=== PATIENT | male | born 1950 | race Caucasian/White ===

== ENCOUNTER 2016-06-15 14:31 | Observation (INO) | payer MEDICARE ==
[~2016-06-15] VITALS: Ht 177.8 cm; Wt 64.0 kg
[~2016-06-15 14:31] MED LIST: CEFU1TAB20 PO; LISI10TA3 PO; NITR0.4S SL; RISPM2 SL; TAMS0.4C4 PO; WARF-18 PO; ZOCO20TA PO
[2016-06-15 14:35] VITALS: BP 119/72; PULSE 88; RESP 20; TEMP 100; O2SAT 93
--- NOTE | 2016-06-15 16:34 | RADRPT ---
EXAM DATE/TIME: 06/15/2016 16:09 [place] COMPARISON: CHEST SINGLE AP, May 31, 2016, 15:26. INDICATIONS : Cough for several days. MEDICAL HISTORY : Chronic obstructive pulmonary disease. Myocardial infarction. SURGICAL HISTORY : CABG. ENCOUNTER: Initial ACUITY: 3 days PAIN SCORE: 4/10 LOCATION: Bilateral chest FINDINGS: Sternal wires from previous median sternotomy are noted. Heart and pulmonary vascularity are normal. Portion of bony skeleton visualized is unremarkable. CONCLUSION: Negative chest for acute disease. Timothy Pretty MD FACR on June 15, 2016 at 16:27 Board Certified Radiologist. This report was verified electronically.
--- NOTE | 2016-06-15 17:42 | PD ---
HPI Chief Complaint: Chest Pain Stated Complaint: RESPIRATORY COMPLAINT Time Seen by Provider: 17:42 Travel History International Travel<30 days: No Contact w/Intl Traveler<30days: No Known affected area: No History of Present Illness HPI 66-year-old male with history of COPD, lung CVA, hypertension, aortic valve replacement, CABG 2, presents to the emergency department for evaluation of substernal chest pain, acute onset this morning. Patient has had a cough productive of a white thick sputum with associated shortness of breath. He is uncertain of fever but has had chills. Patient denies any nausea or vomiting. No focal deficits or weakness. Patient does take Coumadin. He has no other symptoms to report. History Social History Alcohol Use: Yes (socially beer) Tobacco Use: No (QUIT 2006 smoked cigs) Allergies-Medications (Allergen,Severity, Reaction): Coded Allergies: No Known Allergies (Verified , 04/10/15) Reported Meds & Prescriptions Reported Meds & Active Scripts Active Cefuroxime (Cefuroxime Axetil) 500 Mg Tab 500 Mg PO BID Reported Warfarin 2.5 Mg Tab 2.5 Mg PO DAILY Tamsulosin (Tamsulosin HCl) 0.4 Mg Cap 0.4 Mg PO DAILY Zocor (Simvastatin) 20 Mg Tab 20 Mg PO HS Risperdal M-Tab (Risperidone) 2 Mg Tab 1.5 Mg SL Q12HR Nitrostat SL (Nitroglycerin) 0.4 Mg Subl 0.4 Mg SL DIRECTED PRN 1 tablet under the tongue as needed for chest pain. Repeat every 5 minutes for a total of 3 DOSES or call 911 if NO relief. Lisinopril 10 Mg Tab 10 Mg PO DAILY Review of Systems Except as stated in HPI: all other systems reviewed are Neg Physical Exam Narrative GENERAL: Chronically ill but well-nourished appearing male patient, brought in by wheelchair, in no acute distress SKIN: Warm and dry. HEAD: Atraumatic. Normocephalic. EYES: Pupils equal and round. No scleral icterus. No injection or drainage. ENT: No nasal bleeding or discharge. Mucous membranes pink and moist. NECK: Trachea midline. No JVD. CARDIOVASCULAR: Elevated rate and rhythm. 3/6 systolic aortic murmur appreciated. RESPIRATORY: No accessory muscle use. Coarse with an extra wheeze, diminished bilateral bases. Breath sounds equal bilaterally. GASTROINTESTINAL: Abdomen soft, non-tender, nondistended. Hepatic and splenic margins not palpable. MUSCULOSKELETAL: No obvious deformities. No clubbing. No cyanosis. No edema. NEUROLOGICAL: Awake and alert. No obvious cranial nerve deficits. Motor grossly within normal limits. Normal speech. Data Data Last Documented VS Vital Signs Date Time Temp Pulse Resp B/P Pulse Ox O2 Delivery O2 Flow Rate FiO2 06/15/16 18:37 90 22 118/87 93 06/15/16 14:35 100.0 Room Air Orders Electrocardiogram (06/15/16 15:53) Complete Blood Count With Diff (06/15/16 15:53) Basic Metabolic Panel (Bmp) (06/15/16 15:53) Ckmb (Isoenzyme) Profile (06/15/16 15:53) Troponin I (06/15/16 15:53) Chest, Single Ap (06/15/16 15:53) Iv Access Insert/Monitor (06/15/16 15:53) Ecg Monitoring (06/15/16 15:53) Oxygen Administration (06/15/16 15:53) Oximetry (06/15/16 15:53) B-Type Natriuretic Peptide (06/15/16 17:48) CKMB (06/15/16 14:30) CKMB% (06/15/16 14:30) Troponin I (06/15/16 19:26) Ckmb (Isoenzyme) Profile (06/15/16 19:26) Electrocardiogram (06/15/16 ) Labs Laboratory Tests Test 06/15/16 06/15/16 14:30 18:00 Sodium Level 136 MEQ/L Potassium Level 4.1 MEQ/L Chloride Level 101 MEQ/L Carbon Dioxide Level 25.8 MEQ/L Anion Gap 9 MEQ/L Blood Urea Nitrogen 10 MG/DL Creatinine 1.06 MG/DL Estimat Glomerular Filtration 70 ML/MIN Rate Random Glucose 82 MG/DL Calcium Level 8.7 MG/DL Total Creatine Kinase 116 U/L Creatine Kinase MB LESS THAN 0.5 NG/ML Troponin I LESS THAN 0.02 NG/ML White Blood Count 4.3 TH/MM3 Red Blood Count 4.35 MIL/MM3 Hemoglobin 13.7 GM/DL Hematocrit 39.7 % Mean Corpuscular Volume 91.4 FL Mean Corpuscular Hemoglobin 31.5 PG Mean Corpuscular Hemoglobin 34.5 % Concent Red Cell Distribution Width 14.0 % Platelet Count 123 TH/MM3 Mean Platelet Volume 7.9 FL Neutrophils (%) (Auto) 74.5 % Lymphocytes (%) (Auto) 10.9 % Monocytes (%) (Auto) 12.0 % Eosinophils (%) (Auto) 0.2 % Basophils (%) (Auto) 2.4 % Neutrophils # (Auto) 3.2 TH/MM3 Lymphocytes # (Auto) 0.5 TH/MM3 Monocytes # (Auto) 0.5 TH/MM3 Eosinophils # (Auto) 0.0 TH/MM3 Basophils # (Auto) 0.1 TH/MM3 CBC Comment DIFF FINAL Differential Comment B-Type Natriuretic Peptide 137 PG/ML MDM Medical Decision Making Medical Screen Exam Complete: Yes Emergency Medical Condition: Yes Medical Record Reviewed: Yes Differential Diagnosis COPD exacerbation versus CHF exacerbation versus ACS versus pneumonia versus malignancy Narrative Course 66-year-old male presents to the emergency department for evaluation of chest pain. Patient was protocoled by nursing staff. Chest x-ray has resulted no acute cardiopulmonary disease. CBC and BMP are without acute concern. Troponins less than 0.02. BNP is 137. After waiting in the emergency department waiting area, patient is moved to a triage room where I'm able to assess him repeat EKG and troponin is ordered. This is pending. Once a medical bed becomes available, patient will be transferred to that pod. Diagnosis Primary Impression: Chest pain Qualified Code: R07.9 - Chest pain, unspecified type Additional Impression: Shortness of breath Condition: Stable JsElvi HOWARD Jun 15, 2016 17:42
[2016-06-15 18:11] LABS: ANION GAP 9 MEQ/L (5-15); BICARBONATE 25.8 MEQ/L (21.0-32.0); BLOOD UREA NITROGEN 10 MG/DL (7-18); CHLORIDE 101 MEQ/L (98-107); GLOMERULAR FILTRATION RATE 70 ML/MIN (>89); POTASSIUM 4.1 MEQ/L (3.5-5.1); SODIUM (NA) 136 MEQ/L (136-145)
[2016-06-15 18:12] LABS: AUTOMATED NEUTROPHIL # 3.2 TH/MM3 (1.8-7.7); BASOPHIL # 0.1 TH/MM3 (0-0.2); BASOPHIL % 2.4 % (0.0-2.0); EOSINOPHIL % 0.2 % (0.0-4.0); HEMATOCRIT 39.7 % (39.0-51.0); HEMO FLAGS DIFF FINAL; LYMPH % 10.9 % (9.0-44.0); LYMPHOCYTE # 0.5 TH/MM3 (1.0-4.8); MEAN CELL VOLUME 91.4 FL (80.0-100.0); MEAN CORPUSCULAR HEMOGLOBIN 31.5 PG (27.0-34.0); MEAN CORPUSCULAR HGB CONC 34.5 % (32.0-36.0); NEUT % 74.5 % (16.0-70.0); PLATELET COUNT 123 TH/MM3 (150-450); RED BLOOD COUNT 4.35 MIL/MM3 (4.50-5.90); WHITE BLOOD COUNT 4.3 TH/MM3 (4.0-11.0)
[2016-06-15 18:14] LABS: CREATINE KINASE 116 U/L (39-308)
[2016-06-15 18:27] LABS: CKMB LESS THAN 0.5 NG/ML (0.5-3.6)
[2016-06-15 18:37] VITALS: BP 118/87; PULSE 90; RESP 22; O2SAT 93
--- NOTE | 2016-06-15 20:12 | EKG ---
Date Performed: 06/15/2016 Time Performed: 16:12:34 PTAGE: 66 years EKG: Sinus rhythm POSSIBLE LEFT ATRIAL ENLARGEMENT LEFT VENTRICULAR HYPERTROPHY AND ST-T CHANGE ABNORMAL ECG COMPARED TO PRIOR ELECTROCARDIOGRAM, ST-T wave changes are present. PREVIOUS TRACING : 05/31/2016 15.18 DOCTOR: Evaristo Gunter Interpretating Date/Time 06/15/2016 20:10:54
[2016-06-15 21:06] LABS: CREATINE KINASE 101 U/L (39-308)
[2016-06-15 21:18] VITALS: BP 128/64; PULSE 74; RESP 16; TEMP 101.2; O2SAT 91
[2016-06-15 21:18] LABS: CKMB LESS THAN 0.5 NG/ML (0.5-3.6)
[2016-06-15] MEDS ORDERED: AZITHROMYCIN INJ 500 MG in SODIUM CHLOR 0.9% 250 ML INJ 250 ML IV ONE (21:30)
[2016-06-15] MEDS ORDERED: SODIUM CHLORIDE 0.9% FLUSH 5 ML FLUSH IVF PRN (21:30)
[2016-06-15] MEDS ORDERED: cefTRIAXone INJ 1,000 MG in SODIUM CHLORIDE 0.9% INJ 100 ML IV ONE (21:30)
[2016-06-15] MEDS: RESP: ALBUTEROL 2.5 MG/3 ML NEB (SCH) INH ×2 (21:53→21:54)
--- NOTE | 2016-06-15 22:03 | PD ---
Data Data Last Documented VS Vital Signs Date Time Temp Pulse Resp B/P Pulse Ox O2 Delivery O2 Flow Rate FiO2 06/15/16 21:18 101.2 74 16 128/64 91 Room Air Orders Electrocardiogram (06/15/16 15:53) Complete Blood Count With Diff (06/15/16 15:53) Basic Metabolic Panel (Bmp) (06/15/16 15:53) Ckmb (Isoenzyme) Profile (06/15/16 15:53) Troponin I (06/15/16 15:53) Chest, Single Ap (06/15/16 15:53) Iv Access Insert/Monitor (06/15/16 15:53) Ecg Monitoring (06/15/16 15:53) Oxygen Administration (06/15/16 15:53) Oximetry (06/15/16 15:53) B-Type Natriuretic Peptide (06/15/16 17:48) CKMB (06/15/16 14:30) CKMB% (06/15/16 14:30) Troponin I (06/15/16 19:26) Ckmb (Isoenzyme) Profile (06/15/16 19:26) Electrocardiogram (06/15/16 ) CKMB (06/15/16 19:55) CKMB% (06/15/16 19:55) Blood Culture (06/15/16 21:27) Sodium Chloride 0.9% Flush (Ns Flush) (06/15/16 21:30) Ceftriaxone Inj (Rocephin Inj) (06/15/16 21:30) Azithromycin Inj (Zithromax Inj) (06/15/16 21:30) Albuterol Neb (Albuterol Neb) (06/15/16 21:30) Admit Order (Ed Use Only) (06/15/16 22:05) Labs Laboratory Tests Test 06/15/16 06/15/16 06/15/16 14:30 18:00 19:55 Sodium Level 136 MEQ/L Potassium Level 4.1 MEQ/L Chloride Level 101 MEQ/L Carbon Dioxide Level 25.8 MEQ/L Anion Gap 9 MEQ/L Blood Urea Nitrogen 10 MG/DL Creatinine 1.06 MG/DL Estimat Glomerular Filtration 70 ML/MIN Rate Random Glucose 82 MG/DL Calcium Level 8.7 MG/DL Total Creatine Kinase 116 U/L 101 U/L Creatine Kinase MB LESS THAN 0.5 LESS THAN 0.5 NG/ML NG/ML Troponin I LESS THAN 0.02 LESS THAN 0.02 NG/ML NG/ML White Blood Count 4.3 TH/MM3 Red Blood Count 4.35 MIL/MM3 Hemoglobin 13.7 GM/DL Hematocrit 39.7 % Mean Corpuscular Volume 91.4 FL Mean Corpuscular Hemoglobin 31.5 PG Mean Corpuscular Hemoglobin 34.5 % Concent Red Cell Distribution Width 14.0 % Platelet Count 123 TH/MM3 Mean Platelet Volume 7.9 FL Neutrophils (%) (Auto) 74.5 % Lymphocytes (%) (Auto) 10.9 % Monocytes (%) (Auto) 12.0 % Eosinophils (%) (Auto) 0.2 % Basophils (%) (Auto) 2.4 % Neutrophils # (Auto) 3.2 TH/MM3 Lymphocytes # (Auto) 0.5 TH/MM3 Monocytes # (Auto) 0.5 TH/MM3 Eosinophils # (Auto) 0.0 TH/MM3 Basophils # (Auto) 0.1 TH/MM3 CBC Comment DIFF FINAL Differential Comment B-Type Natriuretic Peptide 137 PG/ML [facility] Medical Record Reviewed: Yes Supervised Visit with MAYA: Yes Narrative Course CBC & BMP Diagram 06/15/16 14:30 06/15/16 18:00 Last 24 hours Impressions Chest X-Ray 06/15/16 1553 Signed Impressions: Service Date/Time: Wednesday, June 15, 2016 16:09 - CONCLUSION: Negative chest for acute disease. Timothy Pretty MD FACR I, Dr. Tierney, have reviewed the advance practice practitioner's documentation and am in agreement, met with the patient face to face, made the diagnosis, and the medical decision making was done by me. *My assessment and Findings: The patient arrives after about 2 days of chest pain and cough with thick white sputum. He is febrile here to 101.2. He has had a slightly low pulse oximetry on room air 91 however this was while he was resting. He suffers with COPD and has a history of aortic valve replacement and takes Coumadin. The patient will be admitted for IV antibiotics. Blood cultures drawn. Presumably the source of fever is pulmonary or possibly influenza. Discussed with Dr. Kumar. Diagnosis Primary Impression: Chest pain Qualified Code: R07.9 - Chest pain, unspecified type Additional Impression: Shortness of breath Admitting Information Admitting Physician Requests: Observation Condition: Stable Kirt Tierney MD Jun 15, 2016 22:03
[2016-06-15] MEDS ORDERED: BISACODYL 10 MG SUPP PR PRN (22:15)
[2016-06-15] MEDS ORDERED: NALOXONE HCL 0.4 MG/ML AMP IV PRN (22:15)
[2016-06-15] MEDS ORDERED: HYDROmorphone HCL 2 MG TAB PO PRN ×2 (22:15)
[2016-06-15] MEDS ORDERED: SODIUM CHLORIDE 0.9% FLUSH 5 ML FLUSH FLUSH PRN (22:15)
[2016-06-15] MEDS ORDERED: PROCHLORPERAZINE 25 MG SUPP PR PRN (22:15)
[2016-06-15] MEDS ORDERED: SENNOSIDES 8.6 MG TAB PO PRN (22:15)
[2016-06-15] MEDS ORDERED: ACETAMINOPHEN 325 MG TAB PO PRN (22:15)
[2016-06-15] MEDS ORDERED: HYDROmorphone HCL PF 1 MG/ML VIAL IV PRN (22:15)
[2016-06-15] MEDS ORDERED: ONDANSETRON HCL 4 MG/2 ML VIAL IVP PRN (22:15)
[2016-06-15] MEDS ORDERED: TEMAZEPAM 15 MG CAP PO PRN (22:15)
[2016-06-15] MEDS ORDERED: ACETAMINOPHEN/HYDROcodone 325 MG/5 MG TAB PO PRN (22:15)
[2016-06-15] MEDS ORDERED: RESP: ALBUTEROL 2.5 MG/IPRATROPIUM 0.5 MG NEB (PRN) NEB (22:30)
[2016-06-15 23:07] LABS: APTT (PATIENT) 32.2 SEC (24.3-30.1); INTERNATIONAL NORMALIZED RATIO 1.3 RATIO; PROTHROMBIN TIME - PATIENT 14.2 SEC (9.8-11.6)
[2016-06-15] MEDS: SODIUM CHLOR 0.9% 1000 ML INJ 1,000 ML IV SCH (23:07)
[2016-06-15 23:14] VITALS: BP 102/58; PULSE 86; RESP 18; TEMP 100.7; O2SAT 94
[2016-06-15 23:18] LABS: CREATINE KINASE 107 U/L (39-308)
--- NOTE | 2016-06-15 23:33 | HHI.HP ---
[facility] Torsten Zuñiga MD Admission Diagnosis Fever, Cough, CP Diagnoses: Chief Complaint: feevr , cough chest pain Travel History International Travel<30 Days: No Contact w/Intl Traveler <30 Da: No Traveled to Known Affected Are: No History of Present Illness 66-year-old male with history of COPD, CVA, hypertension, aortic valve replacement, CABG 2, presents to the emergency department for evaluation of substernal chest pain, acute onset this morning. Patient has had a cough productive of a white thick sputum with associated shortness of breath. He is uncertain of fever but has had chills. Patient denies any nausea or vomiting. No focal deficits or weakness. Patient does take Coumadin. He has no other symptoms to report. Review of Systems Constitutional: DENIES: Fever, Chills, Change in appetite Endocrine: DENIES: Heat/cold intolerance Eyes: DENIES: Blurred vision, Eye pain Ears, nose, mouth, throat: DENIES: Tinnitus, Hearing loss, Vertigo, Nasal discharge, Oral lesions, Throat pain, Hoarseness, Ear Pain, Running Nose, Epistaxis, Sinus Pain, Toothache, Odynophagia Respiratory: COMPLAINS OF: Cough, Shortness of breath, DENIES: Apneas, Snoring , Wheezing, Hemoptysis, Sputum production Cardiovascular: COMPLAINS OF: Chest pain, DENIES: Palpitations, Syncope, Dyspnea on Exertion, PND, Lower Extremity Edema, Orthopnea, Claudication Gastrointestinal: DENIES: Abdominal pain, Black stools, Bloody stools, Constipation, Diarrhea, Nausea, Vomiting, Difficulty Swallowing, Anorexia Genitourinary: DENIES: Urgency, Hematuria, Dysuria, Nocturia Musculoskeletal: COMPLAINS OF: Joint pain, Neck pain Integumentary: DENIES: Rash Neurologic: DENIES: Abnormal gait, Headache, Localized weakness, Paresthesias, Seizures, Speech Problems, Tremor, Poor Balance Psychiatric: COMPLAINS OF: Anxiety Past Family Social History Past Medical History CABG with porcine valve replacement in 06 Back surgeries 1987 Bilateral inguinal hernias Hypertension Cholesterol Denies CHF, asthma, COPD, emphysema, cough, diabetes, liver pain as previously reported in EMR. Past Surgical History Right inguinal hernia repair Back operation 1986, unable to specify what he had done CABG with porcine valve replacement 2005 Reported Medications Reported Meds & Active Scripts Active Cefuroxime (Cefuroxime Axetil) 500 Mg Tab 500 Mg PO BID Reported Warfarin 2.5 Mg Tab 2.5 Mg PO DAILY Tamsulosin (Tamsulosin HCl) 0.4 Mg Cap 0.4 Mg PO DAILY Zocor (Simvastatin) 20 Mg Tab 20 Mg PO HS Risperdal M-Tab (Risperidone) 2 Mg Tab 1.5 Mg SL Q12HR Nitrostat SL (Nitroglycerin) 0.4 Mg Subl 0.4 Mg SL DIRECTED PRN 1 tablet under the tongue as needed for chest pain. Repeat every 5 minutes for a total of 3 DOSES or call 911 if NO relief. Lisinopril 10 Mg Tab 10 Mg PO DAILY Allergies: Coded Allergies: No Known Allergies (Verified , 04/10/15) Family History Mother had CAD, of old age. Father had CAD, of cancer. Social History Drinks beer, quantity not specified. Smoked one pack per day, for 36 years quit in 2005 after her operation. Admits to occasional marijuana use, last a few months ago, denies IV drug use. Physical Exam Vital Signs Vital Signs Date Time Temp Pulse Resp B/P Pulse Ox O2 Delivery O2 Flow Rate FiO2 06/15/16 23:14 100.7 86 18 102/58 94 Room Air 06/15/16 21:18 101.2 74 16 128/64 91 Room Air 06/15/16 18:37 90 22 118/87 93 06/15/16 14:35 100.0 88 20 119/72 93 Room Air Physical Exam GENERAL: This is a well-nourished, well-developed patient, in some distress 2/2 sob and persistent cough. HEAD: Atraumatic. Normocephalic. No temporal or scalp tenderness. EYES: Pupils equal round and reactive. Extraocular motions intact. No scleral icterus. No injection or drainage. ENT: Nose without bleeding, purulent drainage or septal hematoma. Throat without erythema, tonsillar hypertrophy or exudate. Uvula midline. Airway patent. NECK: Trachea midline. No JVD or lymphadenopathy. Supple, nontender, no meningeal signs. CARDIOVASCULAR: Regular rate and rhythm without murmurs, gallops, or rubs. RESPIRATORY: + Cough, sob, scattered wheezing. No rales, or rhonchi. GASTROINTESTINAL: Abdomen soft, non-tender, nondistended. No hepato-splenomegaly , or palpable masses. No guarding. MUSCULOSKELETAL: Extremities without clubbing, cyanosis, or edema. No joint tenderness, effusion, or edema noted. No calf tenderness. Negative Homans sign bilaterally. NEUROLOGICAL: Awake and alert. Cranial nerves II through XII intact. Motor and sensory grossly within normal limits. Five out of 5 muscle strength in all muscle groups. Normal speech. Laboratory Laboratory Tests Test 06/15/16 06/15/16 06/15/16 06/15/16 14:30 18:00 19:55 22:40 Sodium Level 136 Potassium Level 4.1 Chloride Level 101 Carbon Dioxide Level 25.8 Anion Gap 9 Blood Urea Nitrogen 10 Creatinine 1.06 Estimat Glomerular Filtration 70 Rate Random Glucose 82 Calcium Level 8.7 Total Creatine Kinase 116 101 107 Creatine Kinase MB LESS THAN 0.5 LESS THAN 0.5 Troponin I LESS THAN 0.02 LESS THAN 0.02 LESS THAN 0.02 White Blood Count 4.3 Red Blood Count 4.35 Hemoglobin 13.7 Hematocrit 39.7 Mean Corpuscular Volume 91.4 Mean Corpuscular Hemoglobin 31.5 Mean Corpuscular Hemoglobin 34.5 Concent Red Cell Distribution Width 14.0 Platelet Count 123 Mean Platelet Volume 7.9 Neutrophils (%) (Auto) 74.5 Lymphocytes (%) (Auto) 10.9 Monocytes (%) (Auto) 12.0 Eosinophils (%) (Auto) 0.2 Basophils (%) (Auto) 2.4 Neutrophils # (Auto) 3.2 Lymphocytes # (Auto) 0.5 Monocytes # (Auto) 0.5 Eosinophils # (Auto) 0.0 Basophils # (Auto) 0.1 CBC Comment DIFF FINAL Differential Comment B-Type Natriuretic Peptide 137 Prothrombin Time 14.2 Prothromb Time International 1.3 Ratio Activated Partial 32.2 Thromboplast Time Date/Time Procedure Status Source Growth 06/15/16 21:45 Aerobic Blood Culture Received Blood Peripheral Pending 06/15/16 21:45 Anaerobic Blood Culture Received Blood Peripheral Pending Result Diagram: 06/15/16 1800 06/15/16 0910 Assessment and Plan Assessment and Plan 65-year-old male with Hypertension, dyslipidemia, chronic back pain, major depressive disorder with psychotic symptoms. Fever, cough, chest pain H/o CAD with CABG in the past. Restart home meds. Trops neg x2 , trand trops. EKG no change from baseline. Repeat EKG Noted with Temp 101 Tylenol for fevers Pain meds per pain scale Start ceftriaxone and azithromycin Check sputum cultures if obtainable No leukocytosis or tachy Major depressive disorder with psychotic symptoms-continue home meds Hypertensionrestart home meds. Monitor VS Dyslipidemia- restart statin Chronic neck painTylenol as needed. DVT prophylaxispatient is ambulatory Code Status full Discussed Condition With patient, nurse, ED physician Dayana Kumar MD Jun 15, 2016 23:33 Dayana Kumar MD Jun 15, 2016 23:33
[2016-06-16] VITALS (9 sets, daily range): BP systolic 104–140; BP diastolic 55–76; PULSE 54–81; RESP 18–20; TEMP 97.2–99.8; O2SAT 93–96
[2016-06-16 04:37] LABS: AUTOMATED NEUTROPHIL # 2.2 TH/MM3 (1.8-7.7); BASOPHIL % 0.9 % (0.0-2.0); EOSINOPHIL % 0.1 % (0.0-4.0); HEMATOCRIT 36.2 % (39.0-51.0); HEMO FLAGS DIFF FINAL; LYMPH % 24.9 % (9.0-44.0); LYMPHOCYTE # 0.9 TH/MM3 (1.0-4.8); MEAN CORPUSCULAR HEMOGLOBIN 31.4 PG (27.0-34.0); MEAN CORPUSCULAR HGB CONC 34.1 % (32.0-36.0); MONO % 14.7 % (0.0-8.0); NEUT % 59.4 % (16.0-70.0); PLATELET COUNT 101 TH/MM3 (150-450); RED BLOOD COUNT 3.94 MIL/MM3 (4.50-5.90); RED CELL DISTRIBUTION WIDTH 14.1 % (11.6-17.2); WHITE BLOOD COUNT 3.7 TH/MM3 (4.0-11.0)
[2016-06-16 05:03] LABS: ALKALINE PHOSPHATASE 50 U/L (45-117); ALT (GPT) 17 U/L (12-78); ANION GAP 9 MEQ/L (5-15); AST (GOT) 15 U/L (15-37); BICARBONATE 28.4 MEQ/L (21.0-32.0); BLOOD UREA NITROGEN 11 MG/DL (7-18); CHLORIDE 101 MEQ/L (98-107); CREATINE KINASE 122 U/L (39-308); GLOMERULAR FILTRATION RATE 69 ML/MIN (>89); POTASSIUM 4.3 MEQ/L (3.5-5.1); SODIUM (NA) 138 MEQ/L (136-145); TOTAL BILIRUBIN ADULT 0.5 MG/DL (0.2-1.0)
[2016-06-16] MEDS: RESP: ALBUTEROL 2.5 MG/IPRATROPIUM 0.5 MG NEB (SCH) NEB ×3 (07:52→19:54)
--- NOTE | 2016-06-16 08:13 | EKG ---
Date Performed: 06/15/2016 Time Performed: 21:44:22 PTAGE: 66 years EKG: Sinus rhythm POSSIBLE LEFT ATRIAL ENLARGEMENT NONSPECIFIC ST & T-WAVE ABNORMALITY BORDERLINE ECG NO SIGNIFICANT C HANGE FROM PRIOR ELECTROCARDIOGRAM. PREVIOUS TRACING : 06/15/2016 20.14 DOCTOR: Evaristo Gunter Interpretating Date/Time 06/16/2016 08:12:02
--- NOTE | 2016-06-16 08:14 | EKG ---
Date Performed: 06/15/2016 Time Performed: 20:14:03 PTAGE: 66 years EKG: Sinus rhythm POSSIBLE LEFT ATRIAL ENLARGEMENT NONSPECIFIC ST & T-WAVE ABNORMALITY BORDERLINE ECG NO SIGNIFICANT C HANGE FROM PRIOR ELECTROCARDIOGRAM. PREVIOUS TRACING : 06/15/2016 16.12 DOCTOR: Evaristo Gunter Interpretating Date/Time 06/16/2016 08:13:07
[2016-06-16] MEDS: SODIUM CHLORIDE 0.9% FLUSH 5 ML FLUSH FLUSH SCH ×2 (08:36→21:06)
[2016-06-16] MEDS: SODIUM CHLOR 0.9% 1000 ML INJ 1,000 ML IV SCH ×2 (08:36→15:59)
[2016-06-16] MEDS: ACETAMINOPHEN/HYDROcodone 325 MG/10 MG TAB PO PRN ×2 (08:39→21:22)
[2016-06-16] MEDS ORDERED: cefTRIAXone INJ 1,000 MG in SODIUM CHLORIDE 0.9% INJ 100 ML IV SCH (21:00)
[2016-06-16] MEDS ORDERED: guaiFENesin/DEXTROMETHORPHAN 200 MG/20 MG/10 ML CUP PO PRN (21:30)
--- NOTE | 2016-06-16 21:36 | HHI.PR ---
Subjective Remarks Breathing better. Still with cough and pleuritic chest pain Objective Vitals Vital Signs Date Time Temp Pulse Resp B/P Pulse Ox O2 Delivery O2 Flow Rate FiO2 06/16/16 21:09 99.6 72 20 140/67 95 06/16/16 20:02 95 21 06/16/16 16:29 97.2 60 18 122/61 95 06/16/16 14:09 58 20 104/55 93 Room Air 06/16/16 12:41 98.0 54 20 115/55 95 Room Air 06/16/16 08:30 71 20 118/61 96 Room Air 06/16/16 07:53 95 21 06/16/16 01:00 99.8 81 18 105/76 95 Room Air 06/15/16 23:14 100.7 86 18 102/58 94 Room Air Result Diagram: 06/16/16 0401 06/16/16 0401 Objective Remarks GENERAL: This is a well-nourished, well-developed patient, in no apparent distress. CARDIOVASCULAR: Regular rate and rhythm RESPIRATORY: Diminished breath sounds bilaterally GASTROINTESTINAL: Abdomen soft, non-tender, nondistended. Normal active bowel sounds MUSCULOSKELETAL: Extremities without clubbing, cyanosis, or edema. NEURO: Alert & Oriented x4 to person, place, time, situation. Moves all ext x4 A/P Assessment and Plan 65-year-old male with URI/Bronchitis - possible viral but will continue with empiric antibiotics Rocephin and azithromycin, influenza negative Pleuritic chest pain likely secondary to bronchitispatient does have a history of CAD - serial cardiac enzymes was negative. In addition patient had a nuclear stress test back in November 2014 which was negative. Repeat EKG stable with no changes. H/o CAD with CABG in the past. - Restart home medication Major depressive disorder with psychotic symptoms-continue home meds Hypertensionrestart home meds. Overall controlled. Dyslipidemia- restart statin Chronic neck painTylenol as needed. DVT prophylaxisNo mechanical or pharmaceutical VTE prophalaxis administered due to patient's low risk assessment of VTE. Encouraged ambulation. Carla Drew MD Jun 16, 2016 21:36
[2016-06-16] MEDS ORDERED: AZITHROMYCIN INJ 500 MG in SODIUM CHLOR 0.9% 250 ML INJ 250 ML IV SCH (22:00)
[2016-06-17 00:05] VITALS: BP 109/65; PULSE 58; RESP 20; TEMP 97.8; O2SAT 95
[2016-06-17 03:57] VITALS: BP 121/58; PULSE 56; RESP 20; TEMP 98.9; O2SAT 95
[2016-06-17 08:00] VITALS: PULSE 64
[2016-06-17 08:28] VITALS: BP 127/66; PULSE 60; RESP 19; TEMP 98; O2SAT 93
[2016-06-17] MEDS: RESP: ALBUTEROL 2.5 MG/IPRATROPIUM 0.5 MG NEB (SCH) NEB ×2 (08:37→13:22)
--- NOTE | 2016-06-17 08:57 | HHI.PR ---
Subjective Remarks Still coughing. No complaints of chest pain. Requesting to use nebulizer treatments at home. Does not have a nebulizer machine. Objective Vitals Vital Signs Date Time Temp Pulse Resp B/P Pulse Ox O2 Delivery O2 Flow Rate FiO2 06/17/16 08:40 21 06/17/16 08:28 98.0 60 19 127/66 93 06/17/16 03:57 98.9 56 20 121/58 95 06/17/16 00:05 97.8 58 20 109/65 95 06/16/16 21:09 99.6 72 20 140/67 95 06/16/16 20:02 95 21 06/16/16 20:00 72 06/16/16 16:29 97.2 60 18 122/61 95 06/16/16 14:09 58 20 104/55 93 Room Air 06/16/16 12:41 98.0 54 20 115/55 95 Room Air I/O 06/16/16 06/16/16 06/16/16 06/17/16 06/17/16 06/17/16 07:00 15:00 23:00 07:00 15:00 23:00 Intake Total 2165 ml Balance 2165 ml Intake Oral 240 ml IV Total 1925 ml # Voids 2 Result Diagram: 06/16/16 0401 06/16/16 0401 Other Results Microbiology Date/Time Procedure Status Source Growth 06/16/16 08:55 Influenza Types A,B Antigen (NEERU) - Final Complete Nasal Aspirate NEGATIVE FOR FLU A AND B ANTIGEN.... 06/16/16 08:30 Influenza Types A,B Antigen (NEERU) Ordered Nasal Aspirate Pending 06/15/16 22:50 Legionella Antigen - Final Complete Urine Random Urine PRESUMPTIVE NEGATIVE FOR LEGIONELLA P... 06/15/16 22:50 Streptococcus pneumoniae Antigen (M - Final Complete Urine Random Urine PRESUMPTIVE NEGATIVE FOR STREPTOCOCCU... 06/15/16 21:45 Aerobic Blood Culture - Preliminary Resulted Blood Peripheral NO GROWTH IN 1 DAY 06/15/16 21:45 Anaerobic Blood Culture - Preliminary Resulted Blood Peripheral NO GROWTH IN 1 DAY Objective Remarks GENERAL: This is a well-nourished, well-developed patient, in no apparent distress. CARDIOVASCULAR: Regular rate and rhythm RESPIRATORY: Diminished breath sounds bilaterally GASTROINTESTINAL: Abdomen soft, non-tender, nondistended. Normal active bowel sounds MUSCULOSKELETAL: Extremities without clubbing, cyanosis, or edema. NEURO: Alert & Oriented x4 to person, place, time, situation. Moves all ext x4 A/P Problem List: (1) Acute exacerbation of chronic obstructive pulmonary disease (COPD) ICD Code: J44.1 Status: Acute (2) URI (upper respiratory infection) ICD Code: J06.9 Status: Acute Assessment and Plan 65-year-old male with Acute exacerbation of COPDdose of steroids and transitioned to by mouth steroids on discharge. Continue bronchodilators do an abscess and arrange for the place where she has an outpatient. URI/Bronchitis - possible viral but will continue with empiric antibiotics Rocephin and azithromycin, and transitioned to by mouth Ceftin and Zithromax. Influenza negative Pleuritic chest pain likely secondary to bronchitispatient does have a history of CAD - serial cardiac enzymes was negative. In addition patient had a nuclear stress test back in November 2014 which was negative. Repeat EKG stable with no changes. H/o CAD with CABG in the past. - Restart home medications Major depressive disorder with psychotic symptoms-continue home Hypertensionrestart home meds. Overall controlled. Dyslipidemia- restart statin Chronic neck painTylenol as needed. DVT prophylaxisNo mechanical or pharmaceutical VTE prophalaxis administered due to patient's low risk assessment of VTE. Encouraged ambulation. Discharge Planning Discharge to home with nebulizer machine and follow with primary care physician Carla Drew MD Jun 17, 2016 08:57
[2016-06-17] MEDS ORDERED: methylPREDNISolone SOD SUCC 125 MG/2 ML VIAL IV ONE (09:00)
[2016-06-17] MEDS ORDERED: PRED20 PO (09:02)
[2016-06-17] MEDS ORDERED: IPRASOL INH (09:02)
[2016-06-17] MEDS ORDERED: AZIT500T2 PO (09:02)
[2016-06-17] MEDS ORDERED: NEBULIZER1 MI1 (09:02)
--- NOTE | 2016-06-17 09:02 | HHI.DCPOC ---
Discharge Care Plan Diagnosis: (1) Acute exacerbation of chronic obstructive pulmonary disease (COPD) (2) URI (upper respiratory infection) Your Health Problems Are: Cough Goals to Promote Your Health * To prevent worsening of your condition and complications * To maintain your health at the optimal level Directions to Meet Your Goals Take your medications as prescribed Follow your dietary instruction Follow activity as directed Keep your appointments as scheduled Take your immunizations and boosters as scheduled If your symptoms worsen call your PCP, if no PCP go to Urgent Care Center or Emergency Room Smoking is Dangerous to Your Health. Avoid second hand smoke Call the 24-hour hour crisis hotline for domestic abuse at Carla Drew MD Jun 17, 2016 09:02
--- NOTE | 2016-06-17 09:06 | HHI.DS ---
cc: Torsten uZñiga MD Discharge Summary Admission Date Jun 15, 2016 at 22:05 Discharge Date: Jun 17, 2016 Admitting Diagnosis Fever, Cough, CP (1) Acute exacerbation of chronic obstructive pulmonary disease (COPD) ICD Code: J44.1 Diagnosis: Principal (2) URI (upper respiratory infection) ICD Code: J06.9 Diagnosis: Secondary Procedures none Brief History - From Admission 66-year-old male with history of COPD, CVA, hypertension, aortic valve replacement, CABG 2, presents to the emergency department for evaluation of substernal chest pain, acute onset this morning. Patient has had a cough productive of a white thick sputum with associated shortness of breath. He is uncertain of fever but has had chills. Patient denies any nausea or vomiting. No focal deficits or weakness. Patient does take Coumadin. He has no other symptoms to report. CBC/BMP: 06/16/16 0401 06/16/16 0401 Significant Findings Laboratory Tests Test 06/15/16 06/15/16 06/15/16 06/15/16 14:30 18:00 19:55 22:40 Estimat Glomerular Filtration 70 ML/MIN (>89) Rate Creatine Kinase MB LESS THAN 0.5 LESS THAN 0.5 NG/ML (0.5-3.6) NG/ML (0.5-3.6) Troponin I LESS THAN 0.02 LESS THAN 0.02 LESS THAN 0.02 NG/ML NG/ML NG/ML (0.02-0.05) (0.02-0.05) (0.02-0.05) Red Blood Count 4.35 MIL/MM3 (4.50-5.90) Platelet Count 123 TH/MM3 (150-450) Neutrophils (%) (Auto) 74.5 % (16.0-70.0) Monocytes (%) (Auto) 12.0 % (0.0-8.0) Basophils (%) (Auto) 2.4 % (0.0-2.0) Lymphocytes # (Auto) 0.5 TH/MM3 (1.0-4.8) B-Type Natriuretic Peptide 137 PG/ML (0-100) Prothrombin Time 14.2 SEC (9.8-11.6) Activated Partial 32.2 SEC Thromboplast Time (24.3-30.1) Test 06/16/16 04:01 White Blood Count 3.7 TH/MM3 (4.0-11.0) Red Blood Count 3.94 MIL/MM3 (4.50-5.90) Hemoglobin 12.4 GM/DL (13.0-17.0) Hematocrit 36.2 % (39.0-51.0) Platelet Count 101 TH/MM3 (150-450) Monocytes (%) (Auto) 14.7 % (0.0-8.0) Lymphocytes # (Auto) 0.9 TH/MM3 (1.0-4.8) Estimat Glomerular Filtration 69 ML/MIN (>89) Rate Calcium Level 7.9 MG/DL (8.5-10.1) Total Protein 6.2 GM/DL (6.4-8.2) Albumin 3.2 GM/DL (3.4-5.0) Imaging Last Impressions Chest X-Ray 06/15/16 1553 Signed Impressions: Service Date/Time: Wednesday, June 15, 2016 16:09 - CONCLUSION: Negative chest for acute disease. Timothy Pretty MD FACR PE at Discharge GENERAL: This is a well-nourished, well-developed patient, in no apparent distress. CARDIOVASCULAR: Regular rate and rhythm RESPIRATORY: Diminished breath sounds bilaterally GASTROINTESTINAL: Abdomen soft, non-tender, nondistended. Normal active bowel sounds MUSCULOSKELETAL: Extremities without clubbing, cyanosis, or edema. NEURO: Alert & Oriented x4 to person, place, time, situation. Moves all ext x4 Hospital Course 66-year-old white male was admitted for acute suspicion COPD and upper respiratory infection along with chest pain. Serial cardiac enzymes was obtained which was negative. Reviewing his old records showed a negative nuclear stress test back in November 2014. Patient responded well to antibiotics, supportive care, steroids, bronchodilators. Arrangements for a nebulizer machine was provided on discharge. He was placed on both IV azithromycin and IV Rocephin and transition home to by mouth Zithromax. At this time, patient has gained maximum benefit from hospitalization and ready to be discharged to home. Pt Condition on Discharge: Good Discharge Disposition: Discharge Home Discharge Time: <= 30 minutes Discharge Instructions DIET: Follow Instructions for: As Tolerated, No Restrictions Activities you can perform: Regular-No Restrictions Follow up Referrals: PCP Follow-up - 1 Week New Medications: Azithromycin (Azithromycin) 500 Mg Tab 500 MG PO DAILY Infection #3 Ref 0 TAB Ipratropium-Albuterol Neb (Duoneb) 0.5-2.5 Mg/3 Ml Neb 1 NEBULE INH Q4HR NEB Breathing Treatment #180 Ref 0 NEBULE Nebulizer (Nebulizer) 1 Mis Mis 1 EA .ROUTE DIRECTED Breathing Treatment #1 Ref 0 EA Prednisone (Prednisone) 20 Mg Tab 20 MG PO DIRECTED 20 MG twice a day x 3 days, then 20 MG daily x 3 days, then 10 MG daily x 3 days Inflammation #11 Ref 0 TAB Continued Medications: Cefuroxime (Cefuroxime) 500 Mg Tab 500 MG PO BID Infection #14 Ref 0 TAB Lisinopril (Lisinopril) 10 Mg Tab 10 MG PO DAILY #30 Ref 0 TAB Nitroglycerin SL (Nitrostat SL) 0.4 Mg Subl 0.4 MG SL DIRECTED 1 tablet under the tongue as needed for chest pain. Repeat every 5 minutes for a total of 3 DOSES or call 911 if NO relief. PRN CHEST PAIN #100 Ref 0 TAB.SL Risperidone Odt (Risperdal M-Tab) 2 Mg Tab 1.5 MG SL Q12HR #60 Ref 0 TAB Simvastatin (Zocor) 20 Mg Tab 20 MG PO HS Cholesterol Management #30 Ref 0 TAB Tamsulosin (Tamsulosin) 0.4 Mg Cap 0.4 MG PO DAILY Manage Prostate Problems #30 Ref 0 CAP Warfarin (Warfarin) 2.5 Mg Tab 2.5 MG PO DAILY Blood Clot Prevention #30 Ref 0 TAB Carla Drew MD Jun 17, 2016 09:06
[2016-06-17] MEDS: SODIUM CHLORIDE 0.9% FLUSH 5 ML FLUSH FLUSH SCH (12:08)
[2016-06-17 12:54] VITALS: BP 126/65; PULSE 59; RESP 19; TEMP 98; O2SAT 96
== END 2016-06-17 18:26 | disposition home or self-care (01) ==
LOC: NETRI 14:31 → INTOOBSV 22:05 → NEDA 22:05 → NEPGCP 06-16 14:55
PROVIDERS: ADMIT Internal Medicine; ATTEND Internal Medicine
DX: J44.1 Chronic obstructive pulmonary disease with (acute) exacerbation (principal); J06.9 Acute upper respiratory infection, unspecified; I25.10 Atherosclerotic heart disease of native coronary artery without angina pectoris; I10 Essential (primary) hypertension; E78.5 Hyperlipidemia, unspecified; F32.3 Major depressive disorder, single episode, severe with psychotic features; R07.9 Chest pain, unspecified; R06.02 Shortness of breath; Z95.1 Presence of aortocoronary bypass graft; Z79.01 Long term (current) use of anticoagulants; Z87.891 Personal history of nicotine dependence; Z86.73 Personal history of transient ischemic attack (TIA), and cerebral infarction without residual deficits
CPT/HCPCS: 71010; 80048; 80053; 82550; 82552; 82948; 83880; 84484; 85025; 85610; 85730; 87040; 87149; 87205; 87449; 87804; 93005; 94640; 94664; 96365; 97163; 99285; G0378; G8987; G8988; J0456; J0696; J2930; J7030; J7050; J7613

== ENCOUNTER 2016-06-25 22:19 | Emergency (ER) | payer MEDICARE, OTHER ==
[~2016-06-25] VITALS: Ht 188 cm; Wt 80.0 kg
[~2016-06-25 22:19] MED LIST changes: +AZIT500T2 PO; +IPRASOL INH; +NEBULIZER1 MI1; +PRED20 PO
[2016-06-25 22:51] VITALS: BP 156/62; PULSE 72; RESP 16; TEMP 98.2; O2SAT 97
[2016-06-25 23:46] LABS: AUTOMATED NEUTROPHIL # 3.4 TH/MM3 (1.8-7.7); BASOPHIL # 0.1 TH/MM3 (0-0.2); BASOPHIL % 0.8 % (0.0-2.0); EOSINOPHIL # 0.1 TH/MM3 (0-0.4); EOSINOPHIL % 1.3 % (0.0-4.0); HEMATOCRIT 40.2 % (39.0-51.0); HEMO FLAGS DIFF FINAL; LYMPH % 35.7 % (9.0-44.0); LYMPHOCYTE # 2.3 TH/MM3 (1.0-4.8); MEAN CELL VOLUME 89.7 FL (80.0-100.0); MEAN CORPUSCULAR HGB CONC 34.6 % (32.0-36.0); MONO % 9.7 % (0.0-8.0); NEUT % 52.5 % (16.0-70.0); PLATELET COUNT 176 TH/MM3 (150-450); RED BLOOD COUNT 4.49 MIL/MM3 (4.50-5.90); RED CELL DISTRIBUTION WIDTH 13.9 % (11.6-17.2); WHITE BLOOD COUNT 6.5 TH/MM3 (4.0-11.0)
[2016-06-26 00:35] LABS: ACETAMINOPHEN LESS THAN 2.0 MCG/ML (10.0-30.0); ALKALINE PHOSPHATASE 53 U/L (45-117); ALT (GPT) 23 U/L (12-78); ANION GAP 12 MEQ/L (5-15); AST (GOT) 37 U/L (15-37); BICARBONATE 21.9 MEQ/L (21.0-32.0); BLOOD UREA NITROGEN 17 MG/DL (7-18); CHLORIDE 102 MEQ/L (98-107); GLOMERULAR FILTRATION RATE 61 ML/MIN (>89); POTASSIUM 4.6 MEQ/L (3.5-5.1); SODIUM (NA) 136 MEQ/L (136-145); TOTAL BILIRUBIN ADULT 0.4 MG/DL (0.2-1.0)
--- NOTE | 2016-06-26 01:19 | PD ---
HPI Chief Complaint: Psychiatric Symptoms Time Seen by Provider: 01:16 Travel History International Travel<30 days: No Contact w/Intl Traveler<30days: No Traveled to known affect area: No History of Present Illness HPI 66-year-old white male presents to emergency department under [place] act by PD. According to Adams[place] act the patient was hallucinating regarding his knees. He stated that she was but she has not. The patient here denies this. He denies any suicidal homicidal ideation. He states that his daughter for which he lives has a history of mental illness and she had called the police. He states that she "place head games". He admits to drinking alcohol tonight. He states that he has not smoked marijuana and several months. He denies any other drugs. Denies any recent illnesses. Patient has a history of coronary artery disease, hypercholesterolemia, hypertension, and chronic neck and back pain. PFSH Past Medical History Hx Anticoagulant Therapy: Yes Arthritis: Yes Asthma: Yes Autoimmune Disease: No Anxiety: Yes Depression: Yes Cardiac Catheterization: Yes Cardiovascular Problems: Yes High Cholesterol: Yes Chest Pain: Yes Congestive Heart Failure: Yes COPD: Yes Cerebrovascular Accident: Yes Coronary Artery Disease: Yes Diminished Hearing: No Endocrine: No Gastrointestinal Disorders: Yes (HERNIA) GERD: Yes Genitourinary: No Hypertension: Yes Immune Disorder: No Implanted Vascular Access Dvce: Yes Musculoskeletal: Yes (BACK INJURY WORK RELATED,HERNIATED DISC C-SPINE,TENS UNIT LOWER BACK ) Neurologic: Yes (LEFT LEG,NECK,AND SHOULDER PAIN-NERVE DAMAGE) Reproductive: No Respiratory: Yes (LUNG CA) Immunizations Current: No Migraines: No Myocardial Infarction: Yes Schizophrenia: Yes (PT DENIES) Sickle Cell Disease: No Sleep Apnea: No Thyroid Disease: No Triglycerides - High: Yes Ulcer: Yes Tetanus Vaccination: < 5 Years PNEUMOCCOCAL Vaccine (Year): 1 Past Surgical History Abdominal Surgery: No AICD: No Appendectomy: No Arteriovenous Shunt: No Body Medical Devices: TENS UNIT (QUESTIONABLE) Cardiac Surgery: Yes (PORCINE AORTIC VALVE REPLACEMENT, CABG X2 '06) Cholecystectomy: No Coronary Artery Bypass Graft: Yes (X2 ) Ear Surgery: No Endocrine Surgery: No Eye Surgery: No Genitourinary Surgery: No Gynecologic Surgery: No Insulin Pump: No Joint Replacement: No Neurologic Surgery: No Oral Surgery: No Thoracic Surgery: No Valve Replacement: Yes (aortic- porcine) Other Surgery: Yes (LOWER BACK) Social History Alcohol Use: Yes (socially beer) Tobacco Use: No (QUIT 2006 smoked cigs) Substance Use: No Allergies-Medications (Allergen,Severity, Reaction): Coded Allergies: No Known Allergies (Verified , 06/25/16) Reported Meds & Prescriptions Reported Meds & Active Scripts Active Nebulizer 1 Mis Mis 1 Ea .ROUTE DIRECTED Duoneb (Ipratropium-Albuterol Neb) 0.5-2.5 Mg/3 Ml Neb 1 Nebule INH Q4HR NEB Reported Warfarin 2.5 Mg Tab 2.5 Mg PO DAILY Tamsulosin (Tamsulosin HCl) 0.4 Mg Cap 0.4 Mg PO DAILY Zocor (Simvastatin) 20 Mg Tab 20 Mg PO HS Risperdal M-Tab (Risperidone) 2 Mg Tab 1.5 Mg SL Q12HR Nitrostat SL (Nitroglycerin) 0.4 Mg Subl 0.4 Mg SL DIRECTED PRN 1 tablet under the tongue as needed for chest pain. Repeat every 5 minutes for a total of 3 DOSES or call 911 if NO relief. Lisinopril 10 Mg Tab 10 Mg PO DAILY Review of Systems Except as stated in HPI: all other systems reviewed are Neg General / Constitutional: No: Fever, Chills Eyes: No: Diploplia, Blurred Vision HENT: No: Headaches, Lightheadedness Cardiovascular: No: Chest Pain or Discomfort, Palpitations Respiratory: Positive: Cough, No: Shortness of Breath Gastrointestinal: No: Nausea, Vomiting Genitourinary: No: Dysuria, Hematuria Musculoskeletal: Positive: Arthralgias, Pain Skin: No Rash, No Dryness Neurologic: No: Syncope, Paresthesia Psychiatric: Positive: Substance Abuse, No: Anxiety, Depression, Suicidal Ideations, Disorder of Thought, Mood Disorder, Homicidal Ideation Physical Exam Narrative GENERAL: Well-nourished, well-developed patient. SKIN: Warm and dry. HEAD: Normocephalic and atraumatic. EYES: No scleral icterus. No injection or drainage. ENT: No nasal drainage noted. Mucous membranes pink. Airway patent. NECK: Supple, trachea midline. Moves head freely without obvious discomfort. CARDIOVASCULAR: Regular rate and rhythm without murmurs, gallops, or rubs. RESPIRATORY: Breath sounds equal bilaterally. No accessory muscle use. GASTROINTESTINAL: Abdomen soft, non-tender, nondistended. EXTREMITIES: No cyanosis or edema. BACK: Nontender without obvious deformity. No CVA tenderness. NEURO: Patient is alert and oriented. no sensorimotor deficits. Nonfocal. Normal speech. PSYCH: No delusions. No auditory or visual hallucinations. Data Data Last Documented VS Vital Signs Date Time Temp Pulse Resp B/P Pulse Ox O2 Delivery O2 Flow Rate FiO2 06/25/16 22:57 16 06/25/16 22:51 98.2 72 156/62 97 Orders Complete Blood Count With Diff (06/25/16 23:04) Comprehensive Metabolic Panel (06/25/16 23:04) Drug Screen, Random Urine (06/25/16 23:04) Alcohol (Ethanol) (06/25/16 23:04) Salicylates (Aspirin) (06/25/16 23:04) Tylenol (Acetaminophen) (06/25/16 23:04) Psych Screen (06/25/16 23:04) Labs Laboratory Tests Test 06/25/16 23:12 White Blood Count 6.5 TH/MM3 Red Blood Count 4.49 MIL/MM3 Hemoglobin 13.9 GM/DL Hematocrit 40.2 % Mean Corpuscular Volume 89.7 FL Mean Corpuscular Hemoglobin 31.0 PG Mean Corpuscular Hemoglobin 34.6 % Concent Red Cell Distribution Width 13.9 % Platelet Count 176 TH/MM3 Mean Platelet Volume 8.9 FL Neutrophils (%) (Auto) 52.5 % Lymphocytes (%) (Auto) 35.7 % Monocytes (%) (Auto) 9.7 % Eosinophils (%) (Auto) 1.3 % Basophils (%) (Auto) 0.8 % Neutrophils # (Auto) 3.4 TH/MM3 Lymphocytes # (Auto) 2.3 TH/MM3 Monocytes # (Auto) 0.6 TH/MM3 Eosinophils # (Auto) 0.1 TH/MM3 Basophils # (Auto) 0.1 TH/MM3 CBC Comment DIFF FINAL Differential Comment Sodium Level 136 MEQ/L Potassium Level 4.6 MEQ/L Chloride Level 102 MEQ/L Carbon Dioxide Level 21.9 MEQ/L Anion Gap 12 MEQ/L Blood Urea Nitrogen 17 MG/DL Creatinine 1.19 MG/DL Estimat Glomerular Filtration 61 ML/MIN Rate Random Glucose 98 MG/DL Calcium Level 8.6 MG/DL Total Bilirubin 0.4 MG/DL Aspartate Amino Transf 37 U/L (AST/SGOT) Alanine Aminotransferase 23 U/L (ALT/SGPT) Alkaline Phosphatase 53 U/L Total Protein 7.5 GM/DL Albumin 3.8 GM/DL Salicylates Level LESS THAN 1.7 MG/DL Acetaminophen Level LESS THAN 2.0 MCG/ML Ethyl Alcohol Level 111 MG/DL MDM Medical Decision Making Medical Screen Exam Complete: Yes Emergency Medical Condition: Yes Medical Record Reviewed: Yes Interpretation(s) Laboratory Tests Test 06/25/16 23:12 White Blood Count 6.5 TH/MM3 Red Blood Count 4.49 MIL/MM3 Hemoglobin 13.9 GM/DL Hematocrit 40.2 % Mean Corpuscular Volume 89.7 FL Mean Corpuscular Hemoglobin 31.0 PG Mean Corpuscular Hemoglobin 34.6 % Concent Red Cell Distribution Width 13.9 % Platelet Count 176 TH/MM3 Mean Platelet Volume 8.9 FL Neutrophils (%) (Auto) 52.5 % Lymphocytes (%) (Auto) 35.7 % Monocytes (%) (Auto) 9.7 % Eosinophils (%) (Auto) 1.3 % Basophils (%) (Auto) 0.8 % Neutrophils # (Auto) 3.4 TH/MM3 Lymphocytes # (Auto) 2.3 TH/MM3 Monocytes # (Auto) 0.6 TH/MM3 Eosinophils # (Auto) 0.1 TH/MM3 Basophils # (Auto) 0.1 TH/MM3 CBC Comment DIFF FINAL Differential Comment Sodium Level 136 MEQ/L Potassium Level 4.6 MEQ/L Chloride Level 102 MEQ/L Carbon Dioxide Level 21.9 MEQ/L Anion Gap 12 MEQ/L Blood Urea Nitrogen 17 MG/DL Creatinine 1.19 MG/DL Estimat Glomerular Filtration 61 ML/MIN Rate Random Glucose 98 MG/DL Calcium Level 8.6 MG/DL Total Bilirubin 0.4 MG/DL Aspartate Amino Transf 37 U/L (AST/SGOT) Alanine Aminotransferase 23 U/L (ALT/SGPT) Alkaline Phosphatase 53 U/L Total Protein 7.5 GM/DL Albumin 3.8 GM/DL Salicylates Level LESS THAN 1.7 MG/DL Acetaminophen Level LESS THAN 2.0 MCG/ML Ethyl Alcohol Level 111 MG/DL Differential Diagnosis MDM: High Differential diagnoses: Schizophrenia, schizoaffective disorder, bipolar, anxiety, depression, adjustment reaction, mood disorder NOS, ODD, depressive disorder NOS, dementia, dementia with agitation, psychosis NOS, substance induced mood disorder, intermittent explosive disorder, Asperger syndrome, infection,electrolyte abnormality, malingering. Narrative Course Mental health screening discussed with the patient. Psychiatric screen ordered. The patient is been medically cleared. This is mood disorder NOS Diagnosis Primary Impression: Unspecified episodic mood disorder Condition: Stable Fransisco Blakely Jun 26, 2016 01:19
[2016-06-26 01:30] VITALS: BP 156/71; PULSE 71; RESP 18; O2SAT 96
[2016-06-26 01:46] LABS: AMPHETAMINE, URINE NEG (NEG); BARBITURATES, URINE NEG (NEG); COCAINE, URINE NEG (NEG)
[2016-06-26 05:20] VITALS: BP 110/58; PULSE 60; RESP 15; O2SAT 97
[2016-06-26 07:31] VITALS: BP 110/58; PULSE 58; RESP 16; TEMP 97.8; O2SAT 97
--- NOTE | 2016-06-26 15:29 | MB ---
cc: BERNARD IBARRA MD DATE OF CONSULTATION: 06/26/2016. REASON FOR CONSULTATION: Adamson Act. PHYSICIAN REQUESTING CONSULTATION: Emergency department. HISTORY OF PRESENT ILLNESS: Mr. Denis is a 66-year-old male with history of unspecified psychosis and alcohol use issues who presents under a Adamson Act from the [place] [employer] alleging that the officer made contact with the patient and his daughter related that he has been believing that his 18-year-old niece is . There is no allegation of any suicidality or homicidality in the Adamson Act. Reviewing the electronic medical record, I note that the patient was seen most recently psychiatrically within our system when he was admitted under my care in March of 2016. The delusion regarding the family member was present then and apparently remains fixed now. The patient was seen and examined. Chart reviewed. Case discussed with nurse in the medical ED. No behavioral issues to report. No evidence of any suicidality or homicidality. On my examination today, the patient is calm and pleasant. He continues to believe that his granddaughter, not his niece, "might have this week." When I ask how came to find out that his granddaughter he says, "I heard it through the grapevine". He does not seem particularly distressed by this belief. He denies any audiovisual hallucinations. I can elicit no other delusional beliefs. He denies any suicidal or homicidal ideation on direct questioning. He denies any issues with mood. The remainder of the psychiatric review of systems is negative. The patient is requesting discharge from the emergency room today. PAST PSYCHIATRIC HISTORY: This is unchanged from previous assessment except to say that the had the patient has not followed up on an outpatient psychiatric basis because he does not believe that he has a psychiatric illness. He denies a history of suicide attempts. FAMILY HISTORY: The patient believes that his daughter has some sort of mental illness issues but otherwise denies. CHEMICAL DEPENDENCY HISTORY: Patient insists, "I don't drink that much". He says he drinks beer. He denies any blackouts, DTs or seizures. His alcohol level on presentation here was 111. Remainder of the tox screen was negative and the patient denies any other substance use. SOCIAL HISTORY: The patient reports that he has been staying with his daughter. He has been retired 30 years. He did not graduate high school. Denies any or legal history. Denies any access to guns or firearms. PAST MEDICAL HISTORY: Please see electronic medical record. REVIEW OF SYSTEMS: No reported headache, vision or hearing changes, chest pain, shortness of breath, bowel or bladder issues. No other somatic complaints. PHYSICAL EXAMINATION: Physical examination was completed in the emergency room by the ER staff. The patient was medically cleared. On my examination today, the patient appears to be in no acute physical distress. No signs of alcohol intoxication noted. No signs of withdrawal including no hand tremor, no diaphoresis, no mydriasis. No other abnormal motor movements noted. Labs and vital signs reviewed. MENTAL STATUS EXAM: The patient is in hospital gown. He is fairly well-groomed and certainly maintaining basic hygiene. He is awake, alert and oriented to person and hospital at least. No evidence of delirium. No abnormal motor movements noted. Speech is within normal limits for rate, tone and volume. Mood is fair and affect is blunted. Thought process linear. No loosening of associations. The patient has persistent delusions about a family member being but otherwise no evident delusional material. Denies audiovisual hallucinations and does not appear internally stimulated. Denies suicidal or homicidal ideation. Insight and judgment are poor. ASSESSMENT AND PLAN: 1. Delusional disorder, F22. 2. Alcohol dependence, F10.20. This is a 66-year-old male with psychiatric history as detailed above who presents under a Adamson Act after apparently believing that his niece or perhaps granddaughter was . The patient persists in believing that this is the case but it appears to be a fairly loculated delusion without any other delusional material in evidence. There is otherwise no evidence of any unstable mood, anxiety or psychotic disorder. This delusion seems particularly tenacious and I wonder, given his fair level of function otherwise, about a delusional disorder. It is possible this delusion may also be a sequela of his chronic alcohol use. In any event, the patient is denying suicidal or homicidal ideation at this time. There is no indication that the patient meets Adamson Act criteria. I have lifted the Adamson Act. I have recommended that the patient follow up psychiatrically on an outpatient basis. I have counseled the patient to abstain from alcohol and recommend a chemical dependency evaluation and treatment. I have reminded the patient regarding the warning signs for need to return the psychiatric emergency room as part of a general safety plan. The patient is psychiatrically clear for discharge from the ED. Thank you very much for this consultation. Bernard Ibarra DC/RICKY /11:34 AM /3:21 PM JACKIE
== END 2016-06-26 12:45 | disposition home or self-care (01) ==
LOC: NEPA 22:19
DX: F39 Unspecified mood [affective] disorder (principal); F22 Delusional disorders; F10.20 Alcohol dependence, uncomplicated; J45.909 Unspecified asthma, uncomplicated; E78.00 Pure hypercholesterolemia, unspecified; I50.9 Heart failure, unspecified; I10 Essential (primary) hypertension; Z79.01 Long term (current) use of anticoagulants
CPT/HCPCS: 80053; 80307; 85025; 99283; G0480; 80320; 80329

== ENCOUNTER 2016-06-26 19:28 | Emergency (ER) | payer MEDICARE, OTHER ==
[~2016-06-26] VITALS: Ht 172.7 cm; Wt 65.0 kg
[~2016-06-26 19:28] MED LIST changes: -AZIT500T2 PO; -CEFU1TAB20 PO; -PRED20 PO
[2016-06-26 20:05] VITALS: BP 142/85; PULSE 81; RESP 16; TEMP 98.3; O2SAT 98
--- NOTE | 2016-06-26 20:08 | PD ---
HPI Chief Complaint: Psychiatric Symptoms Time Seen by Provider: 19:55 Travel History International Travel<30 days: No Contact w/Intl Traveler<30days: No Traveled to known affect area: No History of Present Illness HPI 66-year-old male here under [place] act by PD. According to the Adamson act, the patient's daughter stated that the patient is mentally disturbed and hallucinating and if he does not get mental help, he will cause harm to himself and others in the near future. The patient admits to drinking 3 beers today. He denies illicit drug use. He tells me that he believes that his daughter is on drugs and is going to soon because of it. He is also paranoid that they are talking bad things about him. He denies suicidal or homicidal ideation. No physical complaints. He is denying diagnosis of psychiatric illness. PFSH Past Medical History Hx Anticoagulant Therapy: Yes Arthritis: Yes Asthma: Yes Autoimmune Disease: No Anxiety: Yes Depression: Yes Cardiac Catheterization: Yes Cardiovascular Problems: Yes High Cholesterol: Yes Chest Pain: Yes Congestive Heart Failure: Yes COPD: Yes Cerebrovascular Accident: Yes Coronary Artery Disease: Yes Diminished Hearing: No Endocrine: No Gastrointestinal Disorders: Yes (HERNIA) GERD: Yes Genitourinary: No Hypertension: Yes Immune Disorder: No Implanted Vascular Access Dvce: Yes Musculoskeletal: Yes (BACK INJURY WORK RELATED,HERNIATED DISC C-SPINE,TENS UNIT LOWER BACK ) Neurologic: Yes (LEFT LEG,NECK,AND SHOULDER PAIN-NERVE DAMAGE) Reproductive: No Respiratory: Yes (LUNG CA) Immunizations Current: No Migraines: No Myocardial Infarction: Yes Schizophrenia: Yes (PT DENIES) Sickle Cell Disease: No Sleep Apnea: No Thyroid Disease: No Triglycerides - High: Yes Ulcer: Yes PNEUMOCCOCAL Vaccine (Year): 1 Past Surgical History Abdominal Surgery: No AICD: No Appendectomy: No Arteriovenous Shunt: No Body Medical Devices: TENS UNIT (QUESTIONABLE) Cardiac Surgery: Yes (PORCINE AORTIC VALVE REPLACEMENT, CABG X2 '06) Cholecystectomy: No Coronary Artery Bypass Graft: Yes (X2 ) Ear Surgery: No Endocrine Surgery: No Eye Surgery: No Genitourinary Surgery: No Gynecologic Surgery: No Insulin Pump: No Joint Replacement: No Neurologic Surgery: No Oral Surgery: No Thoracic Surgery: No Valve Replacement: Yes (aortic- porcine) Other Surgery: Yes (LOWER BACK) Social History Alcohol Use: Yes (socially beer) Tobacco Use: No (QUIT 2005 smoked cigs) Substance Use: No Allergies-Medications (Allergen,Severity, Reaction): Coded Allergies: No Known Allergies (Verified , 06/26/16) Reported Meds & Prescriptions Reported Meds & Active Scripts Active Duoneb (Ipratropium-Albuterol Neb) 0.5-2.5 Mg/3 Ml Neb 1 Nebule INH Q4HR NEB Reported Warfarin 2.5 Mg Tab 2.5 Mg PO DAILY Tamsulosin (Tamsulosin HCl) 0.4 Mg Cap 0.4 Mg PO DAILY Risperdal M-Tab (Risperidone) 2 Mg Tab 1.5 Mg SL Q12HR Nitrostat SL (Nitroglycerin) 0.4 Mg Subl 0.4 Mg SL DIRECTED PRN 1 tablet under the tongue as needed for chest pain. Repeat every 5 minutes for a total of 3 DOSES or call 911 if NO relief. Lisinopril 10 Mg Tab 10 Mg PO DAILY Review of Systems Except as stated in HPI: all other systems reviewed are Neg Physical Exam Narrative GENERAL: Pleasant, well-developed, thin, comfortable, no acute distress. SKIN: Warm and dry. No rash. HEAD: Atraumatic. Normocephalic. EYES: Pupils equal and round. No scleral icterus. No injection or drainage. ENT: Mucous membranes pink and moist. NECK: Trachea midline. No JVD. No nuchal rigidity. CARDIOVASCULAR: Regular rate and rhythm. RESPIRATORY: No accessory muscle use. Clear to auscultation. Breath sounds equal bilaterally. GASTROINTESTINAL: Abdomen soft, non-tender, nondistended. MUSCULOSKELETAL: No obvious deformities. No clubbing. No cyanosis. No edema. NEUROLOGICAL: Awake and alert. No obvious cranial nerve deficits. Motor grossly within normal limits. Normal speech. PSYCHIATRIC: Appears paranoid. Data Data Last Documented VS Vital Signs Date Time Temp Pulse Resp B/P Pulse Ox O2 Delivery O2 Flow Rate FiO2 06/26/16 20:05 98.3 81 16 142/85 98 Orders Complete Blood Count With Diff (06/26/16 19:58) Comprehensive Metabolic Panel (06/26/16 19:58) Drug Screen, Random Urine (06/26/16 19:58) Alcohol (Ethanol) (06/26/16 19:58) Salicylates (Aspirin) (06/26/16 19:58) Tylenol (Acetaminophen) (06/26/16 19:58) Psych Screen (06/26/16 19:58) Labs Laboratory Tests Test 06/26/16 20:45 White Blood Count 5.1 TH/MM3 Red Blood Count 4.33 MIL/MM3 Hemoglobin 13.4 GM/DL Hematocrit 39.3 % Mean Corpuscular Volume 90.6 FL Mean Corpuscular Hemoglobin 30.8 PG Mean Corpuscular Hemoglobin 34.0 % Concent Red Cell Distribution Width 14.0 % Platelet Count 176 TH/MM3 Mean Platelet Volume 8.1 FL Neutrophils (%) (Auto) 57.1 % Lymphocytes (%) (Auto) 30.1 % Monocytes (%) (Auto) 10.7 % Eosinophils (%) (Auto) 1.1 % Basophils (%) (Auto) 1.0 % Neutrophils # (Auto) 2.9 TH/MM3 Lymphocytes # (Auto) 1.5 TH/MM3 Monocytes # (Auto) 0.6 TH/MM3 Eosinophils # (Auto) 0.1 TH/MM3 Basophils # (Auto) 0.0 TH/MM3 CBC Comment DIFF FINAL Differential Comment MDM Medical Decision Making Medical Screen Exam Complete: Yes Emergency Medical Condition: Yes Differential Diagnosis Alcohol intoxication, acute psychosis, metabolic abnormality, other Narrative Course At 9:00 PM at the end of my shift the patient was signed out to nurse practitioner Elvi Graham who will follow-up with labs and disposition the patient Atul Recio MD Jun 26, 2016 20:08 patient Atul Recio MD Jun 26, 2016 20:08
[2016-06-26 21:02] LABS: AUTOMATED NEUTROPHIL # 2.9 TH/MM3 (1.8-7.7); EOSINOPHIL # 0.1 TH/MM3 (0-0.4); EOSINOPHIL % 1.1 % (0.0-4.0); HEMATOCRIT 39.3 % (39.0-51.0); HEMO FLAGS DIFF FINAL; LYMPH % 30.1 % (9.0-44.0); LYMPHOCYTE # 1.5 TH/MM3 (1.0-4.8); MEAN CELL VOLUME 90.6 FL (80.0-100.0); MEAN CORPUSCULAR HEMOGLOBIN 30.8 PG (27.0-34.0); MONO % 10.7 % (0.0-8.0); NEUT % 57.1 % (16.0-70.0); PLATELET COUNT 176 TH/MM3 (150-450); RED BLOOD COUNT 4.33 MIL/MM3 (4.50-5.90); WHITE BLOOD COUNT 5.1 TH/MM3 (4.0-11.0)
[2016-06-26 21:19] LABS: ANION GAP 9 MEQ/L (5-15); AST (GOT) 15 U/L (15-37); BICARBONATE 25.4 MEQ/L (21.0-32.0); BLOOD UREA NITROGEN 10 MG/DL (7-18); CHLORIDE 105 MEQ/L (98-107); GLOMERULAR FILTRATION RATE 84 ML/MIN (>89); POTASSIUM 4.6 MEQ/L (3.5-5.1); SODIUM (NA) 139 MEQ/L (136-145)
[2016-06-26 21:22] LABS: ACETAMINOPHEN 4.5 MCG/ML (10.0-30.0); ALKALINE PHOSPHATASE 50 U/L (45-117); ALT (GPT) 18 U/L (12-78); TOTAL BILIRUBIN ADULT 0.2 MG/DL (0.2-1.0)
--- NOTE | 2016-06-26 21:32 | PD ---
Physical Exam Time Seen by Provider: 21:30 Narrative Please refer to previous providers documentation surrounding the patient's current visit. Data Data Last Documented VS Vital Signs Date Time Temp Pulse Resp B/P Pulse Ox O2 Delivery O2 Flow Rate FiO2 06/26/16 20:05 98.3 81 16 142/85 98 Orders Complete Blood Count With Diff (06/26/16 19:58) Comprehensive Metabolic Panel (06/26/16 19:58) Drug Screen, Random Urine (06/26/16 19:58) Alcohol (Ethanol) (06/26/16 19:58) Salicylates (Aspirin) (06/26/16 19:58) Tylenol (Acetaminophen) (06/26/16 19:58) Psych Screen (06/26/16 19:58) Labs Laboratory Tests Test 06/26/16 20:45 White Blood Count 5.1 TH/MM3 Red Blood Count 4.33 MIL/MM3 Hemoglobin 13.4 GM/DL Hematocrit 39.3 % Mean Corpuscular Volume 90.6 FL Mean Corpuscular Hemoglobin 30.8 PG Mean Corpuscular Hemoglobin 34.0 % Concent Red Cell Distribution Width 14.0 % Platelet Count 176 TH/MM3 Mean Platelet Volume 8.1 FL Neutrophils (%) (Auto) 57.1 % Lymphocytes (%) (Auto) 30.1 % Monocytes (%) (Auto) 10.7 % Eosinophils (%) (Auto) 1.1 % Basophils (%) (Auto) 1.0 % Neutrophils # (Auto) 2.9 TH/MM3 Lymphocytes # (Auto) 1.5 TH/MM3 Monocytes # (Auto) 0.6 TH/MM3 Eosinophils # (Auto) 0.1 TH/MM3 Basophils # (Auto) 0.0 TH/MM3 CBC Comment DIFF FINAL Differential Comment Sodium Level 139 MEQ/L Potassium Level 4.6 MEQ/L Chloride Level 105 MEQ/L Carbon Dioxide Level 25.4 MEQ/L Anion Gap 9 MEQ/L Blood Urea Nitrogen 10 MG/DL Creatinine 0.91 MG/DL Estimat Glomerular Filtration 84 ML/MIN Rate Random Glucose 82 MG/DL Calcium Level 8.4 MG/DL Total Bilirubin 0.2 MG/DL Aspartate Amino Transf 15 U/L (AST/SGOT) Alanine Aminotransferase 18 U/L (ALT/SGPT) Alkaline Phosphatase 50 U/L Total Protein 6.7 GM/DL Albumin 3.6 GM/DL Salicylates Level LESS THAN 1.7 MG/DL Acetaminophen Level 4.5 MCG/ML Ethyl Alcohol Level 117 MG/DL [facility] Medical Record Reviewed: Yes Supervised Visit with MAYA: No Narrative Course Patient is signed out to me with lab work pending. CBC and CMP are without acute concern. EtOH is 117. Salicylates is less than 1.7. Acetaminophen is 4.5. Vital signs remained stable. Patient is resting peacefully in his room. He is medically cleared to undergo psychiatric screening for further evaluation and disposition. Mental health screening discussed with the patient. Psychiatric screen ordered. Diagnosis Primary Impression: Adjustment disorder Qualified Code: F43.20 - Adjustment disorder, unspecified type Condition: Stable Elvi Weinstein Jun 26, 2016 21:32
[2016-06-26 22:38] VITALS: BP 125/70; PULSE 71; RESP 19; O2SAT 100
[2016-06-26 23:05] LABS: AMPHETAMINE, URINE NEG (NEG); BARBITURATES, URINE NEG (NEG); COCAINE, URINE NEG (NEG)
[2016-06-27 02:27] VITALS: BP 127/63; PULSE 58; RESP 19; O2SAT 97
[2016-06-27 06:43] VITALS: BP 134/66; PULSE 53; RESP 19; O2SAT 98
== END 2016-06-27 08:50 ==
LOC: NEPA 19:28 → NEPJ 06-27 08:50
DX: F43.20 Adjustment disorder, unspecified (principal); I25.2 Old myocardial infarction; I10 Essential (primary) hypertension; J44.9 Chronic obstructive pulmonary disease, unspecified; F41.8 Other specified anxiety disorders; Z79.01 Long term (current) use of anticoagulants; M19.90 Unspecified osteoarthritis, unspecified site; Z86.73 Personal history of transient ischemic attack (TIA), and cerebral infarction without residual deficits; I25.10 Atherosclerotic heart disease of native coronary artery without angina pectoris; Z87.891 Personal history of nicotine dependence; F39 Unspecified mood [affective] disorder; F22 Delusional disorders; F10.20 Alcohol dependence, uncomplicated; J45.909 Unspecified asthma, uncomplicated; E78.00 Pure hypercholesterolemia, unspecified; I50.9 Heart failure, unspecified
CPT/HCPCS: 80053; 80307; 85025; 99285; G0480; 80320; 80329; G0481

== ENCOUNTER 2016-08-29 12:06 | Emergency (ER) | payer MEDICARE, OTHER ==
[~2016-08-29] VITALS: Ht 177.8 cm; Wt 63.5 kg
[~2016-08-29 12:06] MED LIST changes: -NEBULIZER1 MI1
[2016-08-29 12:08] VITALS: BP 107/55; PULSE 84; RESP 20; TEMP 97.9; O2SAT 98
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
--- NOTE | 2016-08-29 16:23 | RADRPT ---
EXAM DATE/TIME: 08/29/2016 15:38 [facility] COMPARISON: No previous studies available for comparison. INDICATIONS : Right posterior hip pain, fell MEDICAL HISTORY : None. SURGICAL HISTORY : None. ENCOUNTER: Initial ACUITY: 3 days PAIN SCORE: 8/10 LOCATION: Right hip FINDINGS: There is no acute fracture or dislocation of the right hip. Mild degenerative changes are noted invol ving the hip joints bilaterally. Mild degenerative changes are also noted involving the lower lumbar spine. CONCLUSION: 1. No acute fracture or dislocation. 2. Mild degenerative changes involving the hip joints and lower lumbar spine. Du Melo MD on August 29, 2016 at 16:11 Board Certified Radiologist. This report was verified electronically.
[2016-08-29] MEDS ORDERED: CYCL1TAB29 PO (16:35)
== END 2016-08-29 16:48 | disposition home or self-care (01) ==
LOC: NEPB 12:06
DX: M79.1 Myalgia (principal); M25.552 Pain in left hip; M79.602 Pain in left arm; J45.909 Unspecified asthma, uncomplicated; I10 Essential (primary) hypertension; Y35.813A Legal intervention involving manhandling, suspect injured, initial encounter; Y93.89 Activity, other specified; Y92.89 Other specified places as the place of occurrence of the external cause; Y99.8 Other external cause status; Z79.01 Long term (current) use of anticoagulants
CPT/HCPCS: 73502; 99283

== ENCOUNTER 2016-08-31 13:48 | Emergency (ER) | payer MEDICARE ==
[~2016-08-31] VITALS: Ht 177.8 cm; Wt 67.0 kg
[~2016-08-31 13:48] MED LIST changes: +CYCL1TAB29 PO
[2016-08-31 13:50] VITALS: BP 132/71; PULSE 76; RESP 17; TEMP 97.8; O2SAT 98
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
--- NOTE | 2016-08-31 15:56 | RADRPT ---
EXAM DATE/TIME: 08/31/2016 14:40 [facility] COMPARISON: No previous studies available for comparison. INDICATIONS : Lower back pain after fall. MEDICAL HISTORY : None. SURGICAL HISTORY : None. ENCOUNTER: Initial ACUITY: 4 - 6 days PAIN SCORE: 10/10 LOCATION: Bilateral pelvis FINDINGS: A single frontal view of the pelvis demonstrates no evidence of fracture. The bony pelvic ring is in tact. Bony mineralization is normal. The soft tissues are intact. CONCLUSION: No acute osseous injury. Jimmy Caceres MD on August 31, 2016 at 15:46 Board Certified Radiologist. This report was verified electronically.
--- NOTE | 2016-08-31 15:56 | RADRPT ---
EXAM DATE/TIME: 08/31/2016 14:41 [facility] COMPARISON: No previous studies available for comparison. INDICATIONS : Lower back pain after fall. MEDICAL HISTORY : None. SURGICAL HISTORY : None. ENCOUNTER: Initial ACUITY: 4 - 6 days PAIN SCORE: 10/10 LOCATION: Lumbar spine FINDINGS: Mild degenerative changes are noted throughout the lumbar and lower thoracic spine. There is no acute compression fracture or spondylolisthesis. No spondylolysis is noted. There is significant disc sp chago narrowing at L5-S1 and to a lesser extent at L4-5. CONCLUSION: 1. Degenerative changes throughout the lumbar and lower thoracic spine. 2. Disc space narrowing at L5-S1 and to a lesser extent at L4-5. 3. No acute compression fracture, spondylolisthesis or spondylolysis. Du Melo MD on August 31, 2016 at 15:47 Board Certified Radiologist. This report was verified electronically.
--- NOTE | 2016-08-31 15:57 | RADRPT ---
EXAM DATE/TIME: 08/31/2016 14:48 [facility] COMPARISON: No previous studies available for comparison. INDICATIONS : Right shoulder pain after fall. MEDICAL HISTORY : None. SURGICAL HISTORY : None. ENCOUNTER: Initial ACUITY: 4 - 6 days PAIN SCORE: 10/10 LOCATION: Right shoulder FINDINGS: Mild degenerative changes are noted involving the right glenohumeral joint. There is no acute fractu re or dislocation of the right shoulder. CONCLUSION: 1. Mild degenerative changes involving the right glenohumeral joint. 2. No acute fracture or dislocation. uD Melo MD on August 31, 2016 at 15:48 Board Certified Radiologist. This report was verified electronically.
[2016-08-31] MEDS ORDERED: TRAM50TA PO (16:39)
[2016-08-31] MEDS ORDERED: traMADol HCL 50 MG TAB PO ONE (16:45)
[2016-08-31 16:56] VITALS: BP 130/77; TEMP 98.1
== END 2016-08-31 16:56 | disposition home or self-care (01) ==
LOC: NEPC 13:48
DX: M19.90 Unspecified osteoarthritis, unspecified site (principal); M25.552 Pain in left hip; M25.551 Pain in right hip; M25.511 Pain in right shoulder; J45.909 Unspecified asthma, uncomplicated; I10 Essential (primary) hypertension; Z79.01 Long term (current) use of anticoagulants
CPT/HCPCS: 72110; 72170; 73030; 99283

== ENCOUNTER 2016-09-22 14:40 | Emergency (ER) | payer MEDICARE ==
[~2016-09-22] VITALS: Ht 177.8 cm; Wt 63.5 kg
[~2016-09-22 14:40] MED LIST changes: -CYCL1TAB29 PO; +TRAM50TA PO
[2016-09-22 14:41] VITALS: BP 130/70; PULSE 94; RESP 20; TEMP 98.6; O2SAT 97
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
== END 2016-09-22 16:02 | disposition left against medical advice (07) ==
LOC: NEPK 14:40
DX: M54.2 Cervicalgia (principal); M25.519 Pain in unspecified shoulder; I10 Essential (primary) hypertension; E78.00 Pure hypercholesterolemia, unspecified; E78.1 Pure hyperglyceridemia; Z79.01 Long term (current) use of anticoagulants; Z87.39 Personal history of other diseases of the musculoskeletal system and connective tissue; Z87.09 Personal history of other diseases of the respiratory system; Z86.59 Personal history of other mental and behavioral disorders; Z86.79 Personal history of other diseases of the circulatory system; Z87.19 Personal history of other diseases of the digestive system; Z86.69 Personal history of other diseases of the nervous system and sense organs
CPT/HCPCS: 99281

== ENCOUNTER 2016-10-07 14:50 | Emergency (ER) | payer MEDICARE ==
[~2016-10-07] VITALS: Ht 177.8 cm; Wt 65.0 kg
[2016-10-07 14:52] VITALS: BP 87/55; PULSE 102; RESP 20; TEMP 98.5; O2SAT 96
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
[2016-10-07] MEDS ORDERED: METHOCARBAMOL 500 MG TAB PO ONE (15:15)
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
--- NOTE | 2016-10-07 15:57 | RADRPT ---
EXAM DATE/TIME: 10/07/2016 15:47 [facility] COMPARISON: SPINE CERVICAL LTD (AP&LAT), May 28, 2013, 15:39. INDICATIONS : Neck pain after fall 1 month ago MEDICAL HISTORY : None. SURGICAL HISTORY : None. ENCOUNTER: Initial ACUITY: 1 month PAIN SCORE: 5/10 LOCATION: Right Cervical spine FINDINGS: There are degenerative changes of cervical spine at C5-C6, C6-C7. Bridging anterior osteophytes are noted. AP and odontoid are unremarkable. CONCLUSION: 1. Degenerative changes. 2. If patient remains symptomatic controlled flexion and extension films would be of benefit. AP an d odontoid unremarkable. Timothy Pretty MD FACR on October 07, 2016 at 15:52 Board Certified Radiologist. This report was verified electronically.
[2016-10-07] MEDS ORDERED: CYCL1TAB29 PO (16:02)
== END 2016-10-07 16:49 | disposition home or self-care (01) ==
LOC: NEPK 14:50
DX: M54.2 Cervicalgia (principal); M79.601 Pain in right arm; I10 Essential (primary) hypertension; E78.00 Pure hypercholesterolemia, unspecified; E78.1 Pure hyperglyceridemia; W19.XXXD Unspecified fall, subsequent encounter; Z79.01 Long term (current) use of anticoagulants; Z87.39 Personal history of other diseases of the musculoskeletal system and connective tissue; Z87.09 Personal history of other diseases of the respiratory system; Z86.59 Personal history of other mental and behavioral disorders; Z86.79 Personal history of other diseases of the circulatory system; Z87.19 Personal history of other diseases of the digestive system; Z86.69 Personal history of other diseases of the nervous system and sense organs; Z87.891 Personal history of nicotine dependence
CPT/HCPCS: 72040; 99283

== ENCOUNTER 2016-10-12 15:21 | Inpatient (IN) | payer MEDICARE ==
[2016-10-12] VITALS (7 sets, daily range): BP systolic 76–114; BP diastolic 47–77; PULSE 56–77; RESP 14–30; TEMP 98.2–98.5; O2SAT 87–98
[~2016-10-12] VITALS: Ht 180.3 cm; Wt 62.8 kg
[~2016-10-12 15:21] MED LIST changes: +CYCL1TAB29 PO; -TRAM50TA PO
--- NOTE | 2016-10-12 15:35 | PD ---
Physical Exam Time Seen by Provider: 15:33 Narrative 66 y/o male with Cough, subjective fevers for 2 days. Hypotensive in triage. Poor historian. Vital signs reviewed. Seen at triage desk. Awaiting bed placement. Data Data Last Documented VS Vital Signs Date Time Temp Pulse Resp B/P Pulse Ox O2 Delivery O2 Flow Rate FiO2 10/12/16 15:24 98.2 77 15 76/47 98 MDM Medical Record Reviewed: Yes Supervised Visit with MAYA: Gibran Banks October 12, 2016 15:35
[2016-10-12 16:54] LABS: INTERNATIONAL NORMALIZED RATIO 1.1 RATIO; PROTHROMBIN TIME - PATIENT 12.2 SEC (9.8-11.6)
--- NOTE | 2016-10-12 17:00 | RADRPT ---
EXAM DATE/TIME: 10/12/2016 16:16 [facility] COMPARISON: CHEST SINGLE AP, June 15, 2016, 16:09. INDICATIONS : Short of breath and congestion for three days. MEDICAL HISTORY : Chronic obstructive pulmonary disease. SURGICAL HISTORY : CABG. ENCOUNTER: Initial ACUITY: 3 days PAIN SCORE: 1/10 LOCATION: Bilateral chest FINDINGS: A single view of the chest demonstrates the lungs to be symmetrically aerated without evidence of mas s, infiltrate or effusion. The cardiomediastinal contours are unremarkable. Osseous structures are intact. Median sternotomy wires are noted status post cardiac surgery. CONCLUSION: No acute disease. Du Melo MD on October 12, 2016 at 16:58 Board Certified Radiologist. This report was verified electronically.
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
[2016-10-12 17:02] LABS: AUTOMATED NEUTROPHIL # 4.5 TH/MM3 (1.8-7.7); BASOPHIL % 0.3 % (0.0-2.0); HEMATOCRIT 43.2 % (39.0-51.0); LYMPH % 14.1 % (9.0-44.0); LYMPHOCYTE # 0.9 TH/MM3 (1.0-4.8); MEAN CELL VOLUME 95.3 FL (80.0-100.0); MEAN CORPUSCULAR HEMOGLOBIN 31.5 PG (27.0-34.0); MEAN CORPUSCULAR HGB CONC 33.1 % (32.0-36.0); MONO % 13.9 % (0.0-8.0); NEUT % 71.7 % (16.0-70.0); PLATELET COUNT 83 TH/MM3 (150-450); RED BLOOD COUNT 4.53 MIL/MM3 (4.50-5.90); RED CELL DISTRIBUTION WIDTH 14.3 % (11.6-17.2); WHITE BLOOD COUNT 6.3 TH/MM3 (4.0-11.0)
[2016-10-12 17:05] LABS: HEMO FLAGS AUTO DIFF
[2016-10-12 17:11] LABS: ANION GAP 8 MEQ/L (5-15); AST (GOT) 70 U/L (15-37); BICARBONATE 23.2 MEQ/L (21.0-32.0); BLOOD UREA NITROGEN 20 MG/DL (7-18); CHLORIDE 99 MEQ/L (98-107); GLOMERULAR FILTRATION RATE 43 ML/MIN (>89); POTASSIUM 4.7 MEQ/L (3.5-5.1); SODIUM (NA) 130 MEQ/L (136-145)
[2016-10-12 17:14] LABS: ALKALINE PHOSPHATASE 47 U/L (45-117); ALT (GPT) 39 U/L (12-78); CREATINE KINASE 208 U/L (39-308); TOTAL BILIRUBIN ADULT 0.5 MG/DL (0.2-1.0)
[2016-10-12 18:14] LABS: BANDS 13 % (0-6); BASOPHILS 1 % (0-2); CORRECTED NUCLEATED RBC 1 /100 WBC (0-0); METAMYELOCYTES 1 % (0-1); NEUTROPHIL # MANUAL DIFF 4.5 TH/MM3 (1.8-7.7); PLATELET ESTIMATE SMEAR LOW (NORMAL); PLATELET MORPHOLOGY NORMAL (NORMAL); POLYS (SEG NEUTROPHILS) 58 % (16-70); SCAN/DIFF FINAL DIFF MANUAL; WBC DIFF SAMPLE 100
[2016-10-12] MEDS ORDERED: VANCOMYCIN INJ 1,000 MG in SODIUM CHLOR 0.9% 250 ML INJ 250 ML IV ONE (18:45)
[2016-10-12] MEDS ORDERED: PIPERACIL-TAZO 3.375 GM PREMIX 50 ML IV ONE (18:45)
[2016-10-12] MEDS ORDERED: SODIUM CHLOR 0.9% 1000 ML INJ 1,000 ML IV ONE ×4 (18:45→19:27)
[2016-10-12] MEDS ORDERED: CHLORHEXIDINE GLUCONATE 2 % 1 PACK (2 CLOTHS) TOP PRN (19:30)
[2016-10-12] MEDS ORDERED: Vancomycin Consult Pharmacy 1 EA OTHER SCH (19:30)
[2016-10-12] MEDS ORDERED: SODIUM CHLORIDE 0.9% FLUSH 10 ML FLUSH IV FLUSH PRN (19:30)
[2016-10-12] MEDS ORDERED: MISCELLANEOUS NURSING INFORMATION XX SCH (19:30)
[2016-10-12] MEDS ORDERED: VANCOMYCIN INJ 1,000 MG in SODIUM CHLOR 0.9% 250 ML INJ 250 ML IV SCH (19:30)
--- NOTE | 2016-10-12 19:33 | HHI.HP ---
[facility] Service Critical Care Medicine Primary Care Physician Torsten Zuñiga MD Admission Diagnosis sepsis. Acute renal injury. Dehydration. Diagnosis: Travel History International Travel<30 Days: No Contact w/Intl Traveler <30 Da: No Traveled to Known Affected Are: No History of Present Illness 66-year-old male with history of COPD, hypertension, dyslipidemia presents with complains of generalized malaise and weakness, fever, body ache, persistent cough and nearby syncope. Patient states that the symptoms started 3 days ago. He denies any headache or neck pain. He states that he has occasional shortness of breath. Review of Systems Constitutional: COMPLAINS OF: Fatigue, Fever, DENIES: Diaphoretic episodes, Weight gain, Weight loss, Chills, Dizziness, Change in appetite, Night Sweats Endocrine: DENIES: Heat/cold intolerance, Polydipsia, Polyuria, Polyphagia Eyes: DENIES: Blurred vision, Diplopia, Eye inflammation, Eye pain, Vision loss , Photosensitivity, Double Vision Ears, nose, mouth, throat: DENIES: Tinnitus, Hearing loss, Vertigo, Nasal discharge, Oral lesions, Throat pain, Hoarseness, Ear Pain, Running Nose, Epistaxis, Sinus Pain, Toothache, Odynophagia Respiratory: COMPLAINS OF: Cough, Sputum production, DENIES: Apneas, Snoring, Wheezing, Hemoptysis, Shortness of breath Cardiovascular: COMPLAINS OF: Dyspnea on Exertion, DENIES: Chest pain, Palpitations, Syncope, PND, Lower Extremity Edema, Orthopnea, Claudication Gastrointestinal: DENIES: Abdominal pain, Black stools, Bloody stools, Constipation, Diarrhea, Nausea, Vomiting, Difficulty Swallowing, Anorexia Genitourinary: DENIES: Sexual dysfunction, Urinary frequency, Urinary incontinence, Urgency, Hematuria, Dysuria, Nocturia, Penile Discharge, Testicular Pain, Testicular Swelling Musculoskeletal: DENIES: Joint pain, Muscle aches, Stiffness, Joint Swelling, Back pain, Neck pain Integumentary: DENIES: Abnormal pigmentation, Nail changes, Pruritus, Rash Hematologic/lymphatic: DENIES: Bruising, Lymphadenopathy Immunologic/allergic: DENIES: Eczema, Urticaria Neurologic: DENIES: Abnormal gait, Headache, Localized weakness, Paresthesias, Seizures, Speech Problems, Tremor, Poor Balance Psychiatric: DENIES: Anxiety, Confusion, Mood changes, Depression, Hallucinations, Agitation, Suicidal Ideation, Homicidal Ideation, Delusions Past Family Social History Allergies: Coded Allergies: No Known Allergies (Verified , 10/12/16) Past Medical History Hypertension Hypercholesterolemia Coronary artery disease Past Surgical History Right inguinal hernia repair Back operation 1986, unable to specify what he had done Reported Medications Reported Meds & Active Scripts Active Flexeril (Cyclobenzaprine HCl) 10 Mg Tab 10 Mg PO TID PRN Duoneb (Ipratropium-Albuterol Neb) 0.5-2.5 Mg/3 Ml Neb 1 Nebule INH Q4HR NEB Reported Warfarin 2.5 Mg Tab 2.5 Mg PO DAILY Tamsulosin (Tamsulosin HCl) 0.4 Mg Cap 0.4 Mg PO DAILY Zocor (Simvastatin) 20 Mg Tab 20 Mg PO HS Risperdal M-Tab (Risperidone) 2 Mg Tab 1.5 Mg SL Q12HR Nitrostat SL (Nitroglycerin) 0.4 Mg Subl 0.4 Mg SL DIRECTED PRN 1 tablet under the tongue as needed for chest pain. Repeat every 5 minutes for a total of 3 DOSES or call 911 if NO relief. Lisinopril 10 Mg Tab 10 Mg PO DAILY Active Ordered Medications Current Medications Medications (Trade) Dose Ordered Sig/Danielle Route PRN Reason Start Time Stop Time Status Last Admin Dose Admin Sodium Chloride (NS 1000 ml Inj) 1,000 ml @ 125 mls/hr Q8H IV 10/12/16 20:00 Sodium Chloride (NS Flush) 2 ml UNSCH PRN IV FLUSH FLUSH AFTER USING IV ACCESS 10/12/16 19:30 Sodium Chloride (NS Flush) 2 ml BID IV FLUSH 10/12/16 21:00 10/12/16 21:02 Hydrocortisone Sodium Succinate (SoluCORTEF INJ) 50 mg Q6H IV 10/12/16 20:00 10/12/16 21:02 Famotidine (Pepcid Inj) 10 mg Q12HR IV PUSH 10/12/16 21:00 10/12/16 21:03 Heparin Sodium (Porcine) 5000 units 5,000 units Q12H SQ 10/12/16 20:00 10/12/16 21:03 Pharmacy Profile Note 0 ml @ 0 mls/hr UNSCH OTHER 10/12/16 19:30 Piperacillin Sod/ Tazobactam Sod 100 ml @ 200 mls/hr Q6H IV 10/13/16 02:00 Azithromycin/ Sodium Chloride (Zithromax Inj/ NS 250 ml Inj) 250 ml @ 250 mls/hr Q24H IV 10/12/16 21:00 Miscellaneous Information 1 [id number] XX 10/12/16 19:30 Chlorhexidine Gluconate (Chlorhexidine 2% Cloth) 3 pack Taper DAILY@04 TOP 10/13/16 04:00 10/09/17 03:59 Chlorhexidine Gluconate 3 pack 3 pack UNSCH PRN TOP HYGIENIC CARE 10/12/16 19:30 Vancomycin HCl/ Sodium Chloride (Vancomycin Inj/ NS 250 ml Inj) 250 ml @ 250 mls/hr Q24H IV 10/13/16 20:00 Miscellaneous Information SPECIFIC LAB TO BE DRAWN:[facility] DATE TO BE DRPancho.. ONCE ONCE .XX 10/15/16 19:45 10/15/16 19:46 Family History Mother had CAD, of old age. Father had CAD, of cancer. Social History Drinks beer, quantity not specified. Smoked one pack per day, for 36 years quit in 2005 after her operation. Admits to occasional marijuana use, last a few months ago, denies IV drug use. Physical Exam Vital Signs Vital Signs Date Time Temp Pulse Resp B/P Pulse Ox O2 Delivery O2 Flow Rate FiO2 10/12/16 19:01 98.5 58 16 100/59 97 Room Air 10/12/16 16:44 64 14 86/52 Room Air 10/12/16 16:44 92 Room Air 10/12/16 15:24 98.2 77 15 76/47 98 10/12/16 15:24 92/50 Physical Exam GENERAL: Well-nourished, well-developed patient. SKIN: Warm and dry. HEAD: Normocephalic. EYES: No scleral icterus. No injection or drainage. NECK: Supple, trachea midline. No JVD or lymphadenopathy. CARDIOVASCULAR: Regular rate and rhythm without murmurs, gallops, or rubs. RESPIRATORY: Breath sounds equal bilaterally. No accessory muscle use. GASTROINTESTINAL: Abdomen soft, non-tender, nondistended. MUSCULOSKELETAL: No cyanosis, or edema. BACK: Nontender without obvious deformity. No CVA tenderness. EXTREMITIES: No clubbing cyanosis or edema Laboratory Laboratory Tests Test 10/12/16 16:00 White Blood Count 6.3 Red Blood Count 4.53 Hemoglobin 14.3 Hematocrit 43.2 Mean Corpuscular Volume 95.3 Mean Corpuscular Hemoglobin 31.5 Mean Corpuscular Hemoglobin 33.1 Concent Red Cell Distribution Width 14.3 Platelet Count 83 Mean Platelet Volume 8.3 Neutrophils (%) (Auto) 71.7 Lymphocytes (%) (Auto) 14.1 Monocytes (%) (Auto) 13.9 Eosinophils (%) (Auto) 0.0 Basophils (%) (Auto) 0.3 Neutrophils # (Auto) 4.5 Lymphocytes # (Auto) 0.9 Monocytes # (Auto) 0.9 Eosinophils # (Auto) 0.0 Basophils # (Auto) 0.0 CBC Comment AUTO DIFF Differential Total Cells 100 Counted Neutrophils % (Manual) 58 Band Neutrophils % 13 Lymphocytes % 21 Monocytes % 6 Basophils % 1 Neutrophils # (Manual) 4.5 Metamyelocytes 1 Nucleated Red Blood Cells 1 Differential Comment FINAL DIFF MANUAL Platelet Estimate LOW Platelet Morphology Comment NORMAL Red Cell Morphology Comment NORMAL Prothrombin Time 12.2 Prothromb Time International 1.1 Ratio Activated Partial 33.0 Thromboplast Time Sodium Level 130 Potassium Level 4.7 Chloride Level 99 Carbon Dioxide Level 23.2 Anion Gap 8 Blood Urea Nitrogen 20 Creatinine 1.62 Estimat Glomerular Filtration 43 Rate Random Glucose 104 Lactic Acid Level 2.6 Calcium Level 8.2 Total Bilirubin 0.5 Aspartate Amino Transf 70 (AST/SGOT) Alanine Aminotransferase 39 (ALT/SGPT) Alkaline Phosphatase 47 Total Creatine Kinase 208 Troponin I LESS THAN 0.02 Total Protein 6.6 Albumin 3.2 Date/Time Procedure Status Source Growth 10/12/16 16:15 Aerobic Blood Culture Received Blood Peripheral Pending 10/12/16 16:15 Anaerobic Blood Culture Received Blood Peripheral Pending 10/12/16 16:05 Influenza Types A,B Antigen (NEERU) - Final Complete Nasal Washing NEGATIVE FOR FLU A AND B ANTIGEN.... Result Diagram: 10/12/16 1600 10/12/16 1600 Imaging Last 24 hours Impressions Chest X-Ray 10/12/16 1558 Signed Impressions: Service Date/Time: Wednesday, October 12, 2016 16:16 - CONCLUSION: No acute disease. Du Melo MD Assessment and Plan Assessment and Plan SIRS/sepsis - Unclear source - Broad-spectrum antibiotic - Monitor lactate - Follow-up on cultures - Infectious disease consult Hypotension - Due to above - Dehydration component - Aggressive IV fluids resuscitation - Good response to fluid boluses History of coronary artery disease - No acute events - Supportive care Acute kidney injury - Due to dehydration - Monitor strict I's and O's - IV fluids DVT GI prophylaxis - Teds SCDs subcutaneous heparin and Pepcid Critical Care: The total critical care time was 35 minutes. Time to perform other separately billable procedures was not included in the critical care time. Lebron Caicedo MD October 12, 2016 19:33
[2016-10-12] MEDS ORDERED: RESP: ALBUTEROL 2.5 MG/IPRATROPIUM 0.5 MG NEB (PRN) NEB (20:00)
[2016-10-12] MEDS: SODIUM CHLORIDE 0.9% FLUSH 10 ML FLUSH IV FLUSH SCH (21:02)
[2016-10-12] MEDS: HYDROCORTISONE SOD SUCCINATE 100 MG VIAL IV SCH (21:02)
[2016-10-12] MEDS: FAMOTIDINE 20 MG/2 ML VIAL IV PUSH SCH (21:03)
[2016-10-12] MEDS: HEPARIN SODIUM - SQ 10,000 UNITS/ML VIAL SQ SCH (21:03)
[2016-10-12] MEDS: AZITHROMYCIN INJ 500 MG in SODIUM CHLOR 0.9% 250 ML INJ 250 ML IV SCH (22:38)
[2016-10-12] MEDS: SODIUM CHLOR 0.9% 1000 ML INJ 1,000 ML IV SCH (22:38)
[2016-10-13] VITALS (12 sets, daily range): BP systolic 85–157; BP diastolic 51–74; PULSE 47–68; RESP 16–24; TEMP 98.3–98.8; O2SAT 88–99
[2016-10-13] MEDS: PIPERACIL-TAZO 4.5 GM PREMIX 100 ML IV SCH ×4 (02:43→20:28)
[2016-10-13] MEDS: HYDROCORTISONE SOD SUCCINATE 100 MG VIAL IV SCH ×4 (02:43→20:26)
[2016-10-13] MEDS: SODIUM CHLOR 0.9% 1000 ML INJ 1,000 ML IV SCH ×3 (02:43→20:28)
[2016-10-13] MEDS ORDERED: CHLORHEXIDINE GLUCONATE 2 % 1 PACK (2 CLOTHS) TOP SCH (04:00)
[2016-10-13 04:28] LABS: AUTOMATED NEUTROPHIL # 2.6 TH/MM3 (1.8-7.7); BASOPHIL % 0.2 % (0.0-2.0); HEMATOCRIT 35.2 % (39.0-51.0); LYMPH % 19.4 % (9.0-44.0); LYMPHOCYTE # 0.7 TH/MM3 (1.0-4.8); MEAN CELL VOLUME 93.1 FL (80.0-100.0); MEAN CORPUSCULAR HEMOGLOBIN 31.1 PG (27.0-34.0); MEAN CORPUSCULAR HGB CONC 33.4 % (32.0-36.0); MONO % 8.8 % (0.0-8.0); NEUT % 71.6 % (16.0-70.0); PLATELET COUNT 66 TH/MM3 (150-450); RED BLOOD COUNT 3.78 MIL/MM3 (4.50-5.90); WHITE BLOOD COUNT 3.6 TH/MM3 (4.0-11.0)
[2016-10-13 04:38] LABS: HEMO FLAGS AUTO DIFF
[2016-10-13 04:53] LABS: BICARBONATE 24.1 MEQ/L (21.0-32.0); CALCIUM-PROTEIN CORRECTED 8.3 MG/DL (8.5-10.1); POTASSIUM 4.2 MEQ/L (3.5-5.1); TOTAL BILIRUBIN ADULT 0.3 MG/DL (0.2-1.0)
[2016-10-13 07:01] LABS: PLATELET ESTIMATE SMEAR LOW (NORMAL); PLATELET MORPHOLOGY NORMAL (NORMAL); SCAN/DIFF AUTO DIFF CONFIRMED
[2016-10-13] MEDS: HEPARIN SODIUM - SQ 10,000 UNITS/ML VIAL SQ SCH (08:00)
[2016-10-13] MEDS: SODIUM CHLORIDE 0.9% FLUSH 10 ML FLUSH IV FLUSH SCH ×2 (09:21→20:27)
[2016-10-13] MEDS: FAMOTIDINE 20 MG/2 ML VIAL IV PUSH SCH ×2 (09:22→20:26)
[2016-10-13] MEDS ORDERED: VANCOMYCIN 1,000 MG/NS 250 ML IV SCH ×4 (10:00→20:00)
--- NOTE | 2016-10-13 13:28 | HHI.CCPN ---
Subjective Remarks/Hospital Course 66-year-old male with history of COPD, hypertension, dyslipidemia presents with complains of generalized malaise and weakness, fever, body ache, persistent cough and nearby syncope. Patient states that the symptoms started 3 days ago. He denies any headache or neck pain. He states that he has occasional shortness of breath. Subjective: 10/13: Tmax 98.5. The patient this a.m. complaining of chronic neck and back pain. States he normally takes NSAIDs. The patient is lying supine in bed refusing to elevate head of bed in semi-recombinant position. The patient is verbalizing profanity at the [employer] and myself with attempts of examination. The patient currently is not on any O2 lying supine O2 sat 97%. No noted respiratory difficulty, or accessory muscle movement. The patient's tolerating a diet. Objective Vital Signs Date Time Temp Pulse Resp B/P Pulse Ox O2 Delivery O2 Flow Rate FiO2 10/13/16 07:32 94 Nasal Cannula 3.00 10/13/16 06:00 49 10/13/16 04:00 98.3 16 125/58 Result Diagram: 10/13/16 0315 10/13/16 0315 Other Results Microbiology Date/Time Procedure Status Source Growth 10/12/16 16:05 Influenza Types A,B Antigen (NEERU) - Final Complete Nasal Washing NEGATIVE FOR FLU A AND B ANTIGEN.... Imaging Last 24 hours Impressions Chest X-Ray 10/12/16 1558 Signed Impressions: Service Date/Time: Wednesday, October 12, 2016 16:16 - CONCLUSION: No acute disease. Du Melo MD Objective Remarks GENERAL: Well-nourished, well-developed patient. SKIN: Warm and dry. HEAD: Normocephalic. EYES: No scleral icterus. No injection or drainage. NECK: Supple, trachea midline. No JVD or lymphadenopathy. CARDIOVASCULAR: Regular rate and rhythm without murmurs, gallops, or rubs. RESPIRATORY: Breath sounds equal bilaterally. No accessory muscle use. GASTROINTESTINAL: Abdomen soft, non-tender, nondistended. MUSCULOSKELETAL: No cyanosis, or edema. BACK: Nontender without obvious deformity. No CVA tenderness. EXTREMITIES: No clubbing cyanosis or edema Urinary Catheter: No Vascular Central Line Catheter: No A/P Assessment and Plan SIRS/sepsis - Unclear source - Broad-spectrum antibiotic - Monitor lactate-within normal limits - Follow-up on cultures 10/12- blood culture- NGTD, influenza -negative - Infectious disease following-Dr. Menon H/O schizophrenia H/O major depressive disorder with psychotic features -Resume Risperdal (home medication) Hypotension - Due to above - Dehydration component - Aggressive IV fluids resuscitation - Good response to fluid boluses History of coronary artery disease Hypertension S/P CABG x2 w/ AVR - No acute events - Supportive care -Resume Coumadin and statin (home medications) Acute kidney injury - Due to dehydration - Monitor strict I's and O's - IV fluids DVT GI prophylaxis - Teds SCDs subcutaneous heparin and Pepcid Dispo: Level 3 Discussed with patient in [facility] at bedside. Plan to transfer patient to [facility]. Plan to transfer patient to medical floor. Physician Nina Frank MD October 13, 2016 13:28
[2016-10-13] MEDS ORDERED: CYCLOBENZAPRINE HCL 10 MG TAB PO PRN (13:45)
--- NOTE | 2016-10-13 14:32 | PD.ID.CON ---
History of Present Illness Service ID Consult Requested By Dr Caicedo Reason for Consult sepsis, unclear ethiology Primary Care Physician Torsten Zuñiga MD Diagnoses: History of Present Illness 66 yo male who is a poor historian presented yday with 1 week duration of productive cough with yellow sputum He has no fever on presentation but bandemia was present as well as mild lactic acidemia He recently quit smoking and tell that he carries diagnosis of COPD He is also concerned about his HIV status though he had 2 negative HIV tests in our system 6 and 9 mos ago He is currently on 3 L of NC O2 and his admission blood clx are negative at 1 day CXR showed no acute disease Review of Systems ROS Limitations: Poor Historian Constitutional: COMPLAINS OF: Fever, Chills Respiratory: COMPLAINS OF: Cough, Sputum production Gastrointestinal: COMPLAINS OF: Diarrhea Past Family Social History Allergies: Coded Allergies: No Known Allergies (Verified , 10/12/16) Past Medical History Hypertension Hypercholesterolemia Coronary artery disease Past Surgical History Right inguinal hernia repair Back operation 1986, unable to specify what he had done Active Ordered Medications Medications where reviewed in EMR Antibiotics Include: azithro zosyn Family History Mother had CAD, of old age. Father had CAD, of cancer. Social History Drinks beer, quantity not specified. Smoked one pack per day, for 36 years quit in 2005 after her operation. Admits to occasional marijuana use, last a few months ago, denies IV drug use. Physical Exam Vital Signs Vital Signs Date Time Temp Pulse Resp B/P Pulse Ox O2 Delivery O2 Flow Rate FiO2 10/13/16 07:32 94 Nasal Cannula 3.00 10/13/16 06:00 49 10/13/16 04:00 47 10/13/16 04:00 98.3 47 16 125/58 94 10/13/16 02:00 54 10/13/16 00:20 96 Nasal Cannula 3.00 10/13/16 00:00 98.4 52 18 85/51 88 10/13/16 00:00 52 10/12/16 22:23 98.4 56 30 114/55 92 10/12/16 21:07 96 Nasal Cannula 2 10/12/16 21:06 69 22 98/76 87 Room Air 10/12/16 21:04 73 16 109/77 93 Room Air 10/12/16 19:01 98.5 58 16 100/59 97 Room Air 10/12/16 16:44 64 14 86/52 Room Air 10/12/16 16:44 92 Room Air 10/12/16 15:24 98.2 77 15 76/47 98 10/12/16 15:24 92/50 Physical Exam CONSTITUTIONAL/GENERAL: This is a thin elderly desheveled patient, in no apparent distress. TUBES/LINES/DRAINS: SKIN: No jaundice, rashes, or lesions. Skin temperature appropriate. Not diaphoretic. HEAD: Atraumatic. Normocephalic. EYES: Pupils equal and round and reactive. Extraocular motions intact. No scleral icterus. No injection or drainage. Fundi not examined. ENT: Hearing grossly normal. Nose without bleeding or purulent drainage. Oral muc osae is moist without visible erythema, exudates, masses, or lesions. Poor dentition NECK: Trachea midline. Supple, nontender. No palpable thyroid enlargement or nodularity. CARDIOVASCULAR: Regular rate and rhythm without murmurs, gallops, or rubs. No JVD. Peripheral pulses symmetric. RESPIRATORY/CHEST: Symmetric, unlabored respirations. Clear to auscultation. Breath sounds equally diminished bilaterally. No wheezes, rales, or rhonchi. GASTROINTESTINAL: Abdomen soft, non-tender, nondistended. No hepato-splenomegaly , or palpable masses. No guarding. Bowel sounds present. GENITOURINARY: Without palpable bladder distension. MUSCULOSKELETAL: Extremities without clubbing, cyanosis, or edema. No joint tenderness or effusion noted. No calf tenderness. No mottling or clubbing. LYMPHATICS: No palpable cervical or supraclavicular adenopathy. NEUROLOGICAL: Awake and alert. Motor and sensory grossly within normal limits. Follows commands. Speech clear, but disorganised but some incoherence is evident Moves all extremities. PSYCHIATRIC: calm and coopertive. Laboratory Laboratory Tests Test 10/12/16 10/12/16 10/13/16 10/13/16 16:00 22:00 00:10 03:15 White Blood Count 6.3 3.6 Red Blood Count 4.53 3.78 Hemoglobin 14.3 11.8 Hematocrit 43.2 35.2 Mean Corpuscular Volume 95.3 93.1 Mean Corpuscular Hemoglobin 31.5 31.1 Mean Corpuscular Hemoglobin 33.1 33.4 Concent Red Cell Distribution Width 14.3 14.0 Platelet Count 83 66 Mean Platelet Volume 8.3 8.9 Neutrophils (%) (Auto) 71.7 71.6 Lymphocytes (%) (Auto) 14.1 19.4 Monocytes (%) (Auto) 13.9 8.8 Eosinophils (%) (Auto) 0.0 0.0 Basophils (%) (Auto) 0.3 0.2 Neutrophils # (Auto) 4.5 2.6 Lymphocytes # (Auto) 0.9 0.7 Monocytes # (Auto) 0.9 0.3 Eosinophils # (Auto) 0.0 0.0 Basophils # (Auto) 0.0 0.0 CBC Comment AUTO DIFF AUTO DIFF Differential Total Cells 100 Counted Neutrophils % (Manual) 58 Band Neutrophils % 13 Lymphocytes % 21 Monocytes % 6 Basophils % 1 Neutrophils # (Manual) 4.5 Metamyelocytes 1 Nucleated Red Blood Cells 1 Differential Comment FINAL DIFF AUTO DIFF MANUAL CONFIRMED Platelet Estimate LOW LOW Platelet Morphology Comment NORMAL NORMAL Red Cell Morphology Comment NORMAL Prothrombin Time 12.2 Prothromb Time International 1.1 Ratio Activated Partial 33.0 Thromboplast Time Sodium Level 130 140 Potassium Level 4.7 4.2 Chloride Level 99 107 Carbon Dioxide Level 23.2 24.1 Anion Gap 8 9 Blood Urea Nitrogen 20 14 Creatinine 1.62 0.98 Estimat Glomerular Filtration 43 77 Rate Random Glucose 104 107 Lactic Acid Level 2.6 0.7 Calcium Level 8.2 7.3 Total Bilirubin 0.5 0.3 Aspartate Amino Transf 70 45 (AST/SGOT) Alanine Aminotransferase 39 32 (ALT/SGPT) Alkaline Phosphatase 47 39 Total Creatine Kinase 208 Troponin I LESS THAN 0.02 B-Type Natriuretic Peptide 44 Total Protein 6.6 5.3 Albumin 3.2 2.6 Nasal Screen MRSA (PCR) MRSA NOT DETECTED Protein Corrected Calcium 8.3 Date/Time Procedure Status Source Growth 10/12/16 16:15 Aerobic Blood Culture - Preliminary Resulted Blood Peripheral NO GROWTH IN 1 DAY 10/12/16 16:15 Anaerobic Blood Culture - Preliminary Resulted Blood Peripheral NO GROWTH IN 1 DAY 10/12/16 16:05 Influenza Types A,B Antigen (NEERU) - Final Complete Nasal Washing NEGATIVE FOR FLU A AND B ANTIGEN.... Result Diagram: 10/13/1631410/13/16314 Imaging Last Impressions Chest X-Ray 10/12/16 1558 Signed Impressions: Service Date/Time: Wednesday, October 12, 2016 16:16 - CONCLUSION: No acute disease. Du Melo MD Assessment and Plan Assessment and Plan Lactic acidosis suspected sepsis No e/o PNA UA not done yet BC neg so far Pt is HIV negative as of March 2016 POor historia; schitzophrenia, TBI ? ETOH Also pt co diarrhea , but no BMs doc'd since admission - chk UA, C+S - cont current abx - if all clx remian negative and no other e/o infx will dc abx - chk stool for c.diff, pathogens Debbie Menon MD October 13, 2016 14:32
--- NOTE | 2016-10-13 16:13 | EKG ---
Date Performed: 10/12/2016 Time Performed: 15:41:41 PTAGE: 66 years EKG: Sinus rhythm BORDERLINE ECG Compared to PREVIOUS TRACING of 06/15/2016, ST-T changes in lateral leads have resolved. PREVIOUS TR ACIN06/15/2016 21.44 DOCTOR: Bernard Cartwright Interpretating Date/Time 10/13/2016 16:12:08
[2016-10-13] MEDS: AZITHROMYCIN INJ 500 MG in SODIUM CHLOR 0.9% 250 ML INJ 250 ML IV SCH (20:26)
[2016-10-13] MEDS ORDERED: PRAVASTATIN SOD 40 MG TAB PO SCH (21:00)
[2016-10-14] MEDS ORDERED: PHARMACY ORDERED LAB ONE (09:45)
[2016-10-14] MEDS ORDERED: WARFARIN SOD 2.5 MG TAB PO SCH (16:00)
== END 2016-10-13 21:35 | disposition left against medical advice (07) | DRG 872 ==
LOC: NEPC 15:21 → NEDA 19:01 → HIME 22:00
PROVIDERS: ADMIT Internal Medicine Critical Care Medicine; ATTEND Internal Medicine Critical Care Medicine
DX: A41.9 Sepsis, unspecified organism (principal); N17.9 Acute kidney failure, unspecified; E87.2 Acidosis; F32.3 Major depressive disorder, single episode, severe with psychotic features; J44.9 Chronic obstructive pulmonary disease, unspecified; E86.0 Dehydration; I10 Essential (primary) hypertension; E78.5 Hyperlipidemia, unspecified; K21.9 Gastro-esophageal reflux disease without esophagitis; I25.10 Atherosclerotic heart disease of native coronary artery without angina pectoris; Z95.1 Presence of aortocoronary bypass graft; Z95.2 Presence of prosthetic heart valve; Z79.01 Long term (current) use of anticoagulants; Z87.891 Personal history of nicotine dependence; F20.9 Schizophrenia, unspecified
CPT/HCPCS: 71010; 80053; 82550; 83605; 83880; 84484; 85007; 85025; 85027; 85610; 85730; 87040; 87641; 87804; 93005; 94664; 96361; 96374; J0456; J1644; J1720; J2543; J3370; J7030; J7050

== ENCOUNTER 2017-02-20 17:19 | Observation (INO) | payer MEDICARE, MEDICAID ==
[2017-02-20] VITALS (7 sets, daily range): BP systolic 103–137; BP diastolic 53–67; PULSE 67–82; RESP 15–18; TEMP 98–99.6; O2SAT 96–98
[~2017-02-20] VITALS: Ht 177.8 cm; Wt 59.0 kg
--- NOTE | 2017-02-20 18:14 | PD ---
HPI Chief Complaint: Cardiac Complaint Time Seen by Provider: 17:58 Travel History International Travel<30 days: No Contact w/Intl Traveler<30days: No Traveled to known affect area: No History of Present Illness HPI 67-year-old male presents to the emergency department for evaluation of increasing shortness of breath and left-sided chest pain over the past 2 days. Patient with history of CHF, COPD, hypertension, dyslipidemia, CAD, status post CABG 2 with AVR, on Coumadin. Patient apparently has not taken any of his medications in the past week. He is unable to tell me his peer counselor is. The patient denies any leg edema. He seems to think that his symptoms are from CHF. Patient reports left-sided chest pain and occasionally radiates to the left arm. He denies any abdominal pain. He did have some nausea earlier, but no vomiting. No diarrhea or constipation. Patient is unsure if he has had any fevers or chills. He does have a constant dry cough on my exam. According to my notes, patient last had a stress test on November 19, 2014 which was unremarkable. PFSH Past Medical History Hx Anticoagulant Therapy: Yes (COUMADIN) Arthritis: Yes Asthma: Yes Autoimmune Disease: No Anxiety: Yes Depression: Yes Cardiac Catheterization: Yes Cardiovascular Problems: Yes (CHF, HTN) High Cholesterol: Yes Chemotherapy: No Chest Pain: Yes Congestive Heart Failure: Yes COPD: Yes Cerebrovascular Accident: No Coronary Artery Disease: Yes Diabetes: No Diminished Hearing: No Endocrine: No GERD: Yes Genitourinary: No Hypertension: Yes Immune Disorder: No Implanted Vascular Access Dvce: Yes Musculoskeletal: Yes (BACK INJURY WORK RELATED,HERNIATED DISC C-SPINE,TENS UNIT LOWER BACK ) Neurologic: Yes (LEFT LEG,NECK,AND SHOULDER PAIN-NERVE DAMAGE) Reproductive: No Respiratory: No Immunizations Current: No Migraines: No Myocardial Infarction: Yes Schizophrenia: Yes Sickle Cell Disease: No Sleep Apnea: No Thyroid Disease: No Triglycerides - High: Yes Ulcer: Yes Tetanus Vaccination: < 5 Years PNEUMOCCOCAL Vaccine (Year): 1 Past Surgical History Abdominal Surgery: No AICD: No Appendectomy: No Arteriovenous Shunt: No Body Medical Devices: TENS UNIT (QUESTIONABLE) Cardiac Surgery: Yes (PORCINE AORTIC VALVE REPLACEMENT, CABG X2 '06) Cholecystectomy: No Coronary Artery Bypass Graft: Yes (X2 ) Ear Surgery: No Endocrine Surgery: No Eye Surgery: No Genitourinary Surgery: No Gynecologic Surgery: No Hysterectomy: No Insulin Pump: No Joint Replacement: No Neurologic Surgery: No Oral Surgery: No Thoracic Surgery: No Valve Replacement: Yes (aortic- porcine) Other Surgery: Yes (LOWER BACK) Social History Alcohol Use: No Tobacco Use: No Substance Use: No Allergies-Medications (Allergen,Severity, Reaction): Coded Allergies: No Known Allergies (Verified , 02/20/17) Reported Meds & Prescriptions Reported Meds & Active Scripts Active Flexeril (Cyclobenzaprine HCl) 10 Mg Tab 10 Mg PO TID PRN Duoneb (Ipratropium-Albuterol Neb) 0.5-2.5 Mg/3 Ml Neb 1 Nebule INH Q4HR NEB Reported Warfarin 2.5 Mg Tab 2.5 Mg PO DAILY Tamsulosin (Tamsulosin HCl) 0.4 Mg Cap 0.4 Mg PO DAILY Zocor (Simvastatin) 20 Mg Tab 20 Mg PO HS Risperdal M-Tab (Risperidone) 2 Mg Tab 1.5 Mg SL Q12HR Nitrostat SL (Nitroglycerin) 0.4 Mg Subl 0.4 Mg SL DIRECTED PRN 1 tablet under the tongue as needed for chest pain. Repeat every 5 minutes for a total of 3 DOSES or call 911 if NO relief. Lisinopril 10 Mg Tab 10 Mg PO DAILY Review of Systems Except as stated in HPI: all other systems reviewed are Neg Physical Exam Narrative GENERAL: Well-nourished, well-developed male patient, afebrile. SKIN: Focused skin assessment warm/dry. HEAD: Normocephalic. Atraumatic EYES: No scleral icterus. No injection or drainage. NECK: Supple, trachea midline. No JVD or lymphadenopathy. CARDIOVASCULAR: Regular rate and rhythm without murmurs, gallops, or rubs. RESPIRATORY: Breath sounds equal bilaterally. No accessory muscle use. Patient with dry cough noted. Lungs sounds diminished. GASTROINTESTINAL: Abdomen soft, non-tender, nondistended. MUSCULOSKELETAL: No cyanosis, or edema. Left-sided chest pain is reproducible with palpation. BACK: Nontender without obvious deformity. No CVA tenderness. Data Data Last Documented VS Vital Signs Date Time Temp Pulse Resp B/P (MAP) Pulse Ox O2 Delivery O2 Flow Rate FiO2 02/20/17 19:18 Room Air 02/20/17 19:17 98.0 70 18 126/60 (82) 98 02/20/17 18:20 2.00 Orders Orders Complete Blood Count With Diff (02/20/17 18:06) Basic Metabolic Panel (Bmp) (02/20/17 18:06) B-Type Natriuretic Peptide (02/20/17 18:06) Act Partial Throm Time (Ptt) (02/20/17 18:06) Prothrombin Time / Inr (Pt) (02/20/17 18:06) Magnesium (Mg) (02/20/17 18:06) Ckmb (Isoenzyme) Profile (02/20/17 18:06) Troponin I (02/20/17 18:06) Iv Access Insert/Monitor (02/20/17 18:06) Electrocardiogram (02/20/17 18:) Ecg Monitoring (02/20/17 18:06) Oximetry (02/20/17 18:06) Oxygen Administration (02/20/17 18:06) Chest, Single Ap (02/20/17 18:06) Sodium Chloride 0.9% Flush (Ns Flush) (02/20/17 18:15) Aspirin Chew (Aspirin Chew) (02/20/17 19:30) Admit Order (Ed Use Only) (02/20/17 19:51) Labs Laboratory Tests Test 02/20/17 18:15 White Blood Count 10.3 TH/MM3 Red Blood Count 3.56 MIL/MM3 Hemoglobin 11.4 GM/DL Hematocrit 33.3 % Mean Corpuscular Volume 93.5 FL Mean Corpuscular Hemoglobin 32.0 PG Mean Corpuscular Hemoglobin Concent 34.3 % Red Cell Distribution Width 12.8 % Platelet Count 158 TH/MM3 Mean Platelet Volume 7.9 FL Neutrophils (%) (Auto) 83.5 % Lymphocytes (%) (Auto) 7.8 % Monocytes (%) (Auto) 7.8 % Eosinophils (%) (Auto) 0.4 % Basophils (%) (Auto) 0.5 % Neutrophils # (Auto) 8.6 TH/MM3 Lymphocytes # (Auto) 0.8 TH/MM3 Monocytes # (Auto) 0.8 TH/MM3 Eosinophils # (Auto) 0.0 TH/MM3 Basophils # (Auto) 0.1 TH/MM3 CBC Comment DIFF FINAL Differential Comment Prothrombin Time 11.5 SEC Prothromb Time International Ratio 1.0 RATIO Activated Partial Thromboplast Time 27.8 SEC Blood Urea Nitrogen 8 MG/DL Creatinine 0.95 MG/DL Random Glucose 83 MG/DL Calcium Level 8.6 MG/DL Magnesium Level 1.7 MG/DL Sodium Level 130 MEQ/L Potassium Level 3.8 MEQ/L Chloride Level 94 MEQ/L Carbon Dioxide Level 29.0 MEQ/L Anion Gap 7 MEQ/L Estimat Glomerular Filtration Rate 79 ML/MIN Total Creatine Kinase 38 U/L Troponin I LESS THAN 0.02 NG/ML B-Type Natriuretic Peptide 73 PG/ML MDM Medical Decision Making Medical Screen Exam Complete: Yes Emergency Medical Condition: Yes Medical Record Reviewed: Yes Interpretation(s) Last Impressions Chest X-Ray 02/20/17 1806 Signed Impressions: Service Date/Time: Monday, February 20, 2017 18:24 - CONCLUSION: No evidence of acute cardiopulmonary disease. Torsten Dasilva MD Differential Diagnosis ACS versus CHF exacerbation versus COPD exacerbation versus URI versus chest wall pain Narrative Course 67-year-old male presents to the emergency department for left-sided chest pain and coughing that started 2 days ago. EKG, CBC, BMP, BNP, PTT, PT/INR, magnesium, CK, troponin, chest x-ray are ordered and pending. EKG shows sinus rhythm, heart rate 68, no acute ST changes. CBC shows no acute abnormality. BMP shows hyponatremia 130, no acute abnormality. BNP is 73. Magnesium is 1.7. CK is 38. Troponin is less than 0.02. Coags are unremarkable, INR is 1.0. Chest x-ray shows no evidence of acute cardiopulmonary disease. His INR is 1.0, patient is given aspirin 162 mg by mouth. Patient will be brought into the chest pain center for further evaluation and disposition. The patient verbalizes agreement to this. Diagnosis Primary Impression: Chest pain Qualified Codes: R07.9 - Chest pain, unspecified Admitting Information Admitting Physician Requests: Becca Montenegro Feb 20, 2017 18:14
[2017-02-20] MEDS ORDERED: SODIUM CHLORIDE 0.9% FLUSH 10 ML FLUSH IVF PRN (18:15)
--- NOTE | 2017-02-20 18:49 | RADRPT ---
EXAM DATE/TIME: 02/20/2017 18:24 [facility] COMPARISON: CHEST SINGLE AP, October 12, 2016, 16:16. INDICATIONS : Short of breath. MEDICAL HISTORY : Myocardial infarction. SURGICAL HISTORY : CABG. ENCOUNTER: Initial ACUITY: 3 days PAIN SCORE: 0/10 LOCATION: Bilateral chest FINDINGS: No infiltrate, effusion or pneumothorax demonstrated. Heart size stable, upper limits of normal. Fadumo ent has had previous median sternotomy and CABG. CONCLUSION: No evidence of acute cardiopulmonary disease. Torsten Dasilva MD on February 20, 2017 at 18:46 Board Certified Radiologist. This report was verified electronically.
[2017-02-20 18:59] LABS: AUTOMATED NEUTROPHIL # 8.6 TH/MM3 (1.8-7.7); BASOPHIL # 0.1 TH/MM3 (0-0.2); BASOPHIL % 0.5 % (0.0-2.0); EOSINOPHIL % 0.4 % (0.0-4.0); HEMATOCRIT 33.3 % (39.0-51.0); HEMO FLAGS DIFF FINAL; LYMPH % 7.8 % (9.0-44.0); LYMPHOCYTE # 0.8 TH/MM3 (1.0-4.8); MEAN CELL VOLUME 93.5 FL (80.0-100.0); MEAN CORPUSCULAR HGB CONC 34.3 % (32.0-36.0); MONO % 7.8 % (0.0-8.0); NEUT % 83.5 % (16.0-70.0); PLATELET COUNT 158 TH/MM3 (150-450); RED BLOOD COUNT 3.56 MIL/MM3 (4.50-5.90); RED CELL DISTRIBUTION WIDTH 12.8 % (11.6-17.2); WHITE BLOOD COUNT 10.3 TH/MM3 (4.0-11.0)
[2017-02-20 19:18] LABS: APTT (PATIENT) 27.8 SEC (24.3-30.1); PROTHROMBIN TIME - PATIENT 11.5 SEC (9.8-11.6)
[2017-02-20 19:23] LABS: ANION GAP 7 MEQ/L (5-15); BLOOD UREA NITROGEN 8 MG/DL (7-18); CHLORIDE 94 MEQ/L (98-107); GLOMERULAR FILTRATION RATE 79 ML/MIN (>89); MAGNESIUM 1.7 MG/DL (1.5-2.5); POTASSIUM 3.8 MEQ/L (3.5-5.1); SODIUM (NA) 130 MEQ/L (136-145)
[2017-02-20] MEDS ORDERED: ASPIRIN 81 MG CHEW TAB CHEW ONE (19:30)
[2017-02-20 19:34] LABS: CREATINE KINASE 38 U/L (39-308)
[2017-02-21 00:02] VITALS: PULSE 72
[2017-02-21 01:26] VITALS: BP 104/59; PULSE 75; RESP 18; TEMP 98.2; O2SAT 98
[2017-02-21] MEDS ORDERED: ENOXAPARIN SODIUM 60 MG/0.6 ML SYRINGE SQ ONE (02:15)
[2017-02-21 03:29] VITALS: BP 108/53; PULSE 73; RESP 18; TEMP 99.6; O2SAT 95
[2017-02-21 04:01] VITALS: PULSE 72
[2017-02-21 07:44] VITALS: BP 101/59; PULSE 71; RESP 18; TEMP 98.3; O2SAT 93
--- NOTE | 2017-02-21 08:41 | PD.CONS ---
HPI Service Cardiology physicians Consult Requested By Dr. Crow Reason for Consult NSTEMI Primary Care Physician Torsten Zuñiga MD History of Present Illness The patient is a 67 year old male with a cardiac history of CAD with a history of CABG and AVR in 2005 and negative nuclear stress test 11/2014, HTN and HLD. He states he has been prescribed coumadin since valve surgery, but he has not been able to get his medications recently because " the pharmacies are playing very bad games." the patient presented to the hospital for a two day history of progressively worsening SOB and CP with radiation to his left arm that he attributes to "his bad heart with heart failure". He has an increase in cough and sputum production recently. He cannot provide palliative or provocative features. Since admission, his troponin increased 0.02 -> 0.09 -> 0.49. No EKG changes suggestive of ischemia. His INR is 1.0. (Lotus Craft) Review of Systems Consitutional: DENIES: Fatigue, Fever, Chills, Weight gain, Weight loss Eyes: DENIES: Amaurosis Fugax, Change in vision HEENT: DENIES: Lightheadedness, Change in hearing Respiratory: COMPLAINS OF: Cough, Shortness of breath, Sputum production, DENIES: See HPI, Snoring, Wheezing Cardiovascular: COMPLAINS OF: Chest pain, DENIES: See HPI, Palpitations, Syncope, Tachycardia Gastrointestinal: DENIES: Nausea, Vomiting, Change in bowel habits, Reflux, Bloody stools, Melena Genitourinary: DENIES: Urinary incontinence, Difficulty voiding Integumentary: DENIES: Rash Neurologic: DENIES: Tingling or numbness, Memory problems, Poor Balance, Stroke symptoms Musculoskeletal: DENIES: Joint pain, Muscle pain, Limited range of motion, Back pain Psychiatric: DENIES: Anxiety, Depression, Sleep disturbances Hematologic: DENIES: Bruising tendencies, Bleeding tendencies Endocrine: DENIES: Weight gain, Weight loss, Thyroid disease (Lotus Craft ) Past Family Social History Allergies: Coded Allergies: No Known Allergies (Verified , 02/20/17) Past Medical History CAD s/p CABG 2006 AVR 2005 Smoking history Past Surgical History AVR and CABG 2005 at the [facility] in [place] Reported Medications Reported Meds & Active Scripts Active Flexeril (Cyclobenzaprine HCl) 10 Mg Tab 10 Mg PO TID PRN Duoneb (Ipratropium-Albuterol Neb) 0.5-2.5 Mg/3 Ml Neb 1 Nebule INH Q4HR NEB Reported Warfarin 2.5 Mg Tab 2.5 Mg PO DAILY Tamsulosin (Tamsulosin HCl) 0.4 Mg Cap 0.4 Mg PO DAILY Zocor (Simvastatin) 20 Mg Tab 20 Mg PO HS Risperdal M-Tab (Risperidone) 2 Mg Tab 1.5 Mg SL Q12HR Nitrostat SL (Nitroglycerin) 0.4 Mg Subl 0.4 Mg SL DIRECTED PRN 1 tablet under the tongue as needed for chest pain. Repeat every 5 minutes for a total of 3 DOSES or call 911 if NO relief. Lisinopril 10 Mg Tab 10 Mg PO DAILY Active Ordered Medications Current Medications Medications (Trade) Dose Ordered Sig/Danielle Route Start Time Stop Time Status Last Admin (NS Flush) 2 ml UNSCH PRN IVF 02/20/17 18:15 (Ecotrin Ec) 325 mg DAILY PO 02/21/17 09:00 Family History Mother and father had CAD Social History Drinks 3-4 beers per day, quit smoking 2005 (Lotus Craft) Physical Exam Vital Signs Vital Signs Date Time Temp Pulse Resp B/P (MAP) Pulse Ox O2 Delivery O2 Flow Rate FiO2 02/21/17 07:44 98.3 71 18 101/59 (73) 93 02/21/17 04:01 72 02/21/17 03:29 99.6 73 18 108/53 (71) 95 02/21/17 01:26 98.2 75 18 104/59 (74) 98 02/21/17 00:02 72 02/20/17 22:27 72 02/20/17 22:17 98.4 67 18 106/58 (74) 96 02/20/17 22:09 02/20/17 21:48 72 18 103/53 (70) 98 02/20/17 21:38 97 02/20/17 19:18 Room Air 02/20/17 19:17 98.0 70 18 126/60 (82) 98 Room Air 02/20/17 18:20 Nasal Cannula 2.00 02/20/17 18:20 97 02/20/17 17:40 98.4 82 15 137/67 (90) 98 Physical Exam GENERAL: Argumentative middle aged male SKIN: Warm and dry. HEAD: Atraumatic. Normocephalic. EYES: Pupils equal and round. No scleral icterus. No injection or drainage. ENT: No nasal bleeding or discharge. Mucous membranes pink and moist. NECK: Trachea midline. CARDIOVASCULAR: Regular rate and rhythm. Systolic murmur RESPIRATORY: No accessory muscle use. Inspiratory cough, scattered rhonchi GASTROINTESTINAL: Abdomen soft, non-tender, nondistended. MUSCULOSKELETAL: Extremities without clubbing, cyanosis, or edema. NEUROLOGICAL: Awake and alert. No obvious cranial nerve deficits. Motor grossly within normal limits. Five out of 5 muscle strength in the arms and legs. Normal speech. PSYCHIATRIC: Appropriate mood and affect; insight and judgment normal. Argumentative Laboratory Laboratory Tests Test 02/20/17 18:15 02/20/17 21:15 02/21/17 00:35 White Blood Count 10.3 Red Blood Count 3.56 Hemoglobin 11.4 Hematocrit 33.3 Mean Corpuscular Volume 93.5 Mean Corpuscular Hemoglobin 32.0 Mean Corpuscular Hemoglobin Concent 34.3 Red Cell Distribution Width 12.8 Platelet Count 158 Mean Platelet Volume 7.9 Neutrophils (%) (Auto) 83.5 Lymphocytes (%) (Auto) 7.8 Monocytes (%) (Auto) 7.8 Eosinophils (%) (Auto) 0.4 Basophils (%) (Auto) 0.5 Neutrophils # (Auto) 8.6 Lymphocytes # (Auto) 0.8 Monocytes # (Auto) 0.8 Eosinophils # (Auto) 0.0 Basophils # (Auto) 0.1 CBC Comment DIFF FINAL Differential Comment Prothrombin Time 11.5 Prothromb Time International Ratio 1.0 Activated Partial Thromboplast Time 27.8 Blood Urea Nitrogen 8 Creatinine 0.95 Random Glucose 83 Calcium Level 8.6 Magnesium Level 1.7 Sodium Level 130 Potassium Level 3.8 Chloride Level 94 Carbon Dioxide Level 29.0 Anion Gap 7 Estimat Glomerular Filtration Rate 79 Total Creatine Kinase 38 32 43 Troponin I LESS THAN 0.02 0.09 0.49 B-Type Natriuretic Peptide 73 (Lotus Craft) Result Diagram: 02/20/17181402/20/171814 Imaging Last 72 hours Impressions Chest X-Ray 02/20/171805 Signed Impressions: Service Date/Time: Monday, February 20, 2017 18:24 - CONCLUSION: No evidence of acute cardiopulmonary disease. Torsten Dasilva MD (Lotus Craft) Assessment and Plan Assessment and Plan NSTEMI History of ASHD with CABG 2005 AVR 2005. The patient does not known what type of valve replacement he has. He has been on Coumadin since surgery. Do not see mechanical valve on CXR. COPD Tobacco history . Quit 2005 Elevated AST Plan Hold patient NPO until evaluated by Dr. Boykin. He received Lovenox 60 mg at 0328 this morning. ASA. He is not a candidate for MARILEE or BB due to low BP. Not a candidate for statin due to elevated liver enzymes. Continue telemetry monitoring (Lotus Craft) Assessment and Plan The exam, history, and the medical decision-making described in the above note were completed with the assistance of the mid-level provider. I reviewed and agree with the findings presented. I attest that I had a [id number] encounter with the patient on the same day, and personally performed and documented my assessment and findings in the medical record.. Refuses to stay leaving AMA (Umair Boykin MD) Lotus Craft Feb 21, 2017 08:41 Umair Boykin MD Feb 21, 2017 13:43
[2017-02-21] MEDS ORDERED: ASPIRIN EC 325 MG TABEC PO SCH (09:00)
--- NOTE | 2017-02-21 09:45 | PD.AMA ---
Against Medical Advice Note Discharge Disposition: Against Medical Advice Pt Condition on Discharge: Fair AMA Statement Patient Chun Denis has decided to leave the hospital against medical advice. This patient has the capacity to refuse care and understands the risks of leaving, including permanent disability and/or , and has had an opportunity to ask questions about his condition. The patient has been informed that he may return for care at any time, and follow up has been arranged/ advised. I was present w Dr. Boykin and his PA when I saw the patient, we did our best to explain to him that his condition is critical as troponins are elevated and pt does admit to still having some chest pains. Pt refuses to be admitted. He states he has a clinical research administrator that he will be following up w, he wouldn't give me his/her name, he tells me that he knows how to take care of himself and knows all about a heart healthy diet. States he/she is on [address]. Medical team explained to him that if he leaves he is at high risk for and pt understands this. Pt is able to make decisions. Rosa Poe MD Feb 21, 2017 09:45
--- NOTE | 2017-02-21 14:01 | EKG ---
Date Performed: 02/21/2017 Time Performed: 00:16:04 PTAGE: 67 years EKG: Sinus rhythm MODERATE INTRAVENTRICULAR CONDUCTION DELAY BORDERLINE ECG Compared to prior tracing no significant c [id number] PREVIOUS TRACING : 02/20/2017 21.18 DOCTOR: Britt Palacio Interpretating Date/Time 02/21/2017 13:56:25
--- NOTE | 2017-02-21 14:06 | EKG ---
Date Performed: 02/20/2017 Time Performed: 21:18:16 PTAGE: 67 years EKG: Sinus rhythm NORMAL ECG Compared to prior tracing no significant change PREVIOUS TRACING : 02/20/17@18:06 DOCTOR: Britt Palacio Interpretating Date/Time 02/21/2017 14:00:21
--- NOTE | 2017-02-21 14:13 | EKG ---
Date Performed: 02/20/2017 Time Performed: 18:06:21 PTAGE: 67 years EKG: Sinus rhythm MODERATE INTRAVENTRICULAR CONDUCTION DELAY BORDERLINE ECG NO PREVIOUS TRACING DOCTOR: Britt Palacio Interpretating Date/Time 02/21/2017 14:07:41
== END 2017-02-21 10:10 | disposition left against medical advice (07) ==
LOC: NEPC 17:19 → NEDA 19:55 → NEPFCDU 22:11
PROVIDERS: ADMIT Hospitalist; ATTEND Hospitalist
DX: R07.9 Chest pain, unspecified (principal); J44.9 Chronic obstructive pulmonary disease, unspecified; E78.5 Hyperlipidemia, unspecified; E87.1 Hypo-osmolality and hyponatremia; I25.10 Atherosclerotic heart disease of native coronary artery without angina pectoris; I10 Essential (primary) hypertension; K21.9 Gastro-esophageal reflux disease without esophagitis; I25.2 Old myocardial infarction; Z95.1 Presence of aortocoronary bypass graft; Z79.82 Long term (current) use of aspirin; Z87.891 Personal history of nicotine dependence
CPT/HCPCS: 71010; 80048; 82550; 83735; 83880; 84484; 85025; 85610; 85730; 93005; 96372; 99285; G0378; J1650

== ENCOUNTER 2017-02-23 16:04 | Inpatient (IN) | payer MEDICAID, MEDICARE ==
[~2017-02-23] VITALS: Ht 177.8 cm; Wt 50.0 kg
[2017-02-23] VITALS (7 sets, daily range): BP systolic 111–137; BP diastolic 57–70; PULSE 60–72; RESP 19–22; TEMP 98.2; O2SAT 95–100
--- NOTE | 2017-02-23 16:31 | PD ---
HPI Chief Complaint: Respiratory Symptoms Time Seen by Provider: 16:31 Travel History International Travel<30 days: No Contact w/Intl Traveler<30days: No Traveled to known affect area: No History of Present Illness HPI 67-year-old male came to the emergency room with history of chest pain and shortness of breath past few days. Patient in fact was in the emergency room on the which was 3 days ago and was admitted. But he decided to leave AMA since he felt disrespected. Meanwhile his symptoms have worsened. He has history of CABG in the past. Pain is all over the chest he said and worse when he coughs. He has been coughing and having some shortness of breath that's progressively worsening. Vital signs were relatively stable. [facility] Past Medical History Narrative Medical List of his past medical, surgical, social and family history is reviewed from the nursing note. Hx Anticoagulant Therapy: Yes (COUMADIN) Arthritis: Yes Asthma: Yes Autoimmune Disease: No Anxiety: Yes Depression: Yes Heart Rhythm Problems: No Cardiac Catheterization: No Cardiovascular Problems: Yes High Cholesterol: Yes Chemotherapy: No Chest Pain: Yes Congestive Heart Failure: Yes COPD: Yes Cerebrovascular Accident: No Coronary Artery Disease: Yes Diabetes: No Diminished Hearing: No Endocrine: No GERD: Yes Genitourinary: No Heparin Induced Thrombocytopen: No Hypertension: Yes Immune Disorder: No Implanted Vascular Access Dvce: Yes Musculoskeletal: Yes (BACK INJURY WORK RELATED,HERNIATED DISC C-SPINE,TENS UNIT LOWER BACK ) Neurologic: Yes (LEFT LEG,NECK,AND SHOULDER PAIN-NERVE DAMAGE) Reproductive: No Respiratory: Yes Immunizations Current: No Migraines: No Myocardial Infarction: Yes Schizophrenia: Yes Sickle Cell Disease: No Sleep Apnea: No Thyroid Disease: No Triglycerides - High: Yes Ulcer: Yes Tetanus Vaccination: < 5 Years PNEUMOCCOCAL Vaccine (Year): 1 Past Surgical History Abdominal Surgery: No AICD: No Appendectomy: No Arteriovenous Shunt: No Body Medical Devices: TENS UNIT (QUESTIONABLE) Cardiac Surgery: Yes (PORCINE AORTIC VALVE REPLACEMENT, CABG X2 '06) Cholecystectomy: No Coronary Artery Bypass Graft: No Ear Surgery: No Endocrine Surgery: No Eye Surgery: No Genitourinary Surgery: No Gynecologic Surgery: No Hysterectomy: No Insulin Pump: No Joint Replacement: No Neurologic Surgery: No Oral Surgery: No Thoracic Surgery: No Valve Replacement: Yes (aortic- porcine) Other Surgery: Yes (LOWER BACK) Family History Family Myocardial Infarction: Yes Social History Alcohol Use: No Tobacco Use: No Substance Use: No Allergies-Medications (Allergen,Severity, Reaction): Coded Allergies: No Known Allergies (Verified , 02/20/17) Comments No known drug allergies. Reported Meds & Prescriptions Reported Meds & Active Scripts Active Reported Warfarin 2.5 Mg Tab 2.5 Mg PO DAILY Tamsulosin (Tamsulosin HCl) 0.4 Mg Cap 0.4 Mg PO DAILY Zocor (Simvastatin) 20 Mg Tab 20 Mg PO HS Nitrostat SL (Nitroglycerin) 0.4 Mg Subl 0.4 Mg SL DIRECTED PRN 1 tablet under the tongue as needed for chest pain. Repeat every 5 minutes for a total of 3 DOSES or call 911 if NO relief. Lisinopril 10 Mg Tab 10 Mg PO DAILY Narrative Medication List of his home medications reviewed from the nursing note. Review of Systems Except as stated in HPI: all other systems reviewed are Neg Physical Exam Narrative GENERAL: Awake, alert, emaciated, disheveled, moderate distress SKIN: Focused skin assessment warm/dry. HEAD: Atraumatic. Normocephalic. EYES: Pupils equal and round. No scleral icterus. No injection or drainage. ENT: No nasal bleeding or discharge. Mucous membranes pink and moist. NECK: Trachea midline. No JVD. CARDIOVASCULAR: Regular rate and rhythm. No murmur appreciated. RESPIRATORY: No accessory muscle use. Coarse crackles bilaterally. GASTROINTESTINAL: Abdomen soft, non-tender, nondistended. Hepatic and splenic margins not palpable. MUSCULOSKELETAL: No obvious deformities. No clubbing. No cyanosis. No edema. NEUROLOGICAL: Awake and alert. No obvious cranial nerve deficits. Motor grossly within normal limits. Normal speech. PSYCHIATRIC: Appropriate mood and affect; insight and judgment normal. Data Data Last Documented VS Vital Signs Date Time Temp Pulse Resp B/P (MAP) Pulse Ox O2 Delivery O2 Flow Rate FiO2 02/23/17 17:18 98 Nasal Cannula 2.00 02/23/17 16:13 98.2 72 20 Orders Orders Electrocardiogram (02/23/17 16:34) Basic Metabolic Panel (Bmp) (02/23/17 16:34) Ckmb (Isoenzyme) Profile (02/23/17 16:34) Complete Blood Count With Diff (02/23/17 16:34) Magnesium (Mg) (02/23/17 16:34) Prothrombin Time / Inr (Pt) (02/23/17 16:34) Act Partial Throm Time (Ptt) (02/23/17 16:34) Troponin I (02/23/17 16:34) Chest, Single Ap (02/23/17 16:34) Ecg Monitoring (02/23/17 16:34) Bilateral Bp Monitoring (02/23/17 16:34) Iv Access Insert/Monitor (02/23/17 16:34) Oximetry (02/23/17 16:34) Oxygen Administration (02/23/17 16:34) Aspirin Chew (Aspirin Chew) (02/23/17 16:45) Sodium Chloride 0.9% Flush (Ns Flush) (02/23/17 16:45) CKMB (02/23/17 16:55) CKMB% (02/23/17 16:55) Nitroglycerin 2% Oint (Nitroglycerin 2% (02/23/17 18:00) Heparin Inj (Heparin Inj) (02/23/17 18:00) Heparin Inj (Heparin Inj) (02/24/17 00:00) Heparin Inj (Heparin Inj) (02/24/17 00:00) Heparin-D5w 25,000 U/250 Ml (Heparin-D5w (02/23/17 18:00) Cbc No Diff, Includes Plts (02/26/17 06:00) Act Partial Throm Time (Ptt) (02/24/17 00:55) Occult Blood (Hemoccult) Stool (02/23/17 17:55) Admit Order (Ed Use Only) (02/23/17 17:56) Admit To Inpatient (02/23/17 ) Vital Signs (Adult) Q4H (02/23/17 17:54) Activity Oob With Assistance (02/23/17 17:54) Application Support Intern / Telemetry .CONTINUOUS (02/23/17 17:54) Diet Heart Healthy (02/23/17 Dinner) Sodium Chloride 0.9% Flush (Ns Flush) (02/23/17 18:00) Sodium Chloride 0.9% Flush (Ns Flush) (02/23/17 21:00) Acetaminophen (Tylenol) (02/23/17 18:00) Ondansetron Inj (Zofran Inj) (02/23/17 18:00) Troponin I (02/23/17 21:00) Electrocardiogram (02/24/17 01:00) Resp Oxygen Levi C Titrat 1-4 L (02/23/17 ) Naloxone Inj (Narcan Inj) (02/23/17 18:00) Docusate Sodium-Senna (Philly-Colace) (02/23/17 21:00) Magnesium Hydroxide Liq (Milk Of Magnesi (02/23/17 18:00) Sennosides (Senokot) (02/23/17 18:00) Bisacodyl Supp (Dulcolax Supp) (02/23/17 18:00) Lactulose Liq (Lactulose Liq) (02/23/17 18:00) Inpatient Certification (02/23/17 ) Consult Cardiology (02/23/17 ) Labs Laboratory Tests Test 02/23/17 16:55 White Blood Count 7.4 TH/MM3 Red Blood Count 3.53 MIL/MM3 Hemoglobin 11.3 GM/DL Hematocrit 33.3 % Mean Corpuscular Volume 94.2 FL Mean Corpuscular Hemoglobin 31.9 PG Mean Corpuscular Hemoglobin Concent 33.8 % Red Cell Distribution Width 12.9 % Platelet Count 142 TH/MM3 Mean Platelet Volume 7.3 FL Neutrophils (%) (Auto) 80.1 % Lymphocytes (%) (Auto) 10.2 % Monocytes (%) (Auto) 8.5 % Eosinophils (%) (Auto) 0.6 % Basophils (%) (Auto) 0.6 % Neutrophils # (Auto) 5.9 TH/MM3 Lymphocytes # (Auto) 0.8 TH/MM3 Monocytes # (Auto) 0.6 TH/MM3 Eosinophils # (Auto) 0.0 TH/MM3 Basophils # (Auto) 0.0 TH/MM3 CBC Comment DIFF FINAL Differential Comment Prothrombin Time 11.4 SEC Prothromb Time International Ratio 1.0 RATIO Activated Partial Thromboplast Time 28.5 SEC Blood Urea Nitrogen 12 MG/DL Creatinine 1.00 MG/DL Random Glucose 103 MG/DL Calcium Level 8.5 MG/DL Magnesium Level 1.8 MG/DL Sodium Level 134 MEQ/L Potassium Level 4.3 MEQ/L Chloride Level 100 MEQ/L Carbon Dioxide Level 29.8 MEQ/L Anion Gap 4 MEQ/L Estimat Glomerular Filtration Rate 75 ML/MIN Total Creatine Kinase 113 U/L Creatine Kinase MB 0.9 NG/ML Troponin I 0.06 NG/ML MDM Medical Decision Making Medical Screen Exam Complete: Yes Emergency Medical Condition: Yes Medical Record Reviewed: Yes Interpretation(s) Twelve-lead EKG was reviewed by me. Normal sinus rhythm, normal axis, LVH by voltage criteria, nonspecific ST-T wave changes. Heart rate of 67 bpm. Differential Diagnosis ACS, congestive heart failure, non-STEMI Narrative Course 4:51 PM awaiting for the blood test results. Patient was given 2 baby aspirin. I looked at the blood test results from his stay 3 days ago and his troponin had bumped. Based on this patient will need medical admission, cardiology consultation and possibly catheterization. Case will be signed over to the oncoming ER physician. Procedures EKG Prior to Arrival: Francisco Sadler MD Feb 23, 2017 16:31
[2017-02-23] MEDS ORDERED: SODIUM CHLORIDE 0.9% FLUSH 10 ML FLUSH IVF PRN (16:45)
[2017-02-23] MEDS ORDERED: ASPIRIN 81 MG CHEW TAB PO ONE (16:45)
--- NOTE | 2017-02-23 16:56 | RADRPT ---
EXAM DATE/TIME: 02/23/2017 16:34 [facility] COMPARISON: CHEST SINGLE AP, February 20, 2017, 18:24. INDICATIONS : Chest pain. MEDICAL HISTORY : Myocardial infarction. Chronic obstructive pulmonary disease. Congestive heart failure. SURGICAL HISTORY : None. ENCOUNTER: Initial ACUITY: 2 days PAIN SCORE: 9/10 LOCATION: Bilateral chest FINDINGS: The patient is post median sternotomy. There are chronic interstitial changes within the pulmonary pa renchyma. The lungs are otherwise clear. The visualized bony structures are intact. CONCLUSION: 1. Post median sternotomy and valvular replacement. No acute abnormality. Kirt Pretty MD on February 23, 2017 at 16:53 Board Certified Radiologist. This report was verified electronically.
[2017-02-23 17:09] LABS: AUTOMATED NEUTROPHIL # 5.9 TH/MM3 (1.8-7.7); BASOPHIL % 0.6 % (0.0-2.0); EOSINOPHIL % 0.6 % (0.0-4.0); HEMATOCRIT 33.3 % (39.0-51.0); HEMO FLAGS DIFF FINAL; LYMPH % 10.2 % (9.0-44.0); LYMPHOCYTE # 0.8 TH/MM3 (1.0-4.8); MEAN CELL VOLUME 94.2 FL (80.0-100.0); MEAN CORPUSCULAR HEMOGLOBIN 31.9 PG (27.0-34.0); MEAN CORPUSCULAR HGB CONC 33.8 % (32.0-36.0); MONO % 8.5 % (0.0-8.0); NEUT % 80.1 % (16.0-70.0); PLATELET COUNT 142 TH/MM3 (150-450); RED BLOOD COUNT 3.53 MIL/MM3 (4.50-5.90); RED CELL DISTRIBUTION WIDTH 12.9 % (11.6-17.2); WHITE BLOOD COUNT 7.4 TH/MM3 (4.0-11.0)
[2017-02-23 17:19] LABS: APTT (PATIENT) 28.5 SEC (24.3-30.1); PROTHROMBIN TIME - PATIENT 11.4 SEC (9.8-11.6)
[2017-02-23 17:24] LABS: ANION GAP 4 MEQ/L (5-15); BICARBONATE 29.8 MEQ/L (21.0-32.0); BLOOD UREA NITROGEN 12 MG/DL (7-18); CHLORIDE 100 MEQ/L (98-107); GLOMERULAR FILTRATION RATE 75 ML/MIN (>89); MAGNESIUM 1.8 MG/DL (1.5-2.5); POTASSIUM 4.3 MEQ/L (3.5-5.1); SODIUM (NA) 134 MEQ/L (136-145)
[2017-02-23 17:31] LABS: CREATINE KINASE 113 U/L (39-308)
[2017-02-23 17:45] LABS: CKMB 0.9 NG/ML (0.5-3.6)
--- NOTE | 2017-02-23 17:49 | PD ---
Data Data Last Documented VS Vital Signs Date Time Temp Pulse Resp B/P (MAP) Pulse Ox O2 Delivery O2 Flow Rate FiO2 02/23/17 17:18 98 Nasal Cannula 2.00 02/23/17 16:13 98.2 72 20 Orders Orders Electrocardiogram (02/23/17 16:34) Basic Metabolic Panel (Bmp) (02/23/17 16:34) Ckmb (Isoenzyme) Profile (02/23/17 16:34) Complete Blood Count With Diff (02/23/17 16:34) Magnesium (Mg) (02/23/17 16:34) Prothrombin Time / Inr (Pt) (02/23/17 16:34) Act Partial Throm Time (Ptt) (02/23/17 16:34) Troponin I (02/23/17 16:34) Chest, Single Ap (02/23/17 16:34) Ecg Monitoring (02/23/17 16:34) Bilateral Bp Monitoring (02/23/17 16:34) Iv Access Insert/Monitor (02/23/17 16:34) Oximetry (02/23/17 16:34) Oxygen Administration (02/23/17 16:34) Aspirin Chew (Aspirin Chew) (02/23/17 16:45) Sodium Chloride 0.9% Flush (Ns Flush) (02/23/17 16:45) CKMB (02/23/17 16:55) CKMB% (02/23/17 16:55) Labs Laboratory Tests Test 02/23/17 16:55 White Blood Count 7.4 TH/MM3 Red Blood Count 3.53 MIL/MM3 Hemoglobin 11.3 GM/DL Hematocrit 33.3 % Mean Corpuscular Volume 94.2 FL Mean Corpuscular Hemoglobin 31.9 PG Mean Corpuscular Hemoglobin Concent 33.8 % Red Cell Distribution Width 12.9 % Platelet Count 142 TH/MM3 Mean Platelet Volume 7.3 FL Neutrophils (%) (Auto) 80.1 % Lymphocytes (%) (Auto) 10.2 % Monocytes (%) (Auto) 8.5 % Eosinophils (%) (Auto) 0.6 % Basophils (%) (Auto) 0.6 % Neutrophils # (Auto) 5.9 TH/MM3 Lymphocytes # (Auto) 0.8 TH/MM3 Monocytes # (Auto) 0.6 TH/MM3 Eosinophils # (Auto) 0.0 TH/MM3 Basophils # (Auto) 0.0 TH/MM3 CBC Comment DIFF FINAL Differential Comment Prothrombin Time 11.4 SEC Prothromb Time International Ratio 1.0 RATIO Activated Partial Thromboplast Time 28.5 SEC Blood Urea Nitrogen 12 MG/DL Creatinine 1.00 MG/DL Random Glucose 103 MG/DL Calcium Level 8.5 MG/DL Magnesium Level 1.8 MG/DL Sodium Level 134 MEQ/L Potassium Level 4.3 MEQ/L Chloride Level 100 MEQ/L Carbon Dioxide Level 29.8 MEQ/L Anion Gap 4 MEQ/L Estimat Glomerular Filtration Rate 75 ML/MIN Total Creatine Kinase 113 U/L Creatine Kinase MB 0.9 NG/ML Troponin I 0.06 NG/ML MDM Supervised Visit with MAYA: No Narrative Course The patient was initially evaluated by the previous provider and sent out to me at the beginning of my shift pending labs and disposition. See her note for further details. Briefly this a 67 her old male who has history of COPD, aortic valve repair, here for evaluation of chest pain and shortness of breath for the last few days. Patient reports substernal chest heaviness/tightness worse with exertion. He was admitted to the [facility] chest pain center on 02/20/17 for similar complaints, however his troponins trended upward to 0.49 on 02/21/17. It appears that the patient was supposed to have a cardiac cath, however he tells me that because they would not feed him he decided to leave AMA. Cough is productive of greenish sputum. No hemoptysis. Patient was provided aspirin by the previous provider. Initial vital signs show heart rate 72, blood pressure 111/57, pulse ox 95% on room air, oral temp of 98.2F. CBC shows WBC 7.4, hemoglobin 11.3, hematocrit 33.3, platelets 142, neutrophils 80%. BMP is unremarkable. Total CK is 113. CK-MB is 0.9. Troponin is 0.06. Chest x-ray: Post median sternotomy and valvular replacement. No acute abnormality. Case discussed with hospitalist Dr. Ballard who will admit the patient to his service. The patient will be started on heparin and nitro paste will be placed. He will be admitted to the [facility] for cardiology evaluation. Diagnosis Primary Impression: Chest pain Qualified Codes: I20.8 - Other forms of angina pectoris Admitting Information Admitting Physician Requests: Admit Atul Recio MD Feb 23, 2017 17:49
[2017-02-23] MEDS ORDERED: SODIUM CHLORIDE 0.9% FLUSH 10 ML FLUSH IV FLUSH PRN (18:00)
[2017-02-23] MEDS ORDERED: BISACODYL 10 MG SUPP RECTAL PRN (18:00)
[2017-02-23] MEDS ORDERED: NITROGLYCERIN 2% OINT 1 GM PACKET TOPICAL ONE (18:00)
[2017-02-23] MEDS ORDERED: ACETAMINOPHEN 325 MG TAB PO PRN (18:00)
[2017-02-23] MEDS ORDERED: HEPARIN SODIUM - IV 10,000 UNITS/10 ML VIAL IV ONE (18:00)
[2017-02-23] MEDS ORDERED: ONDANSETRON HCL 4 MG/2 ML VIAL IVP PRN (18:00)
[2017-02-23] MEDS ORDERED: SENNOSIDES 8.6 MG TAB PO PRN (18:00)
[2017-02-23] MEDS ORDERED: LACTULOSE SYRUP 20 GM/30 ML CUP PO PRN (18:00)
[2017-02-23] MEDS ORDERED: NALOXONE HCL 0.4 MG/ML AMP IV PUSH PRN (18:00)
[2017-02-23] MEDS ORDERED: MAGNESIUM HYDROXIDE SUSP 30 ML CUP PO PRN (18:00)
[2017-02-23] MEDS: HEPARIN-D5W 25,000 U/250 ML 250 ML IV PRN (18:12)
[2017-02-23] MEDS: SODIUM CHLORIDE 0.9% FLUSH 10 ML FLUSH IV FLUSH SCH (20:43)
[2017-02-23] MEDS: DOCUSATE SODIUM 50 MG/SENNA 8.6 MG TAB PO SCH (20:43)
[2017-02-23] MEDS ORDERED: diphenhydrAMINE HCL 25 MG CAP PO ONE (22:15)
[2017-02-23] MEDS ORDERED: guaiFENesin SOLUTION 200 MG/10 ML CUP PO ONE (22:15)
--- NOTE | 2017-02-23 23:12 | HHI.HP ---
HPI Service [facility] Primary Care Physician Unknown Admission Diagnosis Chest Pain Diagnoses: Travel History International Travel<30 Days: No Contact w/Intl Traveler <30 Da: No Traveled to Known Affected Are: No History of Present Illness History from patient, ER physician notes, and review of medical records. Patient reports that he has been coughing for past few days. He is generally coughing constantly during my interview as well. He reports a fever but did not measure it. Also reports of some nausea and vomiting starting about Monday or so. About 3 times a day vomiting. Mostly whitish color after coughing. Denies any blood in his vomitus. Patient also reports of chest pain which actually comes after coughing fits. Denies being on water pills at home. Reports he has quit smoking about 10 years ago. Did however stated that his chest pain radiates to his left arm and that he was nauseous at the time of the pain. Again, all the symptoms were happening for about a week and a half. Denies any blood in his stool or his urine. Reports a little bit of diarrhea about 3 times a day or so. This was also on and off for about a week. Denies any urinary burning or pain on urination or frequent urination. He states that because of all this sickness, he was also feeling more and more dizzy to the point of almost passing out. Denies peripheral edema. Denies any pillow orthopnea. Review of Systems Except as stated in HPI: all other systems reviewed are Neg Past Family Social History Past Medical History htn cad - 2005, s/p stent Aortic valve replacement copd - quit smoking in 2005 chf- he is not sure- he thinks summer time he gets it afib- pt is not sure no liver problems no kidney problems thinks he had a stroke couple of weeks ago, but cant be sure no seizures/ thyroid dx/ cancer / prostate issues Past Surgical History coronary angiogram and stenting back surgery 1985 Allergies: Coded Allergies: No Known Allergies (Verified , 02/20/17) Family History none that he knows of Social History quit in 2005 smoking denies etoh abuse or drug abuse Physical Exam Vital Signs Vital Signs Date Time Temp Pulse Resp B/P (MAP) Pulse Ox O2 Delivery O2 Flow Rate FiO2 02/23/17 19:12 60 20 137/68 (91) 100 Nasal Cannula 2.00 02/23/17 18:32 98 Nasal Cannula 2.00 02/23/17 18:16 62 19 128/63 (84) 97 Nasal Cannula 2.00 02/23/17 17:18 98 Nasal Cannula 2.00 02/23/17 16:41 97 Room Air 02/23/17 16:41 97 Room Air 02/23/17 16:13 98.2 72 20 111/57 (75) 95 Room Air Physical Exam GENERAL: This is a thin gentleman, looks to be in discomfort. Constantly coughing. Productive sputum which is not able to expectorate. SKIN: No rashes, ecchymoses or lesions. Warm to touch. Tactile fever. HEAD: Atraumatic. Normocephalic. No temporal or scalp tenderness. EYES: . No scleral icterus. No injection or drainage. ENT: Nose without bleeding, purulent drainage or septal hematoma. Airway patent. NECK: Trachea midline. No JVD CARDIOVASCULAR: Regular rate and rhythm without murmurs, gallops, or rubs. RESPIRATORY: Bilaterally decreased air entry. Has mild basilar crepitations. Bilaterally. GASTROINTESTINAL: Abdomen soft, non-tender, nondistended. No guarding. MUSCULOSKELETAL: Extremities without clubbing, cyanosis, or edema. No calf tenderness. NEUROLOGICAL: Awake and alert. Motor and sensory grossly within normal limits. Normal speech. Laboratory Laboratory Tests Test 02/23/17 16:55 White Blood Count 7.4 Red Blood Count 3.53 Hemoglobin 11.3 Hematocrit 33.3 Mean Corpuscular Volume 94.2 Mean Corpuscular Hemoglobin 31.9 Mean Corpuscular Hemoglobin Concent 33.8 Red Cell Distribution Width 12.9 Platelet Count 142 Mean Platelet Volume 7.3 Neutrophils (%) (Auto) 80.1 Lymphocytes (%) (Auto) 10.2 Monocytes (%) (Auto) 8.5 Eosinophils (%) (Auto) 0.6 Basophils (%) (Auto) 0.6 Neutrophils # (Auto) 5.9 Lymphocytes # (Auto) 0.8 Monocytes # (Auto) 0.6 Eosinophils # (Auto) 0.0 Basophils # (Auto) 0.0 CBC Comment DIFF FINAL Differential Comment Prothrombin Time 11.4 Prothromb Time International Ratio 1.0 Activated Partial Thromboplast Time 28.5 Blood Urea Nitrogen 12 Creatinine 1.00 Random Glucose 103 Calcium Level 8.5 Magnesium Level 1.8 Sodium Level 134 Potassium Level 4.3 Chloride Level 100 Carbon Dioxide Level 29.8 Anion Gap 4 Estimat Glomerular Filtration Rate 75 Total Creatine Kinase 113 Creatine Kinase MB 0.9 Troponin I 0.06 Result Diagram: 02/23/17 1655 02/23/17 1655 Imaging Last 48 hours Impressions Chest X-Ray 02/23/17 1634 Signed Impressions: Service Date/Time: February 16:34 - CONCLUSION: 1. Post median sternotomy and valvular replacement. No acute abnormality. MD Sara Todd VTE Risk Assessment Neyrini VTE Risk Assessment: Mod/High Risk (score >= 2) Caprini Risk Assessment Model Point Value = 1 Point Value = 2 Point Value = 3 Point Value = 5 Age 41-60 Minor surgery BMI > 25 kg/m2 Swollen legs Varicose veins or History of unexplained or recurrent spontaneous Oral contraceptives or hormone replacement Sepsis (< 1 month) Serious lung disease, including pneumonia (< 1 month) Abnormal pulmonary function Acute myocardial infarction Congestive heart failure (< 1 month) History of inflammatory bowel disease Medical patient at bed rest Age 61-74 Arthroscopic surgery Major open surgery (> 45 min) Laparoscopic surgery (> 45 min) Malignancy Confined to bed (> 72 hours) Immobilizing plaster cast Central venous access Age >= 75 History of VTE Family history of VTE Factor V Leiden Prothrombin [id number] Lupus anticoagulant Anticardiolipin antibodies Elevated serum homocysteine Heparin-induced thrombocytopenia Other congenital or acquired thrombophilia Stroke (< 1 month) Elective arthroplasty Hip, pelvis, or leg fracture Acute spinal cord injury (< 1 month) Prophylaxis Regimen Total Risk Factor Score Risk Level Prophylaxis Regimen 0-1 Low Early ambulation 2 Moderate Order ONE of the following: *Sequential Compression Device (SCD) *Heparin 5000 units SQ BID 3-4 Higher Order ONE of the following medications: *Heparin 5000 units SQ TID *Enoxaparin/Lovenox 40 mg SQ daily (WT < 150 kg, CrCl > 30 mL/min) *Enoxaparin/Lovenox 30 mg SQ daily (WT < 150 kg, CrCl > 10-29 mL/min) *Enoxaparin/Lovenox 30 mg SQ BID (WT < 150 kg, CrCl > 30 mL/min) AND/OR *Sequential Compression Device (SCD) 5 or more Highest Order ONE of the following medications: *Heparin 5000 units SQ TID (Preferred with Epidurals) *Enoxaparin/Lovenox 40 mg SQ daily (WT < 150 kg, CrCl > 30 mL/min) *Enoxaparin/Lovenox 30 mg SQ daily (WT < 150 kg, CrCl > 10-29 mL/min) *Enoxaparin/Lovenox 30 mg SQ BID (WT < 150 kg, CrCl > 30 mL/min) AND *Sequential Compression Device (SCD) Assessment and Plan Assessment and Plan Impression: COPD exacerbation possible underlying pneumonia Possible bacteremia chest pain- r/o acs with high risk Mild elevated troponin Subtherapeutic INR htn cad - 2005, s/p stent Aortic valve replacement copd - quit smoking in 2005 Plan levofloxacin 750 g IV every 24 hours. nebs will check echo cardio was consulted resume home meds reports compliance with meds- INR subtherapeutic Hold Coumadin for now. On heparin drip per ACS protocol. DVT prophylaxison heparin drip. GI prophylaxis on pantoprazole. Patient is seen at 2312. Noted was completed in the morning due to 6 hours [employer] downtime overnight. Discussed Condition With patient, nursing staff, Physician Certification 2 Midnight Certification Type: Admission for Inpatient Services Order for Inpatient Services The services are ordered in accordance with Medicare regulations or non- Medicare payer requirements, as applicable. In the case of services not specified as inpatient-only, they are appropriately provided as inpatient services in accordance with the 2-midnight benchmark. Estimated LOS (days): 3 days is the estimated time the patient will need to remain in the hospital, assuming treatment plan goals are met and no additional complications. Post-Hospital Plan: Home Karli Crow MD Feb 23, 2017 23:12
[2017-02-24] VITALS (21 sets, daily range): BP systolic 104–136; BP diastolic 43–88; PULSE 50–84; RESP 16–22; TEMP 97.8–99.1; O2SAT 93–97
[2017-02-24] MEDS ORDERED: HEPARIN SODIUM - IV 10,000 UNITS/10 ML VIAL IV PRN ×2
[2017-02-24] MEDS: RESP: ALBUTEROL 2.5 MG/IPRATROPIUM 0.5 MG NEB (SCH) NEB ×4 (04:00→20:56)
[2017-02-24] MEDS ORDERED: methylPREDNISolone SOD SUCC 125 MG/2 ML VIAL IV ONE (04:00)
[2017-02-24] MEDS ORDERED: RESP: ALBUTEROL 2.5 MG/IPRATROPIUM 0.5 MG NEB (PRN) NEB (04:00)
[2017-02-24] MEDS ORDERED: LEVOFLOXACIN 750 MG/DEXTROSE 150 ML IV SCH (04:00)
[2017-02-24 04:19] LABS: APTT (PATIENT) 60.2 SEC (24.3-30.1)
[2017-02-24] MEDS: DOCUSATE SODIUM 50 MG/SENNA 8.6 MG TAB PO SCH ×2 (08:51→21:00)
[2017-02-24] MEDS: SODIUM CHLORIDE 0.9% FLUSH 10 ML FLUSH IV FLUSH SCH ×2 (08:52→21:23)
--- NOTE | 2017-02-24 09:15 | HHI.PR ---
Subjective Remarks Follow-up for chest pain. Patient was seen before he went for cardiac catheterization. Patient is doing well, no chest pain, shortness of breath, fever or chills. Objective Vitals Vital Signs Date Time Temp Pulse Resp B/P (MAP) Pulse Ox O2 Delivery O2 Flow Rate FiO2 02/24/17 09:06 93 02/24/17 08:00 60 02/24/17 07:00 97 Room Air 02/24/17 07:00 59 02/24/17 07:00 97.8 55 20 104/57 (73) 97 02/24/17 04:00 99.1 71 22 129/84 (99) 97 02/24/17 04:00 76 02/24/17 04:00 Nasal Cannula 2.00 02/24/17 00:00 79 02/24/17 00:00 Nasal Cannula 2.00 02/24/17 00:00 99.0 73 20 130/88 (102) 97 02/23/17 20:30 62 02/23/17 20:30 Nasal Cannula 2.00 02/23/17 20:30 98.2 67 22 134/70 (91) 100 02/23/17 19:12 60 20 137/68 (91) 100 Nasal Cannula 2.00 02/23/17 18:32 98 Nasal Cannula 2.00 02/23/17 18:16 62 19 128/63 (84) 97 Nasal Cannula 2.00 02/23/17 17:18 98 Nasal Cannula 2.00 02/23/17 16:41 97 Room Air 02/23/17 16:41 97 Room Air 02/23/17 16:13 98.2 72 20 111/57 (75) 95 Room Air I/O 02/23/17 02/23/17 02/23/17 02/24/17 02/24/17 02/24/17 07:00 15:00 23:00 07:00 15:00 23:00 Intake Total 453 ml Output Total 300 ml Balance 153 ml Intake Oral 240 ml IV Total 213 ml Output Urine Total 300 ml # Bowel Movements 0 Result Diagram: 02/23/17 1655 02/23/17 1655 Imaging Last Impressions Chest X-Ray 02/23/17 1634 Signed Impressions: Service Date/Time: February 16:34 - CONCLUSION: 1. Post median sternotomy and valvular replacement. No acute abnormality. Kirt Pretty MD Objective Remarks GENERAL: Alert, oriented 3, NAD. SKIN: Warm and dry. HEAD: Normocephalic. EYES: No scleral icterus. No injection or drainage. NECK: Supple, trachea midline. No JVD or lymphadenopathy. CARDIOVASCULAR: Regular rate and rhythm without gallops, or rubs. Systolic murmur present best heard on the right side of the sternum. RESPIRATORY: Breath sounds equal bilaterally. No accessory muscle use. GASTROINTESTINAL: Abdomen soft, non-tender, nondistended. MUSCULOSKELETAL: No cyanosis, or edema. BACK: Nontender without obvious deformity. No CVA tenderness. Procedures Cardiac cath 02/24/2017 - no significant CAD. A/P Problem List: (1) NSTEMI (non-ST elevated myocardial infarction) ICD Code: I21.4 - Non-ST elevation (NSTEMI) myocardial infarction (2) Acute exacerbation of chronic obstructive pulmonary disease (COPD) ICD Code: J44.1 - Chronic obstructive pulmonary disease with (acute) exacerbation Status: Acute (3) Hypertension ICD Code: I10 - Hypertension Status: Chronic (4) Hyperlipidemia ICD Code: E78.5 - Hyperlipidemia Status: Chronic Assessment and Plan Mr. Denis is a 67-year-old male who presented to the emergency department due to chest pain, shortness of breath. Upon admission he wasn't started on antibiotics, breathing treatments. Cardiology was consulted for mild elevation in troponins. Peak troponin was 0.12. Patient underwent cardiac catheterization on 02/24/2017 - did not show any coronary artery disease. - Acute COPD exacerbation - Continue Levaquin 750 mg daily. We'll switch from IV to by mouth. - Continue breathing treatments as needed. - NSTEMI - possibly type 2 - Hx of Aortic stenosis - CAD s/p CABG x 2 v. - Probably related to COPD. - Cardiology recommended to start warfarin - Hypertension - Hyperlipidemia - Continue lisinopril 10 mg daily, pravastatin 40 mg daily at bedtime. - Will discuss with patient regarding pravastatin to Lipitor 40 transition Full code. Warfarin. Discharge plan - likely discharge on 02/25/2017 after cardiology clearance. Pedro Ballard DO Feb 24, 2017 9:15 am
[2017-02-24] MEDS: ASPIRIN 81 MG CHEW TAB CHEW SCH (09:25)
[2017-02-24] MEDS: LISINOPRIL 10 MG TAB PO SCH (09:25)
[2017-02-24] MEDS: TAMSULOSIN HCL 0.4 MG CAP PO SCH (09:25)
[2017-02-24] MEDS ORDERED: HEPARIN-NS/PF INJ 1,000 ML ONE (10:01)
[2017-02-24] MEDS ORDERED: HEPARIN SODIUM - IV 10,000 UNITS/10 ML VIAL ONE (10:03)
[2017-02-24] MEDS ORDERED: VERAPAMIL HCL 5 MG/2 ML VIAL ONE (10:03)
[2017-02-24] MEDS ORDERED: MIDAZOLAM HCL 2 MG/2 ML VIAL ONE (10:24)
--- NOTE | 2017-02-24 11:17 | CATHPROC ---
[employer] HIS Report Study Information Study Number Admission Scheduled Start Study Start [id number] Feb 23 2017 5:57PM 02/24/2017 Feb 24 2017 9:45AM [place] Service Cardiac Catheterization Admit Source Facility Department Emergency department [facility] - [employer] Sales Representative Physician and Clinical Staff Initial Matt Kowalski Adjustment Clerkjohn Marie RN, Andrew Adjustment ClerkJacqueline Gross BSRN Other Shannon Bryant,COMMERCIAL FOOD INSTRUCTOR TECH2 Other Clayton Colunga,ROBI Recorder Karyn Guevara,RT(R) Bettina Iraheta,RT(R) (BS) Procedures Performed Procedure Location (Site) Vessel Name Coronary Angiograms LCA Left Coronary Coronary Angiograms RCA Right Coronary Coronary Angiograms NEIL NEIL L Heart Cath Wire insertion Radial (right) Radial Art. Equipment Time Applications Analyst Description Size Mfg Part Number Used/Scraped TRANSDUCER, TRUWAVE [id number] 10:11 PADRON MCDONALD * Used W/STOCKCOCK *[id number] *[id number] *[id number] *[id number] WIRE, HYDROSTEER 150CM [id number] 10:36 DAIG/ST. [employer] 150CM Used ANGLED GLIDE *[id number] 10:11 [employer] PACK, CCL CUSTOM * Used *[id number] 10:11 [employer] SUPPORT, ARTERIAL ADULT [id number] *[id number] Used BAND, RADIAL COMPRESSION TR [id number] 10:55 GeoOP 24CM Used SHORT 24 *[id number] 10:11 GeoOP WIRE, EXCHANGE 260CM 3MMJ 260CM Used *[id number] 10:11 NAMIC MANIFOLD, 4 PORT * Used *[id number] 10:11 NYCOMED OMNIPAQUE, 350 MG, 150ML 150ML [id number] Used [id number] 10:11 [employer] BLANKET,WARM AIR CCL * Used *[id number] SHEATH, FR6 TRANSRADIAL [id number] 10:11 SureFire FR 6 Used SLENDER 10CM *[id number] Equipment Model, Serial, Lot Number and Expiration Data Description Model Number Serial Number Lot Number Expiration Date WIRE, HYDROSTEER 150CM [id number] 07-12-2019 ANGLED GLIDE History: Current Medications Medication Dosage/Unit Route Frequency Last Date/Time Taken Coumadin LISINOPRIL Zocor NTG SL History: Allergies Allergy Reaction No Known Allergies History: Risk Factors Family History of Hypertension Dyslipidemia Previous [place] Previous Heart Failure Premature CAD Yes Yes No No Yes Prior Valve Prior PCI Prior PCIDate Prior CABG Surgery Yes Yes 06/12/2005 No Cerebrovascular Peripheral Artery Chronic Lung On Dialysis Diabetes Disease Disease Disease No Yes No Yes No History: Symptoms/Diagnosis Selection Items Chest pain History: Stress Tests Stress or Imaging Studies Performed No History: Other Disease Selection Items CAD CHF COPD HTN History: Other Current Smoker Method Quit Packs a Day Years Used Pack Years No Cigarettes 10 Years Ago 1 30 30 Labs Hgb (g/dl) Hct (%) WBC (l/cumm) Platelets (thousands) 11.60-17.00 35.00-51.00 4.00-11.00 150.00-450.00 11.3 33.3 7.4 142 Glucose (mg/dl) BUN (mg/dl) Creatinine (mg/dl) BUN:Creatinine (1:x) 74.00-106.00 7.00-18.00 0.50-1.30 10.00-20.00 103 12 1.0 12 Na (meq/l) K (meq/l) 136.00-145.00 3.50-5.10 134 4.3 INR (PTT:PT) 0.90-1.10 1 Troponin I (ng/ml) CPK-MB (ng/ML) 0.02-0.05 0.50-3.60 0.06 Not Drawn Medication Medication Total Dose (Bolus/Oral) Medication Total Dosage/Unit 1% XYLOCAINE 10 mL FENTANYL 25 mcg RADIAL COCKTAIL 5 mL (Bolus) VERSED 0.5 mg Medications (Bolus/Oral) Medication Time Given Dosage/Unit Administered By Reason FENTANYL 02/24/2017 10:27:37 AM 25 mcg Rittenour, Jacqueline 25 mcg FENTANYL given in lab by Jacqueline Gibbs BSRN in Left Antecubital via Peripheral IV. Ordered by Matt Tierney. VERSED 02/24/2017 10:29:45 AM 0.5 mg Rittenour, Jacqueline 0.5 mg VERSED given in lab by Jacqueline Gibbs BSRN in Left Antecubital via Peripheral IV. Ordered b Matt Daniel. 1% XYLOCAINE 02/24/2017 10:31:25 AM 10 mL Matt Tierney 10 mL 1% XYLOCAINE given in lab by Matt Tierney in Right Radial via Subcutaneous. Ordered by Matt Atwood. RADIAL COCKTAIL 02/24/2017 10:33:53 AM 5 mL (Bolus) Matt Tierney 5 mL (Bolus) RADIAL COCKTAIL given in lab by Matt Tierney in Right Radial via Radial. Using [Ryanne ution Name]. Ordered by Matt Tierney. Ntg 200mcg, Verapamil 2.5mg, Heraprin 2800U Initial Case Assessment Cardiovascular HR Rhythm NIBP Chest Pain 51 chano 117/63 6 Edema Present Skin color Skin None Normal Warm Dry Circulatory - Right Pulses Dorsalis Pedis Femoral 2 2 Scale (0,1,2,3,4,d) Circulatory - Left Pulses Dorsalis Pedis Femoral 2 2 Scale (0,1,2,3,4,d) Neurological State Oriented to time-place- Alert Moves all extremities person Respiration - General Respiration Rate SpO2 (%) O2 (lpm) (B/min) 30 97 2 Chronological Log Time Study Chronological Log 10:01:49 Patient arrived via Bed. 10:01:50 Patient Name, D.O.B, / Armband Verified By R.N. 10:01:50 Consent signed by the physician and the patient and verified by the Home Furnish[employer] Sales Representative staff. 10:01:51 Pre-op and post- op instructions given; patient acknowledges understanding of instructions . 10:01:52 Verbal Stimulation=2 Physical Stimulation=2 Airway=2 Respiration=2 TOTAL=8. (0=absent, 1=l imited, 2=present) 10:01:53 Allens test performed on the right radial and ulnar artery. 10:02:14 Patient has been NPO for More than 6Hrs. 10:02:14 Skin Breakdown- none per pt 10:02:20 Patient Warmer Placed on the Table. 10:02:21 Hayley Prominences Protected 10:02:23 A # 20 IV was noted in the Antecubital (left). Grade = 0 10:02:25 History and physical on the chart or being dictated. Assessment: Initial Case, HR=51 BPM, Rhythm=chano, PVPW=044/63 mmhg, Chest Pain=6, Edema=None, Color=Normal, Skin = Warm, Dry Right Pulses: Walter Ped=2, Femoral=2 10:02:27 Left Pulses: Walter Ped=2, Femoral=2 Neurological: State=Alert, Ox3, WEISS Respiration: Resp=30 B/min, SpO2=97 %, O2=2 lpm Vitals capture started with the following parameters, Patient=Adult, Interval=5 min, Initial Pr kxcytr=414 mmHg, 10:14:37 Deflation Rate=5 mmHg, Cuff placed on Right Arm 10:14:55 Reference ECG taken 10:15:14 HR=53 bpm, WFUW=170/63 mmhg, SpO2=99.0 %, Resp=26 B/min, Gramajo=2 10:19:59 Right and left groin and right radial prepped with 2% chlorhexidine, and draped after a 3 m in. waiting time. 10:20:09 HR=52 bpm, FAIJ=600/57 mmhg, Resp=21 B/min, Gramajo=2 10:24:06 MD arrived. 10:25:10 HR=54 bpm, CKFV=848/57 mmhg, SpO2=99.0 %, Resp=17 B/min, Gramajo=2 10:26:52 Pressure channel 1 zeroed. 25 mcg FENTANYL given in lab by Jacqueline Gibbs BSRN in Left Antecubital via Peripheral IV. O rdered by Niall, 10:27:37 Matt. 0.5 mg VERSED given in lab by Jacqueline Gibbs BSRN in Left Antecubital via Peripheral IV. Ord ered by Niall 10:29:45 Matt. 10:30:09 HR=56 bpm, VQOS=826/57 mmhg, SpO2=96.0 %, Resp=14 B/min, Gramajo=2 Time Out. Correct patient, correct procedure, correct physician, power injector not loaded with contrast with surgical 10:30:19 team present. Time Out Concurred by , individual staff in procedure. 10:31:01 Case Start 10 mL 1% XYLOCAINE given in lab by Matt Tierney in Right Radial via Subcutaneous. Ordered by Niall 10:31:25 Matt. 10:33:18 Access site was Right Radial Artery. A SHEATH, FR6 TRANSRADIAL SLENDER 10CM FR 6 was advanced into the Radial (right) using the Perc utaneous 10:33:35 technique. 5 mL (Bolus) RADIAL COCKTAIL given in lab by Matt Tierney in Right Radial via Radial. Pat g [Solution Name]. 10:33:53 Ordered by Matt Tierney. Ntg 200mcg, Verapamil 2.5mg, Heraprin 2800U A JR 4.0 INFINITI CATHETER FR 5 was advanced over a wire. OMNIPAQUE, 350 MG, 150ML 150ML was us ed for 10:34:42 injections. 10:35:10 HR=54 bpm, NIBP=98/47 mmhg, SpO2=99.0 %, Resp=29 B/min, Gramajo=2 10:35:31 Wire removed 10:35:34 A WIRE, HYDROSTEER 150CM ANGLED GLIDE 150CM was inserted via Radial (right). 10:37:45 Wire removed 10:39:19 The RCA was injected and visualized at various angles. OMNIPAQUE, 350 MG, 150ML 150ML used . 10:40:07 HR=59 bpm, NIBP=85/46 mmhg, SpO2=96.0 %, Resp=20 B/min, Gramajo=2 After removing the current catheter a JL 3.5 INFINITI CATHETER FR 5 was advanced over a WIRE, E XCHANGE 260CM 10:41:26 3MMJ 260CM. 10:45:01 The LCA was injected and visualized at various angles. OMNIPAQUE, 350 MG, 150ML 150ML used . 10:45:04 HR=55 bpm, NIBP=97/53 mmhg, SpO2=97 %, Resp=25 B/min, Gramajo=2 After removing the current catheter a AL 1 INFINITI CATHETER FR 5 was advanced over a WIRE, EXC HANGE 260CM 10:47:41 3MMJ 260CM. 10:50:05 HR=56 bpm, STJG=635/61 mmhg, SpO2=98.0 %, Resp=31 B/min, Gramajo=2 Recorded Pressure: Ao, HR=56, Condition=Condition 1 10:50:28 (Aorta) Ao 115/53/76 10:52:40 The NEIL and SVG were injected and visualized at various angles. OMNIPAQUE, 350 MG, 150ML 150ML used. 10:55:10 HR=59 bpm, YBPK=887/60 mmhg, OiG4=270.0 %, Resp=14 B/min, Gramajo=2 10:56:00 A WIRE, EXCHANGE 260CM 3MMJ 260CM was inserted via Radial (right). 10:56:14 Catheter was removed 10:56:18 Wire removed 10:56:33 Case End Radial Compression Device Used. 9 mLs of air placed in BAND, RADIAL COMPRESSION TR SHORT 24 24 CM. Affected 10:57:50 hand 97 % O2 saturation. 10:58:08 No case complications noted. 10:58:10 Cine recording checked. 10:58:14 Bedside Report will be given. 10:59:09 A Left Heart Cath was performed. 11:00:14 HR=54 bpm, PKCL=037/60 mmhg, SpO2=99.0 %, Resp=25 B/min, Gramajo=2 11:05:00 Patient moved to stretcher End Study - Contrast Media Used In Study Contrast Total Opened (mL) Total Used (mL) Total Wasted (mL) Omnipaque 70 70 0 End Study - Maximum Contrast Load Max Contrast Load (mL) 350.0 End Study - Radiation Exposure Fluoro Time (minutes) 6.4 End Study - Patient Disposition Complications Transferred To Interventional Outcome No Telemetry Bed No attempt made
--- NOTE | 2017-02-24 12:05 | EKG ---
Date Performed: 02/23/2017 Time Performed: 16:35:40 PTAGE: 67 years EKG: Sinus rhythm BORDERLINE ECG Since PREVIOUS TRACING , no significant change noted PREVIOUS TRACIN02/21/2017 00.16 DOCTOR: Wiliam Weston Interpretating Date/Time 02/24/2017 12:05:00
[2017-02-24 12:58] LABS: APTT (PATIENT) 66.3 SEC (24.3-30.1)
--- NOTE | 2017-02-24 13:51 | EKG ---
Date Performed: 02/24/2017 Time Performed: 01:12:44 PTAGE: 67 years EKG: Sinus rhythm ST junctional depression is nonspecific Borderline ECG No significant change from prior electrocardi ogram. NO PREVIOUS TRACING DOCTOR: Evaristo Gunter Interpretating Date/Time 02/24/2017 13:50:06
--- NOTE | 2017-02-24 14:06 | MB ---
cc: MATT LOPEZ DO DATE OF CONSULTATION: 02/24/2017 REASON FOR CONSULTATION Elevated troponin. HISTORY OF PRESENT ILLNESS Chun Denis is a pleasant 67-year-old male who presented to [facility] on February 23, 2017 due to chest pain. The patient was previously here on February 20, 2017 and had an elevation of his troponins to 0.49. He left AMA at that time because he was not being fed and no one had talked to him. He presented again on February 23, 2017 for a similar type reason of chest pain and shortness of breath. In seeing him he has had a cough with mild sputum production. His chest pain is somewhat of a pressure over the left side but also somewhat reproductive with every time he coughs. His shortness of breath has been somewhat chronic in nature but more extended since he has had his cough. PAST MEDICAL HISTORY 1. Coronary artery disease. 2. Aortic stenosis. 3. Tobacco abuse. 4. COPD. PAST SURGICAL HISTORY CABG x2 with AVR (February 10, 2006 at [facility] [address] Estes), with a free NEIL to LAD, SVG to OM, 23 mm Dick-Denis Magna ThermaFix valve, Dacron patch of a left coronary artery sinus of Valsalva aneurysm. ALLERGIES No known drug allergies. MEDICATIONS 1. Flomax 0.4 mg daily. 2. Coumadin 2.5 mg daily. 3. Zocor 20 mg every night. 4. Nitro sublingual as needed. 5. Lisinopril 10 mg daily. FAMILY HISTORY Denies premature coronary artery disease or sudden cardiac within the family. SOCIAL HISTORY The patient drinks on most days, 1-3 beers. He previously smoked but quit in 2005. REVIEW OF SYSTEMS 14-systems were reviewed including osteopathic. Pertinent positives and negatives as above, otherwise negative. PHYSICAL EXAMINATION VITAL SIGNS: Temperature 97.8, heart rate 60, blood pressure 104/57, respirations 20, pulse ox 97% on room air. GENERAL: In general the patient appears well but older than stated age. HEENT: Extraocular muscles intact. Mucous membranes moist. NECK: Supple. No JVD at 45 degrees. No carotid bruits heard bilaterally. Carotid upstroke is brisk in nature. HEART: Regular rate and rhythm. Positive first and second heart sounds with a 1/6 crescendo-decrescendo murmur which is mid peaking in nature to the right sternal border. LUNGS: Decreased breath sounds bilaterally. ABDOMEN: Soft, nontender, nondistended. No organomegaly noted. EXTREMITIES: No clubbing, cyanosis or edema. Femoral and distal pulses intact bilaterally. NEUROLOGIC: No focal deficits. SKIN: Warm, dry and intact. MUSCULOSKELETAL: Osteopathically no kyphoscoliosis, lordosis or paraspinal tender points. LABORATORY Hemoglobin 11.3, hematocrit 33.3, platelets 142. Potassium 4.3, BUN 12, creatinine 1.0. Troponin 0.12. ELECTROCARDIOGRAM Electrocardiogram (February 23, 2017 at 1635): Sinus rhythm at 67 beats per minute, intraventricular conduction delay. IMPRESSION 1. Chest pain, mildly concerning for coronary insufficiency. 2. Elevated troponin. 3. Possible COPD exacerbation versus underlying pneumonia. 4. History of coronary artery disease with coronary artery bypass grafting (February 10, 2006, by Dr. Estes at [facility]) with a free NEIL to LAD and SVG to OM. 5. History of severe aortic stenosis status post aortic valve replacement (February 10, 2006, by Dr. Estes at [facility]) with a 23 mm Dick-Denis Magna ThermaFix valve, Dacron patch left coronary artery sinus of Valsalva aneurysm. 6. Previous history of cardiomyopathy with an ejection fraction around 35% at the time of his surgery (February 10, 2006). 7. Subtherapeutic INR. RECOMMENDATIONS 1. Mr. Denis appears to have chest pain concerning mildly for coronary insufficiency. As he did previously have an elevated troponin up to 0.5 as well as his symptoms and history of coronary artery disease, I feel that he should undergo cardiac catheterization. 2. Risks, benefits and alternatives were explained to him and he consents as such. 3. Will check an echo to look at his overall left ventricular function, cardiac structure and possible valvulopathies. 4. Patient is supposed to be on Coumadin but has had a problem with his pharmacy. He has since been placed on heparin and we will continue this until post cardiac catheterization. 5. Further recommendations will be made based on the hospital course. Thank you for allowing me to see Cuhn Denis. If there are any questions, please do not hesitate to call. Matt Lopez DO VGP/BT /9:40 AM /1:45 PM
[2017-02-24] MEDS ORDERED: IOHEXOL 350 MG/ML 100 ML BTL (for Cath Lab) OTHER ONE (15:02)
--- NOTE | 2017-02-24 15:49 | MA ---
cc: MATT LOPEZ DO DATE February 24, 2017 PROCEDURE Coronary angiogram, bypass angiogram, moderate sedation 30 minutes. PREPROCEDURE DIAGNOSIS Elevated troponin, chest pain, history of coronary artery disease with a history of coronary artery bypass grafting x2. POSTPROCEDURE DIAGNOSIS Coronary artery disease, coronary artery bypass grafting x2 (2/2 patent). CONTRAST 70 cc. FLUOROSCOPY 6.4 minutes. SEDATION Moderate sedation 30 minutes. PROCEDURAL SUMMARY Chun Denis is a pleasant 67-year-old male who presented to [facility] on February 23, 2017 due to chest pain. He was also here a few days before this and on both occasions he had elevated troponin. Because of his symptoms, elevated troponin and history of coronary artery disease he was recommended cardiac catheterization. Risks, benefits and alternatives were explained to him and he consented as such. He was brought to lab and prepped in the usual sterile fashion. Right radial artery was accessed using a modified Seldinger technique and placement of a 5/6 Malay slender sheath. This was easily aspirated and flushed. A JR-4 was advanced to the midforearm where there was some resistance. A Glidewire was used to get through the minor stenosis in the artery. JR-4 was advanced to the ascending aorta without complication and was used for selective angiography of the right coronary artery. I attempted to engage the bypass graft with the JR-4 but was unable to. This was exchanged for a JL-3.5 which was used for selective angiography of the left coronary system. This was exchanged for an AL-1 catheter which was used to engage the bifurcation bypass graft of a free NEIL to LAD and SVG to obtuse marginal. AL-1 was removed over a J-wire. Radial band was placed over the arteriotomy site for hemostasis. 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 FINDINGS Left main: Previously described as 40-50% distally, although, overall in the views taken appears to be at most 20-30%. LAD: Normal-size vessel with mild disease in the proximal portion. 100% occluded in the midportion. Circumflex: Large dominant vessel with mild luminal irregularities through the proximal portion. First obtuse marginal has competitive flow most likely due to vein graft. Distally, gives off two obtuse marginals and a PDA. Free NEIL to LAD appears to be off the SVG ostium. No disease throughout. Attaches to the midportion of the LAD and fills antegrade to the distal portion of the LAD with no significant disease. SVG to obtuse marginal overall patent with no significant disease throughout. It fills both antegrade and retrograde into the first obtuse marginal. IMPRESSION 1. Chest pain most likely due to underlying cough, possible bronchitis versus pneumonia. 2. Mildly elevated troponins. 3. Mild coronary artery disease with bypass grafts open as above. 4. History of bioprosthetic AVR (2005). RECOMMENDATIONS 1. Mr. Denis presented with chest pain possibly due to coronary artery disease. During his cardiac catheterization he was found to have no significant coronary artery disease as well as his two previous bypass grafts are patent. 2. As far as his bioprosthetic aortic valve goes, we will check an echo to look at his overall gradients. 3. The patient was previously on Coumadin since his bypass and AVR. Will restart his heparin 1 hour after his TR band is removed. In discussing with him he states that he may have had atrial fibrillation at that time and that is why they placed him on the Coumadin. Although his bioprosthetic is not a reason to be on Coumadin at this time unless he is in atrial fibrillation, I would continue him on the Coumadin as he has had no complications and most likely has an indication if he did have atrial fibrillation during the hospitalization. 4. Further recommendations will be made based on the hospital course. Thank you for allowing me to see Chun Denis. If there are any questions please do not hesitate to call. Matt Lopez DO VGP/EO /11:17 AM /3:35 PM
[2017-02-24] MEDS: WARFARIN SOD 2.5 MG TAB PO SCH (16:25)
[2017-02-24] MEDS: PRAVASTATIN SOD 40 MG TAB PO SCH (21:22)
[2017-02-25] VITALS (23 sets, daily range): BP systolic 125–155; BP diastolic 60–77; PULSE 52–81; RESP 14–16; TEMP 96.8–98.3; O2SAT 95–96
[2017-02-25] MEDS: RESP: ALBUTEROL 2.5 MG/IPRATROPIUM 0.5 MG NEB (SCH) NEB ×4 (05:09→21:08)
[2017-02-25 07:16] LABS: AUTOMATED NEUTROPHIL # 5.8 TH/MM3 (1.8-7.7); BASOPHIL # 0.1 TH/MM3 (0-0.2); BASOPHIL % 1.1 % (0.0-2.0); HEMATOCRIT 30.9 % (39.0-51.0); HEMO FLAGS DIFF FINAL; LYMPHOCYTE # 0.9 TH/MM3 (1.0-4.8); MEAN CELL VOLUME 92.8 FL (80.0-100.0); MEAN CORPUSCULAR HEMOGLOBIN 31.6 PG (27.0-34.0); MONO % 6.3 % (0.0-8.0); NEUT % 80.6 % (16.0-70.0); PLATELET COUNT 137 TH/MM3 (150-450); RED BLOOD COUNT 3.32 MIL/MM3 (4.50-5.90); RED CELL DISTRIBUTION WIDTH 12.7 % (11.6-17.2); WHITE BLOOD COUNT 7.2 TH/MM3 (4.0-11.0)
[2017-02-25 07:22] LABS: APTT (PATIENT) 68.9 SEC (24.3-30.1)
[2017-02-25 07:40] LABS: BICARBONATE 26.3 MEQ/L (21.0-32.0); POTASSIUM 3.3 MEQ/L (3.5-5.1)
[2017-02-25] MEDS: HEPARIN-D5W 25,000 U/250 ML 250 ML IV PRN (10:00)
--- NOTE | 2017-02-25 10:02 | PD.CARD.PN ---
Subjective Subjective Remarks No events overnight No chest pain/SOB Telemetry showing short runs of irregularly irregular rhythm, consistent with Afib Objective Medications Current Medications Medications (Trade) Dose Ordered Sig/Danielle Route Start Time Stop Time Status Last Admin (Heparin Inj) 5,000 units UNSCH PRN IV 02/24/17 00:00 (Heparin Inj) 2,500 units UNSCH PRN IV 02/24/17 00:00 Heparin Sodium/ Dextrose 250 ml @ 8.4 mls/hr TITRATE PRN IV 02/23/17 18:00 02/23/17 18:12 (NS Flush) 2 ml UNSCH PRN IV FLUSH 02/23/17 18:00 (NS Flush) 2 ml BID IV FLUSH 02/23/17 21:00 02/24/17 21:23 (Tylenol) 650 mg Q4H PRN PO 02/23/17 18:00 (Zofran Inj) 4 mg Q6H PRN IVP 02/23/17 18:00 (Narcan Inj) 0.4 mg UNSCH PRN IV PUSH 02/23/17 18:00 (Philly-Colace) 1 tab BID PO 02/23/17 21:00 (Milk Of Magnesia Liq) 30 ml Q12H PRN PO 02/23/17 18:00 (Senokot) 17.2 mg Q12H PRN PO 02/23/17 18:00 (Dulcolax Supp) 10 mg DAILY PRN RECTAL 02/23/17 18:00 (Lactulose Liq) 30 ml DAILY PRN PO 02/23/17 18:00 (Duoneb Neb) 1 ampule Q6HR NEB NEB 02/24/17 04:00 02/25/17 05:09 (Duoneb Neb) 1 ampule Q2HR NEB PRN NEB 02/24/17 04:00 (Prinivil) 10 mg DAILY PO 02/24/17 10:00 02/24/17 09:25 (Flomax) 0.4 mg DAILY PO 02/24/17 10:00 (Pravachol) 40 mg HS PO 02/24/17 21:00 02/24/17 21:22 (Aspirin Chew) 81 mg DAILY CHEW 02/24/17 10:00 02/24/17 09:25 (Coumadin) 2.5 mg DAILY@16 PO 02/24/17 16:00 02/24/17 16:25 (Levaquin) 750 mg DAILY PO 02/25/17 09:00 03/02/17 08:59 Vital Signs / I&O Vital Signs Date Time Temp Pulse Resp B/P (MAP) Pulse Ox O2 Delivery O2 Flow Rate FiO2 02/25/17 07:52 96 Room Air 02/25/17 07:52 98.1 72 16 148/76 (100) 96 02/25/17 05:09 95 Nasal Cannula 02/25/17 03:24 98.2 73 14 125/66 (85) 95 02/25/17 03:00 68 02/25/17 01:00 72 02/25/17 00:00 64 02/24/17 23:00 66 02/24/17 23:00 70 16 106/54 (71) 95 02/24/17 22:00 74 02/24/17 21:37 96 Room Air 02/24/17 21:00 72 02/24/17 20:00 67 02/24/17 19:54 98.4 72 20 136/56 (82) 95 02/24/17 19:00 84 02/24/17 18:00 66 02/24/17 17:00 60 02/24/17 16:00 67 02/24/17 15:22 96 21 02/24/17 15:00 70 02/24/17 15:00 98.3 65 20 108/60 (76) 97 02/24/17 14:00 59 02/24/17 13:00 52 02/24/17 12:00 50 02/24/17 11:00 52 02/24/17 11:00 98.6 51 17 122/43 (69) 97 I/O 02/24/17 02/24/17 02/24/17 02/25/17 02/25/17 02/25/17 07:00 15:00 23:00 07:00 15:00 23:00 Intake Total 453 ml 492 ml 328 ml Output Total 300 ml Balance 153 ml 492 ml 328 ml Intake Oral 240 ml 480 ml 240 ml IV Total 213 ml 12 ml 88 ml Output Urine Total 300 ml # Voids 1 2 # Bowel Movements 0 1 0 Physical Exam GENERAL: NAD, AAOx3 SKIN: Warm and dry. HEAD: Atraumatic. Normocephalic. EYES: Pupils equal and round. No scleral icterus. No injection or drainage. ENT: No nasal bleeding or discharge. Mucous membranes pink and moist. NECK: Trachea midline. No JVD. CARDIOVASCULAR: Regular rate and rhythm. RESPIRATORY: No accessory muscle use. Decreased breath sounds bilaterally GASTROINTESTINAL: Abdomen soft, non-tender, nondistended. Hepatic and splenic margins not palpable. MUSCULOSKELETAL: Extremities without clubbing, cyanosis, or edema. No obvious deformities. Right radial no hematoma, neurovascularly intact NEUROLOGICAL: Awake and alert. No obvious cranial nerve deficits. Motor grossly within normal limits. Five out of 5 muscle strength in the arms and legs. Normal speech. PSYCHIATRIC: Appropriate mood and affect; insight and judgment normal. Laboratory Laboratory Tests Test 02/24/17 12:10 02/25/17 06:02 Activated Partial Thromboplast Time 66.3 SEC 68.9 SEC White Blood Count 7.2 TH/MM3 Red Blood Count 3.32 MIL/MM3 Hemoglobin 10.5 GM/DL Hematocrit 30.9 % Mean Corpuscular Volume 92.8 FL Mean Corpuscular Hemoglobin 31.6 PG Mean Corpuscular Hemoglobin Concent 34.0 % Red Cell Distribution Width 12.7 % Platelet Count 137 TH/MM3 Mean Platelet Volume 7.5 FL Neutrophils (%) (Auto) 80.6 % Lymphocytes (%) (Auto) 12.0 % Monocytes (%) (Auto) 6.3 % Eosinophils (%) (Auto) 0.0 % Basophils (%) (Auto) 1.1 % Neutrophils # (Auto) 5.8 TH/MM3 Lymphocytes # (Auto) 0.9 TH/MM3 Monocytes # (Auto) 0.5 TH/MM3 Eosinophils # (Auto) 0.0 TH/MM3 Basophils # (Auto) 0.1 TH/MM3 CBC Comment DIFF FINAL Differential Comment Blood Urea Nitrogen 14 MG/DL Creatinine 0.88 MG/DL Random Glucose 127 MG/DL Calcium Level 8.4 MG/DL Sodium Level 136 MEQ/L Potassium Level 3.3 MEQ/L Chloride Level 100 MEQ/L Carbon Dioxide Level 26.3 MEQ/L Anion Gap 10 MEQ/L Estimat Glomerular Filtration Rate 87 ML/MIN Assessment and Plan Problem List: (1) Hx of CABG ICD Codes: Z95.1 - Presence of aortocoronary bypass graft (2) History of aortic valve replacement ICD Codes: Z95.2 - Presence of prosthetic heart valve (3) Elevated troponin ICD Codes: R74.8 - Abnormal levels of other serum enzymes (4) Acute exacerbation of chronic obstructive pulmonary disease (COPD) ICD Codes: J44.1 - Chronic obstructive pulmonary disease with (acute) exacerbation Status: Acute (5) Hypertension ICD Codes: I10 - Hypertension Status: Chronic (6) Hyperlipidemia ICD Codes: E78.5 - Hyperlipidemia Status: Chronic (7) Chest pain ICD Codes: R07.9 - Chest pain Status: Acute (8) Coronary artery disease ICD Codes: I25.10 - Coronary artery disease Status: Chronic Assessment and Plan 1) CP/elevated troponin Cardiac catheterization showing no significant CAD, CABGx2 patent Free NEIL to LAD (off SVG) SVG to OM 2) Hx of bioprosthetic AVR Echo pending 3) Afib Con't heparin drip Restarted on Coumadin 4) Subtherapeutic INR Per pt, problem with his pharmacy 5) Previous cardiomyopathy (2005 at the time of CABG/AVR) If EF is low, patient should be placed on BB therapy and con't MARILEE-I therapy Problem Qualifiers (1) Chest pain: Qualified Codes: I20.8 - Other forms of angina pectoris Matt Tierney DO Feb 25, 2017 10:02
[2017-02-25] MEDS: LEVOFLOXACIN 750 MG TAB PO SCH (10:46)
[2017-02-25] MEDS: DOCUSATE SODIUM 50 MG/SENNA 8.6 MG TAB PO SCH ×2 (10:46→21:00)
[2017-02-25] MEDS: SODIUM CHLORIDE 0.9% FLUSH 10 ML FLUSH IV FLUSH SCH ×2 (10:46→21:00)
[2017-02-25] MEDS: LISINOPRIL 10 MG TAB PO SCH (10:46)
[2017-02-25] MEDS: TAMSULOSIN HCL 0.4 MG CAP PO SCH (10:46)
[2017-02-25] MEDS: ASPIRIN 81 MG CHEW TAB CHEW SCH (10:46)
--- NOTE | 2017-02-25 16:58 | ECHRPT ---
Indication: DYSPNEA CONCLUSIONS Normal left ventricular size. Wall thickness is normal. The left ventricular systolic function is low normal with an estimated ejection fraction in the rang e of 50- 55%. Mild thickening of the mitral valve leaflets. [id number] mitral valve regurgitation. The aortic valve is not well visualized. Unknown aortic valve prosthesis type-bioprosthetic.there is mild stenosis of the aortic valve prosth esis, mean gradient 31 mmHg. Mild aortic valve regurgitation. There is trace tricuspid valve regurgitation. The pulmonary valve is not well visualized. The inferior vena cava was not well visualized. BP: 129 / 84 HR: Rhythm: Sinus MEASUREMENTS (Male / Female) Normal Values Technical Quality:Fair 2D ECHO LV Diastolic Diameter PLAX 5.5 cm 4.2 - 5.9 / 3.9 - 5.3 cm LV Systolic Diameter PLAX 4.5 cm IVS Diastolic Thickness 1.0 cm 0.6 - 1.0 / 0.6 - 0.9 cm LVPW Diastolic Thickness 1.0 cm 0.6 - 1.0 / 0.6 - 0.9 cm LV Relative Wall Thickness 0.4 LVOT Diameter 2.0 cm Aortic Root Diameter 2.9 cm LA Systolic Diameter LX 3.5 cm 3.0 - 4.0 / 2.7 - 3.8 cm M-MODE AV Cusp Separation MM 2.1 cm DOPPLER AV Peak Velocity 356.0 cm/s AV Peak Gradient 50.7 mmHg AV Mean Gradient 31.0 mmHg AV Velocity Time Integral 82.9 cm LVOT Peak Velocity 95.5 cm/s LVOT Peak Gradient 3.6 mmHg LVOT Velocity Time Integral 23.4 cm AV Area Cont Eq vti 0.9 cm AV Area Cont Eq pk 0.8 cm Mitral E Point Velocity 121.0 cm/s Mitral A Point Velocity 87.4 cm/s Mitral E to A Ratio 1.4 LV E' Lateral Velocity 11.3 cm/s Mitral E to LV E' Lateral Ratio 10.7 LV E' Septal Velocity 8.6 cm/s Mitral E to LV E' Septal Ratio 14.1 PV Peak Velocity 80.5 cm/s PV Peak Gradient 2.6 mmHg FINDINGS LEFT VENTRICLE Normal left ventricular size. Wall thickness is normal. The left ventricular systolic function is low normal with an estimated ejection fraction in the rang e of 50- 55%. Left ventricular diastolic function parameters are normal. RIGHT VENTRICLE Normal right ventricular size and systolic function. LEFT ATRIUM The left atrial size is normal. RIGHT ATRIUM The right atrial size is normal. ATRIAL SEPTUM Normal atrial septal thickness without atrial level shunting by limited color doppler interrogation. AORTA The aortic root and proximal ascending aorta are normal in size on limited imaging. MITRAL VALVE Mild thickening of the mitral valve leaflets. [id number] mitral valve regurgitation. AORTIC VALVE The aortic valve is not well visualized. Unknown aortic valve prosthesis type-bioprosthetic.there is mild stenosis of the aortic valve prosth esis, mean gradient 31 mmHg. Mild aortic valve regurgitation. TRICUSPID VALVE Structurally normal tricuspid valve. There is trace tricuspid valve regurgitation. PULMONARY VALVE The pulmonary valve is not well visualized. VESSELS The inferior vena cava was not well visualized. PERICARDIUM No pericardial effusion. Evaristo Gunter MD (Electronically Signed) Final Date:25 February 2017 16:57
[2017-02-25] MEDS: WARFARIN SOD 2.5 MG TAB PO SCH (17:01)
--- NOTE | 2017-02-25 17:53 | HHI.PR ---
Subjective Remarks Follow-up for chest pain, COPD. Patient is doing well. No fever, chills. No CP, SOB. Objective Vitals Vital Signs Date Time Temp Pulse Resp B/P (MAP) Pulse Ox O2 Delivery O2 Flow Rate FiO2 02/25/17 16:47 96.8 56 16 152/77 (102) 96 02/25/17 16:00 76 02/25/17 15:00 59 02/25/17 14:00 78 02/25/17 13:14 54 02/25/17 12:00 60 02/25/17 11:00 96.8 81 16 155/75 (101) 95 02/25/17 11:00 60 02/25/17 10:00 64 02/25/17 09:00 54 02/25/17 08:00 66 02/25/17 07:52 96 Room Air 02/25/17 07:52 98.1 72 16 148/76 (100) 96 02/25/17 07:00 62 02/25/17 05:09 95 Nasal Cannula 02/25/17 03:24 98.2 73 14 125/66 (85) 95 02/25/17 03:00 68 02/25/17 01:00 72 02/25/17 00:00 64 02/24/17 23:00 66 02/24/17 23:00 70 16 106/54 (71) 95 02/24/17 22:00 74 02/24/17 21:37 96 Room Air 02/24/17 21:00 72 02/24/17 20:00 67 02/24/17 19:54 98.4 72 20 136/56 (82) 95 02/24/17 19:00 84 02/24/17 18:00 66 I/O 02/24/17 02/24/17 02/24/17 02/25/17 02/25/17 02/25/17 06:59 14:59 22:59 06:59 14:59 22:59 Intake Total 453 ml 492 ml 328 ml Output Total 300 ml Balance 153 ml 492 ml 328 ml Intake Oral 240 ml 480 ml 240 ml IV Total 213 ml 12 ml 88 ml Output Urine Total 300 ml # Voids 1 2 # Bowel Movements 0 1 0 Result Diagram: 02/25/17 0602 02/25/17 0602 Imaging Last Impressions Chest X-Ray 02/23/17 1634 Signed Impressions: Service Date/Time: February 16:34 - CONCLUSION: 1. Post median sternotomy and valvular replacement. No acute abnormality. Kirt Pretty MD Objective Remarks GENERAL: Alert, oriented 3, NAD. SKIN: Warm and dry. HEAD: Normocephalic. EYES: No scleral icterus. No injection or drainage. NECK: Supple, trachea midline. No JVD or lymphadenopathy. CARDIOVASCULAR: Regular rate and rhythm without gallops, or rubs. Systolic murmur present best heard on the right side of the sternum. RESPIRATORY: Breath sounds equal bilaterally. No accessory muscle use. GASTROINTESTINAL: Abdomen soft, non-tender, nondistended. MUSCULOSKELETAL: No cyanosis, or edema. BACK: Nontender without obvious deformity. No CVA tenderness. Procedures Cardiac cath 02/24/2017 IMPRESSION 1. Chest pain most likely due to underlying cough, possible bronchitis versus pneumonia. 2. Mildly elevated troponins. 3. Mild coronary artery disease with bypass grafts open as above. 4. History of bioprosthetic AVR (2005). A/P Problem List: (1) NSTEMI (non-ST elevated myocardial infarction) ICD Code: I21.4 - Non-ST elevation (NSTEMI) myocardial infarction (2) Acute exacerbation of chronic obstructive pulmonary disease (COPD) ICD Code: J44.1 - Chronic obstructive pulmonary disease with (acute) exacerbation Status: Acute (3) Hypertension ICD Code: I10 - Hypertension Status: Chronic (4) Hyperlipidemia ICD Code: E78.5 - Hyperlipidemia Status: Chronic Assessment and Plan Mr. Denis is a 67-year-old male who presented to the emergency department due to chest pain, shortness of breath. Upon admission he wasn't started on antibiotics, breathing treatments. Cardiology was consulted for mild elevation in troponins. Peak troponin was 0.12. Patient underwent cardiac catheterization on 02/24/2017 - did not show any coronary artery disease. - Acute COPD exacerbation - Continue Levaquin 750 mg daily. We'll switch from IV to by mouth. - Continue breathing treatments as needed. - NSTEMI - possibly type 2 - Hx of Aortic stenosis and bioprosthetic AVR. - CAD s/p CABG x 2 v. - Continue Aspirin 81mg Qday. - Probably related to COPD. - Cardiology recommends heparin drip and warfarin. - IF heparin drip no longer necessary, patient can be discharged on Warfarin. - Atrial fibrillation - Heart rate is controlled. - [id number] score 2 (age, HTN) - Since he has a history of AVR too, Warfarin is likely the most appropriate anti-coagulation agent. - Hypertension - Hyperlipidemia - Continue lisinopril 10 mg daily, pravastatin 40 mg daily at bedtime. Full code. Warfarin. Pedro Ballard DO Feb 25, 2017 17:53
[2017-02-25] MEDS: PRAVASTATIN SOD 40 MG TAB PO SCH (21:00)
[2017-02-25] MEDS ORDERED: CARVEDILOL 6.25 MG TAB PO SCH (21:00)
[2017-02-26] VITALS (27 sets, daily range): BP systolic 120–152; BP diastolic 63–76; PULSE 45–88; RESP 16–20; TEMP 97.4–98; O2SAT 92–97
[2017-02-26] MEDS: RESP: ALBUTEROL 2.5 MG/IPRATROPIUM 0.5 MG NEB (SCH) NEB ×4 (03:47→21:46)
[2017-02-26 06:56] LABS: HEMATOCRIT 32.5 % (39.0-51.0); MEAN CELL VOLUME 92.2 FL (80.0-100.0); MEAN CORPUSCULAR HGB CONC 33.6 % (32.0-36.0); PLATELET COUNT 176 TH/MM3 (150-450); RED BLOOD COUNT 3.53 MIL/MM3 (4.50-5.90); REVIEW FLAG FINAL; WHITE BLOOD COUNT 8.6 TH/MM3 (4.0-11.0)
[2017-02-26 07:23] LABS: INTERNATIONAL NORMALIZED RATIO 1.1 RATIO; PROTHROMBIN TIME - PATIENT 12.1 SEC (9.8-11.6)
[2017-02-26] MEDS: DOCUSATE SODIUM 50 MG/SENNA 8.6 MG TAB PO SCH ×2 (10:26→21:00)
[2017-02-26] MEDS: ASPIRIN 81 MG CHEW TAB CHEW SCH (10:26)
[2017-02-26] MEDS: LISINOPRIL 20 MG TAB PO SCH (10:26)
[2017-02-26] MEDS: TAMSULOSIN HCL 0.4 MG CAP PO SCH (10:27)
[2017-02-26] MEDS: LEVOFLOXACIN 750 MG TAB PO SCH (10:27)
[2017-02-26] MEDS: SODIUM CHLORIDE 0.9% FLUSH 10 ML FLUSH IV FLUSH SCH ×2 (10:27→21:00)
--- NOTE | 2017-02-26 10:36 | PD.CARD.PN ---
Subjective Subjective Remarks No events overnight Doing well Telemetry with another episode of SVT appearing to be Afib for a short run Objective Medications Current Medications Medications (Trade) Dose Ordered Sig/Danielle Route Start Time Stop Time Status Last Admin (Heparin Inj) 5,000 units UNSCH PRN IV 02/24/17 00:00 (Heparin Inj) 2,500 units UNSCH PRN IV 02/24/17 00:00 Heparin Sodium/ Dextrose 250 ml @ 8.4 mls/hr TITRATE PRN IV 02/23/17 18:00 02/25/17 10:00 (NS Flush) 2 ml UNSCH PRN IV FLUSH 02/23/17 18:00 (NS Flush) 2 ml BID IV FLUSH 02/23/17 21:00 02/24/17 21:23 (Tylenol) 650 mg Q4H PRN PO 02/23/17 18:00 (Zofran Inj) 4 mg Q6H PRN IVP 02/23/17 18:00 (Narcan Inj) 0.4 mg UNSCH PRN IV PUSH 02/23/17 18:00 (Philly-Colace) 1 tab BID PO 02/23/17 21:00 02/26/17 10:26 (Milk Of Magnesia Liq) 30 ml Q12H PRN PO 02/23/17 18:00 (Senokot) 17.2 mg Q12H PRN PO 02/23/17 18:00 (Dulcolax Supp) 10 mg DAILY PRN RECTAL 02/23/17 18:00 (Lactulose Liq) 30 ml DAILY PRN PO 02/23/17 18:00 (Duoneb Neb) 1 ampule Q6HR NEB NEB 02/24/17 04:00 02/26/17 08:50 (Duoneb Neb) 1 ampule Q2HR NEB PRN NEB 02/24/17 04:00 (Flomax) 0.4 mg DAILY PO 02/24/17 10:00 02/26/17 10:27 (Pravachol) 40 mg HS PO 02/24/17 21:00 02/24/17 21:22 (Aspirin Chew) 81 mg DAILY CHEW 02/24/17 10:00 02/26/17 10:26 (Coumadin) 2.5 mg DAILY@16 PO 02/24/17 16:00 02/25/17 17:01 (Levaquin) 750 mg DAILY PO 02/25/17 09:00 03/02/17 08:59 02/26/17 10:27 (Prinivil) 20 mg DAILY PO 02/26/17 09:00 02/26/17 10:26 Vital Signs / I&O Vital Signs Date Time Temp Pulse Resp B/P (MAP) Pulse Ox O2 Delivery O2 Flow Rate FiO2 02/26/17 08:51 97 21 02/26/17 08:15 94 Room Air 02/26/17 08:15 97.4 53 16 152/64 (93) 94 02/26/17 06:00 62 02/26/17 05:00 54 02/26/17 04:00 50 02/26/17 03:00 45 02/26/17 02:00 54 02/26/17 01:00 56 02/26/17 00:00 54 02/25/17 23:00 52 02/25/17 22:00 52 02/25/17 22:00 98.3 63 14 125/60 (81) 95 02/25/17 21:09 96 21 02/25/17 21:00 58 02/25/17 20:00 96 Room Air 02/25/17 20:00 65 02/25/17 18:00 56 02/25/17 16:47 96.8 56 16 152/77 (102) 96 02/25/17 16:00 76 02/25/17 15:00 59 02/25/17 14:00 78 02/25/17 13:14 54 02/25/17 12:00 60 02/25/17 11:00 96.8 81 16 155/75 (101) 95 02/25/17 11:00 60 I/O 02/25/17 02/25/17 02/25/17 02/26/17 02/26/17 02/26/17 07:00 15:00 23:00 07:00 15:00 23:00 Intake Total 328 ml 480 ml 434 ml Balance 328 ml 480 ml 434 ml Intake Oral 240 ml 480 ml 240 ml IV Total 88 ml 194 ml # Voids 2 2 1 # Bowel Movements 0 0 0 Physical Exam GENERAL: NAD, AAOx3 SKIN: Warm and dry. HEAD: Atraumatic. Normocephalic. EYES: Pupils equal and round. No scleral icterus. No injection or drainage. ENT: No nasal bleeding or discharge. Mucous membranes pink and moist. NECK: Trachea midline. No JVD. CARDIOVASCULAR: Regular rate and rhythm. RESPIRATORY: No accessory muscle use. Decreased breath sounds bilaterally GASTROINTESTINAL: Abdomen soft, non-tender, nondistended. Hepatic and splenic margins not palpable. MUSCULOSKELETAL: Extremities without clubbing, cyanosis, or edema. No obvious deformities. Right radial no hematoma, neurovascularly intact NEUROLOGICAL: Awake and alert. No obvious cranial nerve deficits. Motor grossly within normal limits. Five out of 5 muscle strength in the arms and legs. Normal speech. PSYCHIATRIC: Appropriate mood and affect; insight and judgment normal. Laboratory Laboratory Tests Test 02/26/17 05:59 White Blood Count 8.6 TH/MM3 Red Blood Count 3.53 MIL/MM3 Hemoglobin 10.9 GM/DL Hematocrit 32.5 % Mean Corpuscular Volume 92.2 FL Mean Corpuscular Hemoglobin 31.0 PG Mean Corpuscular Hemoglobin Concent 33.6 % Red Cell Distribution Width 13.0 % Platelet Count 176 TH/MM3 Mean Platelet Volume 7.7 FL Prothrombin Time 12.1 SEC Prothromb Time International Ratio 1.1 RATIO Assessment and Plan Problem List: (1) Hx of CABG ICD Codes: Z95.1 - Presence of aortocoronary bypass graft (2) History of aortic valve replacement ICD Codes: Z95.2 - Presence of prosthetic heart valve (3) Elevated troponin ICD Codes: R74.8 - Abnormal levels of other serum enzymes (4) Acute exacerbation of chronic obstructive pulmonary disease (COPD) ICD Codes: J44.1 - Chronic obstructive pulmonary disease with (acute) exacerbation Status: Acute (5) Hypertension ICD Codes: I10 - Hypertension Status: Chronic (6) Hyperlipidemia ICD Codes: E78.5 - Hyperlipidemia Status: Chronic (7) Chest pain ICD Codes: R07.9 - Chest pain Status: Acute (8) Coronary artery disease ICD Codes: I25.10 - Coronary artery disease Status: Chronic Assessment and Plan 1) CP/elevated troponin Cardiac catheterization showing no significant CAD, CABGx2 patent Free NEIL to LAD (off SVG) SVG to OM 2) Hx of bioprosthetic AVR EF 50-55%, mild to moderate MR, mild to moderate AVR stenosis (mean 31 mmHg) 3) Afib Con't heparin drip Restarted on Coumadin 4) Subtherapeutic INR Per pt, problem with his pharmacy 5) Previous cardiomyopathy (2005 at the time of CABG/AVR) Appears to have resolved, con't current medications Problem Qualifiers (1) Chest pain: Qualified Codes: I20.8 - Other forms of angina pectoris Matt Tierney DO Feb 26, 2017 10:36
--- NOTE | 2017-02-26 13:25 | HHI.PR ---
Subjective Remarks Follow-up for chest pain, COPD. Mr. Denis does not talk much. He complains of some chest pain. No SOB, fever, chills. He is currently on room air. Per RN, he is not eating much. Objective Vitals Vital Signs Date Time Temp Pulse Resp B/P (MAP) Pulse Ox O2 Delivery O2 Flow Rate FiO2 02/26/17 12:53 97.5 54 16 136/63 (87) 92 02/26/17 08:51 97 21 02/26/17 08:15 94 Room Air 02/26/17 08:15 97.4 53 16 152/64 (93) 94 02/26/17 06:00 62 02/26/17 05:00 54 02/26/17 04:00 50 02/26/17 03:00 45 02/26/17 02:00 54 02/26/17 01:00 56 02/26/17 00:00 54 02/25/17 23:00 52 02/25/17 22:00 52 02/25/17 22:00 98.3 63 14 125/60 (81) 95 02/25/17 21:09 96 21 02/25/17 21:00 58 02/25/17 20:00 96 Room Air 02/25/17 20:00 65 02/25/17 18:00 56 02/25/17 16:47 96.8 56 16 152/77 (102) 96 02/25/17 16:00 76 02/25/17 15:00 59 02/25/17 14:00 78 I/O 02/25/17 02/25/17 02/25/17 02/26/17 02/26/17 02/26/17 07:00 15:00 23:00 07:00 15:00 23:00 Intake Total 328 ml 480 ml 434 ml Balance 328 ml 480 ml 434 ml Intake Oral 240 ml 480 ml 240 ml IV Total 88 ml 194 ml # Voids 2 2 1 # Bowel Movements 0 0 0 Result Diagram: 02/26/17 0559 02/25/17 0602 Imaging Last Impressions Chest X-Ray 02/23/17 1634 Signed Impressions: Service Date/Time: February 16:34 - CONCLUSION: 1. Post median sternotomy and valvular replacement. No acute abnormality. Kirt Pretty MD Objective Remarks GENERAL: Alert, oriented 3, NAD. SKIN: Warm and dry. HEAD: Normocephalic. EYES: No scleral icterus. No injection or drainage. NECK: Supple, trachea midline. No JVD or lymphadenopathy. CARDIOVASCULAR: Regular rate and rhythm without gallops, or rubs. Systolic murmur present best heard on the right side of the sternum. RESPIRATORY: Breath sounds equal bilaterally. No accessory muscle use. GASTROINTESTINAL: Abdomen soft, non-tender, nondistended. MUSCULOSKELETAL: No cyanosis, or edema. BACK: Nontender without obvious deformity. No CVA tenderness. Procedures Cardiac cath 02/24/2017 IMPRESSION 1. Chest pain most likely due to underlying cough, possible bronchitis versus pneumonia. 2. Mildly elevated troponins. 3. Mild coronary artery disease with bypass grafts open as above. 4. History of bioprosthetic AVR (2005). A/P Problem List: (1) NSTEMI (non-ST elevated myocardial infarction) ICD Code: I21.4 - Non-ST elevation (NSTEMI) myocardial infarction (2) Acute exacerbation of chronic obstructive pulmonary disease (COPD) ICD Code: J44.1 - Chronic obstructive pulmonary disease with (acute) exacerbation Status: Acute (3) Hypertension ICD Code: I10 - Hypertension Status: Chronic (4) Hyperlipidemia ICD Code: E78.5 - Hyperlipidemia Status: Chronic Assessment and Plan Mr. Denis is a 67-year-old male who presented to the emergency department due to chest pain, shortness of breath. Upon admission he wasn't started on antibiotics, breathing treatments. Cardiology was consulted for mild elevation in troponins. Peak troponin was 0.12. Patient underwent cardiac catheterization on 02/24/2017 - did not show any coronary artery disease. - Acute COPD exacerbation - Continue Levaquin 750 mg PO daily. - Continue breathing treatments as needed. - NSTEMI - possibly type 2 - Hx of Aortic stenosis and bioprosthetic AVR. - CAD s/p CABG x 2 v. - Continue Aspirin 81mg Qday. - Probably related to COPD. - Cardiology recommends heparin drip and warfarin. - INR 1.1 today. Will discharge home when therapeutic. - Atrial fibrillation - Heart rate is controlled. - [id number] score 2 (age, HTN) - Since he has a history of AVR too, Warfarin is likely the most appropriate anti-coagulation agent. - Hypertension - Hyperlipidemia - Continue lisinopril 10 mg daily, pravastatin 40 mg daily at bedtime. - PT consult. - If patient continues to refuse food, vitals, we will consult Psychiatry for an input. Full code. Heparin, Warfarin. Pedro Ballard DO Feb 26, 2017 1:25 pm
[2017-02-26] MEDS: WARFARIN SOD 2.5 MG TAB PO SCH (15:47)
[2017-02-26] MEDS: PRAVASTATIN SOD 40 MG TAB PO SCH (21:00)
[2017-02-27] VITALS (25 sets, daily range): BP systolic 100–142; BP diastolic 41–75; PULSE 46–74; RESP 16–18; TEMP 97.6–98.4; O2SAT 94–96
[2017-02-27] MEDS: RESP: ALBUTEROL 2.5 MG/IPRATROPIUM 0.5 MG NEB (SCH) NEB ×4 (04:00→22:00)
[2017-02-27 07:01] LABS: APTT (PATIENT) 89.2 SEC (24.3-30.1)
[2017-02-27] MEDS: SODIUM CHLORIDE 0.9% FLUSH 10 ML FLUSH IV FLUSH SCH ×2 (09:00→20:51)
[2017-02-27] MEDS: LISINOPRIL 20 MG TAB PO SCH (09:12)
[2017-02-27] MEDS: TAMSULOSIN HCL 0.4 MG CAP PO SCH (09:12)
[2017-02-27] MEDS: LEVOFLOXACIN 750 MG TAB PO SCH (09:12)
[2017-02-27] MEDS: ASPIRIN 81 MG CHEW TAB CHEW SCH (09:12)
[2017-02-27] MEDS: DOCUSATE SODIUM 50 MG/SENNA 8.6 MG TAB PO SCH ×2 (09:13→20:50)
--- NOTE | 2017-02-27 10:01 | HHI.PR ---
Subjective Remarks Follow up chest pain and COPD. Patient seen and examined today, lying in bed comfortably. Sleeping, awakens to voice. Denies any chest pain today, admits to some shortness of breath and cough. Denies any new acute events overnight. Continued on RA. Admits to poor appetite, encouraged to eat. Positive BM. Heart rate overnight in the 40's-50's, currently 68bpm. Will continue to monitor. Objective Vitals Vital Signs Date Time Temp Pulse Resp B/P (MAP) Pulse Ox O2 Delivery O2 Flow Rate FiO2 02/27/17 09:00 46 02/27/17 08:00 68 02/27/17 07:00 98.1 54 16 127/70 (89) 96 02/27/17 07:00 96 Room Air 02/27/17 07:00 50 02/27/17 06:00 51 02/27/17 05:00 50 02/27/17 04:00 98.1 49 18 139/71 (93) 95 02/27/17 04:00 49 02/27/17 03:00 48 02/27/17 02:00 53 02/27/17 01:00 52 02/27/17 00:00 50 02/27/17 00:00 Room Air 02/27/17 00:00 98.4 50 18 127/74 (91) 94 02/26/17 23:00 58 02/26/17 22:00 55 02/26/17 21:00 58 02/26/17 20:00 53 02/26/17 20:00 98.0 53 20 120/69 (86) 95 02/26/17 20:00 Room Air 02/26/17 18:16 58 02/26/17 17:00 52 02/26/17 16:00 56 02/26/17 15:45 97.5 61 16 125/76 (92) 94 02/26/17 15:00 50 02/26/17 14:00 58 02/26/17 13:00 54 02/26/17 12:53 97.5 54 16 136/63 (87) 92 02/26/17 12:00 60 02/26/17 11:00 51 I/O 02/26/17 02/26/17 02/26/17 02/27/17 02/27/17 02/27/17 07:00 15:00 23:00 07:00 15:00 23:00 Intake Total 434 ml 240 ml 240 ml Balance 434 ml 240 ml 240 ml Intake Oral 240 ml 240 ml 240 ml IV Total 194 ml # Voids 1 2 2 # Bowel Movements 0 1 Result Diagram: 02/26/17 0559 02/25/17 0602 Imaging Last Impressions Chest X-Ray 02/23/17 1634 Signed Impressions: Service Date/Time: February 16:34 - CONCLUSION: 1. Post median sternotomy and valvular replacement. No acute abnormality. Kirt Pretty MD Objective Remarks GENERAL: Well-developed, thin, frail elderly male patient in [facility]. SKIN: Warm and dry. No rash. HEAD: Normocephalic. Atraumatic. EYES: Pupils equal and round. No scleral icterus. No injection or drainage. ENT: No nasal bleeding or discharge. Mucous membranes pink and moist. NECK: Supple. Trachea midline. CARDIOVASCULAR: Regular rate and rhythm. S1, S2 noted. Systolic murmur present best heard on the right side of the sternum RESPIRATORY: No accessory muscle use. Expiratory wheezing noted throughout posterior lung redding. Breath sounds equal bilaterally. GASTROINTESTINAL: Abdomen soft, non-tender, nondistended. Normoactive bowel sounds x4. MUSCULOSKELETAL: No obvious deformities. Extremities without clubbing, cyanosis , or edema. NEUROLOGICAL: Awake and alert. No obvious cranial nerve deficits. Motor grossly within normal limits. 5/5 muscle strength in bilateral upper and lower extremities. Normal speech. PSYCHIATRIC: Appropriate mood and affect; insight and judgment normal. Procedures Cardiac cath 02/24/2017 IMPRESSION 1. Chest pain most likely due to underlying cough, possible bronchitis versus pneumonia. 2. Mildly elevated troponins. 3. Mild coronary artery disease with bypass grafts open as above. 4. History of bioprosthetic AVR (2005). A/P Problem List: (1) NSTEMI (non-ST elevated myocardial infarction) ICD Code: I21.4 - Non-ST elevation (NSTEMI) myocardial infarction (2) Acute exacerbation of chronic obstructive pulmonary disease (COPD) ICD Code: J44.1 - Chronic obstructive pulmonary disease with (acute) exacerbation Status: Acute (3) Hypertension ICD Code: I10 - Hypertension Status: Chronic (4) Hyperlipidemia ICD Code: E78.5 - Hyperlipidemia Status: Chronic Assessment and Plan Mr. Denis is a 67-year-old male who presented to the emergency department due to chest pain, shortness of breath. Upon admission he wasn't started on antibiotics, breathing treatments. Cardiology was consulted for mild elevation in troponins. Peak troponin was 0.12. Patient underwent cardiac catheterization on 02/24/2017 - did not show any coronary artery disease. Acute COPD exacerbation - Continue Levaquin 750 mg PO daily, end date 03/02. - Continue breathing treatments as needed. NSTEMI - possibly type 2 Hx of Aortic stenosis and bioprosthetic AVR. CAD s/p CABG x 2 v. - Continue Aspirin 81mg Qday. - Probably related to COPD. - Cardiology recommends heparin drip and warfarin. - INR 1.1. Will discharge home when therapeutic. Atrial fibrillation - Heart rate is controlled. - [id number] score 2 (age, HTN) - Since he has a history of AVR too, Warfarin is likely the most appropriate anti-coagulation agent. Hypertension Hyperlipidemia - Continue lisinopril 20 mg daily, pravastatin 40 mg daily at bedtime. - Monitor BPs. Controlled. Deconditioning Moderate malnutrition Cachexia - PT consulted and following patient. Appreciate recommendations. - If patient continues to refuse food, vitals, we will consult Psychiatry for an input. Full code. DVT Prophylaxis: Heparin, Warfarin. Lelia Arthur Feb 27, 2017 10:01
[2017-02-27 12:52] LABS: BICARBONATE 32.4 MEQ/L (21.0-32.0); POTASSIUM 3.8 MEQ/L (3.5-5.1)
--- NOTE | 2017-02-27 15:06 | PD.CARD.PN ---
Subjective Subjective Remarks No events overnight Patient states he feels well Heart rates in the 50s, patient is asymptomatic Objective Medications Current Medications Medications (Trade) Dose Ordered Sig/Danielle Route Start Time Stop Time Status Last Admin (Heparin Inj) 5,000 units UNSCH PRN IV 02/24/17 00:00 (Heparin Inj) 2,500 units UNSCH PRN IV 02/24/17 00:00 Heparin Sodium/ Dextrose 250 ml @ 8.4 mls/hr TITRATE PRN IV 02/23/17 18:00 02/25/17 10:00 (NS Flush) 2 ml UNSCH PRN IV FLUSH 02/23/17 18:00 (NS Flush) 2 ml BID IV FLUSH 02/23/17 21:00 02/24/17 21:23 (Tylenol) 650 mg Q4H PRN PO 02/23/17 18:00 (Zofran Inj) 4 mg Q6H PRN IVP 02/23/17 18:00 02/26/17 12:48 (Narcan Inj) 0.4 mg UNSCH PRN IV PUSH 02/23/17 18:00 (Philly-Colace) 1 tab BID PO 02/23/17 21:00 02/27/17 09:13 (Milk Of Magnesia Liq) 30 ml Q12H PRN PO 02/23/17 18:00 02/26/17 12:47 (Senokot) 17.2 mg Q12H PRN PO 02/23/17 18:00 (Dulcolax Supp) 10 mg DAILY PRN RECTAL 02/23/17 18:00 (Lactulose Liq) 30 ml DAILY PRN PO 02/23/17 18:00 (Duoneb Neb) 1 ampule Q6HR NEB NEB 02/24/17 04:00 02/26/17 08:50 (Duoneb Neb) 1 ampule Q2HR NEB PRN NEB 02/24/17 04:00 (Flomax) 0.4 mg DAILY PO 02/24/17 10:00 02/27/17 09:12 (Pravachol) 40 mg HS PO 02/24/17 21:00 02/24/17 21:22 (Aspirin Chew) 81 mg DAILY CHEW 02/24/17 10:00 02/27/17 09:12 (Levaquin) 750 mg DAILY PO 02/25/17 09:00 03/02/17 08:59 02/27/17 09:12 (Prinivil) 20 mg DAILY PO 02/26/17 09:00 02/27/17 09:12 (Coumadin) 5 mg DAILY@1600 PO 02/27/17 16:00 Pharmacy Profile Note 0 ml @ 0 mls/hr UNSCH OTHER 02/27/17 14:00 Vital Signs / I&O Vital Signs Date Time Temp Pulse Resp B/P (MAP) Pulse Ox O2 Delivery O2 Flow Rate FiO2 02/27/17 14:00 55 02/27/17 13:00 66 02/27/17 12:00 65 02/27/17 11:00 65 02/27/17 11:00 98.0 67 16 100/41 (60) 95 02/27/17 10:00 66 02/27/17 09:00 46 02/27/17 08:00 68 02/27/17 07:00 98.1 54 16 127/70 (89) 96 02/27/17 07:00 96 Room Air 02/27/17 07:00 50 02/27/17 06:00 51 02/27/17 05:00 50 02/27/17 04:00 98.1 49 18 139/71 (93) 95 02/27/17 04:00 49 02/27/17 03:00 48 02/27/17 02:00 53 02/27/17 01:00 52 02/27/17 00:00 50 02/27/17 00:00 Room Air 02/27/17 00:00 98.4 50 18 127/74 (91) 94 02/26/17 23:00 58 02/26/17 22:00 55 02/26/17 21:00 58 02/26/17 20:00 53 02/26/17 20:00 98.0 53 20 120/69 (86) 95 02/26/17 20:00 Room Air 02/26/17 18:16 58 02/26/17 17:00 52 02/26/17 16:00 56 02/26/17 15:45 97.5 61 16 125/76 (92) 94 I/O 02/26/17 02/26/17 02/26/17 02/27/17 02/27/17 02/27/17 07:00 15:00 23:00 07:00 15:00 23:00 Intake Total 434 ml 240 ml 240 ml Balance 434 ml 240 ml 240 ml Intake Oral 240 ml 240 ml 240 ml IV Total 194 ml # Voids 1 2 2 # Bowel Movements 0 1 Physical Exam GENERAL: NAD, AAOx3 SKIN: Warm and dry. HEAD: Atraumatic. Normocephalic. EYES: Pupils equal and round. No scleral icterus. No injection or drainage. ENT: No nasal bleeding or discharge. Mucous membranes pink and moist. NECK: Trachea midline. No JVD. CARDIOVASCULAR: Regular rate and rhythm. RESPIRATORY: No accessory muscle use. Decreased breath sounds bilaterally GASTROINTESTINAL: Abdomen soft, non-tender, nondistended. Hepatic and splenic margins not palpable. MUSCULOSKELETAL: Extremities without clubbing, cyanosis, or edema. No obvious deformities. Right radial no hematoma, neurovascularly intact NEUROLOGICAL: Awake and alert. No obvious cranial nerve deficits. Motor grossly within normal limits. Five out of 5 muscle strength in the arms and legs. Normal speech. PSYCHIATRIC: Appropriate mood and affect; insight and judgment normal. Laboratory Laboratory Tests Test 02/27/17 06:25 02/27/17 12:01 02/27/17 13:52 Activated Partial Thromboplast Time 89.2 SEC Blood Urea Nitrogen 16 MG/DL Creatinine 0.91 MG/DL Random Glucose 103 MG/DL Calcium Level 8.4 MG/DL Sodium Level 138 MEQ/L Potassium Level 3.8 MEQ/L Chloride Level 101 MEQ/L Carbon Dioxide Level 32.4 MEQ/L Anion Gap 5 MEQ/L Estimat Glomerular Filtration Rate 83 ML/MIN Assessment and Plan Problem List: (1) Hx of CABG ICD Codes: Z95.1 - Presence of aortocoronary bypass graft (2) History of aortic valve replacement ICD Codes: Z95.2 - Presence of prosthetic heart valve (3) Elevated troponin ICD Codes: R74.8 - Abnormal levels of other serum enzymes (4) Acute exacerbation of chronic obstructive pulmonary disease (COPD) ICD Codes: J44.1 - Chronic obstructive pulmonary disease with (acute) exacerbation Status: Acute (5) Hypertension ICD Codes: I10 - Hypertension Status: Chronic (6) Hyperlipidemia ICD Codes: E78.5 - Hyperlipidemia Status: Chronic (7) Chest pain ICD Codes: R07.9 - Chest pain Status: Acute (8) Coronary artery disease ICD Codes: I25.10 - Coronary artery disease Status: Chronic Assessment and Plan 1) CP/elevated troponin Cardiac catheterization showing no significant CAD, CABGx2 patent Free NEIL to LAD (off SVG) SVG to OM 2) Hx of bioprosthetic AVR EF 50-55%, mild to moderate MR, mild to moderate AVR stenosis (mean 31 mmHg) 3) Afib Con't heparin drip Restarted on Coumadin 4) Subtherapeutic INR Per pt, problem with his pharmacy 5) Previous cardiomyopathy (2005 at the time of CABG/AVR) Appears to have resolved, con't current medications 6) Asymptomatic bradycardia Problem Qualifiers (1) Chest pain: Qualified Codes: I20.8 - Other forms of angina pectoris Matt Tierney DO Feb 27, 2017 15:06
[2017-02-27 15:20] LABS: APTT (PATIENT) 65.9 SEC (24.3-30.1)
[2017-02-27] MEDS ORDERED: WARFARIN SOD 5 MG TAB PO SCH (16:00)
[2017-02-27] MEDS: PRAVASTATIN SOD 40 MG TAB PO SCH (20:50)
[2017-02-27 21:53] LABS: APTT (PATIENT) 60.7 SEC (24.3-30.1)
[2017-02-28] VITALS (15 sets, daily range): BP systolic 111–135; BP diastolic 54–77; PULSE 47–63; RESP 16–17; TEMP 97.5–98.8; O2SAT 95
[2017-02-28] MEDS: HEPARIN-D5W 25,000 U/250 ML 250 ML IV PRN (06:17)
[2017-02-28 06:59] LABS: APTT (PATIENT) 70.4 SEC (24.3-30.1); INTERNATIONAL NORMALIZED RATIO 1.8 RATIO; PROTHROMBIN TIME - PATIENT 20.5 SEC (9.8-11.6)
--- NOTE | 2017-02-28 07:18 | PQ ---
Physician Query Response Document PATIENT: JACKIE MCDONALD : 1950 ADMIT DATE: 02/23/2017 5:57 PM DISCH DATE: RESPONDING PROVIDER #: lonnie QUERY TEXT: Conflicting Documentation Clarification Documentation of multiple diagnoses for the same clinical presentation appears in the record. Please clarify the diagnosis/diagnoses : NSTEMI -- Confirmed and current -- Ruled out -- Other, please specify PLEASE CALL [facility] @ [facility] [id number] FOR ASSISTANCE The patient's Clinical Indicators include: PER PROGRESS NOTE 02/26/17: - NSTEMI - possibly type 2 PER CARDIAC CATH REPORT 02/24/17: IMPRESSION 1. Chest pain most likely due to underlying cough, possible bronchitis versus pneumonia. 2. Mildly elevated troponins. 3. Mild coronary artery disease with bypass grafts open as above. TROPONINS=0.06, 0.06, 0.12 Query created by: Cathy Murcia on 02/27/2017 4:09 PM RESPONSE TEXT: - Elevated troponins likely due to non-cardiac causes. Cardiac cath did not show any significant CAD. Electronically signed by: Harpal Ballard DO 02/28/2017 7:14 AM
[2017-02-28] MEDS ORDERED: DEXTROSE 5%-LACTATED RING INJ 1,000 ML IV SCH (08:15)
--- NOTE | 2017-02-28 08:47 | HHI.PR ---
Subjective Remarks Follow up chest pain and COPD. Patient denies any chest pain, shortness of breath. When asked, he says he is eating and getting up too. However, per RN, he is not eating at all. 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 Objective Vitals Vital Signs Date Time Temp Pulse Resp B/P (MAP) Pulse Ox O2 Delivery O2 Flow Rate FiO2 02/28/17 08:00 48 02/28/17 07:00 47 02/28/17 07:00 95 Room Air 02/28/17 07:00 98.4 59 17 111/54 (73) 95 02/28/17 06:00 47 02/28/17 05:00 53 02/28/17 04:00 52 02/28/17 03:00 97.5 57 16 135/77 (96) 95 02/28/17 03:00 52 02/28/17 02:00 50 02/28/17 01:00 58 02/28/17 00:00 50 02/27/17 23:37 97.6 61 16 136/75 (95) 94 02/27/17 23:00 55 02/27/17 22:00 56 02/27/17 21:00 62 02/27/17 20:00 60 02/27/17 20:00 97.7 52 16 142/64 (90) 96 02/27/17 20:00 96 Room Air 02/27/17 19:00 64 02/27/17 18:00 74 02/27/17 17:00 64 02/27/17 16:00 53 02/27/17 15:00 55 02/27/17 15:00 98.2 60 16 117/60 (79) 95 02/27/17 14:00 55 02/27/17 13:00 66 02/27/17 12:00 65 02/27/17 11:00 65 02/27/17 11:00 98.0 67 16 100/41 (60) 95 02/27/17 10:00 66 02/27/17 09:00 46 I/O 02/27/17 02/27/17 02/27/17 02/28/17 02/28/17 02/28/17 07:00 15:00 23:00 07:00 15:00 23:00 Intake Total 240 ml 620 ml 314 ml Balance 240 ml 620 ml 314 ml Intake Oral 240 ml 480 ml 240 ml IV Total 140 ml 74 ml # Voids 2 1 2 # Bowel Movements 1 0 Result Diagram: 02/26/17 0559 02/27/17 1201 Imaging Last Impressions Chest X-Ray 02/23/17 1634 Signed Impressions: Service Date/Time: February 16:34 - CONCLUSION: 1. Post median sternotomy and valvular replacement. No acute abnormality. Kirt Pretty MD Objective Remarks GENERAL: Aler, NAD. SKIN: Warm and dry. HEAD: Normocephalic. EYES: No scleral icterus. No injection or drainage. NECK: Supple, trachea midline. No JVD or lymphadenopathy. CARDIOVASCULAR: Regular rate and rhythm without gallops, or rubs. Systolic murmur present - can be heard on both side of the sternal border. RESPIRATORY: Breath sounds equal bilaterally. No accessory muscle use. GASTROINTESTINAL: Abdomen soft, non-tender, nondistended. MUSCULOSKELETAL: No cyanosis, or edema. BACK: Nontender without obvious deformity. No CVA tenderness. Procedures Cardiac cath 02/24/2017 IMPRESSION 1. Chest pain most likely due to underlying cough, possible bronchitis versus pneumonia. 2. Mildly elevated troponins. 3. Mild coronary artery disease with bypass grafts open as above. 4. History of bioprosthetic AVR (2005). A/P Problem List: (1) NSTEMI (non-ST elevated myocardial infarction) ICD Code: I21.4 - Non-ST elevation (NSTEMI) myocardial infarction (2) Acute exacerbation of chronic obstructive pulmonary disease (COPD) ICD Code: J44.1 - Chronic obstructive pulmonary disease with (acute) exacerbation Status: Acute (3) Hypertension ICD Code: I10 - Hypertension Status: Chronic (4) Hyperlipidemia ICD Code: E78.5 - Hyperlipidemia Status: Chronic Assessment and Plan Mr. Denis is a 67-year-old male who presented to the emergency department due to chest pain, shortness of breath. Upon admission he wasn't started on antibiotics, breathing treatments. Cardiology was consulted for mild elevation in troponins. Peak troponin was 0.12. Patient underwent cardiac catheterization on 02/24/2017 - did not show any coronary artery disease. - Acute COPD exacerbation - Continue Levaquin 750 mg PO daily. - Continue breathing treatments as needed. - NSTEMI - possibly type 2 - Hx of Aortic stenosis and bioprosthetic AVR. - CAD s/p CABG x 2 v. - Continue Aspirin 81mg Qday. - Probably related to COPD. - Cardiology recommends heparin drip and warfarin. - Pharmacy is managing warfarin dosing. - Atrial fibrillation - Heart rate is controlled. - [id number] score 2 (age, HTN) - Since he has a history of AVR too, Warfarin is likely the most appropriate anti-coagulation agent. - Hypertension - Hyperlipidemia - Continue lisinopril 10 mg daily, pravastatin 40 mg daily at bedtime. - PT consult. - Will obtain a psychiatry consult due to concern over hallucinations, refusing to eat. - Start D5LR @84cc/hour. Full code. Heparin, Warfarin. Pedro Ballard DO Feb 28, 2017 8:47 am
[2017-02-28] MEDS: SODIUM CHLORIDE 0.9% FLUSH 10 ML FLUSH IV FLUSH SCH (09:00)
[2017-02-28] MEDS: ASPIRIN 81 MG CHEW TAB CHEW SCH (09:06)
[2017-02-28] MEDS: LISINOPRIL 20 MG TAB PO SCH (09:06)
[2017-02-28] MEDS: DOCUSATE SODIUM 50 MG/SENNA 8.6 MG TAB PO SCH (09:06)
[2017-02-28] MEDS: TAMSULOSIN HCL 0.4 MG CAP PO SCH (09:06)
[2017-02-28] MEDS: LEVOFLOXACIN 750 MG TAB PO SCH (10:46)
--- NOTE | 2017-02-28 12:28 | PD.CARD.PN ---
Subjective Subjective Remarks No events overnight No complaints Mild bradycardia, asymptomatic Objective Medications Current Medications Medications (Trade) Dose Ordered Sig/Danielle Route Start Time Stop Time Status Last Admin (Heparin Inj) 5,000 units UNSCH PRN IV 02/24/17 00:00 (Heparin Inj) 2,500 units UNSCH PRN IV 02/24/17 00:00 Heparin Sodium/ Dextrose 250 ml @ 8.4 mls/hr TITRATE PRN IV 02/23/17 18:00 02/28/17 06:17 (NS Flush) 2 ml UNSCH PRN IV FLUSH 02/23/17 18:00 (NS Flush) 2 ml BID IV FLUSH 02/23/17 21:00 02/27/17 20:51 (Tylenol) 650 mg Q4H PRN PO 02/23/17 18:00 (Zofran Inj) 4 mg Q6H PRN IVP 02/23/17 18:00 02/26/17 12:48 (Narcan Inj) 0.4 mg UNSCH PRN IV PUSH 02/23/17 18:00 (Philly-Colace) 1 tab BID PO 02/23/17 21:00 02/28/17 09:06 (Milk Of Magnesia Liq) 30 ml Q12H PRN PO 02/23/17 18:00 02/26/17 12:47 (Senokot) 17.2 mg Q12H PRN PO 02/23/17 18:00 (Dulcolax Supp) 10 mg DAILY PRN RECTAL 02/23/17 18:00 (Lactulose Liq) 30 ml DAILY PRN PO 02/23/17 18:00 (Duoneb Neb) 1 ampule Q2HR NEB PRN NEB 02/24/17 04:00 (Flomax) 0.4 mg DAILY PO 02/24/17 10:00 02/28/17 09:06 (Pravachol) 40 mg HS PO 02/24/17 21:00 02/27/17 20:50 (Aspirin Chew) 81 mg DAILY CHEW 02/24/17 10:00 02/28/17 09:06 (Levaquin) 750 mg DAILY PO 02/25/17 09:00 03/02/17 08:59 02/28/17 10:46 (Prinivil) 20 mg DAILY PO 9/17/17 09:00 02/28/17 09:06 (Coumadin) 5 mg DAILY@1600 PO 02/27/17 16:00 Future Hold 02/27/17 16:34 Pharmacy Profile Note 0 ml @ 0 mls/hr UNSCH OTHER 02/27/17 14:00 Dextrose/Lactated Ringer's 1,000 ml @ 84 mls/hr [id number] IV 02/28/17 08:15 02/28/17 08:15 Vital Signs / I&O Vital Signs Date Time Temp Pulse Resp B/P (MAP) Pulse Ox O2 Delivery O2 Flow Rate FiO2 02/28/17 12:00 59 02/28/17 11:00 63 02/28/17 11:00 98.8 53 16 125/70 (88) 95 02/28/17 10:00 55 02/28/17 09:00 62 02/28/17 08:00 48 02/28/17 07:00 47 02/28/17 07:00 95 Room Air 02/28/17 07:00 98.4 59 17 111/54 (73) 95 02/28/17 06:00 47 02/28/17 05:00 53 02/28/17 04:00 52 02/28/17 03:00 97.5 57 16 135/77 (96) 95 02/28/17 03:00 52 02/28/17 02:00 50 02/28/17 01:00 58 02/28/17 00:00 50 02/27/17 23:37 97.6 61 16 136/75 (95) 94 02/27/17 23:00 55 02/27/17 22:00 56 02/27/17 21:00 62 02/27/17 20:00 60 02/27/17 20:00 97.7 52 16 142/64 (90) 96 02/27/17 20:00 96 Room Air 02/27/17 19:00 64 02/27/17 18:00 74 02/27/17 17:00 64 02/27/17 16:00 53 02/27/17 15:00 55 02/27/17 15:00 98.2 60 16 117/60 (79) 95 02/27/17 14:00 55 02/27/17 13:00 66 I/O 02/27/17 02/27/17 02/27/17 02/28/17 9/19/17 9/19/17 07:00 15:00 23:00 07:00 15:00 23:00 Intake Total 240 ml 620 ml 314 ml Balance 240 ml 620 ml 314 ml Intake Oral 240 ml 480 ml 240 ml IV Total 140 ml 74 ml # Voids 2 1 2 # Bowel Movements 1 0 Physical Exam GENERAL: NAD, AAOx3 SKIN: Warm and dry. HEAD: Atraumatic. Normocephalic. EYES: Pupils equal and round. No scleral icterus. No injection or drainage. ENT: No nasal bleeding or discharge. Mucous membranes pink and moist. NECK: Trachea midline. No JVD. CARDIOVASCULAR: Regular rate and rhythm. RESPIRATORY: No accessory muscle use. Decreased breath sounds bilaterally GASTROINTESTINAL: Abdomen soft, non-tender, nondistended. Hepatic and splenic margins not palpable. MUSCULOSKELETAL: Extremities without clubbing, cyanosis, or edema. No obvious deformities. Right radial no hematoma, neurovascularly intact NEUROLOGICAL: Awake and alert. No obvious cranial nerve deficits. Motor grossly within normal limits. Five out of 5 muscle strength in the arms and legs. Normal speech. PSYCHIATRIC: Appropriate mood and affect; insight and judgment normal. Laboratory Laboratory Tests Test 02/27/17 13:52 02/27/17 20:56 02/28/17 06:15 Activated Partial Thromboplast Time 65.9 SEC 60.7 SEC 70.4 SEC Prothrombin Time 20.5 SEC Prothromb Time International Ratio 1.8 RATIO Assessment and Plan Problem List: (1) Hx of CABG ICD Codes: Z95.1 - Presence of aortocoronary bypass graft (2) History of aortic valve replacement ICD Codes: Z95.2 - Presence of prosthetic heart valve (3) Elevated troponin ICD Codes: R74.8 - Abnormal levels of other serum enzymes (4) Acute exacerbation of chronic obstructive pulmonary disease (COPD) ICD Codes: J44.1 - Chronic obstructive pulmonary disease with (acute) exacerbation Status: Acute (5) Hypertension ICD Codes: I10 - Hypertension Status: Chronic (6) Hyperlipidemia ICD Codes: E78.5 - Hyperlipidemia Status: Chronic (7) Chest pain ICD Codes: R07.9 - Chest pain Status: Acute (8) Coronary artery disease ICD Codes: I25.10 - Coronary artery disease Status: Chronic Assessment and Plan 1) CP/elevated troponin Cardiac catheterization showing no significant CAD, CABGx2 patent Free NEIL to LAD (off SVG) SVG to OM 2) Hx of bioprosthetic AVR EF 50-55%, mild to moderate MR, mild to moderate AVR stenosis (mean 31 mmHg) 3) Afib Con't heparin drip Restarted on Coumadin 4) Subtherapeutic INR Per pt, problem with his pharmacy 5) Previous cardiomyopathy (2005 at the time of CABG/AVR) Appears to have resolved, con't current medications 6) Asymptomatic bradycardia Avoid AV bill blocking agents Problem Qualifiers (1) Chest pain: Qualified Codes: I20.8 - Other forms of angina pectoris Matt Tierney DO Feb 28, 2017 12:28
[2017-02-28] MEDS ORDERED: LISI-515 PO (12:51)
[2017-02-28] MEDS ORDERED: COUM5TAB PO (12:51)
[2017-02-28] MEDS ORDERED: LEVA750T9 PO (12:51)
[2017-02-28] MEDS ORDERED: IPRASOL NEB (12:51)
[2017-02-28] MEDS ORDERED: PRAV40TA PO (12:51)
[2017-02-28] MEDS ORDERED: ASPI81CH25 CHEW (12:51)
--- NOTE | 2017-02-28 12:54 | HHI.DS ---
Discharge Summary Admission Date Feb 23, 2017 at 17:57 Discharge Date: Feb 28, 2017 Admitting Diagnosis Chest Pain (1) NSTEMI (non-ST elevated myocardial infarction) ICD Code: I21.4 - Non-ST elevation (NSTEMI) myocardial infarction (2) Acute exacerbation of chronic obstructive pulmonary disease (COPD) ICD Code: J44.1 - Chronic obstructive pulmonary disease with (acute) exacerbation Status: Acute (3) Hypertension ICD Code: I10 - Hypertension Status: Chronic (4) Hyperlipidemia ICD Code: E78.5 - Hyperlipidemia Status: Chronic Procedures Cardiac cath 02/24/2017 IMPRESSION 1. Chest pain most likely due to underlying cough, possible bronchitis versus pneumonia. 2. Mildly elevated troponins. 3. Mild coronary artery disease with bypass grafts open as above. 4. History of bioprosthetic AVR (2005). Brief History - From Admission History from patient, ER physician notes, and review of medical records. Patient reports that he has been coughing for past few days. He is generally coughing constantly during my interview as well. He reports a fever but did not measure it. Also reports of some nausea and vomiting starting about Monday or so. About 3 times a day vomiting. Mostly whitish color after coughing. Denies any blood in his vomitus. Patient also reports of chest pain which actually comes after coughing fits. Denies being on water pills at home. Reports he has quit smoking about 10 years ago. Did however stated that his chest pain radiates to his left arm and that he was nauseous at the time of the pain. Again, all the symptoms were happening for about a week and a half. Denies any blood in his stool or his urine. Reports a little bit of diarrhea about 3 times a day or so. This was also on and off for about a week. Denies any urinary burning or pain on urination or frequent urination. He states that because of all this sickness, he was also feeling more and more dizzy to the point of almost passing out. Denies peripheral edema. Denies any pillow orthopnea. CBC/BMP: 02/26/17 0559 9/18/17 1201 Significant Findings Laboratory Tests Test 02/26/17 05:59 02/27/17 06:25 02/27/17 12:01 02/27/17 13:52 Red Blood Count 3.53 MIL/MM3 (4.50-5.90) Hemoglobin 10.9 GM/DL (13.0-17.0) Hematocrit 32.5 % (39.0-51.0) Prothrombin Time 12.1 SEC (9.8-11.6) Activated Partial Thromboplast Time 89.2 SEC (24.3-30.1) 65.9 SEC (24.3-30.1) Calcium Level 8.4 MG/DL (8.5-10.1) Carbon Dioxide Level 32.4 MEQ/L (21.0-32.0) Estimat Glomerular Filtration Rate 83 ML/MIN (>89) Test 02/27/17 20:56 02/28/17 06:15 Activated Partial Thromboplast Time 60.7 SEC (24.3-30.1) 70.4 SEC (24.3-30.1) Prothrombin Time 20.5 SEC (9.8-11.6) Imaging Last Impressions Chest X-Ray 02/23/17 1634 Signed Impressions: Service Date/Time: February 16:34 - CONCLUSION: 1. Post median sternotomy and valvular replacement. No acute abnormality. Kirt Pretty MD PE at Discharge GENERAL: Aler, NAD. SKIN: Warm and dry. HEAD: Normocephalic. EYES: No scleral icterus. No injection or drainage. NECK: Supple, trachea midline. No JVD or lymphadenopathy. CARDIOVASCULAR: Regular rate and rhythm without gallops, or rubs. Systolic murmur present - can be heard on both side of the sternal border. RESPIRATORY: Breath sounds equal bilaterally. No accessory muscle use. GASTROINTESTINAL: Abdomen soft, non-tender, nondistended. MUSCULOSKELETAL: No cyanosis, or edema. BACK: Nontender without obvious deformity. No CVA tenderness. Pt update on day of discharge Patient is resting in bed, alert, awake. No chest pain, SOB, fever, chills. He says he is eating but per RN, he is not eating at all. Hospital Course Mr. Denis is a 67-year-old male who presented to the emergency department due to chest pain, shortness of breath. Upon admission he wasn't started on antibiotics, breathing treatments. Cardiology was consulted for mild elevation in troponins. Peak troponin was 0.12. Patient underwent cardiac catheterization on 02/24/2017 - did not show any coronary artery disease. - Acute COPD exacerbation - Continue Levaquin 750 mg PO daily for 4 more days starting 03/01/2017. - Continue breathing treatments as needed. - NSTEMI - possibly type 2 - Hx of Aortic stenosis and bioprosthetic AVR. - CAD s/p CABG x 2 v. - Continue Aspirin 81mg Qday. - Probably related to COPD. - Please continue Heparin drip (without any bolus). - Continue Warfarin and consult Pharmacy for Warfarin. - Atrial fibrillation - Heart rate is controlled. - [id number] score 2 (age, HTN) - Since he has a history of AVR too, Warfarin is likely the most appropriate anti-coagulation agent. - Hypertension - Hyperlipidemia - Continue lisinopril 20 mg daily, pravastatin 40 mg daily at bedtime. Appreciate psychiatry input. We will discharge patient to med psychiatry. Pt Condition on Discharge: Good Discharge Disposition: Disc to Psych Care Fac Discharge Time: <= 30 minutes Discharge Instructions DIET: Follow Instructions for: Heart Healthy Diet Speech Therapy-Diet Recommends: Regular Activities you can perform: Regular-No Restrictions New Medications: Aspirin (Aspirin Low Strength) 81 Mg Chew 81 MG CHEW DAILY for Blood Clot Prevention, #30 EA Ipratropium-Albuterol Neb (Duoneb) 0.5-2.5 Mg/3 Ml Neb 1 AMPULE NEB Q2HR NEB PRN for WHEEZING for 30 Days, ML Levofloxacin (Levaquin) 750 Mg Tablet 750 MG PO DAILY for Infection, #3 TAB Lisinopril (Lisinopril) 20 Mg Tab 20 MG PO DAILY for Blood Pressure Management, #30 TAB Pravastatin (Pravachol) 40 Mg Tab 40 MG PO HS for Cholesterol Management for 30 Days, TAB Warfarin (Coumadin) 5 Mg Tab 5 MG PO DAILY@1600 for Blood Clot Prevention for 30 Days, TAB Continued Medications: Nitroglycerin SL (Nitrostat SL) 0.4 Mg Subl 0.4 MG SL DIRECTED PRN for CHEST PAIN, #100 TAB.SL 0 Refills 1 tablet under the tongue as needed for chest pain. Repeat every 5 minutes for a total of 3 DOSES or call 911 if NO relief. Tamsulosin (Tamsulosin) 0.4 Mg Cap 0.4 MG PO DAILY for Manage Prostate Problems, #30 CAP 0 Refills Discontinued Medications: Lisinopril (Lisinopril) 10 Mg Tab 10 MG PO DAILY, #30 TAB 0 Refills Simvastatin (Zocor) 20 Mg Tab 20 MG PO HS for Cholesterol Management, #30 TAB 0 Refills Warfarin (Warfarin) 2.5 Mg Tab 2.5 MG PO DAILY for Blood Clot Prevention, #30 TAB 0 Refills Pedro Ballard DO Feb 28, 2017 12:54
== END 2017-02-28 14:30 | DRG 190 ==
LOC: NEPD 16:04 → NEDA 17:57 → HCIS 20:44
PROVIDERS: ADMIT Hospitalist; ATTEND Hospitalist
PROC: B2181ZZ Fluoroscopy of Left Internal Mammary Bypass Graft using Low Osmolar Contrast (ICD-10-PCS; 2017-02-24)
PROC: B2111ZZ Fluoroscopy of Multiple Coronary Arteries using Low Osmolar Contrast (ICD-10-PCS; 2017-02-24)
PROC: B2121ZZ Fluoroscopy of Single Coronary Artery Bypass Graft using Low Osmolar Contrast (ICD-10-PCS; principal; 2017-02-24 11:00)
DX: J44.1 Chronic obstructive pulmonary disease with (acute) exacerbation (principal); J18.9 Pneumonia, unspecified organism; E44.0 Moderate protein-calorie malnutrition; R64 Cachexia; I42.9 Cardiomyopathy, unspecified; I25.82 Chronic total occlusion of coronary artery; E87.1 Hypo-osmolality and hyponatremia; I47.1 Supraventricular tachycardia; R44.0 Auditory hallucinations; Z68.1 Body mass index [BMI] 19.9 or less, adult; I48.91 Unspecified atrial fibrillation; J44.0 Chronic obstructive pulmonary disease with (acute) lower respiratory infection; I10 Essential (primary) hypertension; R74.8 Abnormal levels of other serum enzymes; R44.1 Visual hallucinations; K21.9 Gastro-esophageal reflux disease without esophagitis; I25.2 Old myocardial infarction; I25.10 Atherosclerotic heart disease of native coronary artery without angina pectoris; E78.5 Hyperlipidemia, unspecified; R00.1 Bradycardia, unspecified; M19.90 Unspecified osteoarthritis, unspecified site; Z79.01 Long term (current) use of anticoagulants; Z87.891 Personal history of nicotine dependence; Z95.1 Presence of aortocoronary bypass graft; Z95.3 Presence of xenogenic heart valve; Z95.5 Presence of coronary angioplasty implant and graft; R07.9 Chest pain, unspecified
CPT/HCPCS: 71010; 76937; 80048; 82550; 82552; 83735; 83880; 84484; 85025; 85027; 85610; 85730; 93005; 93306; 93454; 94640; 94664; 96372; 99285; C1769; C1893; G0378; J1644; J1650; J1956; J2250; J2405; J2930; J3010; J7121; Q9967

== ENCOUNTER 2017-02-28 14:12 | Inpatient (IN) | payer MEDICARE ==
[~2017-02-28 14:12] MED LIST changes: +ASPI81CH25 CHEW; +COUM5TAB PO; -CYCL1TAB29 PO; -IPRASOL INH; +IPRASOL NEB; +LEVA750T9 PO; +LISI-515 PO; +PRAV40TA PO; -RISPM2 SL
--- NOTE | 2017-02-28 14:48 | HHI.HP ---
Provisional Diagnosis Admission Date [facility]. Unspecified psychosis Certification of Person's Competence To Provide Express and Informed Consent I have personally examined Chun Denis , a person being served at [facility] on, Feb 28, 2017 14:38. Express and informed consent means consent voluntarily given in writing, by a competent person, after sufficient explanation and disclosure of the subject matter involved to enable the person to make a knowing and willful decision without any element of force, fraud, deceit, duress, or other form of constraint or coercion. This person is 18 years of age or older, is not now known to be incompetent to consent to treatment with a guardian advocate, and does not have a health care surrogate or proxy currently making medical treatment decisions. I have found this person to be one of the following: [] Competent to provide express and informed consent, as defined above, for voluntary admission to this facility and is competent to provide express and informed consent for treatment. He/she has the consistent capacity to make well reasoned, willful, and knowing decisions concerning his or her medical or mental health treatment. The person fully and consistently understands the purpose of the admission for examination/placement and is fully capable of personally exercising all rights assured [place] Incompetent to provide express and informed consent to voluntary admission, and this is incompetent to provide express and informed consent to treatment. The person must be transferred to involuntary status and a petition for a guardian advocate filed with the Circuit Court. [X] Refusing to provide express and informed consent to voluntary admission but is competent to provide express and informed consent for treatment. The person must be discharged or transferred to involuntary status. Form shall be completed within 24 hours of a person's arrival at the receiving facility and filed in the clinical record of each person: 1. Admitted on a voluntary basis 2. Permitted to provide express and informed consent to his/her own treatment 3. Allowed to transfer from involuntary to voluntary status 4. Prior to permitting a person to consent to his or her own treatment after having been previously found incompetent to consent to treatment. History of Present Illness Capacity: Has Capacity HPI The patient is is a 67-year-old man, with psychiatric history of psychosis, major depressive disorder, alcohol use disorder, 2 psychiatric hospitalization here at [facility] in 2016, documentation reviewed, who was initially admitted in the medical floor due to chest pain, shortness of breath. Upon admission he wasn't started on antibiotics, breathing treatments. Cardiology was consulted for mild elevation in troponins. Peak troponin was 0.12. Patient underwent cardiac catheterization on 02/24/2017 - did not show any coronary artery disease. He was initially consulted to psychiatry due to visual and auditory hallucinations. Patient is seen today in the med psych unit , patient seems to be internally preoccupied, oppositional, refusing to answer questions. As per nursing charge in the medical floor, the patient has been actively talking to himself, paranoid, disorganized. As per review of documentation patient has an extensive history of visual and auditory hallucinations. He also had history of suicidal ideation. Review of Systems Constitutional: DENIES: Diaphoretic episodes, Fatigue, Fever, Weight gain, Weight loss, Chills, Dizziness, Change in appetite, Night Sweats Endocrine: DENIES: Heat/cold intolerance, Polydipsia, Polyuria, Polyphagia Eyes: DENIES: Blurred vision, Diplopia, Eye inflammation, Eye pain, Vision loss , Photosensitivity, Double Vision Ears, nose, mouth, throat: DENIES: Tinnitus, Hearing loss, Vertigo, Nasal discharge, Oral lesions, Throat pain, Hoarseness, Ear Pain, Running Nose, Epistaxis, Sinus Pain, Toothache, Odynophagia Gastrointestinal: DENIES: Abdominal pain, Black stools, Bloody stools, Constipation, Diarrhea, Nausea, Vomiting, Difficulty Swallowing, Anorexia Musculoskeletal: DENIES: Joint pain, Muscle aches, Stiffness, Joint Swelling, Back pain, Neck pain Hematologic/lymphatic: DENIES: Bruising, Lymphadenopathy Immunologic/allergic: DENIES: Eczema, Urticaria Neurologic: DENIES: Abnormal gait, Headache, Localized weakness, Paresthesias, Seizures, Speech Problems, Tremor, Poor Balance Substance Abuse History Drugs/Alcohol past 12 months She has documented history of alcohol use disorder Past Family Social History Coded Allergies: No Known Allergies (Verified , 02/20/17) Active Scripts Aspirin (Aspirin Low Strength) 81 Mg Chew, 81 MG CHEW DAILY for Blood Clot Prevention, #30 EA Prov:Pedro Ballard DO 02/28/17 Lisinopril (Lisinopril) 20 Mg Tab, 20 MG PO DAILY for Blood Pressure Management , #30 TAB Prov:Pedro Ballard DO 02/28/17 Pravastatin (Pravachol) 40 Mg Tab, 40 MG PO HS for Cholesterol Management for 30 Days, TAB Prov:Pedro Ballard DO 02/28/17 Warfarin (Coumadin) 5 Mg Tab, 5 MG PO DAILY@1600 for Blood Clot Prevention for 30 Days, TAB Prov:Pedro Ballard DO 02/28/17 Ipratropium-Albuterol Neb (Duoneb) 0.5-2.5 Mg/3 Ml Neb, 1 AMPULE NEB Q2HR NEB Y for WHEEZING for 30 Days, ML Prov:Pedro Ballard DO 02/28/17 Levofloxacin (Levaquin) 750 Mg Tablet, 750 MG PO DAILY for Infection, #3 TAB Prov:Pedro Ballard DO 02/28/17 Reported Medications Tamsulosin (Tamsulosin) 0.4 Mg Cap, 0.4 MG PO DAILY for Manage Prostate Problems , #30 CAP 0 Refills 05/31/16 Nitroglycerin SL (Nitrostat SL) 0.4 Mg Subl, 0.4 MG SL DIRECTED Y for CHEST PAIN, #100 TAB.SL 0 Refills 1 tablet under the tongue as needed for chest pain. Repeat every 5 minutes for a total of 3 DOSES or call 911 if NO relief. 05/31/16 Discontinued Reported Medications Warfarin (Warfarin) 2.5 Mg Tab, 2.5 MG PO DAILY for Blood Clot Prevention, #30 TAB 0 Refills 05/31/16 Simvastatin (Zocor) 20 Mg Tab, 20 MG PO HS for Cholesterol Management, #30 TAB 0 Refills 05/31/16 Lisinopril (Lisinopril) 10 Mg Tab, 10 MG PO DAILY, #30 TAB 0 Refills 05/31/16 Risperidone Odt (Risperdal M-Tab) 2 Mg Tab, 1.5 MG SL Q12HR, #60 TAB 0 Refills 05/31/16 Discontinued Scripts Cyclobenzaprine (Flexeril) 10 Mg Tab, 10 MG PO TID Y for MUSCLE SPASM, #30 TAB 0 Refills Prov:Alicia Gifford [employer] 10/07/16 Ipratropium-Albuterol Neb (Duoneb) 0.5-2.5 Mg/3 Ml Neb, 1 NEBULE INH Q4HR NEB for Breathing Treatment, #180 NEBULE 0 Refills Prov:Carla Drew MD 06/17/16 Mental Status Examination Appearance man, older than his stated age, uncooperative, oppositional Speech: Other (selectively mute) Orientation: Person Assessment & Plan Problem List: (1) Unspecified psychosis ICD Codes: F29 - Unspecified psychosis not due to a substance or known physiological condition Assessment & Plan: On psychiatric evaluation today patient presents internally preoccupied, selectively mute, no answering questions, most probably paranoid. As per documentation during her hospitalization in the medical floor he was hallucinating, talking to herself, very disorganized. Vital signs and labs have been revised, they are in normal limits. Patient has an extensive history of visual and auditory hallucinations in the past, suicidal ideation. This moment is unclear if current psychosis is secondary underlying medical conditions, or to a primary major psychiatric illness decompensation. Will admit to psychiatry. Will Adamson act. We'll consult medicine to continue medical treatment. Reconsult psychiatry for second opinion. Will start Abilify 2.5 mg daily. project crew worker intervention for psychosocial assessment, collateral information, coordinating a safe discharge. Assessment & Plan Estimated LOS: Kenny Damon MD Feb 28, 2017 14:48
[2017-02-28] MEDS ORDERED: NICOTINE 21 MG/24 HR PATCH T-DERMAL SCH (15:00)
[2017-02-28] MEDS ORDERED: LORazepam 0.5 MG TAB PO PRN (15:00)
[2017-02-28] MEDS ORDERED: LORazepam 1 MG TAB PO PRN (15:00)
[2017-02-28] MEDS ORDERED: LORazepam 2 MG/ML VIAL IM PRN ×2 (15:00)
[2017-02-28] MEDS ORDERED: ALUMINUM/MAGNESIUM/SIMETH 30 ML CUP PO PRN (15:00)
[2017-02-28] MEDS ORDERED: ACETAMINOPHEN 325 MG TAB PO PRN (15:00)
[2017-02-28] MEDS ORDERED: MAGNESIUM HYDROXIDE SUSP 30 ML CUP PO PRN (15:00)
[2017-02-28] MEDS ORDERED: RESP: ALBUTEROL 2.5 MG/IPRATROPIUM 0.5 MG NEB (PRN) NEB (16:30)
[2017-02-28] MEDS: PRAVASTATIN SOD 40 MG TAB PO SCH (20:32)
[2017-03-01 05:10] VITALS: BP 140/73; PULSE 49; RESP 16; TEMP 97.4; O2SAT 99
[2017-03-01 05:16] VITALS: BP 111/55; PULSE 63; RESP 16; TEMP 98.3; O2SAT 95
--- NOTE | 2017-03-01 08:43 | PD.CONS ---
[facility] Reason for Consult Medical management. Primary Care Physician Torsten Zuñiga MD Diagnoses: (1) Atrial fibrillation (2) COPD (chronic obstructive pulmonary disease) (3) Coronary artery disease History of Present Illness Mr. Denis is a 67 year old male with a history of COPD, CAD who was discharged from medical floor to psychiatry on 02/28/2017. Patient presented to the emergency department on 02/23/2017 due to chest pain, shortness of breath. Upon admission he was started on antibiotics, breathing treatments. Cardiology was consulted for mild elevation in troponins. Peak troponin was 0.12. Patient underwent cardiac catheterization on 02/24/2017 - did not show any coronary artery disease. He continued to receive abx, breathing tx for COPD. He has a history of Aortic stenosis s/p bioprosthetic AVR and also history of Afib. He was on Warfarin but INR subtherapeutic. Cardiology recommended continuing with heparin drip and bridge to Warfarin. Review of Systems Except as stated in HPI: all other systems reviewed are Neg Past Family Social History Allergies: Coded Allergies: No Known Allergies (Verified , 02/20/17) Past Medical History Hypertension CAD s/p CABG x 2v Aortic stenosis s/p AVR COPD Hyperlipidemia Past Surgical History Aortic valve replacement. CABG X 2v. Reported Medications Current Medications Medications (Trade) Dose Ordered Sig/Danielle Route Start Time Stop Time Status Last Admin (Aspirin Chew) 81 mg DAILY CHEW 03/01/17 09:00 03/01/17 10:00 (Duoneb Neb) 1 ampule Q2HR NEB PRN NEB 02/28/17 16:30 (Prinivil) 20 mg DAILY PO 03/01/17 09:00 03/01/17 10:01 (Pravachol) 40 mg HS PO 02/28/17 21:00 02/28/17 20:32 (Flomax) 0.4 mg DAILY PO 03/01/17 09:00 03/01/17 10:01 (Abilify) 2 mg DAILY PO 03/01/17 09:00 03/01/17 10:00 (Ativan) 0.5 mg Q12H PRN PO 02/28/17 15:00 (Ativan Inj) 0.5 mg Q12H PRN IM 02/28/17 15:00 (Tylenol) 650 mg Q4H PRN PO 02/28/17 15:00 (Milk Of Magnesia Liq) 30 ml DAILY PRN PO 02/28/17 15:00 (Mag-Al Plus Susp Liq) 30 ml Q6H PRN PO 02/28/17 15:00 (Flu (Quadrivalent) Vaccine Inj) 0.5 ml ONCE ONCE IM 03/02/17 10:00 03/02/17 10:01 Pharmacy Profile Note 0 ml @ 0 mls/hr UNSCH OTHER 03/01/17 08:45 Dextrose/Lactated Ringer's 1,000 ml @ 84 mls/hr [id number] IV 03/01/17 09:30 03/01/17 09:30 Heparin Sodium/ Dextrose 250 ml @ 6 mls/hr TITRATE PRN IV 03/01/17 12:00 (Coumadin) 2.5 mg DAILY@1600 PO 03/01/17 16:00 03/01/17 16:00 Family History Unable to obtain due to patient's condition. Social History Apparently quit smoking in 2005. Physical Exam Vital Signs Vital Signs Date Time Temp Pulse Resp B/P (MAP) Pulse Ox O2 Delivery O2 Flow Rate FiO2 03/01/17 05:16 98.3 63 16 111/55 (73) 95 Physical Exam GENERAL: This is a well-nourished, well-developed patient, in no apparent distress. Flat affect. SKIN: No rashes, ecchymoses or lesions. Warm and dry. HEAD: Atraumatic. Normocephalic. No temporal or scalp tenderness. EYES: Pupils equal round and reactive. No injection or drainage. ENT: Nose without bleeding, purulent drainage or septal hematoma. Airway patent. NECK: Trachea midline. No lymphadenopathy. Supple, nontender, no meningeal signs. CARDIOVASCULAR: Regular rate and rhythm without murmurs, gallops, or rubs. No JVD. RESPIRATORY: Clear to auscultation. Breath sounds equal bilaterally. No wheezes , rales, or rhonchi. GASTROINTESTINAL: Abdomen soft, non-tender, nondistended. No guarding. MUSCULOSKELETAL: Extremities without clubbing, cyanosis, or edema. NEUROLOGICAL: Awake and alert. Cranial nerves II through XII intact. No focal neurological deficits. Normal speech. Assessment and Plan Problem List: (1) COPD (chronic obstructive pulmonary disease) ICD Code: J44.9 - COPD (chronic obstructive pulmonary disease) Status: Chronic (2) Atrial fibrillation ICD Code: I48.91 - Unspecified atrial fibrillation (3) Coronary artery disease ICD Code: I25.10 - Coronary artery disease Status: Chronic (4) Hx of CABG ICD Code: Z95.1 - Presence of aortocoronary bypass graft (5) History of aortic valve replacement ICD Code: Z95.2 - Presence of prosthetic heart valve Assessment and Plan Mr. Denis is a 67 year old male who was discharged from the medical floor to the psychiatry floor on 02/28/2017. On 02/23/2017, Mr. Denis to the emergency department due to chest pain, shortness of breath. Upon admission he was started on antibiotics, breathing treatments. Cardiology was consulted for mild elevation in troponins. Peak troponin was 0.12. Patient underwent cardiac catheterization on 02/24/2017 - did not show any coronary artery disease. While medically patient remained stable, he had hallucinations and he did not eat or get up from bed. After evaluating, psychiatry guerrero acted him and subsequently patient was discharged to Psychiatry service. - Psychosis - Probable paranoid schizophrenia - Appreciate help from psychiatry service. - Patient is currently on Abilify. - Encouraged patient to drink Ensure with each meal. - COPD - Received Levaquin 750 mg PO daily prior to discharge from medical floor. - Continue breathing treatments as needed. - NSTEMI - possibly type 2 - Hx of Aortic stenosis and bioprosthetic AVR. - CAD s/p CABG x 2 v. - Continue Aspirin 81mg Qday. - Probably related to COPD. - Cardiology recommends heparin drip and warfarin. - Consult Pharmacy for Warfarin dosing. Will stop heparin drip when INR > 2.0. - Atrial fibrillation - Heart rate is controlled. - [id number] score 2 (age, HTN) - Since he has a history of AVR too, Warfarin is likely the most appropriate anti-coagulation agent. - Hypertension - Hyperlipidemia - Continue lisinopril 10 mg daily, pravastatin 40 mg daily at bedtime. - BPH - Continue Tamsulosin 0.4mg Qday. Full code. Heparin drip. Thank you for the consult. We will continue to follow this patient with you. Pedro Ballard DO Mar 01, 2017 08:43
[2017-03-01] MEDS ORDERED: HEPARIN-D5W 25,000 U/250 ML 250 ML IV PRN (08:45)
[2017-03-01] MEDS: DEXTROSE 5%-LACTATED RING INJ 1,000 ML IV SCH ×2 (09:30→22:43)
--- NOTE | 2017-03-01 09:53 | HHI.PYPN ---
Subjective Remarks 02/28/17 - The patient is is a 67-year-old man, with psychiatric history of psychosis, major depressive disorder, alcohol use disorder, 2 psychiatric hospitalization here at [facility] in 2016, documentation reviewed, who was initially admitted in the medical floor due to chest pain, shortness of breath. Upon admission he wasn't started on antibiotics, breathing treatments. Cardiology was consulted for mild elevation in troponins. Peak troponin was 0.12. Patient underwent cardiac catheterization on 02/24/2017 - did not show any coronary artery disease. He was initially consulted to psychiatry due to visual and auditory hallucinations. Patient is seen today in the med psych unit , patient seems to be internally preoccupied, oppositional, refusing to answer questions. As per nursing charge in the medical floor, the patient has been actively talking to himself, paranoid, disorganized. As per review of documentation patient has an extensive history of visual and auditory hallucinations. He also had history of suicidal ideation. 03/01/17 - Patient is a 67 y/o man, with past psychiatric history of unspecified psychosis, MDD and ETOH use disorder, with previous psychiatric admissions who was admitted to the medical unit for chest pain and psychiatry was consulted for evaluation of AH. Patient was put under [place] and transferred to the inpatient psychiatry unit where he was noted to be internally preoccupied, oppositional and refusing to cooperate with staff. Patient was seen on the medical/psychiatry unit, lying on hospital bed, calm and cooperative with interview but noted to be somewhat disorganized and with though blocking and/or internally preoccupied although was able to answer questions appropriately at times. Patient states that he has been feeling down and out for the past couple of days and that prior to that was feeling pretty good. He has difficulty recalling events that led to his admission stating people who look after me were who brought him in but was unable to state who these people are. He reports having had decreased sleep lately, I cant sleepI cant talk, decreased appetite, energy level varies, reports no change in concentration, mood lately being ok but also endorsing episodes of feeling sad at times. He denies any AVH or delusions at this time but also noted to be confused and alert and oriented to person only. Patient denies history of mental health services or alcohol use despite records of both present in his previous visits. Review of Systems ROS Limitations: Poor Historian Except as stated in HPI: all other systems reviewed are Neg Objective Alert: Yes [place]: Person Mood: Calm Affect: Restricted Memory Intact: Comment (impaired at this time) Hallucinations: Other (denies) Delusions: No Delusion Type: Other (denies) Suicidal: Ideation (denies) Homicidal: Ideation (denies) Insight/Judgment poor insight, fair impulse control, limited judgement Remarks Thought process: disorganized at times and noted to have thought blocking and perhaps internally preoccupied. Vitals/IOs Vital Signs Date Time Temp Pulse Resp B/P (MAP) Pulse Ox O2 Delivery O2 Flow Rate FiO2 03/01/17 05:16 98.3 63 16 111/55 (73) 95 Intake and Output 03/01/17 03/01/17 03/02/17 08:00 16:00 00:00 Intake Total 1138 ml Balance 1138 ml Assessment & Plan Problem List: (1) Unspecified psychosis ICD Codes: F29 - Unspecified psychosis not due to a substance or known physiological condition Assessment & Plan Patient noted to be confused and likely secondary to delirium vs. neurocognitive disorder vs. primary psychiatric disorder, although patient has had extensive history of alcohol use. Patient will start aripiprazole 2mg PO daily for psychosis, continue medical management as per primary medical team. Encourage oral intake of fluids and meals. Repeat UA ordered. Monitor mood and behavior. Discharge planning in progress. Justification for Cont. Inpt. Patient at risk for further decompensation if at a lower level of care Harry Noguera MD Mar 01, 2017 09:53
[2017-03-01] MEDS: ASPIRIN 81 MG CHEW TAB CHEW SCH (10:00)
[2017-03-01] MEDS: ARIPiprazole 2 MG TAB PO SCH (10:00)
[2017-03-01] MEDS: TAMSULOSIN HCL 0.4 MG CAP PO SCH (10:01)
[2017-03-01] MEDS: LISINOPRIL 20 MG TAB PO SCH (10:01)
[2017-03-01 10:56] LABS: HEMATOCRIT 33.7 % (39.0-51.0); MEAN CELL VOLUME 92.9 FL (80.0-100.0); MEAN CORPUSCULAR HEMOGLOBIN 31.1 PG (27.0-34.0); MEAN CORPUSCULAR HGB CONC 33.4 % (32.0-36.0); PLATELET COUNT 175 TH/MM3 (150-450); RED BLOOD COUNT 3.63 MIL/MM3 (4.50-5.90); RED CELL DISTRIBUTION WIDTH 13.1 % (11.6-17.2); REVIEW FLAG FINAL; WHITE BLOOD COUNT 9.2 TH/MM3 (4.0-11.0)
[2017-03-01 11:14] LABS: APTT (PATIENT) 72.1 SEC (24.3-30.1); INTERNATIONAL NORMALIZED RATIO 1.9 RATIO; PROTHROMBIN TIME - PATIENT 21.6 SEC (9.8-11.6)
[2017-03-01] MEDS ORDERED: HEPARIN 25,000 UNITS-D5W 250 ML - PREMIX IV PRN (12:00)
[2017-03-01] MEDS ORDERED: WARFARIN SOD 2.5 MG TAB PO SCH (16:00)
[2017-03-01] MEDS ORDERED: WARFARIN SOD 5 MG TAB PO SCH (16:00)
[2017-03-01 17:02] LABS: APTT (PATIENT) 82.1 SEC (24.3-30.1)
[2017-03-01 18:00] VITALS: BP 102/57; PULSE 64; RESP 18; TEMP 97.6; O2SAT 94
[2017-03-01] MEDS: PRAVASTATIN SOD 40 MG TAB PO SCH (21:47)
[2017-03-02 00:51] LABS: APTT (PATIENT) 50.6 SEC (24.3-30.1)
[2017-03-02 05:37] VITALS: BP 128/60; PULSE 55; RESP 16; TEMP 98.1; O2SAT 94
[2017-03-02 08:17] LABS: APTT (PATIENT) 49.7 SEC (24.3-30.1)
--- NOTE | 2017-03-02 09:00 | HHI.PR ---
Subjective Remarks Follow for COPD, failure to thrive. Patient is more alert today. He states that he is eating and drinking water. Denies any chest pain, shortness of breath, fever or chills. Objective Vitals Vital Signs Date Time Temp Pulse Resp B/P (MAP) Pulse Ox O2 Delivery O2 Flow Rate FiO2 03/02/17 05:37 98.1 55 16 128/60 (82) 94 03/01/17 18:00 97.6 64 18 102/57 (72) 94 I/O 03/01/17 03/01/17 03/01/17 03/02/17 03/02/17 03/02/17 07:00 15:00 23:00 07:00 15:00 23:00 Intake Total 1138 ml 0 ml 0 ml 1192 ml Output Total 700 ml Balance 1138 ml 0 ml 0 ml 492 ml Intake Oral 0 ml 0 ml 0 ml 60 ml IV Total 1138 ml 1132 ml Output Urine Total 700 ml # Voids 1 0 Result Diagram: 03/01/17 1005 Objective Remarks GENERAL: Alert, NAD. SKIN: Warm and dry. HEAD: Normocephalic. EYES: No scleral icterus. No injection or drainage. NECK: Supple, trachea midline. No JVD or lymphadenopathy. CARDIOVASCULAR: Regular rate and rhythm without murmurs, gallops, or rubs. RESPIRATORY: Breath sounds equal bilaterally. No accessory muscle use. GASTROINTESTINAL: Abdomen soft, non-tender, nondistended. MUSCULOSKELETAL: No cyanosis, or edema. BACK: Nontender without obvious deformity. No CVA tenderness. A/P Problem List: (1) COPD (chronic obstructive pulmonary disease) ICD Code: J44.9 - COPD (chronic obstructive pulmonary disease) Status: Chronic (2) Atrial fibrillation ICD Code: I48.91 - Unspecified atrial fibrillation (3) Coronary artery disease ICD Code: I25.10 - Coronary artery disease Status: Chronic (4) Hx of CABG ICD Code: Z95.1 - Presence of aortocoronary bypass graft (5) History of aortic valve replacement ICD Code: Z95.2 - Presence of prosthetic heart valve Assessment and Plan Mr. Denis is a 67 year old male who was discharged from the medical floor to the psychiatry floor on 02/28/2017. On 02/23/2017, Mr. Denis to the emergency department due to chest pain, shortness of breath. Upon admission he was started on antibiotics, breathing treatments. Cardiology was consulted for mild elevation in troponins. Peak troponin was 0.12. Patient underwent cardiac catheterization on 02/24/2017 - did not show any coronary artery disease. While medically patient remained stable, he had hallucinations and he did not eat or get up from bed. After evaluating, psychiatry guerrero acted him and subsequently patient was discharged to Psychiatry service. - Psychosis - Probable paranoid schizophrenia - Appreciate help from psychiatry service. - Patient is currently on Abilify. - Encouraged patient to drink Ensure with each meal. - COPD - Received Levaquin 750 mg PO daily prior to discharge from medical floor. - Continue breathing treatments as needed. - NSTEMI - possibly type 2 - Hx of Aortic stenosis and bioprosthetic AVR. - CAD s/p CABG x 2 v. - Continue Aspirin 81mg Qday. - Probably related to COPD. - Cardiology recommends heparin drip and warfarin. - Consult Pharmacy for Warfarin dosing. Will stop heparin drip when INR > 2.0. INR 1.6 today. - Atrial fibrillation - Heart rate is controlled. - [id number] score 2 (age, HTN) - Since he has a history of AVR too, Warfarin is likely the most appropriate anti-coagulation agent. - Hypertension - Hyperlipidemia - Continue lisinopril 10 mg daily, pravastatin 40 mg daily at bedtime. - BPH - Continue Tamsulosin 0.4mg Qday. Full code. Heparin drip. Pedro Ballard DO Mar 02, 2017 9:00 am
[2017-03-02 09:20] LABS: INTERNATIONAL NORMALIZED RATIO 1.6 RATIO; PROTHROMBIN TIME - PATIENT 17.5 SEC (9.8-11.6)
[2017-03-02] MEDS: TAMSULOSIN HCL 0.4 MG CAP PO SCH (09:40)
[2017-03-02] MEDS: ARIPiprazole 2 MG TAB PO SCH ×2 (09:40→21:00)
[2017-03-02] MEDS: ASPIRIN 81 MG CHEW TAB CHEW SCH (09:40)
[2017-03-02] MEDS: LISINOPRIL 20 MG TAB PO SCH (09:45)
[2017-03-02] MEDS ORDERED: INFLUENZA VIRUS VACCINE (QUADRIVALENT) 0.5 ML SYR IM ONE (10:00)
[2017-03-02] MEDS: DEXTROSE 5%-LACTATED RING INJ 1,000 ML IV SCH ×2 (11:39→21:15)
[2017-03-02 15:21] LABS: APTT (PATIENT) 43.6 SEC (24.3-30.1)
[2017-03-02 16:14] LABS: BLOOD, URINE NEG (NEG); COMMENT (UR) CULT NOT INDICATED; CULTURE IF INDICATED CULT NOT INDICATED; GLUCOSE,URINE NEG (NEG); KETONE, URINE NEG (NEG); NITRITE,URINE NEG (NEG); PH, URINE 6.5 (5.0-8.5); URINE COLOR YELLOW (YELLW/STRAW)
[2017-03-02] MEDS: WARFARIN SOD 5 MG TAB PO SCH (16:54)
--- NOTE | 2017-03-02 17:09 | HHI.PYPN ---
Subjective Remarks Patient seen for follow-up, chart review. Patient found with a labile a for interview. Patient stated has been is "fine", reports he drinking well. Patient states that he has been living with "friends" over the unit but was unable to recall the names. He is unable to recall where he lives or what city she lives in. He mentions that he has a son which has been helpful no past for support but is unable to provide the name. Patient alert and oriented only to person. Patient denies any depressive manic symptoms, patient denies any perceptual disturbances denies SI or HI. Review of Systems Except as stated in HPI: all other systems reviewed are Neg Objective Alert: Yes [place]: Person Mood: Calm Affect: Restricted Memory Intact: Comment (impaired at this time) Hallucinations: Other (denies) Delusions: No Delusion Type: Other (denies) Suicidal: Ideation (denies) Homicidal: Ideation (denies) Insight/Judgment Poor insight, fair post control, poor judgment Labs Labs reviewed. Test 03/02/17 08:01 03/02/17 14:26 03/02/17 14:49 Prothrombin Time 17.5 SEC Prothromb Time International Ratio 1.6 RATIO Activated Partial Thromboplast Time 49.7 SEC 43.6 SEC Urine Color YELLOW Urine Turbidity CLEAR Urine pH 6.5 Urine Specific [place] 1.021 Urine Protein TRACE mg/dL Urine Glucose (UA) NEG mg/dL Urine Ketones NEG mg/dL Urine Occult Blood NEG Urine Nitrite NEG Urine Bilirubin NEG Urine Urobilinogen 4.0 MG/DL Urine Leukocyte Esterase NEG Urine RBC 2 /hpf Urine WBC 1 /hpf Microscopic Urinalysis Comment CULT NOT INDICATED Vitals/IOs Vital Signs Date Time Temp Pulse Resp B/P (MAP) Pulse Ox O2 Delivery O2 Flow Rate FiO2 03/02/17 05:37 98.1 55 16 128/60 (82) 94 Intake and Output 03/02/17 03/02/17 03/03/17 08:00 16:00 00:00 Intake Total 1192 ml 704 ml Output Total 700 ml 750 ml Balance 492 ml -46 ml Assessment & Plan Problem List: (1) Unspecified psychosis ICD Codes: F29 - Unspecified psychosis not due to a substance or known physiological condition Assessment & Plan Patient at this time continues to be confused oriented only to person, noted to be disorganized still and I was able to answer questions appropriately. Unclear at this time whether patient has delirium versus primary psychiatric disorder versus neurocognitive disorder. We'll increase Abilify to 2 mg a.m. 2 mg at bedtime for psychosis. Justification for Cont. Inpt. At risk for decompensation if it lower level of care Harry Noguera MD Mar 02, 2017 17:09
[2017-03-02 18:35] VITALS: BP 128/63; PULSE 64; RESP 16; TEMP 98.7; O2SAT 94
[2017-03-02] MEDS: PRAVASTATIN SOD 40 MG TAB PO SCH (21:00)
[2017-03-03 06:16] VITALS: BP 152/70; PULSE 53; RESP 16; TEMP 97.9; O2SAT 97
[2017-03-03 08:02] LABS: APTT (PATIENT) 40.1 SEC (24.3-30.1)
[2017-03-03] MEDS: ARIPiprazole 2 MG TAB PO SCH ×2 (09:16→21:00)
[2017-03-03] MEDS: ASPIRIN 81 MG CHEW TAB CHEW SCH (09:16)
[2017-03-03] MEDS: TAMSULOSIN HCL 0.4 MG CAP PO SCH (09:16)
[2017-03-03] MEDS: LISINOPRIL 20 MG TAB PO SCH (09:19)
[2017-03-03] MEDS: DEXTROSE 5%-LACTATED RING INJ 1,000 ML IV SCH ×2 (09:22→21:05)
--- NOTE | 2017-03-03 09:23 | HHI.PYPN ---
Subjective Remarks Patient seen for follow, chart reviewed. Patient found sitting up on bed noted to be more interactive interview but noted to have psychomotor retardation. Patient states that he would like to get his strength back, continues to note feeling weak. Patient requests that he could have pants and a shirt to wear. Patient reports feeling sad and depressed and wants to be able to go home soon. Patient having difficulty with ambulation requires assistance to move from bed to chair which he did this morning. Patient noted to be more alert and awake and able to engage in conversation better. Review of Systems Except as stated in HPI: all other systems reviewed are Neg Objective Alert: Yes [place]: Person Mood: Calm Affect: Restricted Memory Intact: Comment (impaired at this time) Hallucinations: Other (denies) Delusions: No Delusion Type: Other (denies) Suicidal: Ideation (denies) Homicidal: Ideation (denies) Insight/Judgment Limited insight, fair impulse control and judgment Labs Labs reviewed. Test 03/02/17 14:26 03/02/17 14:49 03/03/17 07:32 Urine Color YELLOW Urine Turbidity CLEAR Urine pH 6.5 Urine Specific [place] 1.021 Urine Protein TRACE mg/dL Urine Glucose (UA) NEG mg/dL Urine Ketones NEG mg/dL Urine Occult Blood NEG Urine Nitrite NEG Urine Bilirubin NEG Urine Urobilinogen 4.0 MG/DL Urine Leukocyte Esterase NEG Urine RBC 2 /hpf Urine WBC 1 /hpf Microscopic Urinalysis Comment CULT NOT INDICATED Activated Partial Thromboplast Time 43.6 SEC 40.1 SEC Vitals/IOs Vital Signs Date Time Temp Pulse Resp B/P (MAP) Pulse Ox O2 Delivery O2 Flow Rate FiO2 03/03/17 06:16 97.9 53 16 152/70 (97) 97 Intake and Output 03/03/17 03/03/17 03/04/17 08:00 16:00 00:00 Intake Total 100 ml Balance 100 ml Assessment & Plan Problem List: (1) Unspecified psychosis ICD Codes: F29 - Unspecified psychosis not due to a substance or known physiological condition Assessment & Plan Patient at this time continues to have physical weakness due to malnutrition but is progressing slowly which patient now noted to be more interactive during interview and having more activity. Patient to continue current treatment, patient to continue to be encouraged for improvement of oral intake. We'll request nutritional consult for the same. We'll also request physical therapy consult. Continue current regimen for now. Recommendations as per primary medical team. Discharge planning in progress Justification for Cont. Inpt. Patient at risk for further decompensation if at a lower level of care Harry Noguera MD Mar 03, 2017 09:23
[2017-03-03 10:06] LABS: INTERNATIONAL NORMALIZED RATIO 1.5 RATIO; PROTHROMBIN TIME - PATIENT 16.7 SEC (9.8-11.6)
[2017-03-03 11:19] VITALS: BP 163/69; PULSE 56; RESP 14; TEMP 97.8; O2SAT 98
[2017-03-03 13:57] VITALS: BP 177/70; PULSE 57; RESP 14; TEMP 98.4; O2SAT 98
[2017-03-03] MEDS ORDERED: ENALAPRILAT 1.25 MG/ML VIAL IV PRN (15:00)
[2017-03-03 15:30] VITALS: BP 175/71; PULSE 54
[2017-03-03] MEDS ORDERED: WARFARIN SOD 2.5 MG TAB PO ONE (16:00)
[2017-03-03] MEDS: WARFARIN SOD 5 MG TAB PO SCH (16:33)
[2017-03-03] MEDS ORDERED: cloNIDine HCL 0.1 MG/24 HR PATCH T-DERMAL SCH (17:00)
[2017-03-03] MEDS ORDERED: REMOVE OLD PATCH T-DERMAL SCH (17:00)
--- NOTE | 2017-03-03 17:22 | RADRPT ---
EXAM DATE/TIME: 03/03/2017 16:38 [facility] COMPARISON: CHEST SINGLE AP, February 23, 2017, 16:34. INDICATIONS : Cough and shortness of breath. MEDICAL HISTORY : Congestive heart failure. Chronic obstructive pulmonary disease. Myocardial infarction. SURGICAL HISTORY : None. ENCOUNTER: Initial ACUITY: 1 day PAIN SCORE: Non-responsive. LOCATION: Bilateral chest FINDINGS: A single view of the chest demonstrates symmetric inflation of the lungs with left basilar atelectasi s. Heart size is normal. Intact median sternotomy wires and findings of prior CABG and aortic valve r eplacement. Osseous structures are intact. CONCLUSION: 1. Left basilar atelectasis. Lungs are otherwise clear. 2. Stable postsurgical changes with findings of prior CABG and aortic valve replacement. Jimmy Caceres MD on March 03, 2017 at 17:19 Board Certified Radiologist. This report was verified electronically.
[2017-03-03 19:05] VITALS: BP 116/65; PULSE 62; RESP 16; TEMP 98.7; O2SAT 98
--- NOTE | 2017-03-03 20:29 | HHI.PR ---
Subjective Remarks Follow for COPD, failure to thrive. Mr. Denis was not very responsive today. However, per RN, he became more alert towards the end of the day. He is afebrile but had some cough. Objective Vitals Vital Signs Date Time Temp Pulse Resp B/P (MAP) Pulse Ox O2 Delivery O2 Flow Rate FiO2 03/03/17 19:05 98.7 62 16 116/65 (82) 98 03/03/17 15:30 54 175/71 (105) 03/03/17 13:57 98.4 57 14 177/70 (105) 98 03/03/17 11:19 97.8 56 14 163/69 (100) 98 03/03/17 06:16 97.9 53 16 152/70 (97) 97 I/O 03/02/17 03/02/17 03/02/17 03/03/17 03/03/17 03/03/17 07:00 15:00 23:00 07:00 15:00 23:00 Intake Total 1192 ml 704 ml 1720 ml 100 ml 824 ml Output Total 700 ml 750 ml 450 ml Balance 492 ml -46 ml 1720 ml 100 ml 374 ml Intake Oral 60 ml 720 ml 100 ml 120 ml IV Total 1132 ml 704 ml 1000 ml 704 ml Output Urine Total 700 ml 750 ml 450 ml # Voids 2 1 2 Result Diagram: 03/01/17 1005 Imaging Last Impressions Chest X-Ray 03/03/17 0000 Signed Impressions: Service Date/Time: Friday, March 03, 2017 16:38 - CONCLUSION: 1. Left basilar atelectasis. Lungs are otherwise clear. 2. Stable postsurgical changes with findings of prior CABG and aortic valve replacement. Jimmy Caceres MD Objective Remarks GENERAL: Alert, NAD. SKIN: Warm and dry. HEAD: Normocephalic. EYES: No scleral icterus. No injection or drainage. NECK: Supple, trachea midline. No JVD or lymphadenopathy. CARDIOVASCULAR: Regular rate and rhythm without murmurs, gallops, or rubs. RESPIRATORY: Breath sounds equal bilaterally. No accessory muscle use. GASTROINTESTINAL: Abdomen soft, non-tender, nondistended. MUSCULOSKELETAL: No cyanosis, or edema. BACK: Nontender without obvious deformity. No CVA tenderness. Procedures None. A/P Problem List: (1) COPD (chronic obstructive pulmonary disease) ICD Code: J44.9 - COPD (chronic obstructive pulmonary disease) Status: Chronic (2) Atrial fibrillation ICD Code: I48.91 - Unspecified atrial fibrillation (3) Coronary artery disease ICD Code: I25.10 - Coronary artery disease Status: Chronic (4) Hx of CABG ICD Code: Z95.1 - Presence of aortocoronary bypass graft (5) History of aortic valve replacement ICD Code: Z95.2 - Presence of prosthetic heart valve Assessment and Plan Mr. Denis is a 67 year old male who was discharged from the medical floor to the psychiatry floor on 02/28/2017. On 02/23/2017, Mr. Denis to the emergency department due to chest pain, shortness of breath. Upon admission he was started on antibiotics, breathing treatments. Cardiology was consulted for mild elevation in troponins. Peak troponin was 0.12. Patient underwent cardiac catheterization on 02/24/2017 - did not show any coronary artery disease. While medically patient remained stable, he had hallucinations and he did not eat or get up from bed. After evaluating, psychiatry yolanda acted him and subsequently patient was discharged to Psychiatry service. - Psychosis - Probable paranoid schizophrenia - Appreciate help from psychiatry service. - Patient is currently on Abilify. - Encouraged patient to drink Ensure with each meal. - COPD - Received Levaquin 750 mg PO daily prior to discharge from medical floor. - Continue breathing treatments as needed. - CXR reviewed by me, shows atelectasis. - NSTEMI - possibly type 2 - Hx of Aortic stenosis and bioprosthetic AVR. - CAD s/p CABG x 2 v. - Continue Aspirin 81mg Qday. - Probably related to COPD. - Cardiology recommends bridging to warfarin. - Consult Pharmacy for Warfarin dosing. - Will switch from heparin drip to Lovenox 50mg BID. Discussed with RN. - Atrial fibrillation - Heart rate is controlled. - [id number] score 2 (age, HTN) - Since he has a history of AVR too, Warfarin is likely the most appropriate anti-coagulation agent. - Hypertension - Hyperlipidemia - Continue lisinopril 10 mg daily, pravastatin 40 mg daily at bedtime. - BPH - Continue Tamsulosin 0.4mg Qday. Full code. Heparin to Lovenox transition today. Warfarin, INR 1.5 today. Pedro Ballard DO Mar 03, 2017 20:29
[2017-03-03] MEDS: PRAVASTATIN SOD 40 MG TAB PO SCH (21:00)
[2017-03-03] MEDS: ENOXAPARIN SODIUM 60 MG/0.6 ML SYRINGE SQ SCH (22:00)
[2017-03-04 05:45] VITALS: BP 148/82; PULSE 61; RESP 16; TEMP 97.9; O2SAT 100
[2017-03-04] MEDS: DEXTROSE 5%-LACTATED RING INJ 1,000 ML IV SCH (09:00)
[2017-03-04] MEDS: ARIPiprazole 2 MG TAB PO SCH ×2 (09:02→21:00)
[2017-03-04] MEDS: ASPIRIN 81 MG CHEW TAB CHEW SCH (09:02)
[2017-03-04] MEDS: LISINOPRIL 20 MG TAB PO SCH (09:02)
[2017-03-04] MEDS: TAMSULOSIN HCL 0.4 MG CAP PO SCH (09:03)
[2017-03-04] MEDS: ENOXAPARIN SODIUM 60 MG/0.6 ML SYRINGE SQ SCH ×2 (09:03→22:00)
[2017-03-04 10:18] LABS: HEMATOCRIT 40.4 % (39.0-51.0); MEAN CELL VOLUME 91.9 FL (80.0-100.0); MEAN CORPUSCULAR HEMOGLOBIN 31.6 PG (27.0-34.0); MEAN CORPUSCULAR HGB CONC 34.4 % (32.0-36.0); PLATELET COUNT 149 TH/MM3 (150-450); RED CELL DISTRIBUTION WIDTH 13.5 % (11.6-17.2); REVIEW FLAG FINAL
[2017-03-04 11:53] LABS: APTT (PATIENT) 40.7 SEC (24.3-30.1)
[2017-03-04 12:02] LABS: INTERNATIONAL NORMALIZED RATIO 3.6 RATIO; PROTHROMBIN TIME - PATIENT 42.4 SEC (9.8-11.6)
--- NOTE | 2017-03-04 12:13 | HHI.PR ---
Subjective Remarks Follow for COPD, failure to thrive. Patient is currently sitting in his chair. Denies any acute concerns. Denies any chest pain, shortness of breath, fever or chills. He remains on room air. Objective Vitals Vital Signs Date Time Temp Pulse Resp B/P (MAP) Pulse Ox O2 Delivery O2 Flow Rate FiO2 03/04/17 05:45 97.9 61 16 148/82 (104) 100 03/03/17 19:05 98.7 62 16 116/65 (82) 98 03/03/17 15:30 54 175/71 (105) 03/03/17 13:57 98.4 57 14 177/70 (105) 98 I/O 03/03/17 03/03/17 03/03/17 03/04/17 03/04/17 03/04/17 07:00 15:00 23:00 07:00 15:00 23:00 Intake Total 100 ml 824 ml 1302 ml 120 ml Output Total 450 ml Balance 100 ml 374 ml 1302 ml 120 ml Intake Oral 100 ml 120 ml 280 ml 120 ml IV Total 704 ml 1022 ml Output Urine Total 450 ml # Voids 1 2 5 Result Diagram: 03/04/17 0923 Imaging Last Impressions Chest X-Ray 03/03/17 0000 Signed Impressions: Service Date/Time: Friday, March 03, 2017 16:38 - CONCLUSION: 1. Left basilar atelectasis. Lungs are otherwise clear. 2. Stable postsurgical changes with findings of prior CABG and aortic valve replacement. Jimmy Caceres MD Objective Remarks GENERAL: Alert, NAD. SKIN: Warm and dry. HEAD: Normocephalic. EYES: No scleral icterus. No injection or drainage. NECK: Supple, trachea midline. No JVD or lymphadenopathy. CARDIOVASCULAR: Regular rate and rhythm without murmurs, gallops, or rubs. RESPIRATORY: Breath sounds equal bilaterally. No accessory muscle use. GASTROINTESTINAL: Abdomen soft, non-tender, nondistended. MUSCULOSKELETAL: No cyanosis, or edema. BACK: Nontender without obvious deformity. No CVA tenderness. Procedures None. A/P Problem List: (1) COPD (chronic obstructive pulmonary disease) ICD Code: J44.9 - COPD (chronic obstructive pulmonary disease) Status: Chronic (2) Atrial fibrillation ICD Code: I48.91 - Unspecified atrial fibrillation (3) Coronary artery disease ICD Code: I25.10 - Coronary artery disease Status: Chronic (4) Hx of CABG ICD Code: Z95.1 - Presence of aortocoronary bypass graft (5) History of aortic valve replacement ICD Code: Z95.2 - Presence of prosthetic heart valve Assessment and Plan Mr. Denis is a 67 year old male who was discharged from the medical floor to the psychiatry floor on 02/28/2017. On 02/23/2017, Mr. Denis to the emergency department due to chest pain, shortness of breath. Upon admission he was started on antibiotics, breathing treatments. Cardiology was consulted for mild elevation in troponins. Peak troponin was 0.12. Patient underwent cardiac catheterization on 02/24/2017 - did not show any coronary artery disease. While medically patient remained stable, he had hallucinations and he did not eat or get up from bed. After evaluating, psychiatry guerrero acted him and subsequently patient was discharged to Psychiatry service. - Psychosis - Probable paranoid schizophrenia - Appreciate help from psychiatry service. - Patient is currently on Abilify. - Encouraged patient to drink Ensure with each meal. - COPD - Received Levaquin 750 mg PO daily prior to discharge from medical floor. - Continue breathing treatments as needed. - CXR reviewed by me, shows atelectasis. - NSTEMI - possibly type 2 - Hx of Aortic stenosis and bioprosthetic AVR. - CAD s/p CABG x 2 v. - Continue Aspirin 81mg Qday. - Probably related to COPD. - Cardiology recommends bridging to warfarin, pharmacy to dose. - Continue Lovenox 50mg BID. - Atrial fibrillation - Heart rate is controlled. - [id number] score 2 (age, HTN) - Since he has a history of AVR too, Warfarin is likely the most appropriate anti-coagulation agent. - Hypertension - Hyperlipidemia - Continue lisinopril 10 mg daily, pravastatin 40 mg daily at bedtime. - BPH - Continue Tamsulosin 0.4mg Qday. Full code. Lovenox, warfarin Pedro Ballard DO Mar 04, 2017 12:13
--- NOTE | 2017-03-04 12:35 | HHI.PYPN ---
Subjective Remarks Patient seen and case discussed with nurse. He is minimally talkative. He appears to be depressed and withdrawn. Uncertain if patient is experiencing psychosis. Review of Systems Except as stated in HPI: all other systems reviewed are Neg Objective Alert: Yes [place]: Person Mood: Calm Affect: Restricted Memory Intact: Comment (impaired at this time) Hallucinations: Other (denies) Delusions: No Delusion Type: Other (denies) Suicidal: Ideation (denies) Homicidal: Ideation (denies) Insight/Judgment Impaired Labs Test 03/04/17 09:23 03/04/17 11:25 White Blood Count 12.0 TH/MM3 Red Blood Count 4.40 MIL/MM3 Hemoglobin 13.9 GM/DL Hematocrit 40.4 % Mean Corpuscular Volume 91.9 FL Mean Corpuscular Hemoglobin 31.6 PG Mean Corpuscular Hemoglobin Concent 34.4 % Red Cell Distribution Width 13.5 % Platelet Count 149 TH/MM3 Mean Platelet Volume 8.8 FL Hematology Comments Prothrombin Time 42.4 SEC Prothromb Time International Ratio 3.6 RATIO Activated Partial Thromboplast Time 40.7 SEC Vitals/IOs Vital Signs Date Time Temp Pulse Resp B/P (MAP) Pulse Ox O2 Delivery O2 Flow Rate FiO2 03/04/17 05:45 97.9 61 16 148/82 (104) 100 Intake and Output 03/04/17 03/04/17 03/05/17 08:00 16:00 00:00 Intake Total 1422 ml Balance 1422 ml Assessment & Plan Problem List: (1) Unspecified psychosis ICD Codes: F29 - Unspecified psychosis not due to a substance or known physiological condition Assessment & Plan Estimated LOS: days continue current medication regimen and evaluate for efficacy and tolerability. Justification for Cont. Inpt. Likely to decompensate at lower level of care. Renny Cisse MD Mar 04, 2017 12:35
[2017-03-04 19:41] VITALS: BP 177/81; PULSE 66; RESP 18; TEMP 97.5; O2SAT 95
[2017-03-04] MEDS: PRAVASTATIN SOD 40 MG TAB PO SCH (21:00)
[2017-03-05] MEDS: DEXTROSE 5%-LACTATED RING INJ 1,000 ML IV SCH ×3 (00:57→18:41)
[2017-03-05 06:00] VITALS: BP 153/72; PULSE 60; RESP 16; TEMP 98.5; O2SAT 98
[2017-03-05] MEDS: TAMSULOSIN HCL 0.4 MG CAP PO SCH ×2 (08:15→09:00)
[2017-03-05] MEDS: LISINOPRIL 20 MG TAB PO SCH ×2 (08:15→09:00)
[2017-03-05] MEDS: ARIPiprazole 2 MG TAB PO SCH ×3 (08:16→19:53)
[2017-03-05] MEDS: ASPIRIN 81 MG CHEW TAB CHEW SCH ×2 (08:16→09:00)
[2017-03-05] MEDS: amLODIPine BESYLATE 5 MG TAB PO SCH ×2 (08:16→09:00)
[2017-03-05 10:33] LABS: INTERNATIONAL NORMALIZED RATIO 2.3 RATIO; PROTHROMBIN TIME - PATIENT 26.9 SEC (9.8-11.6)
--- NOTE | 2017-03-05 12:17 | HHI.PR ---
Subjective Remarks Follow for COPD, failure to thrive. Patient is awake and alert but does not talk much. His currently on room air. Coughing occasionally. No fever or chills. Per RN, patient is very little but drinks his Ensure better. Objective Vitals Vital Signs Date Time Temp Pulse Resp B/P (MAP) Pulse Ox O2 Delivery O2 Flow Rate FiO2 03/05/17 06:00 98.5 60 16 153/72 (99) 98 Manual Cuff/Auscultation 03/04/17 19:41 97.5 66 18 177/81 (113) 95 I/O 03/04/17 03/04/17 03/04/17 03/05/17 03/05/17 03/05/17 07:00 15:00 23:00 07:00 15:00 23:00 Intake Total 1302 ml 120 ml 1244 ml Balance 1302 ml 120 ml 1244 ml Intake Oral 280 ml 120 ml 0 ml IV Total 1022 ml 1244 ml # Voids 5 6 Result Diagram: 03/04/17 0923 Imaging Last Impressions Chest X-Ray 03/03/17 0000 Signed Impressions: Service Date/Time: Friday, March 03, 2017 16:38 - CONCLUSION: 1. Left basilar atelectasis. Lungs are otherwise clear. 2. Stable postsurgical changes with findings of prior CABG and aortic valve replacement. Jimmy Caceres MD Objective Remarks GENERAL: Alert, NAD. SKIN: Warm and dry. HEAD: Normocephalic. EYES: No scleral icterus. No injection or drainage. NECK: Supple, trachea midline. No JVD or lymphadenopathy. CARDIOVASCULAR: Regular rate and rhythm without murmurs, gallops, or rubs. RESPIRATORY: Breath sounds equal bilaterally. No accessory muscle use. GASTROINTESTINAL: Abdomen soft, non-tender, nondistended. MUSCULOSKELETAL: No cyanosis, or edema. BACK: Nontender without obvious deformity. No CVA tenderness. Procedures None. A/P Problem List: (1) COPD (chronic obstructive pulmonary disease) ICD Code: J44.9 - COPD (chronic obstructive pulmonary disease) Status: Chronic (2) Atrial fibrillation ICD Code: I48.91 - Unspecified atrial fibrillation (3) Coronary artery disease ICD Code: I25.10 - Coronary artery disease Status: Chronic (4) Hx of CABG ICD Code: Z95.1 - Presence of aortocoronary bypass graft (5) History of aortic valve replacement ICD Code: Z95.2 - Presence of prosthetic heart valve Assessment and Plan Mr. Denis is a 67 year old male who was discharged from the medical floor to the psychiatry floor on 02/28/2017. On 02/23/2017, Mr. Denis to the emergency department due to chest pain, shortness of breath. Upon admission he was started on antibiotics, breathing treatments. Cardiology was consulted for mild elevation in troponins. Peak troponin was 0.12. Patient underwent cardiac catheterization on 02/24/2017 - did not show any coronary artery disease. While medically patient remained stable, he had hallucinations and he did not eat or get up from bed. After evaluating, psychiatry guerrero acted him and subsequently patient was discharged to Psychiatry service. - Psychosis - Probable paranoid schizophrenia - Appreciate help from psychiatry service. - Patient is currently on Abilify 2 mg daily and 2 mg daily at bedtime. - Consider reducing dosage of Abilify. - Encouraged patient to drink Ensure with each meal. - COPD - Received Levaquin 750 mg PO daily prior to discharge from medical floor. - Continue breathing treatments as needed. - We'll get a repeat chest x-ray today - NSTEMI - possibly type 2 - Hx of Aortic stenosis and bioprosthetic AVR. - CAD s/p CABG x 2 v. - Continue Aspirin 81mg Qday. - Probably related to COPD. - Cardiology recommends bridging to warfarin, pharmacy to dose. - INR 2.3 today and 3.6 on 03/04/2017 - Discontinue Lovenox 50mg BID. - Atrial fibrillation - Heart rate is controlled. - [id number] score 2 (age, HTN) - Since he has a history of AVR too, Warfarin is likely the most appropriate anti-coagulation agent. - Hypertension - Hyperlipidemia - Continue lisinopril 10 mg daily, pravastatin 40 mg daily at bedtime. - BPH - Continue Tamsulosin 0.4mg Qday. Full code. Warfarin. Lovenox discontinued. Pedro Ballard DO Mar 05, 2017 12:17 pm
--- NOTE | 2017-03-05 13:37 | RADRPT ---
EXAM DATE/TIME: 03/05/2017 12:59 [facility] COMPARISON: CHEST SINGLE AP, October 12, 2016, 16:16. CHEST SINGLE AP, March 03, 2017, 1 6:38. INDICATIONS : Cough. MEDICAL HISTORY : Myocardial infarction. Congestive heart failure. Chronic obstructive pulm onary disease. SURGICAL HISTORY : CABG. ENCOUNTER: Initial ACUITY: 1 day PAIN SCORE: Non-responsive. LOCATION: Bilateral chest FINDINGS: A single view of the chest demonstrates the lungs to be symmetrically aerated without evidence of mas s, infiltrate or effusion. The patient is status post median sternotomy and there is an artificial he art valve in place. There is mild scarring at the left medial lung base. There is no perihilar edema. The cardiomediastinal contours are unremarkable. Osseous structures are intact. CONCLUSION: Mild scarring at the left medial lung base with no evidence of pneumonia. Nino Mayer MD on March 05, 2017 at 13:35 Board Certified Radiologist. This report was verified electronically.
[2017-03-05 17:48] VITALS: BP 162/70; PULSE 58; RESP 18; TEMP 97.3; O2SAT 96
--- NOTE | 2017-03-05 18:38 | HHI.PYPN ---
Subjective Remarks Patient seen, chart reviewed and case discussed with nurse. Patient has not been a problem for nursing over the weekend. He continues to be mostly withdrawn and stays in his room. He continues to appear depressed. Review of Systems Except as stated in HPI: all other systems reviewed are Neg Objective Alert: Yes [place]: Person Mood: Calm Affect: Restricted Memory Intact: Comment (impaired at this time) Hallucinations: Other (denies) Delusions: No Delusion Type: Other (denies) Suicidal: Ideation (denies) Homicidal: Ideation (denies) Insight/Judgment Impaired Labs Test 03/05/17 10:05 Prothrombin Time 26.9 SEC Prothromb Time International Ratio 2.3 RATIO Vitals/IOs Vital Signs Date Time Temp Pulse Resp B/P (MAP) Pulse Ox O2 Delivery O2 Flow Rate FiO2 03/05/17 17:48 97.3 58 18 162/70 (100) 96 Intake and Output 03/05/17 03/05/17 03/06/17 08:00 16:00 00:00 Intake Total 1244 ml 0 ml Balance 1244 ml 0 ml Assessment & Plan Problem List: (1) Unspecified psychosis ICD Codes: F29 - Unspecified psychosis not due to a substance or known physiological condition Assessment & Plan Estimated LOS: days continue current antidepressant and antipsychotic medications and evaluate for efficacy. Justification for Cont. Inpt. Unable to care for self. Renny Cisse MD Mar 05, 2017 18:38
[2017-03-05] MEDS: PRAVASTATIN SOD 40 MG TAB PO SCH (19:53)
[2017-03-06] MEDS: DEXTROSE 5%-LACTATED RING INJ 1,000 ML IV SCH ×2 (04:45→15:44)
[2017-03-06 06:13] VITALS: BP 174/79; PULSE 59; RESP 16; TEMP 97.8; O2SAT 97
[2017-03-06 07:55] VITALS: BP 161/82; PULSE 55
--- NOTE | 2017-03-06 08:35 | HHI.PR ---
Subjective Remarks Follow for COPD, failure to thrive. Patient is laying in bed, does not talk much. No acute distress. Afebrile. Objective Vitals Vital Signs Date Time Temp Pulse Resp B/P (MAP) Pulse Ox O2 Delivery O2 Flow Rate FiO2 03/06/17 07:55 55 161/82 (108) 03/06/17 06:13 97.8 59 16 174/79 (110) 97 03/05/17 17:48 97.3 58 18 162/70 (100) 96 I/O 03/05/17 03/05/17 03/05/17 03/06/17 03/06/17 03/06/17 07:00 15:00 23:00 07:00 15:00 23:00 Intake Total 1244 ml 0 ml 800 ml 2066 ml Balance 1244 ml 0 ml 800 ml 2066 ml Intake Oral 0 ml 0 ml 0 ml IV Total 1244 ml 800 ml 2066 ml # Voids 6 1 4 Result Diagram: 03/04/17 0923 Imaging Last Impressions Chest X-Ray 03/05/17 0000 Signed Impressions: Service Date/Time: Sunday, March 05, 2017 12:59 - CONCLUSION: Mild scarring at the left medial lung base with no evidence of pneumonia. Nino Mayer MD Objective Remarks GENERAL: Alert, NAD. SKIN: Warm and dry. HEAD: Normocephalic. EYES: No scleral icterus. No injection or drainage. NECK: Supple, trachea midline. No JVD or lymphadenopathy. CARDIOVASCULAR: Regular rate and rhythm without murmurs, gallops, or rubs. RESPIRATORY: Breath sounds equal bilaterally. No accessory muscle use. GASTROINTESTINAL: Abdomen soft, non-tender, nondistended. MUSCULOSKELETAL: No cyanosis, or edema. BACK: Nontender without obvious deformity. No CVA tenderness. Procedures None. A/P Problem List: (1) COPD (chronic obstructive pulmonary disease) ICD Code: J44.9 - COPD (chronic obstructive pulmonary disease) Status: Chronic (2) Atrial fibrillation ICD Code: I48.91 - Unspecified atrial fibrillation (3) Coronary artery disease ICD Code: I25.10 - Coronary artery disease Status: Chronic (4) Hx of CABG ICD Code: Z95.1 - Presence of aortocoronary bypass graft (5) History of aortic valve replacement ICD Code: Z95.2 - Presence of prosthetic heart valve Assessment and Plan Mr. Denis is a 67 year old male who was discharged from the medical floor to the psychiatry floor on 02/28/2017. On 02/23/2017, Mr. Denis to the emergency department due to chest pain, shortness of breath. Upon admission he was started on antibiotics, breathing treatments. Cardiology was consulted for mild elevation in troponins. Peak troponin was 0.12. Patient underwent cardiac catheterization on 02/24/2017 - did not show any coronary artery disease. While medically patient remained stable, he had hallucinations and he did not eat or get up from bed. After evaluating, psychiatry guerrero acted him and subsequently patient was discharged to Psychiatry service. - Psychosis - Probable paranoid schizophrenia - Appreciate help from psychiatry service. - Patient is currently on Abilify 2 mg daily and 2 mg daily at bedtime. - Consider reducing dosage of Abilify. - Discussed with Psychiatrist and prison psychiatrist. - Failure to thrive - Patient does not eat or drink. Per speech, patient is actually currently NPO. - Will consult palliative care for assistance. - COPD - Received Levaquin 750 mg PO daily prior to discharge from medical floor. - Continue breathing treatments as needed. - NSTEMI - possibly type 2 - Hx of Aortic stenosis and bioprosthetic AVR. - CAD s/p CABG x 2 v. - Continue Aspirin 81mg Qday. - Probably related to COPD. - Cardiology recommends bridging to warfarin, pharmacy to dose. - INR 2.3 03/05/2017 - Discontinue Lovenox 50mg BID. - Atrial fibrillation - Heart rate is controlled. - [id number] score 2 (age, HTN) - Since he has a history of AVR too, Warfarin is likely the most appropriate anti-coagulation agent. - Hypertension - Hyperlipidemia - Continue lisinopril 10 mg daily, pravastatin 40 mg daily at bedtime. - BPH - Continue Tamsulosin 0.4mg Qday. Full code. Warfarin. Discussed with RN and Psychiatrist. Pedro Ballard DO Mar 06, 2017 8:35 am
[2017-03-06] MEDS: amLODIPine BESYLATE 5 MG TAB PO SCH ×2 (09:00→11:49)
[2017-03-06] MEDS: ASPIRIN 81 MG CHEW TAB CHEW SCH ×2 (09:00→11:49)
[2017-03-06] MEDS: TAMSULOSIN HCL 0.4 MG CAP PO SCH ×2 (09:00→11:49)
[2017-03-06] MEDS: ARIPiprazole 2 MG TAB PO SCH ×3 (09:00→21:29)
[2017-03-06] MEDS: LISINOPRIL 20 MG TAB PO SCH ×2 (09:00→11:49)
--- NOTE | 2017-03-06 10:13 | HHI.PYPN ---
Subjective Remarks Patient seen for follow-up, chart reviewed. Patient found lying on hospital bed , alert but alert and oriented only to person. Patient manages to remain alert and answer concrete questions but cannot recall remote memory or recent when asked his living circumstances prior to his admission or whom his support system is. Patient currently on NPO as he failed swallow evaluation and is unable to take PO medications at this time. Discussion with medical team recommended palliative consult and with possible discharge to medical floor as patients clinical picture unlikely psychiatric at this time. Review of Systems Except as stated in HPI: all other systems reviewed are Neg Objective Alert: Yes [place]: Person Mood: Calm Affect: Restricted Memory Intact: Comment (impaired at this time) Hallucinations: Other (denies) Delusions: No Delusion Type: Other (denies) Suicidal: Ideation (denies) Homicidal: Ideation (denies) Insight/Judgment poor insight, fair impulse control and poor judgment Vitals/IOs Vital Signs Date Time Temp Pulse Resp B/P (MAP) Pulse Ox O2 Delivery O2 Flow Rate FiO2 03/06/17 07:55 55 161/82 (108) 03/06/17 06:13 97.8 16 97 Intake and Output 03/06/17 03/06/17 03/07/17 08:00 16:00 00:00 Intake Total 2066 ml Balance 2066 ml Assessment & Plan Problem List: (1) Unspecified psychosis ICD Codes: F29 - Unspecified psychosis not due to a substance or known physiological condition Assessment & Plan Patient at this time continues to be oriented to person only and only able to answer concrete questions. Patient current clinical picture appears more likely a delirium at this time and unlikely a primary psychiatric etiology. After discussion with hospitalist, will get input from palliative care and consider transfer to medical service for further medical management. Will begin to down titrate abilify. Discharge planning in progress. Justification for Cont. Inpt. At risk for further decompensation if at lower level of care. Harry Noguera MD Mar 06, 2017 10:13
[2017-03-06 11:56] LABS: INTERNATIONAL NORMALIZED RATIO 2.5 RATIO; PROTHROMBIN TIME - PATIENT 29.2 SEC (9.8-11.6)
[2017-03-06] MEDS: WARFARIN SOD 4 MG TAB PO SCH (15:44)
[2017-03-06 17:51] VITALS: BP 123/94; PULSE 88; RESP 15; TEMP 98.4; O2SAT 94
[2017-03-06] MEDS: PRAVASTATIN SOD 40 MG TAB PO SCH (21:29)
[2017-03-07] MEDS: DEXTROSE 5%-LACTATED RING INJ 1,000 ML IV SCH ×2 (03:45→10:45)
[2017-03-07 05:03] VITALS: BP 144/65; PULSE 54; RESP 15; TEMP 98; O2SAT 96
[2017-03-07 06:07] LABS: MEAN CELL VOLUME 90.3 FL (80.0-100.0); MEAN CORPUSCULAR HEMOGLOBIN 31.9 PG (27.0-34.0); MEAN CORPUSCULAR HGB CONC 35.3 % (32.0-36.0); PLATELET COUNT 136 TH/MM3 (150-450); RED BLOOD COUNT 3.99 MIL/MM3 (4.50-5.90); REVIEW FLAG FINAL; WHITE BLOOD COUNT 10.7 TH/MM3 (4.0-11.0)
--- NOTE | 2017-03-07 09:01 | HHI.DS ---
Psychiatry Discharge Summary Inpatient Psychiatric care?: Yes Advance Directive: No Reason Not Provided: Patient declined Mental Health AdvanceDirective: No Health Care Proxy: No Admission Admission Date Feb 28, 2017 at 15:18 Admission Diagnosis: (1) Unspecified psychosis ICD Code: F29 - Unspecified psychosis not due to a substance or known physiological condition Brief History The patient is is a 67-year-old man, with psychiatric history of psychosis, major depressive disorder, alcohol use disorder, 2 psychiatric hospitalization here at [facility] in 2015, documentation reviewed, who was initially admitted in the medical floor due to chest pain, shortness of breath. Upon admission he wasn't started on antibiotics, breathing treatments. Cardiology was consulted for mild elevation in troponins. Peak troponin was 0.12. Patient underwent cardiac catheterization on 02/24/2017 - did not show any coronary artery disease. He was initially consulted to psychiatry due to visual and auditory hallucinations. Patient is seen today in the med psych unit , patient seems to be internally preoccupied, oppositional, refusing to answer questions. As per nursing charge in the medical floor, the patient has been actively talking to himself, paranoid, disorganized. As per review of documentation patient has an extensive history of visual and auditory hallucinations. He also had history of suicidal ideation. Tobacco Use In Past 30 Days: No Tobacco Past 30 Days Alcohol Use: Never Hospital Course he patient is is a 67-year-old man, with psychiatric history of psychosis, major depressive disorder, alcohol use disorder, 2 psychiatric hospitalization here at [facility] in 2015, documentation reviewed, who was initially admitted in the medical floor due to chest pain, shortness of breath. Patient underwent cardiac catheterization on 02/24/2017 - did not show any coronary artery disease. He was initially consulted to psychiatry due to visual and auditory hallucinations. Patient was started on Abilify 2mg PO HS but titrated up to BID but during observation was noted to be consistently confused and unable to answer questions appropriately, alert and oriented to person only. Patient was able answer concrete questions but could elaborate nor engage in memory recall (recent or remote). Patient had speech swallow evaluation where he was determined unable to swallow but was determined to be able to remain on puree diet. Patient denied any mood or psychotic symptoms and was determined that it was unlikely a psychiatric etiology for his current clinical presentation. Discussion with medical team (Dr. Ballard) relating to having patient discharged to medical floor for further medical management. Patient at time of discharge did not have capacity to consent to treatment and will likely require healthcare surrogate for medical decision making in the interim until patient is determined to have regained capacity to consent to treatment after medical stabilization. Results Blood Pressure 144 / 65 Vital Signs Date Time Temp Pulse Resp B/P (MAP) Pulse Ox O2 Delivery O2 Flow Rate FiO2 03/07/17 05:03 98.0 54 15 144/65 (91) 96 Laboratory Tests Test 03/04/17 09:23 03/04/17 11:25 03/05/17 10:05 03/06/17 11:24 White Blood Count 12.0 TH/MM3 (4.0-11.0) Red Blood Count 4.40 MIL/MM3 (4.50-5.90) Platelet Count 149 TH/MM3 (150-450) Prothrombin Time 42.4 SEC (9.8-11.6) 26.9 SEC (9.8-11.6) 29.2 SEC (9.8-11.6) Activated Partial Thromboplast Time 40.7 SEC (24.3-30.1) Test 03/07/17 05:40 Red Blood Count 3.99 MIL/MM3 (4.50-5.90) Hemoglobin 12.7 GM/DL (13.0-17.0) Hematocrit 36.0 % (39.0-51.0) Platelet Count 136 TH/MM3 (150-450) Summary of Procedures none Imaging Last Impressions Chest X-Ray 03/05/17 0000 Signed Impressions: Service Date/Time: Sunday, March 05, 2017 12:59 - CONCLUSION: Mild scarring at the left medial lung base with no evidence of pneumonia. Nino Mayer MD Pending results at discharge: No Medications # of Antipsychotic meds at D/C: 0 Approp Antipsych med options 1 - Minimum of three failed multiple trials of monotherapy. 2 - Documented plan to taper to monotherapy due to previous use of multiple meds OR cross-taper in progress at D/C. 3 - Documentation of augmentation of Clozapine. 4 - Justification other than those listed in allowable values 1-3, document here : Discharge Discharge Date: Mar 07, 2017 Discharge Diagnosis: (1) Unspecified psychosis Diagnosis: Principal ICD Code: F29 - Unspecified psychosis not due to a substance or known physiological condition Mental Status Exam at Disch Appearance/Behavior: appears stated age, in hospital gown, calm and cooperative with interview. Poor eye contact Speech: slghtly slow rate, low tone and normal prosody Mood: "fine" Affect: restricted TP: concrete TC: denies SI, HI, AVH or delusions Insight/Impulse control/judgment: poor/fair/poor A&O x 1 (person only) Pt Condition on Discharge: Stable Discharge Disposition: Discharge Home (TRANSFERRED TO MEDICAL FLOOR) Discharge Instructions Diet Instructions: Pureed Diet Activities you can perform: Weight Bearing as Sheyla Discharge Time > 30 minutes Discharge/Advance Care Plan Health Problems: (1) Unspecified psychosis Goals to promote your health * To prevent worsening of your condition and complications * To maintain your health at the optimal level Directions to meet your goals Take your medications as prescribed Follow your dietary instruction Follow activity as directed Keep your appointments as scheduled Take your immunizations and boosters as scheduled If your symptoms worsen call your PCP, if no PCP go to Urgent Care Center or Emergency Room For 02/01 questions related to your inpatient stay or results of tests pending at discharge, please contact Dr. Harry Noguera at Smoking is Dangerous to Your Health. Avoid second hand smoking Harry Noguera MD Mar 07, 2017 09:01
[2017-03-07] MEDS: amLODIPine BESYLATE 5 MG TAB PO SCH (09:02)
[2017-03-07] MEDS: ASPIRIN 81 MG CHEW TAB CHEW SCH (09:02)
[2017-03-07] MEDS: TAMSULOSIN HCL 0.4 MG CAP PO SCH (09:02)
[2017-03-07] MEDS: LISINOPRIL 20 MG TAB PO SCH (09:03)
[2017-03-07 09:15] VITALS: BP 136/65; PULSE 73; RESP 17; TEMP 97.5; O2SAT 96
--- NOTE | 2017-03-07 09:49 | HHI.PR ---
Subjective Remarks Follow for COPD, failure to thrive. Patient is more alert today. Denies any acute concerns. However, he does not talk much either. Afebrile. Objective Vitals Vital Signs Date Time Temp Pulse Resp B/P (MAP) Pulse Ox O2 Delivery O2 Flow Rate FiO2 03/07/17 09:15 97.5 73 17 136/65 (88) 96 03/07/17 05:03 98.0 54 15 144/65 (91) 96 03/06/17 17:51 98.4 88 15 123/94 (104) 94 I/O 03/06/17 03/06/17 03/06/17 03/07/17 03/07/17 03/07/17 07:00 15:00 23:00 07:00 15:00 23:00 Intake Total 2066 ml 830 ml 180 ml 1066 ml 50 ml Balance 2066 ml 830 ml 180 ml 1066 ml 50 ml Intake Oral 0 ml 80 ml 180 ml 50 ml IV Total 2066 ml 750 ml 1066 ml # Voids 4 3 4 Result Diagram: 03/07/17 0540 Imaging Last Impressions Chest X-Ray 03/05/17 0000 Signed Impressions: Service Date/Time: Sunday, March 05, 2017 12:59 - CONCLUSION: Mild scarring at the left medial lung base with no evidence of pneumonia. Nino Mayer MD Objective Remarks GENERAL: Alert, NAD. SKIN: Warm and dry. HEAD: Normocephalic. EYES: No scleral icterus. No injection or drainage. NECK: Supple, trachea midline. No JVD or lymphadenopathy. CARDIOVASCULAR: Regular rate and rhythm without murmurs, gallops, or rubs. RESPIRATORY: Breath sounds equal bilaterally. No accessory muscle use. GASTROINTESTINAL: Abdomen soft, non-tender, nondistended. MUSCULOSKELETAL: No cyanosis, or edema. BACK: Nontender without obvious deformity. No CVA tenderness. Procedures None. Medications and IVs Current Medications Medications (Trade) Dose Ordered Sig/Danielle Route Start Time Stop Time Status Last Admin (Aspirin Chew) 81 mg DAILY CHEW 03/01/17 09:00 03/07/17 09:02 (Duoneb Neb) 1 ampule Q2HR NEB PRN NEB 02/28/17 16:30 (Prinivil) 20 mg DAILY PO 03/01/17 09:00 03/07/17 09:03 (Pravachol) 40 mg HS PO 02/28/17 21:00 03/06/17 21:29 (Flomax) 0.4 mg DAILY PO 03/01/17 09:00 03/07/17 09:02 (Ativan) 0.5 mg Q12H PRN PO 02/28/17 15:00 (Ativan Inj) 0.5 mg Q12H PRN IM 02/28/17 15:00 (Tylenol) 650 mg Q4H PRN PO 02/28/17 15:00 03/03/17 16:48 (Milk Of Magnesia Liq) 30 ml DAILY PRN PO 02/28/17 15:00 (Mag-Al Plus Susp Liq) 30 ml Q6H PRN PO 02/28/17 15:00 Pharmacy Profile Note 0 ml @ 0 mls/hr UNSCH OTHER 03/01/17 08:45 (Vasotec Inj) 1.25 mg Q6H PRN IV 03/03/17 15:00 03/03/17 14:59 (Catapres-Tts 0.1mg Patch.7d) 1 patch Q7D T-DERMAL 03/03/17 17:00 03/03/17 16:32 Miscellaneous Information 1 Q7D T-DERMAL 03/03/17 17:00 (Lovenox Inj) 50 mg Q12H SQ 03/03/17 22:00 Future Hold 03/04/17 22:00 (Norvasc) 5 mg DAILY PO 03/05/17 09:00 03/07/17 09:02 Dextrose/Lactated Ringer's 1,000 ml @ 100 mls/hr Q10H IV 03/05/17 18:45 03/07/17 03:45 (Coumadin) 4 mg DAILY@1600 PO 03/06/17 16:00 03/06/17 15:44 A/P Problem List: (1) COPD (chronic obstructive pulmonary disease) ICD Code: J44.9 - COPD (chronic obstructive pulmonary disease) Status: Chronic (2) Atrial fibrillation ICD Code: I48.91 - Unspecified atrial fibrillation (3) Coronary artery disease ICD Code: I25.10 - Coronary artery disease Status: Chronic (4) Hx of CABG ICD Code: Z95.1 - Presence of aortocoronary bypass graft (5) History of aortic valve replacement ICD Code: Z95.2 - Presence of prosthetic heart valve Assessment and Plan Mr. Denis is a 67 year old male who was discharged from the medical floor to the psychiatry floor on 02/28/2017. On 02/23/2017, Mr. Denis to the emergency department due to chest pain, shortness of breath. Upon admission he was started on antibiotics, breathing treatments. Cardiology was consulted for mild elevation in troponins. Peak troponin was 0.12. Patient underwent cardiac catheterization on 02/24/2017 - did not show any coronary artery disease. While medically patient remained stable, he had hallucinations and he did not eat or get up from bed. After evaluating, psychiatry guerrero acted him and subsequently patient was discharged to Psychiatry service. - Psychosis - Probable paranoid schizophrenia - Psychiatry discontinued Abilify - Discussed psychological operations specialist. Psychiatry has not much else to offer. Per psychiatry, patient's condition is not due to psychiatry issues. - Patient can be discharged from psychiatry to med-surg floor. - Failure to thrive - Patient does not eat or drink. Per speech, patient is actually currently NPO. - Will consult palliative care for assistance. - COPD - Received Levaquin 750 mg PO daily prior to discharge from medical floor. - Continue breathing treatments as needed. - NSTEMI - possibly type 2 - Hx of Aortic stenosis and bioprosthetic AVR. - CAD s/p CABG x 2 v. - Continue Aspirin 81mg Qday. - Probably related to COPD. - Cardiology recommends bridging to warfarin, pharmacy to dose. - INR 2.3 --> 2.5 --> 1.4. - Atrial fibrillation - Heart rate is controlled. - [id number] score 2 (age, HTN) - Since he has a history of AVR too, Warfarin is likely the most appropriate anti-coagulation agent. - Hypertension - Hyperlipidemia - Continue lisinopril 10 mg daily, pravastatin 40 mg daily at bedtime. - BPH - Continue Tamsulosin 0.4mg Qday. Full code. Warfarin. Discussed with Pedro Ferrer DO Mar 07, 2017 09:49
--- NOTE | 2017-03-07 11:57 | PD.CONS ---
Consult Service Palliative Care Consult Requested By Dr. Ballard Primary Care Physician Torsten Zuñiga MD Reason for Consultation a. To assist with evaluation and management of symptoms including: hallucinations,anxiety, shortness of breath, debility b. To assist medical decision maker(s) with: better understanding of current medical conditions; weighing benefits/burdens of medical treatment options; making medical treatment decisions. (Trini Vanessa) HPI History of Present Illness Mr. Denis is a 67-year-old male with a past medical history of psychosis, major depressive disorder, alcohol use disorder, COPD, CAD, hypertension. Patient presented to ED on 02/23/17 complaining of progressive shortness of breath, chest pain and coughing. EKG revealed normal sinus rhythm, normal axis , LVH by voltage criteria, nonspecific STT wave changes, heart rate 67 bpm. Patient medically treated with 2 baby aspirin in ED. Laboratory workup revealed WBC 7.4, hemoglobin 11.3, hematocrit 33.3, platelet count 142, sodium 134, BUN/creatinine 12/1.00 total creatinine kinase 113, troponin 0.06. Chest x -ray revealed no acute abnormality. Cardiology consulted Dr. Tierney. Cardiac catheterization done 02/24/17, showed no significant CAD. EF 50-55%. 2 days prior (02/20/2017) to this hospitalization patient had presented to ED complaining of worsening shortness of breath and chest pain x 2 days. During that visit patient`s troponin increased from 0.02 -> 0.09 -> 0.49. Cardiology Dr. Boykin was consulted. On 02/21/17, patient left the hospital against medical advice. Clinical course complicated by visual, auditory hallucinations, refusing to eat or get out of bed.Patient medically discharged 02/28/17. Psychiatry consulted, patient admitted in med psych unit under [facility] Act for management. 03/03/17 physical therapy and speech therapy consulted, patient unable to participate due to lethargy. 03/04/17, speech therapist recommended pure and honey thickened liquids. Chest x-ray 03/05/17 revealing mild scarring at the left medial lung base with no evidence of pneumonia. 03/05/17 diet advanced to pureed and thin liquids. While on psychiatric unit patient remained withdrawn,refusing to answer any questions and not eating. Patient discharged from some psychiatry unit and transferred to medical floor. Per psychiatry patient's condition is not due to psychiatry issues. Patient seen on psych medical unit, asleep but easily arousable, with minimal mumbling response to questions. Patient sometimes electing to close his eyes to avoid talking. Addressed code status, and if patient wanted anyone to make medical decisions for him in case he is incapacitated. Patient did not respond. Patient afebrile. HR low 50s to low 70s, SBP 120s to 140s. O2 sats high 90s on room air. Contacted patient`s brother Mike Khan, updated on medical status. Patient`s brother stated that patient has an adult daughter Robert, whom he is going to send a message to and provide her with palliative contact number. Function/Cognitive Trajectory Patient lives alone at home. Independent of all his ADLs. Incontinent during this hospitalization. Patient electing not to respond to questions asked. Unable to assess his cognitive status. . (Trini Vanessa) Review of Systems ROS Limitations: Clinical Condition Constitutional: COMPLAINS OF: Change in appetite, Pain, Generalized weakness Eyes: DENIES: Eye inflammation Ears, nose, mouth, throat: DENIES: Hearing loss, Nasal discharge Respiratory: COMPLAINS OF: Cough, Shortness of breath Cardiovascular: DENIES: Lower Extremity Edema Gastrointestinal: COMPLAINS OF: Difficulty Swallowing Genitourinary: DENIES: Urinary incontinence Musculoskeletal: DENIES: Joint Swelling Integumentary: DENIES: Rash Psychiatric: COMPLAINS OF: Depression, Hallucinations, Agitation Other ROS: ROS obtained from medical history and clinical observation, since patient is electing not to respond to any questions . (Trini Vanessa) Past Family Social History Coded Allergies: No Known Allergies (Verified , 02/20/17) Past Medical History Psychosis Major depressive disorder Alcohol use disorder COPD CVA Hypertension Hypertension Atrial fibrillation Bilateral inguinal hernias Hypercholesterolemia Aortic stenosis . Past Surgical History CABG 2 with porcine bioprosthetic aortic valve replacement in 2005 Right inguinal hernia repair Aortic valve replacement Back surgeries 1986 Reported Medications Aspirin Low Strength (Aspirin) 81 Mg Chew 81 Mg CHEW DAILY Lisinopril 20 Mg Tab 20 Mg PO DAILY Pravachol (Pravastatin) 40 Mg Tab 40 Mg PO HS 30 Days Coumadin (Warfarin) 5 Mg Tab 5 Mg PO DAILY@1600 30 Days Duoneb (Ipratropium-Albuterol Neb) 0.5-2.5 Mg/3 Ml Neb 1 Ampule NEB Q2HR NEB PRN 30 Days Levaquin (Levofloxacin) 750 Mg Tablet 750 Mg PO DAILY Tamsulosin (Tamsulosin HCl) 0.4 Mg Cap 0.4 Mg PO DAILY Nitrostat SL (Nitroglycerin) 0.4 Mg Subl 0.4 Mg SL DIRECTED PRN Current Medications Medications (Trade) Dose Ordered Sig/Danielle Route Start Time Stop Time Status Last Admin (Aspirin Chew) 81 mg DAILY CHEW 03/01/17 09:00 03/07/17 09:02 (Duoneb Neb) 1 ampule Q2HR NEB PRN NEB 02/28/17 16:30 (Prinivil) 20 mg DAILY PO 03/01/17 09:00 03/07/17 09:03 (Pravachol) 40 mg HS PO 02/28/17 21:00 03/06/17 21:29 (Flomax) 0.4 mg DAILY PO 03/01/17 09:00 03/07/17 09:02 (Ativan) 0.5 mg Q12H PRN PO 02/28/17 15:00 (Ativan Inj) 0.5 mg Q12H PRN IM 02/28/17 15:00 (Tylenol) 650 mg Q4H PRN PO 02/28/17 15:00 03/03/17 16:48 (Milk Of Magnesia Liq) 30 ml DAILY PRN PO 02/28/17 15:00 (Mag-Al Plus Susp Liq) 30 ml Q6H PRN PO 02/28/17 15:00 Pharmacy Profile Note 0 ml @ 0 mls/hr UNSCH OTHER 03/01/17 08:45 (Vasotec Inj) 1.25 mg Q6H PRN IV 03/03/17 15:00 03/03/17 14:59 (Catapres-Tts 0.1mg Patch.7d) 1 patch Q7D T-DERMAL 03/03/17 17:00 03/03/17 16:32 Miscellaneous Information 1 Q7D T-DERMAL 03/03/17 17:00 (Lovenox Inj) 50 mg Q12H SQ 03/03/17 22:00 Future Hold 03/04/17 22:00 (Norvasc) 5 mg DAILY PO 03/05/17 09:00 9/26/17 09:02 Dextrose/Lactated Ringer's 1,000 ml @ 100 mls/hr Q10H IV 03/05/17 18:45 03/07/17 03:45 (Coumadin) 4 mg DAILY@1600 PO 03/06/17 16:00 03/06/17 15:44 Family History Mother had CAD, of old age. Father had COPD, of cancer. Brother his cardiac problems Patient has 3 brothers . Substance Use Tobacco: history of smoking one pack per day x 36 years quit in 2005 after his surgery. Alcohol: EToH abuse Prescription med abuse: Illicits: Per hospital visit in patient admitted to occasional marijuana use, last a few months ago, denies IV drug use. . Psychosocial History Patient was born in [place] , he moved to [place] at least 30 years ago . Patient's graduated from high school . Patient is single never . Patient waited for [employer] journal and was injured at work many years ago. Since then patient has never worked. He has 1 daughter named Robert and 3 grandchildren.He also has a half-brother. Patient lives alone. . Spiritual/Cultural Factors Presbyterian . (Trini Vanessa) Living Will: Never completed Health Care Surrogate: Never completed Durable Power of Instructor Decorating: Never completed Ethical and Legal Issues Managed to contact a brother Mike Khan, who states that he is not been in contact with patient for more than a year. Brother states that patient has a daughter which is kept in touch with the patient and he will try to get in touch with Robert (daughter) and inform her of patient's hospitalization. We will await contact from daughter. . (Trini Vanessa) Physical Exam Vital Signs Date Time Temp Pulse Resp B/P (MAP) Pulse Ox O2 Delivery O2 Flow Rate FiO2 03/07/17 09:15 97.5 73 17 136/65 (88) 96 03/07/17 05:03 98.0 54 15 144/65 (91) 96 03/06/17 17:51 98.4 88 15 123/94 (104) 94 03/07/17 03/08/17 19:00 07:00 Intake Total 50 ml Balance 50 ml Intake Oral 50 ml Exam CONSTITUTIONAL/GENERAL: This is an elderly cachectic male, in no acute distress. TUBES/LINES/DRAINS: PIV SKIN: No jaundice, rashes, or lesions. Ecchymoses on upper extremities. No wounds seen anteriorly. Skin temperature appropriate. Not diaphoretic. HEAD: Atraumatic. Normocephalic. EYES: Pupils equal and round and reactive. Extraocular motions intact. No scleral icterus. No injection or drainage. Fundi not examined. ENT: Hearing grossly normal. Nose without bleeding or purulent drainage. Moist oral mucosa. NECK: Trachea midline. Supple, nontender. No palpable thyroid enlargement or nodularity. CARDIOVASCULAR: Regular rate and rhythm without murmurs, gallops, or rubs. No JVD. Peripheral pulses symmetric. RESPIRATORY/CHEST: Symmetric, unlabored respirations. Rhonchi to auscultation. Nonproductive cough. GASTROINTESTINAL: Abdomen soft, non-tender, nondistended. No guarding. Bowel sounds present. GENITOURINARY: Without palpable bladder distension. Incontinent of bladder. MUSCULOSKELETAL: Extremities without clubbing, cyanosis, or edema. No joint tenderness or effusion noted. No calf tenderness. No mottling or clubbing. NEUROLOGICAL: Awake and alert. Motor and sensory grossly within normal limits. Follows commands. Cognitively sharp. Moves all extremities. PSYCHIATRIC: Appears depressed. No apparent hallucinations at this time. Patient electing not to answer any questions. . (Trini Vanessa) Diagnostic Tests Laboratory Laboratory Tests Test 03/04/17 11:25 03/05/17 10:05 03/06/17 11:24 03/07/17 05:40 Prothrombin Time 42.4 SEC (9.8-11.6) 26.9 SEC (9.8-11.6) 29.2 SEC (9.8-11.6) Prothromb Time International Ratio 3.6 RATIO 2.3 RATIO 2.5 RATIO Activated Partial Thromboplast Time 40.7 SEC (24.3-30.1) White Blood Count 10.7 TH/MM3 (4.0-11.0) Red Blood Count 3.99 MIL/MM3 (4.50-5.90) Hemoglobin 12.7 GM/DL (13.0-17.0) Hematocrit 36.0 % (39.0-51.0) Mean Corpuscular Volume 90.3 FL (80.0-100.0) Mean Corpuscular Hemoglobin 31.9 PG (27.0-34.0) Mean Corpuscular Hemoglobin Concent 35.3 % (32.0-36.0) Red Cell Distribution Width 14.0 % (11.6-17.2) Platelet Count 136 TH/MM3 (150-450) Mean Platelet Volume 7.8 FL (7.0-11.0) (Trini Vanessa) Result Diagram: 03/07/17 0540 Imaging Last Impressions Chest X-Ray 03/05/17 0000 Signed Impressions: Service Date/Time: Sunday, March 05, 2017 12:59 - CONCLUSION: Mild scarring at the left medial lung base with no evidence of pneumonia. Nino Mayer MD Procedures 02/24/2017-cardiac catheterization . (Trini Vanessa) Patient/Family Conference Present at Family Conference: No family at bedside Issues Discussed: * Palliative care role, purpose, approach * Additional medical, psychosocial, and spiritual history * Patients general health, functional status, and cognitive changes in the months leading up to the current hospitalization * Patient/family understanding of the current medical problems-chest pain, shortness of breath, refusing to eat * Patients goals of care as best understood from advance directives and/or conversations and/or values * Current medical treatment options and benefits/burdens of those options * Questions answered to the best of my ability * Palliative care contact information provided (Trini Vanessa) Assessment and Plan Disease Oriented Problem List: (1) Chest pain (2) NSTEMI (non-ST elevated myocardial infarction) (3) Shortness of breath (4) Acute exacerbation of chronic obstructive pulmonary disease (COPD) (5) Psychosis (6) History of major depression Symptom Scale: (1) Shortness of breath 0-10 Scale: Unable to quantify (2) Debility 0-10 Scale: Unable to quantify (3) Dysphagia 0-10 Scale: Unable to quantify (4) Anxiety 0-10 Scale: Unable to quantify Pertinent Non-Medical Issues Psychosocial: Spiritual: Legal: Ethical issues impacting care: Important Contacts Mike Khan- "brother" Prognosis Mr. Denis is a 67-year-old male with a past medical history of psychosis, major depressive disorder, alcohol use disorder, COPD, CAD, CABG X2, hypertension,hyperlipidemia. Patient refusing to eat or drink. If patient continues to refuse eating he may need a feeding tube. Patient is showing signs of physical deconditioning and is at risk for further complications, deterioration and decline leading to . . Code Status: Full Code Plan CODE STATUS: Full code by default HEALTH CARE SURROGATE: Patient appears not to be able to make any medical decisions for himself at this time. Patient has a daughter (Robert), whom we are trying to contact with the help of his brother Mike Khan. In the event that patient is unable to make medical decisions, healthcare proxy falls to his daughter Robert. GOALS OF CARE: Aggressive treatment at this time SYMPTOMS: * ==Anxiety- Multifactorial, reports of paranoid, patient on Lorazepam. Patient appears significantly anxious during visit, may benefit from none sedating anxiolytic. * == hallucinations- hx of visual and auditory hallucinations. Patient on Lorazepam. This patient remains nonverbal it is difficult to assess hallucinations, patient may need follow-up with psychiatry outpatient. * ==shortness of breath- multifactorial, DuoNeb's PRN, currently on room air. O2 Sat high 90s. Patient appears comfortable with no obvious shortness of breath. * == Dysphagia- followed by speech therapy. Currently on a pured diet with thin liquids and no straw. Due to mentation, aspiration remains a high risk. Patient should be closely monitored. * ==debility- patient refusing to eat, chronic psychiatric issues. Will defer to psychiatric management. Summary Mr. Denis is a 67-year-old male with a past medical history of psychosis, major depressive disorder, alcohol use disorder, COPD, CAD, hypertension who was admitted for chest pain, shortness of breath, and cough. Cardiac catheterization did not show CAD, however patient started having visual and auditory hallucinations, refusing to eat or get out of bed. Patient was [place] acted by psychiatry, and admitted in psych unit for further management. Patient continued to be withdrawn, refusing to speak but was paranoid and actively speaking to himself in the psych unit. Patient continues to refuse to eat and is being followed by speech therapy. Discharged 03/07/17 from psych unit and now admitted on medical psych unit. Patient elects not to respond to any questions during visit. Minimal response by mumbling incomprehensible few words. Spoke to patient's "brother" Mike Khan-(half brother), via telephone conversation well mentions that he has not been in touch with patient for more than a year but knows that patient's daughter has been in contact with patient. Patient`s brother stated that he will get in touch with patient's daughter and informed her about her father`s hospitalization. Palliative care contact information provided. (Trini Vanessa) Plan Patient seen in dual visit with ANITA Meyers, patient withdrawn, refusing to speak, not combative, cooperative with exam. Witnessed conversation with family member Figueroa Khan, identifying himself as a brother , may be a half-brother. Agree with above assessment. Palliative care will continue to follow the patient during hospital course as condition evolves, to assist patient/decision-maker with understanding of their medical conditions, weighing benefits/burdens of treatment options, for clarification of goals of treatment. Additionally will assist with any symptoms of palliative concern (Michelle Hawthorne) Thank you for the opportunity to participate in the care of Mr. Denis. (Trini Vanessa) Attestation To help prompt me to consider important information that might be impacting today`s encounter, some historical information from prior notes written by myself or my colleagues may have been brought forward into todays note. My signature on this note, however, is an attestation that I personally performed the exam noted today, and, unless otherwise dated, the interactions with patient , family, and staff as well as the review of records noted all occurred today. I also attest that the listed assessment and stated plan reflect my best clinical judgment today based on the combination of historical information, prior notes, and todays exam/ interactions. The level of evaluation / management services and/or time that is claimed for this visit does NOT include work or time done by myself or other providers on previous visits. . (Trini Vanessa) Trini Vanessa Mar 07, 2017 11:09 Michelle Hawthorne Mar 07, 2017 17:28
[2017-03-07 12:03] LABS: INTERNATIONAL NORMALIZED RATIO 1.4 RATIO; PROTHROMBIN TIME - PATIENT 15.4 SEC (9.8-11.6)
[2017-03-07] MEDS: WARFARIN SOD 4 MG TAB PO SCH (15:39)
[2017-03-07] MEDS ORDERED: WARFARIN SOD 2 MG TAB PO ONE (16:00)
--- NOTE | 2017-03-15 16:05 | HHI.PYPN ---
Subjective Remarks Patient was seen today for psychiatric follow-up, patient is restrained in 2 points, restless, agitated, disoriented and disorganized. He says that "I am here because I spend all my money", when asked where he is "I am in someplace". He mumbles and is mostly incoherent. As per nurse patient has been agitated, tried to rip the IV lines to redirect verbally. Chief Complaint: agitation Review of Systems ROS Limitations: Altered Mental Status, Uncooperative Mental Status Examination Consciousness: Confused Appearance: Appropriate Speech: Other (incoherent) Orientation: Person Suicidal Ideation: No Previous Suicide Attempts: No Homicidal Ideation: No Previous Homicide Attempts: No Affect: Irritable, Oppositional Mood: Irritable Assessment & Plan Problem List: (1) Unspecified psychosis ICD Codes: F29 - Unspecified psychosis not due to a substance or known physiological condition Assessment & Plan: Continue Seroquel 25 mg twice a day. Will add Haldol 2 mg IM every 8 hours when necessary agitation. will Follow-up. Assessment & Plan Estimated LOS: days Justification for Cont. Inpt. We'll follow-up Kenny Groves MD Mar 15, 2017 16:05
--- NOTE | 2017-03-22 10:06 | HHI.PYPN ---
Subjective Remarks Late entry: Patient was seen today for psychiatric follow-up, patient is restrained in 2 points, restless, agitated, disoriented and disorganized. He says that "I am here because I spend all my money", when asked where he is "I am in someplace". He mumbles and is mostly incoherent. As per nurse patient has been agitated, tried to rip the IV lines to redirect verbally. Continue Seroquel 25 mg twice a day. Will add Haldol 2 mg IM every 8 hours when necessary agitation. will Follow-up. Chief Complaint: agitation Review of Systems Other No somatic complaints Mental Status Examination Consciousness: Clouded Orientation: Person Fund of Knowledge: Poor Memory: Impaired Thought Process & Associations: Loose associations Thought Content: Racing thoughts Suicidal Ideation: No Suicidal Plan: No Suicidal Intention: No Homicidal Ideation: No Homicidal Plan: No Homicidal Intention: No Insight: Poor Judgment: Poor Assessment & Plan Problem List: (1) Unspecified psychosis ICD Codes: F29 - Unspecified psychosis not due to a substance or known physiological condition Assessment & Plan: Continue Seroquel 25 mg twice a day. Will add Haldol 2 mg IM every 8 hours when necessary agitation. will Follow-up. Assessment & Plan Estimated LOS: days Justification for Cont. Inpt. Continue Seroquel 25 mg twice a day. Will add Haldol 2 mg IM every 8 hours when necessary agitation. will Follow-up. Kenny Groves MD Mar 22, 2017 10:06
== END 2017-03-07 16:01 | disposition admitted as inpatient to this hospital (09) | DRG 885 ==
LOC: H4EA 15:18 → HOCA 03-07 16:12 → H4EA 03-07 16:12
PROVIDERS: ADMIT Student in an Organized Health Care Education/Training Program; ATTEND Student in an Organized Health Care Education/Training Program
DX: F29 Unspecified psychosis not due to a substance or known physiological condition (principal); I21.4 Non-ST elevation (NSTEMI) myocardial infarction; E46 Unspecified protein-calorie malnutrition; R64 Cachexia; F05 Delirium due to known physiological condition; J44.9 Chronic obstructive pulmonary disease, unspecified; I48.91 Unspecified atrial fibrillation; R13.10 Dysphagia, unspecified; F32.9 Major depressive disorder, single episode, unspecified; I10 Essential (primary) hypertension; I25.10 Atherosclerotic heart disease of native coronary artery without angina pectoris; N40.0 Benign prostatic hyperplasia without lower urinary tract symptoms; E78.00 Pure hypercholesterolemia, unspecified; F10.10 Alcohol abuse, uncomplicated; R62.7 Adult failure to thrive; Z86.73 Personal history of transient ischemic attack (TIA), and cerebral infarction without residual deficits; Z95.1 Presence of aortocoronary bypass graft; Z87.891 Personal history of nicotine dependence; Z95.3 Presence of xenogenic heart valve
CPT/HCPCS: 71010; 81001; 82948; 85027; 85610; 85730; J1644; J1650; J7121

== ENCOUNTER 2017-03-07 17:07 | Inpatient (IN) | payer MEDICARE ==
[~2017-03-07] VITALS: Ht 170.2 cm; Wt 51.0 kg
[2017-03-07 16:25] VITALS: BP 166/75; PULSE 70; RESP 20; TEMP 99.3; O2SAT 96
[~2017-03-07 17:07] MED LIST changes: -LISI10TA3 PO; -WARF-18 PO; -ZOCO20TA PO
[2017-03-07] MEDS ORDERED: NALOXONE HCL 0.4 MG/ML AMP IV PUSH PRN (18:30)
[2017-03-07] MEDS ORDERED: LACTULOSE SYRUP 20 GM/30 ML CUP PO PRN (18:30)
[2017-03-07] MEDS ORDERED: BISACODYL 10 MG SUPP RECTAL PRN (18:30)
[2017-03-07] MEDS ORDERED: SODIUM CHLORIDE 0.9% FLUSH 10 ML FLUSH IV FLUSH PRN (18:30)
[2017-03-07] MEDS ORDERED: MAGNESIUM HYDROXIDE SUSP 30 ML CUP PO PRN (18:30)
[2017-03-07] MEDS ORDERED: ONDANSETRON HCL 4 MG/2 ML VIAL IVP PRN (18:30)
[2017-03-07] MEDS ORDERED: SENNOSIDES 8.6 MG TAB PO PRN (18:30)
[2017-03-07] MEDS ORDERED: RESP: ALBUTEROL 2.5 MG/IPRATROPIUM 0.5 MG NEB (PRN) NEB (18:45)
--- NOTE | 2017-03-07 18:46 | HHI.HP ---
[facility] Service [facility] Primary Care Physician Torsten Zuñiga MD Admission Diagnosis Diagnoses: Chief Complaint: Failure to thrive. Travel History International Travel<30 Days: No Contact w/Intl Traveler <30 Da: No Traveled to Known Affected Are: No History of Present Illness Mr. Denis is a 67 year old male with a history of COPD who was admitted today for failure to thrive after being under the care of psychiatry service from 02/28 - 03/07/2017. On 02/23/2017, Mr. Denis to the emergency department due to chest pain, shortness of breath. Upon admission he was started on antibiotics, breathing treatments. Cardiology was consulted for mild elevation in troponins. Peak troponin was 0.12. Patient underwent cardiac catheterization on 02/24/2017 - did not show any coronary artery disease. While medically patient remained stable, he had hallucinations and he did not eat or get up from bed. After evaluating, psychiatry guerrero acted him and subsequently patient was discharged to Psychiatry service. While in psychiatry service, patient was started on abilify which did not improve his symptoms. Patient has a very flat affect, does not eat, talk or get up. Psychiatry service do not feel that his condition is primarily psychiatric. Patient was subsequently discharged from psychiatry and admitted to hospitalist service on 03/07/2017. Review of Systems ROS Limitations: Clinical Condition Except as stated in HPI: all other systems reviewed are Neg Past Family Social History Past Medical History Hypertension CAD s/p CABG x 2v Aortic stenosis s/p AVR COPD Atrial fibrillation. Past Surgical History Back surgery 1985 Aortic valve replacement. CABG X 2v. Allergies: Coded Allergies: No Known Allergies (Verified , 02/20/17) Active Ordered Medications Current Medications Medications (Trade) Dose Ordered Sig/Danielle Route Start Time Stop Time Status Last Admin (NS Flush) 2 ml UNSCH PRN IV FLUSH 03/07/17 18:30 (NS Flush) 2 ml BID IV FLUSH 03/07/17 21:00 (Tylenol) 650 mg Q4H PRN PO 03/07/17 18:30 03/07/17 20:50 (Zofran Inj) 4 mg Q6H PRN IVP 03/07/17 18:30 (Narcan Inj) 0.4 mg UNSCH PRN IV PUSH 03/07/17 18:30 (Philly-Colace) 1 tab BID PO 03/07/17 21:00 03/07/17 20:50 (Milk Of Magnesia Liq) 30 ml Q12H PRN PO 03/07/17 18:30 (Senokot) 17.2 mg Q12H PRN PO 03/07/17 18:30 (Dulcolax Supp) 10 mg DAILY PRN RECTAL 03/07/17 18:30 (Lactulose Liq) 30 ml DAILY PRN PO 03/07/17 18:30 (Duoneb Neb) 1 ampule Q4HR NEB PRN NEB 03/07/17 18:45 (Catapres-Tts 0.1mg Patch.7d) 1 patch Q7D T-DERMAL 03/07/17 20:00 03/07/17 22:36 (Norvasc) 5 mg DAILY PO 03/08/17 09:00 (Aspirin Chew) 81 mg DAILY CHEW 03/08/17 09:00 (Prinivil) 20 mg DAILY PO 03/08/17 09:00 (Pravachol) 40 mg HS PO 03/07/17 21:00 03/07/17 20:50 (Flomax) 0.4 mg DAILY PO 03/08/17 09:00 (Coumadin) 5 mg DAILY@1600 PO 03/08/17 16:00 [facility] Pharmacy Profile Note 0 ml @ 0 mls/hr UNSCH OTHER 03/07/17 18:45 Dextrose/Lactated Ringer's 1,000 ml @ 75 mls/hr CONTINUOUS IV 03/07/17 19:00 Miscellaneous Information 1 Q7D T-DERMAL 03/14/17 20:00 (Coumadin Booklet) 1 ONCE ONCE OTHER 03/08/17 16:00 03/08/17 16:01 (Flu (Quadrivalent) Vaccine Inj) 0.5 ml ONCE ONCE IM 03/08/17 10:00 03/08/17 10:01 Family History Unable to obtain. Social History Per chart review, patient quit smoking in 2005. Denied using alcohol or illicit drugs. Physical Exam Vital Signs Vital Signs Date Time Temp Pulse Resp B/P (MAP) Pulse Ox O2 Delivery O2 Flow Rate FiO2 03/07/17 16:25 99.3 70 20 166/75 (105) 96 Physical Exam GENERAL: Thin elderly male, flat affect. More awake today than previous days. SKIN: No rashes, ecchymoses or lesions. Warm and dry. HEAD: Atraumatic. Normocephalic. No temporal or scalp tenderness. EYES: Pupils equal round and reactive. No injection or drainage. ENT: Nose without bleeding, purulent drainage or septal hematoma. Airway patent. NECK: Trachea midline. No lymphadenopathy. Supple, nontender, no meningeal signs. CARDIOVASCULAR: Regular rate and rhythm without murmurs, gallops, or rubs. No JVD. RESPIRATORY: Clear to auscultation. Breath sounds equal bilaterally. No wheezes , rales, or rhonchi. GASTROINTESTINAL: Abdomen soft, non-tender, nondistended. No guarding. MUSCULOSKELETAL: Extremities without clubbing, cyanosis, or edema. NEUROLOGICAL: Awake, Alert, flat affect. Caprini VTE Risk Assessment Caprini VTE Risk Assessment: Mod/High Risk (score >= 2) Caprini Risk Assessment Model Point Value = 1 Point Value = 2 Point Value = 3 Point Value = 5 Age 41-60 Minor surgery BMI > 25 kg/m2 Swollen legs Varicose veins or History of unexplained or recurrent spontaneous Oral contraceptives or hormone replacement Sepsis (< 1 month) Serious lung disease, including pneumonia (< 1 month) Abnormal pulmonary function Acute myocardial infarction Congestive heart failure (< 1 month) History of inflammatory bowel disease Medical patient at bed rest Age 61-74 Arthroscopic surgery Major open surgery (> 45 min) Laparoscopic surgery (> 45 min) Malignancy Confined to bed (> 72 hours) Immobilizing plaster cast Central venous access Age >= 75 History of VTE Family history of VTE Factor V Leiden Prothrombin [id number] Lupus anticoagulant Anticardiolipin antibodies Elevated serum homocysteine Heparin-induced thrombocytopenia Other congenital or acquired thrombophilia Stroke (< 1 month) Elective arthroplasty Hip, pelvis, or leg fracture Acute spinal cord injury (< 1 month) Prophylaxis Regimen Total Risk Factor Score Risk Level Prophylaxis Regimen 0-1 Low Early ambulation 2 Moderate Order ONE of the following: *Sequential Compression Device (SCD) *Heparin 5000 units SQ BID 3-4 Higher Order ONE of the following medications: *Heparin 5000 units SQ TID *Enoxaparin/Lovenox 40 mg SQ daily (WT < 150 kg, CrCl > 30 mL/min) *Enoxaparin/Lovenox 30 mg SQ daily (WT < 150 kg, CrCl > 10-29 mL/min) *Enoxaparin/Lovenox 30 mg SQ BID (WT < 150 kg, CrCl > 30 mL/min) AND/OR *Sequential Compression Device (SCD) 5 or more Highest Order ONE of the following medications: *Heparin 5000 units SQ TID (Preferred with Epidurals) *Enoxaparin/Lovenox 40 mg SQ daily (WT < 150 kg, CrCl > 30 mL/min) *Enoxaparin/Lovenox 30 mg SQ daily (WT < 150 kg, CrCl > 10-29 mL/min) *Enoxaparin/Lovenox 30 mg SQ BID (WT < 150 kg, CrCl > 30 mL/min) AND *Sequential Compression Device (SCD) Assessment and Plan Assessment and Plan Mr. Denis is a 67 year old male with a history of HTN, CAD, COPD who originally presented to the hospital on 02/23/2017 with chest pain, shortness of breath. He underwent cardiac cath for elevated troponins. No acute CAD and thus no PCI/Stent done. Patient was treated for COPD exacerbation and discharged to Psychiatry floor due to hallucinations, no desire to eat, get up from bed. He was tried on Abilify in med-psych without any change of his symptoms. Patient was subsequently discharged back to hospitalist service for failure to thrive. - Failure to thrive - Patient does not eat or drink. Per speech, patient is actually currently NPO. - Consulted Palliative care during med-psych, we will re-consult for continuation of palliative care efforts. - Keep pt on D5+LR @75cc/hour. Will ask speech to see patient again as well as shift foreman consult. - COPD - Received Levaquin during initial medical admission. - Continue breathing treatments as needed. - NSTEMI - possibly type 2 - Hx of Aortic stenosis and bioprosthetic AVR. - CAD s/p CABG x 2 v. - Continue Aspirin 81mg Qday. - Probably related to COPD. Cardiac cath did not reveal any significant acute coronary disease. - We bridged patient to warfarin per cardiology recommendations. Currently only on warfarin. - INR 2.5 -> 1.4. Will consult pharmacy again to dose Warfarin. - Atrial fibrillation - Heart rate is controlled. - [id number] score 2 (age, HTN) - Since he has a history of AVR too, Warfarin is likely the most appropriate anti-coagulation agent. - Cardiology recommended Warfarin over one of the newer anti-coagulants. - Hypertension - Hyperlipidemia - Continue lisinopril 10 mg daily, pravastatin 40 mg daily at bedtime. - BPH - Continue Tamsulosin 0.4mg Qday. Full code. Warfarin. Physician Certification 2 Midnight Certification Type: Admission for Inpatient Services Order for Inpatient Services The services are ordered in accordance with Medicare regulations or non- Medicare payer requirements, as applicable. In the case of services not specified as inpatient-only, they are appropriately provided as inpatient services in accordance with the 2-midnight benchmark. Estimated LOS (days): 3 days is the estimated time the patient will need to remain in the hospital, assuming treatment plan goals are met and no additional complications. Post-Hospital Plan: Not yet determined Pedro Ballard DO Mar 07, 2017 18:46
[2017-03-07] MEDS ORDERED: DEXTROSE 5%-LACTATED RING INJ 1,000 ML IV SCH (19:00)
[2017-03-07 20:00] VITALS: BP 166/78; PULSE 72; RESP 17; TEMP 99.6; O2SAT 93
[2017-03-07] MEDS: ACETAMINOPHEN 325 MG TAB PO PRN (20:50)
[2017-03-07] MEDS: PRAVASTATIN SOD 40 MG TAB PO SCH (20:50)
[2017-03-07] MEDS: DOCUSATE SODIUM 50 MG/SENNA 8.6 MG TAB PO SCH (20:50)
[2017-03-07] MEDS: SODIUM CHLORIDE 0.9% FLUSH 10 ML FLUSH IV FLUSH SCH (20:50)
[2017-03-07] MEDS: cloNIDine HCL 0.1 MG/24 HR PATCH T-DERMAL SCH (22:36)
[2017-03-08] VITALS (9 sets, daily range): BP systolic 117–145; BP diastolic 56–73; PULSE 56–79; RESP 15–20; TEMP 96.6–101.7; O2SAT 95–100
[2017-03-08 07:24] LABS: AUTOMATED NEUTROPHIL # 8.7 TH/MM3 (1.8-7.7); BASOPHIL % 0.4 % (0.0-2.0); EOSINOPHIL % 0.1 % (0.0-4.0); HEMATOCRIT 35.7 % (39.0-51.0); HEMO FLAGS DIFF FINAL; LYMPH % 6.6 % (9.0-44.0); LYMPHOCYTE # 0.7 TH/MM3 (1.0-4.8); MEAN CELL VOLUME 90.5 FL (80.0-100.0); MEAN CORPUSCULAR HEMOGLOBIN 31.7 PG (27.0-34.0); MEAN CORPUSCULAR HGB CONC 35.1 % (32.0-36.0); MONO % 4.3 % (0.0-8.0); NEUT % 88.6 % (16.0-70.0); PLATELET COUNT 130 TH/MM3 (150-450); RED BLOOD COUNT 3.95 MIL/MM3 (4.50-5.90); RED CELL DISTRIBUTION WIDTH 13.9 % (11.6-17.2); WHITE BLOOD COUNT 9.9 TH/MM3 (4.0-11.0)
[2017-03-08 07:25] LABS: INTERNATIONAL NORMALIZED RATIO 1.3 RATIO
[2017-03-08 07:39] LABS: BICARBONATE 27.3 MEQ/L (21.0-32.0); POTASSIUM 3.6 MEQ/L (3.5-5.1)
[2017-03-08] MEDS: DOCUSATE SODIUM 50 MG/SENNA 8.6 MG TAB PO SCH ×2 (09:06→20:09)
[2017-03-08] MEDS: ASPIRIN 81 MG CHEW TAB CHEW SCH (09:06)
[2017-03-08] MEDS: TAMSULOSIN HCL 0.4 MG CAP PO SCH (09:06)
[2017-03-08] MEDS: SODIUM CHLORIDE 0.9% FLUSH 10 ML FLUSH IV FLUSH SCH ×2 (09:06→20:09)
[2017-03-08] MEDS: amLODIPine BESYLATE 5 MG TAB PO SCH (09:06)
[2017-03-08] MEDS: LISINOPRIL 20 MG TAB PO SCH (09:07)
[2017-03-08] MEDS ORDERED: INFLUENZA VIRUS VACCINE (QUADRIVALENT) 0.5 ML SYR IM ONE (10:00)
--- NOTE | 2017-03-08 10:41 | HHI.PR ---
Subjective Remarks Follow up failure to thrive. Patient is alert, but has difficulty with speech. Denies pain currently. No events reported by nursing. Objective Vitals Vital Signs Date Time Temp Pulse Resp B/P (MAP) Pulse Ox O2 Delivery O2 Flow Rate FiO2 03/08/17 08:00 98.7 65 18 117/58 (77) 95 03/08/17 04:00 96.6 59 17 136/63 (87) 96 03/08/17 02:44 96 03/08/17 00:00 97.2 56 18 117/56 (76) 96 03/07/17 20:00 99.6 72 17 166/78 (107) 93 03/07/17 16:25 99.3 70 20 166/75 (105) 96 Result Diagram: 03/08/1761403/08/17614 Objective Remarks General: Thin elderly male in no acute distress. Heart: Regular rate and rhythm. No murmur. Lungs: Clear to auscultation bilaterally. No wheezes, rales, or rhonchi. Breathing is nonlabored. Abdomen: Soft, nontender, nondistended. Extremities: No lower extremity edema. Psych: Alert. Expressive aphasia. Urinary Catheter: No Vascular Central Line Catheter: No A/P Assessment and Plan 1. Failure to thrive: Per speech therapy evaluation done yesterday in med/psych , patient can have pured diet and thin liquids. He has had poor oral intake. Continue IV fluids. Repeat speech therapy evaluation pending. 2. COPD: DuoNeb as needed. 3. NSTEMI, coronary artery disease status post CABG: Continue aspirin. Cardiac catheterization showed no significant acute coronary disease. Continue Coumadin. 4. History of aortic stenosis: Status post bioprosthetic aortic valve replacement. Continue anticoagulation with Coumadin. 5. Atrial fibrillation: Rate controlled. Continue anticoagulation with Coumadin. 6. Hypertension: Continue lisinopril. 7. Hyperlipidemia: Continue statin. 8. BPH: Continue Flomax. 9. DVT prophylaxis: Coumadin. Jimbo Ortiz MD Mar 08, 2017 10:41
[2017-03-08] MEDS ORDERED: WARFARIN SOD 5 MG TAB PO SCH (16:00)
[2017-03-08] MEDS ORDERED: WARFARIN SOD 2.5 MG TAB PO ONE (16:00)
--- NOTE | 2017-03-08 17:33 | HHI.HCPN ---
Reason for visit Reason for visit a. To assist with evaluation and management of symptoms including: hallucinations,anxiety,confusion, shortness of breath, debility b. To assist medical decision maker(s) with: better understanding of current medical conditions; weighing benefits/burdens of medical treatment options; making medical treatment decisions. . (Trini Vanessa) Subjective/Interval History Patient was seen as a new consult on 03/07/17 while on Med- Psych unit and was subsequently transferred to a medical floor. Palliative care was consulted by Dr. Ballard, to assist with evaluation and management of symptoms including hallucinations, anxiety, shortness of breath and debility. HPI transferred from prior consult and updated. Mr. Denis is a 67-year-old male with a past medical history of psychosis, major depressive disorder, alcohol use disorder, COPD, CAD, hypertension. Patient presented to ED on 02/23/17 complaining of progressive shortness of breath, chest pain and coughing. EKG revealed normal sinus rhythm, normal axis , LVH by voltage criteria, nonspecific STT wave changes, heart rate 67 bpm. Patient medically treated with 2 baby aspirin in ED. Laboratory workup revealed WBC 7.4, hemoglobin 11.3, hematocrit 33.3, platelet count 142, sodium 134, BUN/creatinine 12/1.00 total creatinine kinase 113, troponin 0.06. Chest x -ray revealed no acute abnormality. Cardiology consulted Dr. Tierney. Cardiac catheterization done 02/24/17, showed no significant CAD. EF 50-55%. 2 days prior (02/20/2017) to this hospitalization patient had presented to ED complaining of worsening shortness of breath and chest pain x 2 days. During that visit patient`s troponin increased from 0.02 -> 0.09 -> 0.49. Cardiology Dr. Boykin was consulted. On 02/21/17, patient left the hospital against medical advice. Clinical course complicated by visual, auditory hallucinations, refusing to eat or get out of bed.Patient medically discharged 02/28/17. Psychiatry consulted, patient admitted in med psych unit under [place] [employer] for management. 03/03/17 physical therapy and speech therapy consulted, patient unable to participate due to lethargy. 03/04/17, speech therapist recommended pure and honey thickened liquids. Chest x-ray 03/05/17 revealing mild scarring at the left medial lung base with no evidence of pneumonia. 03/05/17 diet advanced to pureed and thin liquids. While on psychiatric unit patient remained withdrawn,refusing to answer any questions and not eating.Patient discharged from some psychiatry unit and transferred to medical floor. Patient was started on Abilify in med- psych without any change of his symptoms. Patient was seen on psych medical unit , asleep but easily arousable, with minimal mumbling response to questions. Patient sometimes electing to close his eyes to avoid talking. Addressed code status, and if patient wanted anyone to make medical decisions for him in case he is incapacitated. Patient did not respond. Contacted patient`s brother Mike Khan, updated on medical status. Patient`s brother stated that patient has an adult daughter Robert, whom he is going to send a message to and provide her with palliative contact number. Patient seen in his room, awake and more alert today than he was yesterday. Patient still mumbling some incomprehensible words. Daughter Robert at bedside, states that patient`s speech is usually clear and this is new. Spontaneously moving all extremities but not following commands. Patient on room air, in no apparent respiratory distress. Laboratory workup today revealing WBC 9.9, hemoglobin 12.5, platelet count 130, sodium 132, potassium 3.6, BUN/creatinine 9 /0.65, random glucose 96. Speech therapy following patient, diet upgraded to mechanical soft and thin liquids. Provided daughter with medical status update. Daughter reports that patient has consumed alcohol on a daily basis for the past 30 plus years and he tends to be paranoid. Discussed code status with daughter and currently wants aggressive treatment at this time. . Family/friend interactions Telephone conversation with daughter, and later conversation it bedside. Discussed code status and daughter states that at this point whe would want aggressive treatment for her father.Daughter reports that patient is currently homeless and had encouraged him to look for a place to live. She states that she has lived with patient in the past but he tends to get agitated and she has children in her home. However, she has kept in touch with patient who frequently visits her. . (Trini Vanessa) Advance Directives Living Will: Never completed Health Care Surrogate: Never completed Durable Power of [employer] Worker: Never completed (Trini Vanessa) Objective Vital Signs Date Time Temp Pulse Resp B/P (MAP) Pulse Ox O2 Delivery O2 Flow Rate FiO2 03/08/17 16:00 98.8 65 15 145/66 (92) 100 03/08/17 12:00 97.6 70 20 145/73 (97) 98 03/08/17 11:50 95 03/08/17 08:00 98.7 65 18 117/58 (77) 95 03/08/17 04:00 96.6 59 17 136/63 (87) 96 03/08/17 02:44 96 03/08/17 00:00 97.2 56 18 117/56 (76) 96 03/07/17 20:00 99.6 72 17 166/78 (107) 93 Intake & Output 03/08/17 03/08/17 07:00 19:00 Intake Total 240 ml Balance 240 ml Intake Oral 240 ml # Voids 2 Physical Exam CONSTITUTIONAL/GENERAL: This is an elderly cachectic male, in no acute distress. TUBES/LINES/DRAINS: PIV SKIN: No jaundice, rashes, or lesions. Ecchymoses on upper extremities. No wounds seen anteriorly. Skin temperature appropriate. Not diaphoretic. HEAD: Atraumatic. Normocephalic. EYES: Pupils equal and round and reactive. Extraocular motions intact. No scleral icterus. No injection or drainage. Fundi not examined. ENT: Hearing grossly normal. Nose without bleeding or purulent drainage. Moist oral mucosa. NECK: Trachea midline. Supple, nontender. No palpable thyroid enlargement or nodularity. CARDIOVASCULAR: Regular rate and rhythm without murmurs, gallops, or rubs. No JVD. Peripheral pulses symmetric. RESPIRATORY/CHEST: Symmetric, unlabored respirations. Clear but diminished to auscultation. Nonproductive cough. GASTROINTESTINAL: Abdomen soft, non-tender, nondistended. No guarding. Bowel sounds present. GENITOURINARY: Without palpable bladder distension. Incontinent of bladder. MUSCULOSKELETAL: Extremities without clubbing, cyanosis, or edema. No joint tenderness or effusion noted. No calf tenderness. No mottling or clubbing. NEUROLOGICAL: Awake and alert. Motor and sensory grossly within normal limits. Not following commands. Moves all extremities spontaneously. PSYCHIATRIC: Appears depressed. No apparent hallucinations at this time. Patient mumbling incomprehensible words. . (Trini Vanessa) Diagnostic Tests Laboratory Laboratory Tests Test 03/08/17 06:15 White Blood Count 9.9 TH/MM3 (4.0-11.0) Red Blood Count 3.95 MIL/MM3 (4.50-5.90) Hemoglobin 12.5 GM/DL (13.0-17.0) Hematocrit 35.7 % (39.0-51.0) Mean Corpuscular Volume 90.5 FL (80.0-100.0) Mean Corpuscular Hemoglobin 31.7 PG (27.0-34.0) Mean Corpuscular Hemoglobin Concent 35.1 % (32.0-36.0) Red Cell Distribution Width 13.9 % (11.6-17.2) Platelet Count 130 TH/MM3 (150-450) Mean Platelet Volume 8.0 FL (7.0-11.0) Neutrophils (%) (Auto) 88.6 % (16.0-70.0) Lymphocytes (%) (Auto) 6.6 % (9.0-44.0) Monocytes (%) (Auto) 4.3 % (0.0-8.0) Eosinophils (%) (Auto) 0.1 % (0.0-4.0) Basophils (%) (Auto) 0.4 % (0.0-2.0) Neutrophils # (Auto) 8.7 TH/MM3 (1.8-7.7) Lymphocytes # (Auto) 0.7 TH/MM3 (1.0-4.8) Monocytes # (Auto) 0.4 TH/MM3 (0-0.9) Eosinophils # (Auto) 0.0 TH/MM3 (0-0.4) Basophils # (Auto) 0.0 TH/MM3 (0-0.2) CBC Comment DIFF FINAL Differential Comment Prothrombin Time 14.0 SEC (9.8-11.6) Prothromb Time International Ratio 1.3 RATIO Blood Urea Nitrogen 9 MG/DL (7-18) Creatinine 0.65 MG/DL (0.60-1.30) Random Glucose 96 MG/DL (74-106) Calcium Level 8.3 MG/DL (8.5-10.1) Sodium Level 132 MEQ/L (136-145) Potassium Level 3.6 MEQ/L (3.5-5.1) Chloride Level 98 MEQ/L (98-107) Carbon Dioxide Level 27.3 MEQ/L (21.0-32.0) Anion Gap 7 MEQ/L (5-15) Estimat Glomerular Filtration Rate 123 ML/MIN (>89) (Trini Vanesas) Result Diagram: 03/08/1761403/08/17614 Assessment and Plan Disease Oriented Problem List: (1) Chest pain (2) NSTEMI (non-ST elevated myocardial infarction) (3) Psychosis (4) Acute exacerbation of chronic obstructive pulmonary disease (COPD) (5) History of major depression (6) Hypertension Symptom Scale: (1) Dysphagia 0-10 Scale: Unable to quantify (speech therapy following.) (2) Anxiety 0-10 Scale: Unable to quantify (3) Shortness of breath 0-10 Scale: Unable to quantify (4) Debility 0-10 Scale: Unable to quantify (5) Confusion 0-10 Scale: Unable to quantify Pertinent Non-Medical Issues Psychosocial:Patient was born in [place] , he moved to [place] at least 30 years ago . Patient's graduated from high school . Patient is single never . Patient waited for [employer] and was injured at work many years ago. Since then patient has never worked. He has 1 daughter named Robert and 3 grandchildren.He also has a half-brother. Patient lives alone. Spiritual:[facility] Legal: No issues Ethical issues impacting care: None . Important Contacts Daughter -Jessie Bustillos , Figueroabashir Khan (rvnp xeg) [phone] . Prognosis Mr. Denis is a 67-year-old male with a past medical history of psychosis, major depressive disorder, alcohol use disorder, COPD, CAD, CABG X2, hypertension,hyperlipidemia. Patient refusing to eat or drink. If patient continues to refuse eating he may need a feeding tube. Patient is showing signs of physical deconditioning and is at risk for further complications, deterioration and decline leading to . . Code Status: Full Code Plan CODE STATUS: Full code by default HEALTH CARE SURROGATE: Patient appears not to be able to make any medical decisions for himself at this time. In the event that patient is incapacitated to make his own medical decisions healthcare proxy falls to daughter Jessie Hart. GOALS OF CARE: Aggressive treatment at this time SYMPTOMS: * ==Anxiety- Multifactorial, reports of paranoid, patient on Lorazepam. Patient appears significantly anxious during visit, may benefit from none sedating anxiolytic. * == hallucinations- hx of visual and auditory hallucinations. Patient on Lorazepam. This patient remains nonverbal it is difficult to assess hallucinations, patient may need follow-up with psychiatry outpatient. * ==shortness of breath- multifactorial, DuoNeb's PRN, currently on room air. O2 Sat high 90s. Patient appears comfortable with no obvious shortness of breath. * == Dysphagia- followed by speech therapy. Currently on a mechanical soft diet and thin liquids and no straw. Due to mentation, aspiration remains a high risk. Patient should be closely monitored. * ==Confusion- Patient intermittently confused. Recommending checking ammonia levels and CT Brain or MRI. * ==debility- patient refusing to eat, chronic psychiatric issues. Will defer to psychiatric management. (Trini Vanessa) Plan Dual visit with ANITA Meyers for family meeting with daughter. Discussed code status with daughter, she wishes to consider before answering. Agree with above assessment and plan. (Michelle Hawthorne) Attestation To help prompt me to consider important information that might be impacting todays encounter, some historical information from prior notes written by myself or my colleagues may have been brought forward into todays note. My signature on this note, however, is an attestation that I personally performed the exam noted today, and, unless otherwise dated, the interactions with patient , family, and staff as well as the review of records noted all occurred today. I also attest that the listed assessment and stated plan reflect my best clinical judgment today based on the combination of historical information, prior notes, and todays exam/ interactions. The level of evaluation / management services and/or time that is claimed for this visit does NOT include work or time done by myself or other providers on previous visits. (Trini Vanessa) Trini Vanessa Mar 08, 2017 17:33 Michelle Hawthorne Mar 09, 2017 16:34
[2017-03-08] MEDS: PRAVASTATIN SOD 40 MG TAB PO SCH (20:09)
[2017-03-09] VITALS (7 sets, daily range): BP systolic 106–136; BP diastolic 53–69; PULSE 60–77; RESP 17–20; TEMP 96.5–100.5; O2SAT 95–98
[2017-03-09 07:43] LABS: AUTOMATED NEUTROPHIL # 8.7 TH/MM3 (1.8-7.7); BASOPHIL # 0.1 TH/MM3 (0-0.2); BASOPHIL % 0.7 % (0.0-2.0); EOSINOPHIL % 0.1 % (0.0-4.0); HEMO FLAGS DIFF FINAL; LYMPHOCYTE # 0.7 TH/MM3 (1.0-4.8); MEAN CORPUSCULAR HEMOGLOBIN 31.7 PG (27.0-34.0); MEAN CORPUSCULAR HGB CONC 35.2 % (32.0-36.0); MONO % 5.3 % (0.0-8.0); NEUT % 86.9 % (16.0-70.0); PLATELET COUNT 127 TH/MM3 (150-450); RED BLOOD COUNT 3.67 MIL/MM3 (4.50-5.90); RED CELL DISTRIBUTION WIDTH 13.9 % (11.6-17.2)
[2017-03-09 08:06] LABS: BICARBONATE 27.2 MEQ/L (21.0-32.0); POTASSIUM 3.4 MEQ/L (3.5-5.1)
[2017-03-09] MEDS: LISINOPRIL 20 MG TAB PO SCH (09:53)
[2017-03-09] MEDS: TAMSULOSIN HCL 0.4 MG CAP PO SCH (09:53)
[2017-03-09] MEDS: amLODIPine BESYLATE 5 MG TAB PO SCH (09:54)
[2017-03-09] MEDS: ASPIRIN 81 MG CHEW TAB CHEW SCH (09:54)
[2017-03-09] MEDS: DOCUSATE SODIUM 50 MG/SENNA 8.6 MG TAB PO SCH ×2 (09:54→21:00)
[2017-03-09] MEDS: NS + KCL 20 MEQ INJ 1,000 ML IV SCH ×2 (09:56→22:25)
[2017-03-09] MEDS: SODIUM CHLORIDE 0.9% FLUSH 10 ML FLUSH IV FLUSH SCH ×2 (09:56→20:48)
--- NOTE | 2017-03-09 10:34 | HHI.PR ---
Subjective Remarks Confused, attempts to answer questions with mumbled speech Objective Vitals Vital Signs Date Time Temp Pulse Resp B/P (MAP) Pulse Ox O2 Delivery O2 Flow Rate FiO2 03/09/17 09:15 98 21 03/09/17 08:00 96.5 61 19 136/68 (90) 98 03/09/17 04:00 98.8 60 17 106/53 (70) 95 03/09/17 00:00 97.3 67 17 115/57 (76) 96 03/08/17 21:15 95 03/08/17 20:00 101.7 79 18 135/66 (89) 95 03/08/17 16:00 98.8 65 15 145/66 (92) 100 03/08/17 12:00 97.6 70 20 145/73 (97) 98 03/08/17 11:50 95 I/O 03/08/17 03/08/17 03/08/17 03/09/17 03/09/17 03/09/17 07:00 15:00 23:00 07:00 15:00 23:00 Intake Total 240 ml Balance 240 ml Intake Oral 240 ml # Voids 2 1 Result Diagram: 03/09/17 0610 03/09/17 0610 Objective Remarks GENERAL: This is a thin, well-developed patient, in no apparent distress. CARDIOVASCULAR: Regular rate and irregular rhythm RESPIRATORY: Clear to auscultation. Breath sounds equal bilaterally. No wheezes , rales, or rhonchi. GASTROINTESTINAL: Abdomen soft, non-tender, nondistended. Normal, active bowel sounds MUSCULOSKELETAL: Extremities without clubbing, cyanosis, or edema. NEURO: Confused, mumbled speech and signs of aphasic speech, not oriented to place person time or situation, Moves all ext x4 but with overall generalized bilateral upper extremity lower extremity weakness. A/P Assessment and Plan 1. Failure to thrive with severe malnutrition, patient was transferred from inpatient psychiatry service to medical for further workup and evaluation: Per speech therapy evaluation done yesterday in med/psych, patient can have pured diet and thin liquids. He has had poor oral intake. Continue IV fluids. Repeat speech therapy evaluation pending. Due to dry coughing or any general aspiration pneumonia will obtain a chest x- ray. Mumbled speech with signs of aphasia. Will also have speech therapy evaluate for speech and not to swallow. Unknown duration of these changes with multiple speech and aphasia therefore will obtain MRI of the brain further evaluation workup to rule out CVA due to his high risk and previous history of chronic atrial fibrillation. 2. Severe malnutrition due to decreased vat washer strength, poor BMI, and functional capacity, obtain albumin and dietary consult. 2. COPD, chronic: DuoNeb as needed. 3. Previous history of NSTEMI, coronary artery disease status post CABG: Continue aspirin. Cardiac catheterization showed no significant acute coronary disease. Continue Coumadin. 4. History of aortic stenosis: Status post bioprosthetic aortic valve replacement. Continue anticoagulation with Coumadin. 5. Atrial fibrillation: Rate controlled. Continue anticoagulation with Coumadin. Increased dose due to subtherapeutic dosing 6. Hypertension, essential: Continue lisinopril. Overall control. 7. Hyperlipidemia: Continue statin. 8. BPH: Continue Flomax. 9. DVT prophylaxis: Coumadin. Discharge Planning Will need placement. Carla Drew MD Mar 09, 2017 10:34
[2017-03-09 14:44] LABS: INTERNATIONAL NORMALIZED RATIO 2.2 RATIO; PROTHROMBIN TIME - PATIENT 25.1 SEC (9.8-11.6)
--- NOTE | 2017-03-09 15:19 | HHI.HCPN ---
Reason for visit Reason for visit a. To assist with evaluation and management of symptoms including: hallucinations,anxiety, shortness of breath, debility b. To assist medical decision maker(s) with: better understanding of current medical conditions; weighing benefits/burdens of medical treatment options; making medical treatment decisions. . (Trini Vanessa) Subjective/Interval History Mr. Denis is a 67-year-old male with a past medical history of psychosis, major depressive disorder, alcohol use disorder, COPD, CAD, hypertension. Patient presented to ED on 02/23/17 complaining of progressive shortness of breath, chest pain and coughing. EKG revealed normal sinus rhythm, normal axis , LVH by voltage criteria, nonspecific STT wave changes, heart rate 67 bpm. Patient medically treated with 2 baby aspirin in ED. Cardiac catheterization done 02/24/17, showed no significant CAD. EF 50-55%. Clinical course complicated by visual, auditory hallucinations, refusing to eat or get out of bed. Patient seen in his room in bed, awake and alert today. Patient's daughter at bedside, assisting patient with lunch. Patient not eating much but trying to feed himself. Daughter states that he seems to be having difficulty with eating meats, tends to cough a lot when she gives him meat, "turkey". Patient consuming 0-15% of his meals. Speech therapy following patient. Patient has ensure with his meals. Patient still has mumbled speech but today a few words from his speech are comprehensible. Patient not withdrawn, tries to answer questions except he is having difficulty with his speech. Laboratory workup revealing WBC 10.0, hemoglobin 11.7, hematocrit 33.0, platelet count 127, sodium 128, potassium 3.4, BUN/creatinine 10/065, random glucose 101. No recent imaging. Daughter updated on patient`s medical status. Daughter appreciative of palliative care visit. Case discussed with Dr. Drew. Notified her that per patient`s daughter, patient`s current difficulty in speech is new. . Family/friend interactions Bedside conversation with daughter and patient. . (Trini Vanessa) Advance Directives Living Will: Never completed Health Care Surrogate: Never completed Durable Power of Geodetic Engineer: Never completed (Trini Vanessa) Objective Vital Signs Date Time Temp Pulse Resp B/P (MAP) Pulse Ox O2 Delivery O2 Flow Rate FiO2 03/09/17 12:23 97.4 70 19 117/69 (85) 95 03/09/17 09:15 98 21 03/09/17 08:00 96.5 61 19 136/68 (90) 98 03/09/17 04:00 98.8 60 17 106/53 (70) 95 03/09/17 00:00 97.3 67 17 115/57 (76) 96 03/08/17 21:15 95 03/08/17 20:00 101.7 79 18 135/66 (89) 95 03/08/17 16:00 98.8 65 15 145/66 (92) 100 Intake & Output 03/09/17 03/09/17 07:00 19:00 # Voids 1 Physical Exam CONSTITUTIONAL/GENERAL: This is an elderly cachectic male, in no acute distress. TUBES/LINES/DRAINS: PIV SKIN: No jaundice, rashes, or lesions. Ecchymoses to upper extremities. No wounds seen anteriorly. Skin temperature appropriate. Not diaphoretic. HEAD: Atraumatic. Normocephalic. EYES: Pupils equal and round and reactive. Extraocular motions intact. No scleral icterus. No injection or drainage. Fundi not examined. ENT: Hearing grossly normal. Nose without bleeding or purulent drainage. Moist oral mucosa. NECK: Trachea midline. Supple, nontender. No palpable thyroid enlargement or nodularity. CARDIOVASCULAR: Regular rate and rhythm without murmurs, gallops, or rubs. No JVD. Peripheral pulses symmetric. RESPIRATORY/CHEST: Symmetric, unlabored respirations. Clear but diminished to auscultation. Nonproductive cough. GASTROINTESTINAL: Abdomen soft, non-tender, nondistended. No guarding. Bowel sounds present. GENITOURINARY: Without palpable bladder distension. Incontinent of bladder. MUSCULOSKELETAL: Extremities without clubbing, cyanosis, or edema. No joint tenderness or effusion noted. No calf tenderness. No mottling or clubbing. NEUROLOGICAL: Awake and alert. Motor and sensory grossly within normal limits. Following simple commands with all extremities today. Patient still having difficulty with speech. PSYCHIATRIC: No apparent hallucinations at this time. Patient receptive. . (Trini Vanessa) Diagnostic Tests Laboratory Laboratory Tests Test 03/08/17 06:15 03/09/17 06:10 03/09/17 13:30 White Blood Count 9.9 TH/MM3 (4.0-11.0) 10.0 TH/MM3 (4.0-11.0) Red Blood Count 3.95 MIL/MM3 (4.50-5.90) 3.67 MIL/MM3 (4.50-5.90) Hemoglobin 12.5 GM/DL (13.0-17.0) 11.6 GM/DL (13.0-17.0) Hematocrit 35.7 % (39.0-51.0) 33.0 % (39.0-51.0) Mean Corpuscular Volume 90.5 FL (80.0-100.0) 90.0 FL (80.0-100.0) Mean Corpuscular Hemoglobin 31.7 PG (27.0-34.0) 31.7 PG (27.0-34.0) Mean Corpuscular Hemoglobin Concent 35.1 % (32.0-36.0) 35.2 % (32.0-36.0) Red Cell Distribution Width 13.9 % (11.6-17.2) 13.9 % (11.6-17.2) Platelet Count 130 TH/MM3 (150-450) 127 TH/MM3 (150-450) Mean Platelet Volume 8.0 FL (7.0-11.0) 8.0 FL (7.0-11.0) Neutrophils (%) (Auto) 88.6 % (16.0-70.0) 86.9 % (16.0-70.0) Lymphocytes (%) (Auto) 6.6 % (9.0-44.0) 7.0 % (9.0-44.0) Monocytes (%) (Auto) 4.3 % (0.0-8.0) 5.3 % (0.0-8.0) Eosinophils (%) (Auto) 0.1 % (0.0-4.0) 0.1 % (0.0-4.0) Basophils (%) (Auto) 0.4 % (0.0-2.0) 0.7 % (0.0-2.0) Neutrophils # (Auto) 8.7 TH/MM3 (1.8-7.7) 8.7 TH/MM3 (1.8-7.7) Lymphocytes # (Auto) 0.7 TH/MM3 (1.0-4.8) 0.7 TH/MM3 (1.0-4.8) Monocytes # (Auto) 0.4 TH/MM3 (0-0.9) 0.5 TH/MM3 (0-0.9) Eosinophils # (Auto) 0.0 TH/MM3 (0-0.4) 0.0 TH/MM3 (0-0.4) Basophils # (Auto) 0.0 TH/MM3 (0-0.2) 0.1 TH/MM3 (0-0.2) CBC Comment DIFF FINAL DIFF FINAL Differential Comment Prothrombin Time 14.0 SEC (9.8-11.6) 25.1 SEC (9.8-11.6) Prothromb Time International Ratio 1.3 RATIO 2.2 RATIO Blood Urea Nitrogen 9 MG/DL (7-18) 10 MG/DL (7-18) Creatinine 0.65 MG/DL (0.60-1.30) 0.65 MG/DL (0.60-1.30) Random Glucose 96 MG/DL (74-106) 101 MG/DL (74-106) Calcium Level 8.3 MG/DL (8.5-10.1) 8.2 MG/DL (8.5-10.1) Sodium Level 132 MEQ/L (136-145) 128 MEQ/L (136-145) Potassium Level 3.6 MEQ/L (3.5-5.1) 3.4 MEQ/L (3.5-5.1) Chloride Level 98 MEQ/L (98-107) 94 MEQ/L (98-107) Carbon Dioxide Level 27.3 MEQ/L (21.0-32.0) 27.2 MEQ/L (21.0-32.0) Anion Gap 7 MEQ/L (5-15) 7 MEQ/L (5-15) Estimat Glomerular Filtration Rate 123 ML/MIN (>89) 123 ML/MIN (>89) (Trini Vanessa) Result Diagram: 03/09/1710 03/09/17609 Assessment and Plan Disease Oriented Problem List: (1) Chest pain (2) NSTEMI (non-ST elevated myocardial infarction) (3) Psychosis (4) Acute exacerbation of chronic obstructive pulmonary disease (COPD) (5) History of major depression (6) Hypertension Symptom Scale: (1) Dysphagia 0-10 Scale: Unable to quantify (speech therapy following.) (2) Anxiety 0-10 Scale: Unable to quantify (3) Shortness of breath 0-10 Scale: Unable to quantify (4) Debility 0-10 Scale: Unable to quantify (5) Confusion 0-10 Scale: Unable to quantify Pertinent Non-Medical Issues Psychosocial:Patient was born in [place] , he moved to [place] at least 30 years ago . Patient's graduated from high school . Patient is single never . Patient waited for [employer] and was injured at work many years ago. Since then patient has never worked. He has 1 daughter named Robert and 3 grandchildren.He also has a half-brother. Patient lives alone. Spiritual:[facility] Legal: No issues Ethical issues impacting care: None . Important Contacts Daughter -Jessie Bustillos , Figueroa Khan (dnld kuh) [phone] . Prognosis Mr. Denis is a 67-year-old male with a past medical history of psychosis, major depressive disorder, alcohol use disorder, COPD, CAD, CABG X2, hypertension,hyperlipidemia. Patient refusing to eat or drink. If patient continues to refuse eating he may need a feeding tube. Patient is showing signs of physical deconditioning and is at risk for further complications, deterioration and decline leading to . . Code Status: Full Code Plan CODE STATUS: Full Code HEALTH CARE SURROGATE: Patient appears not to be able to make any medical decisions for himself at this time. In the event that patient is required to make any medical decision, shared medical decision making with his daughter Jessie Hart would be recommended. GOALS OF CARE: Aggressive treatment at this time. SYMPTOMS: * ==Anxiety- Multifactorial, reports of paranoid, patient on Lorazepam. Patient seems to be more calm in the presence of his daughter. Patient may benefit from none sedating anxiolytic. * == Hallucinations- hx of visual and auditory hallucinations. Patient may need follow-up with psychiatry outpatient. * ==shortness of breath- multifactorial, DuoNeb's PRN, currently on room air. O2 Sat high 90s. Patient appears comfortable with no obvious shortness of breath. * == Dysphagia- followed by speech therapy. Currently on a mechanical soft diet and thin liquids and no straw. Consuming less than 25% of his meals.Due to mentation and persistent coughing, aspiration remains a high risk. Patient should be closely monitored. * ==Confusion- Patient intermittently confused and having difficulty with speech. CT brain or MRI brain recommended to rule out CVA. * ==Debility- Patient refusing to eat. Poor appetite. Has chronic psychiatric issues. Will defer to psychiatric management. May also benefit from PT if patient is willing to participate. Case discussed with Dr. Drew. Conversation with daughter at bedside, updated on medical status. . (Trini Vanessa) Attestation Patient seen with Trini HOWARD. I agree with the above assessment and plan. Rosemary HOWARD (Rosemary Nelson) Trini Vanessa Mar 09, 2017 3:19 pm Rosemary Nelson Mar 09, 2017 5:24 pm
[2017-03-09] MEDS ORDERED: WARFARIN SOD 2 MG TAB PO ONE (16:00)
[2017-03-09] MEDS: PRAVASTATIN SOD 40 MG TAB PO SCH (21:00)
[2017-03-10] VITALS (8 sets, daily range): BP systolic 109–125; BP diastolic 57–67; PULSE 53–99; RESP 16–20; TEMP 98–99; O2SAT 93–100
[2017-03-10] MEDS: TAMSULOSIN HCL 0.4 MG CAP PO SCH (11:08)
[2017-03-10] MEDS: ACETAMINOPHEN 325 MG TAB PO PRN (11:08)
[2017-03-10] MEDS: amLODIPine BESYLATE 5 MG TAB PO SCH (11:08)
[2017-03-10] MEDS: DOCUSATE SODIUM 50 MG/SENNA 8.6 MG TAB PO SCH ×2 (11:08→21:00)
[2017-03-10] MEDS: LISINOPRIL 20 MG TAB PO SCH (11:09)
[2017-03-10] MEDS: ASPIRIN 81 MG CHEW TAB CHEW SCH (11:09)
[2017-03-10] MEDS: SODIUM CHLORIDE 0.9% FLUSH 10 ML FLUSH IV FLUSH SCH ×2 (11:09→21:00)
[2017-03-10] MEDS: NS + KCL 20 MEQ INJ 1,000 ML IV SCH (11:25)
--- NOTE | 2017-03-10 11:44 | HHI.PR ---
Subjective Remarks He states that he is eating better. His speech is more clear today however still mumbles and garbles at times Objective Vitals Vital Signs Date Time Temp Pulse Resp B/P (MAP) Pulse Ox O2 Delivery O2 Flow Rate FiO2 03/10/17 08:00 99.0 53 16 111/63 (79) 93 03/10/17 04:00 98.2 70 20 125/59 (81) 95 03/10/17 00:00 98.9 72 20 117/59 (78) 96 03/09/17 20:00 100.5 70 20 117/56 (76) 96 03/09/17 16:56 98.9 77 19 115/64 (81) 98 03/09/17 12:23 97.4 70 19 117/69 (85) 95 I/O 03/09/17 03/09/17 03/09/17 03/10/17 03/10/17 03/10/17 07:00 15:00 23:00 07:00 15:00 23:00 Intake Total 717 ml 420 ml Output Total 320 ml Balance 717 ml 100 ml Intake Oral 717 ml 420 ml Output Urine Total 320 ml Stool Total 0 ml # Voids 1 1 # Bowel Movements 0 Result Diagram: 03/09/17 0610 03/09/17 0610 Other Results Item Value Date Time Prothromb Time International Ratio 2.2 RATIO 03/09/17 1330 Objective Remarks GENERAL: This is a thin, well-developed patient, in no apparent distress. CARDIOVASCULAR: Regular rate and irregular rhythm RESPIRATORY: Clear to auscultation. Breath sounds equal bilaterally. No wheezes , rales, or rhonchi. GASTROINTESTINAL: Abdomen soft, non-tender, nondistended. Normal, active bowel sounds MUSCULOSKELETAL: Extremities without clubbing, cyanosis, or edema. NEURO: Confused, improvement in speech clarity however still mumbles at times, not oriented to place ,person, time or situation, Moves all ext x4 but with overall generalized bilateral upper extremity lower extremity weakness. A/P Problem List: (1) Malnutrition ICD Code: E46 - Unspecified protein-calorie malnutrition Status: Acute Assessment and Plan 1. Failure to thrive with severe malnutrition, patient was transferred from inpatient psychiatry service to medical for further workup and evaluation: Per speech therapy evaluation done yesterday in med/psych, patient can have pured diet and thin liquids. He has had poor oral intake. Continue IV fluids. Repeat speech therapy evaluation pending. Due to dry coughing or any general aspiration pneumonia CXR pending Mumbled speech with signs of aphasia from yesterday has improved slightly overnight. speech therapy evaluate for speech and for swallow. Unknown duration of these changes with multiple speech and aphasia therefore will obtain MRI of the brain further evaluation workup to rule out CVA due to his high risk and previous history of chronic atrial fibrillation. MR I of the brain currently still pending 2. Severe malnutrition due to decreased supervisor glycerin strength, poor BMI, and functional capacity, obtain albumin and dietary consult. Patient did improve on by mouth intake this morning. 2. COPD, chronic: DuoNeb as needed. 3. Previous history of NSTEMI, coronary artery disease status post CABG: Continue aspirin. Cardiac catheterization showed no significant acute coronary disease. Continue Coumadin. 4. History of aortic stenosis: Status post bioprosthetic aortic valve replacement. Continue anticoagulation with Coumadin. 5. Atrial fibrillation: Rate controlled. Continue anticoagulation with Coumadin. Increased dose due to subtherapeutic dosing 6. Hypertension, essential: Continue lisinopril. Overall control. 7. Hyperlipidemia: Continue statin. 8. BPH: Continue Flomax. 9. DVT prophylaxis: Coumadin. Discharge Planning Will need placement. Problem Qualifiers (1) Malnutrition: Qualified Codes: E43 - Unspecified severe protein-calorie malnutrition Carla Drew MD Mar 10, 2017 11:44
--- NOTE | 2017-03-10 12:56 | RADRPT ---
EXAM DATE/TIME: 03/10/2017 12:19 [facility] COMPARISON: CHEST SINGLE AP, March 05, 2017, 12:59. INDICATIONS : Cough. MEDICAL HISTORY : Myocardial infarction. Chronic obstructive pulmonary disease. Congestive heart failure. SURGICAL HISTORY : CABG. ENCOUNTER: Initial ACUITY: 2 weeks PAIN SCORE: Non-responsive. LOCATION: Bilateral chest FINDINGS: A single view of the chest demonstrates the lungs to be symmetrically aerated without evidence of mas s, infiltrate or effusion. The cardiomediastinal contours are unremarkable. Sternal wires and bypas s are noted. Osseous structures are intact. CONCLUSION: No acute disease. Timothy Pretty MD FACR on March 10, 2017 at 12:42 Board Certified Radiologist. This report was verified electronically.
[2017-03-10 14:10] LABS: INTERNATIONAL NORMALIZED RATIO 1.4 RATIO; PROTHROMBIN TIME - PATIENT 15.8 SEC (9.8-11.6)
[2017-03-10 14:30] LABS: POTASSIUM 3.6 MEQ/L (3.5-5.1)
[2017-03-10 14:33] LABS: INDIRECT BILIRUBIN 0.3 MG/DL (0.0-0.8); TOTAL BILIRUBIN ADULT 0.5 MG/DL (0.2-1.0)
[2017-03-10] MEDS ORDERED: WARFARIN SOD 4 MG TAB PO SCH (16:00)
[2017-03-10] MEDS ORDERED: GADODIAMIDE PF 287 MG/ML 10 ML VIAL (for RAD MRI) IVCONTRAST ONE (17:15)
--- NOTE | 2017-03-10 17:40 | RADRPT ---
EXAM DATE/TIME: 03/10/2017 16:51 [facility] COMPARISON: No previous studies available for comparison. INDICATIONS : CVA. CONTRAST: 10 cc Omniscan (gadodiamide) IV MEDICAL HISTORY : Congestive heart failure. Gastroesophageal reflux disease. VA. COPD. HTN. CAD. Hyperlipidemia. SURGICAL HISTORY : CABG Aortic valve replacement. ENCOUNTER: Subsequent ACUITY: 1 day PAIN SCORE: Nonresponsive. LOCATION: cranial TECHNIQUE: Multiplanar, multisequence MRI of the brain was performed both prior to and following the administrat ion of paramagnetic contrast. FINDINGS: The examination demonstrates a large area of early subacute hemorrhage involving the left temporal an d occipital cortex with extension anteriorly. There is a small amount hemorrhage within the lateral v entricular system on the left as well. There is significant surrounding vasogenic edema with mass eff ect on the corpus callosum and posterior horn of the left lateral ventricle as well as edema projecti ng down into the left temporal lobe. There is 6 mm of left to right falcine shift. Post contrast imag ing is provided. No enhancing mass is seen within this. The spontaneously increased T1 signal within this somewhat limits the evaluation. No significant extra-axial fluid is seen. The appearance of the posterior fossa is unremarkable. The visualized portion of sinus and orbit are intact. CONCLUSION: 1. There is an area of acute intracranial hemorrhage involving the left temporal occipital cortex amanda suring at least 4.4 x 7.5 cm. There is extensive mass effect associated with this. There is rupture i nto the ventricular system with some hemorrhage within the left lateral ventricle. There is a small a mount hemorrhage within the posterior horn of the right lateral ventricle as well. Kirt Pretty MD on March 10, 2017 at 17:32 Board Certified Radiologist. This report was verified electronically.
[2017-03-10] MEDS ORDERED: PHYTONADIONE 10 MG/D5W 50 ML IV ONE ×2 (18:45)
--- NOTE | 2017-03-10 19:55 | PD.CONS ---
HPI Service Neurosurgery (Covering for Dr. Ana MD) Consult Requested By Dr. Pasha Sal MD Reason for Consult Left ICH Primary Care Physician Torsten Zuñiga MD History of Present Illness Mr. Denis is a 67 year old male with a history of COPD who was admitted today for failure to thrive after being under the care of psychiatry service from 02/28 - 03/07/2017. On 02/23/2017, Mr. Denis to the emergency department due to chest pain, shortness of breath. Upon admission he was started on antibiotics, breathing treatments. Cardiology was consulted for mild elevation in troponins. Peak troponin was 0.12. Patient underwent cardiac catheterization on 02/24/2017 - did not show any coronary artery disease. While medically patient remained stable, he had hallucinations and he did not eat or get up from bed. After evaluating, psychiatry guerrero acted him and subsequently patient was discharged to Psychiatry service. While in psychiatry service, patient was started on abilify which did not improve his symptoms. Patient has a very flat affect, does not eat, talk or get up. Psychiatry service do not feel that his condition is primarily psychiatric. Patient was subsequently discharged from psychiatry and admitted to hospitalist service on 03/07/2017. Patient had a routine MRI of the Brain to evaluate for AMS which showed a large Left Occipital ICH with IVH (w/o HCP). Review of Systems Unable to obtain secondary to confusion. Past Family Social History Allergies: Coded Allergies: No Known Allergies (Verified , 02/20/17) Past Medical History Review of Systems ROS Limitations: Clinical Condition Except as stated in HPI: all other systems reviewed are Neg PFSH Past Family Social History Past Medical History Hypertension CAD s/p CABG x 2v Aortic stenosis s/p AVR COPD Atrial fibrillation. Past Surgical History Back surgery 1985 Aortic valve replacement. CABG X 2v. Allergies: Coded Allergies: No Known Allergies (Verified , 02/20/17) Active Ordered Medications Reported Medications Current Medications Sodium Chloride (NS Flush) 2 ml UNSCH PRN IV FLUSH FLUSH AFTER USING IV ACCESS ; Start 03/07/17 at 18:30 Sodium Chloride (NS Flush) 2 ml BID IV FLUSH Last administered on 03/10/17 11: 09; Start 03/07/17 at 21:00 Acetaminophen (Tylenol) 650 mg Q4H PRN PO Headache, fever, pain 1-4 Last administered on 03/10/17 11:08; Start 03/07/17 at 18:30 Ondansetron HCl (Zofran Inj) 4 mg Q6H PRN IVP NAUSEA OR VOMITING; Start at 18:30 Naloxone HCl (Narcan Inj) 0.4 mg UNSCH PRN IV PUSH SEE LABEL COMMENTS; Start at 18:30 Senna/Docusate Sodium (Philly-Colace) 1 tab BID PO Last administered on 11:08; Start 03/07/17 at 21:00 Magnesium Hydroxide (Milk Of Magnesia Liq) 30 ml Q12H PRN PO MILD - MODERATE CONSTIPATION Last administered on 03/10/17 11:09; Start 03/07/17 at 18:30 Sennosides (Senokot) 17.2 mg Q12H PRN PO MODERATE - SEVERE CONSTIPATION; Start 03/07/17 at 18:30 Bisacodyl (Dulcolax Supp) 10 mg DAILY PRN RECTAL SEVERE CONSITIPATION; Start at 18:30 Lactulose (Lactulose Liq) 30 ml DAILY PRN PO SEVERE CONSITIPATION; Start at 18:30 Albuterol/ Ipratropium (Duoneb Neb) 1 ampule Q4HR NEB PRN NEB Dyspnea; Start at 18:45 Clonidine (Catapres-Tts 0.1mg Patch.7d) 1 patch Q7D T-DERMAL Last administered on 03/07/17 22:36; Start 03/07/17 at 20:00 Amlodipine Besylate (Norvasc) 5 mg DAILY PO Last administered on 03/10/17 11: 08; Start 03/08/17 at 09:00 Aspirin (Aspirin Chew) 81 mg DAILY CHEW Last administered on 03/10/17 11:09; Start 03/08/17 at 09:00; Stop 03/10/17 at 18:31; Status DC Lisinopril (Prinivil) 20 mg DAILY PO Last administered on 03/10/17 11:09; Start 03/08/17 at 09:00 Pravastatin Sodium (Pravachol) 40 mg HS PO Last administered on 03/09/17 21:00 ; Start 03/07/17 at 21:00 Tamsulosin HCl (Flomax) 0.4 mg DAILY PO Last administered on 03/10/17 11:08; Start 03/08/17 at 09:00 Warfarin Sodium (Coumadin) 5 mg DAILY@1600 PO Last administered on 03/08/17 17 :13; Start 03/08/17 at 16:00; Stop 03/10/17 at 14:45; Status DC Pharmacy Profile Note 0 ml @ 0 mls/hr UNSCH OTHER ; Start 03/07/17 at 18:45; Stop 03/10/17 at 18:31; Status DC Dextrose/Lactated Ringer's 1,000 ml @ 75 mls/hr CONTINUOUS IV ; Start 03/07/17 at 19:00; Stop 03/09/17 at 08:41; Status DC Miscellaneous Information 1 Q7D T-DERMAL ; Start 03/14/17 at 20:00 Patient Medication Teaching (Coumadin Booklet) 1 ONCE ONCE OTHER Last administered on 03/08/17 17:13; Start 03/08/17 at 16:00; Stop 03/08/17 at 16:01 ; Status DC Influenza Virus Vaccine (Flu (Quadrivalent) Vaccine Inj) 0.5 ml ONCE ONCE IM Last administered on 03/08/17 09:06; Start 03/08/17 at 10:00; Stop 03/08/17 at 10:01; Status DC Warfarin Sodium (Coumadin) 2.5 mg ONCE ONCE PO Last administered on 03/08/17 16:00; Start 03/08/17 at 16:00; Stop 03/08/17 at 16:01; Status DC Potassium Chloride/Sodium Chloride 1,000 ml @ 75 mls/hr [id number] IV Last administered on 03/10/17 11:25; Start 03/09/17 at 08:45 Warfarin Sodium (Coumadin) 2 mg ONCE ONCE PO ; Start 03/09/17 at 16:00; Stop at 16:00; Status DC Warfarin Sodium (Coumadin) 4 mg DAILY@1600 PO ; Start 03/10/17 at 16:00; Stop at 18:31; Status DC Gadodiamide (Omniscan Pf Inj) 10 ml STK-MED ONCE IVCONTRAST Last administered on 03/10/17t 17:15; Start 03/10/17 at 17:15; Stop 03/10/17 at 17:16; Status DC Phytonadione 10 mg/Dextrose 51 ml @ 102 mls/hr ONCE ONCE IV ; Start 03/10/17 at 18:45; Stop 03/10/17 at 19:14; Status DC Physical Exam Vital Signs Vital Signs Date Time Temp Pulse Resp B/P (MAP) Pulse Ox O2 Delivery O2 Flow Rate FiO2 03/10/17 17:30 98.0 72 16 112/67 (82) 96 03/10/17 12:37 98.1 74 16 119/64 (82) 100 03/10/17 08:00 99.0 53 16 111/63 (79) 93 03/10/17 04:00 98.2 70 20 125/59 (81) 95 03/10/17 00:00 98.9 72 20 117/59 (78) 96 03/09/17 20:00 100.5 70 20 117/56 (76) 96 Physical Exam A, A, Ox1(name only) EOS EOMI FS UTE(L>R) Following simple commands x 4 Not following complex commands Unable to asses visual redding 2" [employer] Laboratory Laboratory Tests Test 03/10/17 13:23 Prothrombin Time 15.8 Prothromb Time International Ratio 1.4 Blood Urea Nitrogen 15 Creatinine 0.68 Random Glucose 106 Total Protein 6.4 Albumin 2.6 Calcium Level 8.2 Alkaline Phosphatase 73 Aspartate Amino Transf (AST/SGOT) 38 Alanine Aminotransferase (ALT/SGPT) 30 Total Bilirubin 0.5 Direct Bilirubin 0.2 Sodium Level 129 Potassium Level 3.6 Chloride Level 93 Carbon Dioxide Level 27.0 Anion Gap 9 Estimat Glomerular Filtration Rate 117 Indirect Bilirubin 0.3 Result Diagram: 03/09/17 0610 03/10/17 1323 Imaging Last Impressions Chest X-Ray 03/10/17 0000 Signed Impressions: Service Date/Time: Friday, March 10, 2017 12:19 - CONCLUSION: No acute disease. Timothy Pretty MD FACR Brain MRI 03/10/17 0000 Signed Impressions: Service Date/Time: Friday, March 10, 2017 16:51 - CONCLUSION: 1. There is an area of acute intracranial hemorrhage involving the left temporal occipital cortex measuring at least 4.4 x 7.5 cm. There is extensive mass effect associated with this. There is rupture into the ventricular system with some hemorrhage within the left lateral ventricle. There is a small amount hemorrhage within the posterior horn of the right lateral ventricle as well. Kirt Pretty MD Assessment and Plan Diagnosis: (1) Intracranial hemorrhage Status: Acute Plan: Patient has a Large Left Occipital ICH with IVH(w/o HCP) Recommend: 1. Hold all anticoagulation. 2. Reverse Coumadin. 3. Repeat CT Head without contrast in am 03/11 and 03/12 4. NPO until repeat CT Head w/o contrast in am 5. Keppra 500mg IV BID 6. Neuro checks q1hr Would not recommend Neurosurgery Operative Intervention at this time given recent anticoagulation (awaiting repeat PT/PTT - prior normal). Would not recommend EVD at this time given GCS greater than 8. Patient's bleed may have occurred prior to today (MRI scan) given AMS on admission. Will continue to follow. Please call with any questions or concerns. Please call with patient has a decline in neuro exam or requires intubation. (2) Atrial fibrillation ICD Codes: I48.91 - Unspecified atrial fibrillation (3) Psychosis ICD Codes: F29 - Unspecified psychosis not due to a substance or known physiological condition Status: Acute (4) Hypertension ICD Codes: I10 - Hypertension Status: Chronic (5) Acute exacerbation of chronic obstructive pulmonary disease (COPD) ICD Codes: J44.1 - Chronic obstructive pulmonary disease with (acute) exacerbation Status: Acute (6) NSTEMI (non-ST elevated myocardial infarction) ICD Codes: I21.4 - Non-ST elevation (NSTEMI) myocardial infarction (7) History of major depression ICD Codes: Z86.59 - Personal history of other mental and behavioral disorders Status: Acute (8) Confusion ICD Codes: R41.0 - Disorientation, unspecified Nakul Bustillo MD Mar 10, 2017 19:55
[2017-03-10] MEDS: PRAVASTATIN SOD 40 MG TAB PO SCH (21:00)
[2017-03-11] VITALS (14 sets, daily range): BP systolic 98–132; BP diastolic 55–77; PULSE 52–76; RESP 20–33; TEMP 98–98.9; O2SAT 98–100
[2017-03-11] MEDS: NS + KCL 20 MEQ INJ 1,000 ML IV SCH ×3 (00:45→22:54)
[2017-03-11 05:38] LABS: INTERNATIONAL NORMALIZED RATIO 1.2 RATIO; PROTHROMBIN TIME - PATIENT 13.4 SEC (9.8-11.6)
[2017-03-11 05:55] LABS: BICARBONATE 27.2 MEQ/L (21.0-32.0); POTASSIUM 4.2 MEQ/L (3.5-5.1)
[2017-03-11] MEDS: TAMSULOSIN HCL 0.4 MG CAP PO SCH (09:00)
[2017-03-11] MEDS: LISINOPRIL 20 MG TAB PO SCH (09:00)
[2017-03-11] MEDS: amLODIPine BESYLATE 5 MG TAB PO SCH (09:00)
[2017-03-11] MEDS: SODIUM CHLORIDE 0.9% FLUSH 10 ML FLUSH IV FLUSH SCH ×2 (09:00→20:27)
[2017-03-11] MEDS: DOCUSATE SODIUM 50 MG/SENNA 8.6 MG TAB PO SCH ×2 (09:00→20:27)
[2017-03-11] MEDS ORDERED: LORazepam 2 MG/ML VIAL IV PUSH ONE (11:45)
--- NOTE | 2017-03-11 12:25 | RADRPT ---
EXAM DATE/TIME: 03/11/2017 12:14 [facility] COMPARISON: MRI BRAIN W & W/O CONTRAST, March 10, 2017, 16:51. INDICATIONS : Evaluate hemorrhage seen on MRI 03/10/2017. RADIATION DOSE: 36.35 CTDIvol (mGy) MEDICAL HISTORY : Seizures. Cardiovascular disease SURGICAL HISTORY : CABG ENCOUNTER: Initial ACUITY: 1 day PAIN SCALE: Non-responsive LOCATION: cranial TECHNIQUE: Multiple contiguous axial images were obtained of the head. Using automated exposure control and adj ustment of the mA and/or kV according to patient size, radiation dose was kept as low as reasonably a chievable to obtain optimal diagnostic quality images. DICOM format image data is available electro nically for review and comparison. FINDINGS: The examination demonstrates an area of intraparenchymal hemorrhage involving the left temporal and o ccipital cortex measuring approximately 5.6 x 3.4 cm. There is surrounding vasogenic edema. There is mass effect on the posterior horn of the left lateral ventricle and the corpus callosum. The examinat ion also demonstrates a minimal amount of parenchymal hemorrhage extending into the posterior horn of the left lateral ventricle. There is 5 mm of left to right falcine shift. The appearance of the posterior fossa is unremarkable. The osseous structures of the skull are intact. The sinuses are clear. CONCLUSION: 1. Sizable area of intraparenchymal hemorrhage involving the left posterior temporal and occipital co rtex. There is some degree of intraventricular hemorrhage as well. Changes are similar to previous MR I dated 03/10/17. Kirt Pretty MD on March 11, 2017 at 12:21 Board Certified Radiologist. This report was verified electronically.
[2017-03-11] MEDS: levETIRAcetam INJ 500 MG in SODIUM CHLORIDE 0.9% INJ 100 ML IV SCH ×2 (13:20→20:27)
--- NOTE | 2017-03-11 13:24 | HHI.NSPN ---
History Interval History 03/10: Mr. Denis is a 67 year old male with a history of COPD who was admitted today for failure to thrive after being under the care of psychiatry service from 02/28/2017 - 03/07/2017. On 02/23/2017, Mr. Denis to the emergency department due to chest pain, shortness of breath. Upon admission he was started on antibiotics, breathing treatments. Cardiology was consulted for mild elevation in troponins. Peak troponin was 0.12. Patient underwent cardiac catheterization on 02/24/2017 - did not show any coronary artery disease. While medically patient remained stable, he had hallucinations and he did not eat or get up from bed. After evaluating, psychiatry guerrero acted him and subsequently patient was discharged to Psychiatry service. While in psychiatry service, patient was started on abilify which did not improve his symptoms. Patient has a very flat affect, does not eat, talk or get up. Psychiatry service do not feel that his condition is primarily psychiatric. Patient was subsequently discharged from psychiatry and admitted to hospitalist service on 03/07/2017. Patient had a routine MRI of the Brain to evaluate for AMS which showed a large Left Occipital ICH with IVH (w/o HCP). 03/11: Patient is stable. Ativan given for agitation. Opens eyes to stim, but not following commands. Exam Results Vital Signs Date Time Temp Pulse Resp B/P (MAP) Pulse Ox O2 Delivery O2 Flow Rate FiO2 03/11/17 08:29 98 Nasal Cannula 1.00 03/11/17 08:00 62 03/11/17 08:00 98.2 24 132/77 (95) 03/11/17 08:00 100 Intake and Output 03/11/17 03/11/17 03/12/17 08:00 16:00 00:00 Intake Total 2050 ml Output Total 925 ml Balance 1125 ml Physical Examination Patient just given Ativan OE to stimulation [id number] not following commands Lab, Micro, Other Results Last Impressions Chest X-Ray 03/10/17 0000 Signed Impressions: Service Date/Time: Friday, March 10, 2017 12:19 - CONCLUSION: No acute disease. Timothy Pretty MD FACR Brain MRI 03/10/17 0000 Signed Impressions: Service Date/Time: Friday, March 10, 2017 16:51 - CONCLUSION: 1. There is an area of acute intracranial hemorrhage involving the left temporal occipital cortex measuring at least 4.4 x 7.5 cm. There is extensive mass effect associated with this. There is rupture into the ventricular system with some hemorrhage within the left lateral ventricle. There is a small amount hemorrhage within the posterior horn of the right lateral ventricle as well. Kirt Pretty MD Current Medications Medications (Trade) Dose Ordered Sig/Danielle Route PRN Reason Start Time Stop Time Status Last Admin Dose Admin Sodium Chloride (NS Flush) 2 ml UNSCH PRN IV FLUSH FLUSH AFTER USING IV ACCESS 03/07/17 18:30 Sodium Chloride (NS Flush) 2 ml BID IV FLUSH 03/07/17 21:00 03/10/17 21:00 Acetaminophen (Tylenol) 650 mg Q4H PRN PO Headache, fever, pain 1-4 03/07/17 18:30 03/10/17 11:08 Ondansetron HCl (Zofran Inj) 4 mg Q6H PRN IVP NAUSEA OR VOMITING 03/07/17 18:30 Naloxone HCl (Narcan Inj) 0.4 mg UNSCH PRN IV PUSH SEE LABEL COMMENTS 03/07/17 18:30 Senna/Docusate Sodium (Philly-Colace) 1 tab BID PO 03/07/17 21:00 03/10/17 11:08 Magnesium Hydroxide (Milk Of Magnesia Liq) 30 ml Q12H PRN PO MILD - MODERATE CONSTIPATION 03/07/17 18:30 03/10/17 11:09 Sennosides (Senokot) 17.2 mg Q12H PRN PO MODERATE - SEVERE CONSTIPATION 03/07/17 18:30 Bisacodyl (Dulcolax Supp) 10 mg DAILY PRN RECTAL SEVERE CONSITIPATION 03/07/17 18:30 Lactulose (Lactulose Liq) 30 ml DAILY PRN PO SEVERE CONSITIPATION 03/07/17 18:30 Albuterol/ Ipratropium (Duoneb Neb) 1 ampule Q4HR NEB PRN NEB Dyspnea 03/07/17 18:45 Clonidine (Catapres-Tts 0.1mg Patch.7d) 1 patch Q7D T-DERMAL 03/07/17 20:00 03/07/17 22:36 Amlodipine Besylate (Norvasc) 5 mg DAILY PO 03/08/17 09:00 03/10/17 11:08 Lisinopril (Prinivil) 20 mg DAILY PO 03/08/17 09:00 03/10/17 11:09 Pravastatin Sodium (Pravachol) 40 mg HS PO 03/07/17 21:00 03/10/17 21:00 Tamsulosin HCl (Flomax) 0.4 mg DAILY PO 03/08/17 09:00 03/10/17 11:08 Miscellaneous Information 1 Q7D T-DERMAL 03/14/17 20:00 Potassium Chloride/Sodium Chloride 1,000 ml @ 75 mls/hr [id number] IV 03/09/17 08:45 03/11/17 04:53 Levetriacetam 500 mg/Sodium Chloride 105 ml @ 420 mls/hr Q12HR IV 03/11/17 12:00 03/11/17 13:20 Laboratory Tests Test 03/09/17 06:10 03/10/17 13:23 03/10/17 19:30 03/11/17 05:03 White Blood Count 10.0 TH/MM3 Red Blood Count 3.67 MIL/MM3 Hemoglobin 11.6 GM/DL Hematocrit 33.0 % Mean Corpuscular Volume 90.0 FL Mean Corpuscular Hemoglobin 31.7 PG Mean Corpuscular Hemoglobin Concent 35.2 % Red Cell Distribution Width 13.9 % Platelet Count 127 TH/MM3 Mean Platelet Volume 8.0 FL Neutrophils (%) (Auto) 86.9 % Lymphocytes (%) (Auto) 7.0 % Monocytes (%) (Auto) 5.3 % Eosinophils (%) (Auto) 0.1 % Basophils (%) (Auto) 0.7 % Neutrophils # (Auto) 8.7 TH/MM3 Lymphocytes # (Auto) 0.7 TH/MM3 Monocytes # (Auto) 0.5 TH/MM3 Eosinophils # (Auto) 0.0 TH/MM3 Basophils # (Auto) 0.1 TH/MM3 CBC Comment DIFF FINAL Differential Comment Blood Urea Nitrogen 15 MG/DL 14 MG/DL Creatinine 0.68 MG/DL 0.67 MG/DL Random Glucose 106 MG/DL 92 MG/DL Total Protein 6.4 GM/DL Albumin 2.6 GM/DL Calcium Level 8.2 MG/DL 8.4 MG/DL Alkaline Phosphatase 73 U/L Aspartate Amino Transf (AST/SGOT) 38 U/L Alanine Aminotransferase (ALT/SGPT) 30 U/L Total Bilirubin 0.5 MG/DL Direct Bilirubin 0.2 MG/DL Sodium Level 129 MEQ/L 130 MEQ/L Potassium Level 3.6 MEQ/L 4.2 MEQ/L Chloride Level 93 MEQ/L 95 MEQ/L Carbon Dioxide Level 27.0 MEQ/L 27.2 MEQ/L Indirect Bilirubin 0.3 MG/DL Nasal Screen MRSA (PCR) MRSA NOT DETECTED Prothrombin Time 13.4 SEC Prothromb Time International Ratio 1.2 RATIO Anion Gap 8 MEQ/L Estimat Glomerular Filtration Rate 119 ML/MIN Medical Decision Making Impression and Plan Assessment and Plan Diagnosis: (1) Intracranial hemorrhage Status: Acute Plan: Patient has a Large Left Occipital ICH with IVH(w/o HCP) Recommend: 1. Hold all full dose anticoagulation for 2 weeks. 2. Coumadin Reversed. 3. Repeat CT Head without contrast in am 03/11 stable (awaiting read) / Repeat CT Head without contrast in am 03/12 4. Ok to advance diet after speech evaluation 5. Keppra 500mg IV BID for 7 days only for IVH. 6. Neuro checks q1hr continue for 24 more hours Would not recommend Neurosurgery Operative Intervention at this time given CT head without contrast stable / exam and vital signs stable. Patient's AMS today secondary DT's and Ativan much more likely than several day old ICH without HCP. Will continue to follow. Please call with any questions or concerns. Please call with patient has a decline in neuro exam or requires intubation. Total Minutes: 39 Nakul Bustillo MD Mar 11, 2017 13:24
--- NOTE | 2017-03-11 14:01 | HHI.PR ---
Subjective Remarks Patient can open his eyes but does not follow commands. Nonsensical speech. Discuss with RN. He is able to move all extremities spontaneously. Objective Vitals Vital Signs Date Time Temp Pulse Resp B/P (MAP) Pulse Ox O2 Delivery O2 Flow Rate FiO2 03/11/17 08:29 98 Nasal Cannula 1.00 03/11/17 08:00 62 03/11/17 08:00 98.2 69 24 132/77 (95) 100 03/11/17 08:00 Nasal Cannula 1.00 100 03/11/17 06:00 73 03/11/17 04:00 76 03/11/17 04:00 98.6 76 23 131/63 (85) 100 03/11/17 02:00 68 03/11/17 00:00 66 03/11/17 00:00 98.7 65 22 98/55 (69) 100 03/10/17 22:00 90 03/10/17 20:22 97 Nasal Cannula 2.00 03/10/17 20:00 99 03/10/17 17:30 98.0 72 16 112/67 (82) 96 I/O 03/10/17 03/10/17 03/10/17 03/11/17 03/11/17 03/11/17 07:00 15:00 23:00 07:00 15:00 23:00 Intake Total 420 ml 485 ml 2050 ml Output Total 320 ml 925 ml Balance 100 ml 485 ml 1125 ml Intake Oral 420 ml 480 ml IV Total 1000 ml FFP 700 ml Blood Product IV Normal Saline Flush 5 ml 350 ml Output Urine Total 320 ml 925 ml Stool Total 0 ml # Voids 3 # Bowel Movements 0 1 4 Result Diagram: 03/09/17 0610 03/11/17 0503 Imaging Last Impressions Chest X-Ray 03/10/17 0000 Signed Impressions: Service Date/Time: Friday, March 10, 2017 12:19 - CONCLUSION: No acute disease. Timothy Pretty MD FACR Brain MRI 03/10/17 0000 Signed Impressions: Service Date/Time: Friday, March 10, 2017 16:51 - CONCLUSION: 1. There is an area of acute intracranial hemorrhage involving the left temporal occipital cortex measuring at least 4.4 x 7.5 cm. There is extensive mass effect associated with this. There is rupture into the ventricular system with some hemorrhage within the left lateral ventricle. There is a small amount hemorrhage within the posterior horn of the right lateral ventricle as well. Kirt Pretty MD Objective Remarks GENERAL: Elderly and frail male in no apparent distress. CARDIOVASCULAR: Normal rate and regular rhythm without murmurs, gallops, or rubs. RESPIRATORY: breath sounds equal and clear to auscultation bilaterally. GASTROINTESTINAL: Abdomen soft, non-tender, non-distended. Normal active bowel sounds MUSCULOSKELETAL: Extremities without cyanosis, or edema. NEURO: Awake. Does not follow commands or answer questions appropriately. Nonsensical speech. PSYCH: Calm. A/P Assessment and Plan 67-year-old male admitted with failure to thrive and severe malnutrition. Patient later developed mumbled speech with aphasia. MRI revealed ICH: ICH: MRI revealed a 4.4 x 7.5 cm area of intracranial hemorrhage involving the left temporal occipital cortex. - Neurosurgery following. Advise nonoperative management for now. Repeat Brain CAT scan today and tomorrow. - Keppra 500 mg IV twice a day. - Coumadin reversed. Hold all anticoagulants. - Neurochecks. Severe malnutrition due to decreased oral intake, poor BMI, and functional capacity. Dietitian following. COPD, chronic: DuoNeb as needed. Coronary artery disease status post CABG:Cardiac catheterization showed no significant acute coronary disease. On anticoagulants and antiplatelets discontinued. History of aortic stenosis: Status post bioprosthetic aortic valve replacement. Coumadin on hold due to ICH. Atrial fibrillation: Rate controlled. Anticoagulation on hold due to ICH. Hyponatremia: May be Hypovolemic hyponatremia vs SIADH. He has fluctuating sodium levels. Increase IVF with 1/2 NS to 100 cc/Hr. FU BMP. Hypertension, essential: Continue lisinopril. Overall control. Hyperlipidemia: Continue statin. BPH: Continue Flomax. DVT prophylaxis: SCDs. Pharmacological prophylaxis contraindicated due to ICH. Pasha Sal MD Mar 11, 2017 14:01
[2017-03-11 15:29] LABS: BLOOD GAS BASE EXCESS 2.2 mmol/L (-2-2); BLOOD GAS CARBOXYHEMOGLOBIN 1.5 % (0-4); BLOOD GAS HCO3 26 mmol/L (22-26); BLOOD GAS METHEMOGLOBIN 0.6 % (0-2); BLOOD GAS O2 HGB SATURATION 96 % (90-100); BLOOD GAS OXYGEN CONTENT 14.6 Vol % (12.0-20.0); BLOOD GAS PCO2 40 mmHg (38-42); BLOOD GAS PO2 108 mmHg (61-120); BLOOD GAS TOTAL HGB 10.7 G/DL (12.0-16.0); TEMP CORR TO 98.6
[2017-03-11 15:30] LABS: CRITICAL VALUE NO; DRAW SITE RT RADIAL; LITER FLOW 1 L/M; NUMBER OF ARTERIAL PUNCTURES 1; OXYGEN DEVICE NASAL CANNULA; STAT YES; ULNAR PULSE PRESENT
--- NOTE | 2017-03-11 15:31 | PD.CONS ---
[facility] Service Critical Care Medicine Consult Requested By Dr. Corona Reason for Consult Large Left temporal occipital intracranial hemorrhage, with mass effect and IVH Acute encephalopathy Coagulopathy due to Coumadin Hyponatremia Primary Care Physician Torsten Zuñiga MD History of Present Illness Mr. Denis is a 67 year old male with a history of COPD, chronic atrial fibrillation, history of CABG, history of AVR, chronic Coumadin use who was admitted 03/07/17 to [facility] for failure to thrive. He was initially admitted to psychiatry service from 02/28/2017 - 03/07/2017 due to visual and auditory hallucinations. . He had recently underwent cardiac catheterization on 2016 - did not show any significant CAD per report. Psychiatry service did not think that failure to thrive, flat effect, hallucinations etc was due to any psychiatric illness and patient was transferred to hospitalist service to rule out any medical, metabolic or structural causes. Patient underwent a routine MRI yesterday 03/10/17, which showed large acute intracranial hemorrhage involving the left temporal occipital cortex measuring at least 4.4 x 7.5 cm, with extensive mass effect, hemorrhage within the left lateral ventricle, small amount hemorrhage into posterior horn of the right lateral ventricle. Neurosurgery Dr. Bustillo was consulted. He recommended against surgical intervention due to recent anticoagulation with Coumadin and bleed being probably several days old. He did not recommend EVD due to GCS >8. CCM was consulted today due to ICH, slight worsening of mental status and persistent hyponatremia. Patient's Coumadin and aspirin was held 03/10/17 after the MRI showed ICH and vitamin K was given. INR 1.4 yesterday 1.2 today. I evaluated patient in ICU immediately after consult. Patient is lethargic ( but received Ativan few hours ago to facilitate CT of the head), responds to stimulation, moving all extremities purposefully, Mumbling few words, GCS 8-9. Na 130, i have started 2% saline with frequent neuro checks and Na monitoring Review of Systems ROS Limitations: Altered Mental Status Past Family Social History Allergies: Coded Allergies: No Known Allergies (Verified , 02/20/17) Past Medical History COPD Hypertension CAD s/p 2 Vessel CABG Aortic stenosis s/p AVR Atrial fibrillation. Past Surgical History Aortic valve replacement. CABG Back surgery Reported Medications Warfarin 2.5 Mg Tab 2.5 Mg PO DAILY Tamsulosin (Tamsulosin HCl) 0.4 Mg Cap 0.4 Mg PO DAILY Zocor (Simvastatin) 20 Mg Tab 20 Mg PO HS Nitrostat SL (Nitroglycerin) 0.4 Mg Subl 0.4 Mg SL DIRECTED PRN Lisinopril 10 Mg Tab 10 Mg PO DAILY Active Ordered Medications Reviewed Family History Unable to obtain due to altered mental status Social History Per records quit smoking in 2005. Hx of alcohol abuse Physical Exam Vital Signs Vital Signs Date Time Temp Pulse Resp B/P (MAP) Pulse Ox O2 Delivery O2 Flow Rate FiO2 03/11/17 08:29 98 Nasal Cannula 1.00 03/11/17 08:00 62 03/11/17 08:00 98.2 69 24 132/77 (95) 100 03/11/17 08:00 Nasal Cannula 1.00 100 03/11/17 06:00 73 03/11/17 04:00 76 03/11/17 04:00 98.6 76 23 131/63 (85) 100 03/11/17 02:00 68 03/11/17 00:00 66 03/11/17 00:00 98.7 65 22 98/55 (69) 100 03/10/17 22:00 90 03/10/17 20:22 97 Nasal Cannula 2.00 03/10/17 20:00 99 03/10/17 17:30 98.0 72 16 112/67 (82) 96 Physical Exam GENERAL: Elderly thin built male was somnolent, lethargic SKIN: Warm and dry. HEAD: Atraumatic. Normocephalic. EYES: Pupils equal round and reactive. No injection or drainage. ENT: Oral cavity is moist. Airway patent. NECK: Trachea midline. Supple, nontender, no meningeal signs. CARDIOVASCULAR: Regular rate and rhythm without murmurs, gallops, or rubs. No JVD. RESPIRATORY: Clear to auscultation. Breath sounds equal bilaterally. No wheezes GASTROINTESTINAL: Abdomen soft, non-tender, nondistended. No guarding. MUSCULOSKELETAL: Extremities without clubbing, cyanosis, or edema. NEUROLOGICAL: Patient is lethargic but, response to stimulation. (Received Ativan prior to CT head 3 hours prior to my exam). Moves all extremities purposefully. GCS 9 at this time Laboratory Laboratory Tests Test 03/10/17 19:30 03/11/17 05:03 Nasal Screen MRSA (PCR) MRSA NOT DETECTED Prothrombin Time 13.4 Prothromb Time International Ratio 1.2 Blood Urea Nitrogen 14 Creatinine 0.67 Random Glucose 92 Calcium Level 8.4 Sodium Level 130 Potassium Level 4.2 Chloride Level 95 Carbon Dioxide Level 27.2 Anion Gap 8 Estimat Glomerular Filtration Rate 119 Result Diagram: 03/09/17 0610 03/11/[address] of the head and MRI of brain showed large left temporal occipital intracranial hemorrhage with intraventricular hemorrhage Assessment and Plan Assessment and Plan NEURO: Large Left temporal occipital intracranial hemorrhage, with mass effect and IVH Acute encephalopathy History of alcohol abuse - According to neurosurgery, intracranial hemorrhage is several days old, CT of the head is stable without hydrocephalus, and GCS is more than 8 (prior to Ativan) - No indication for surgical intervention or EVD at this time per neurosurgery - Patient may need intubation and mechanical ventilation, if mental status or respiratory status worsens - Sodium is 130, target 145-150, NS at 100 ml per hour and 2% saline at 40 ml per hour - Coagulopathy corrected, Coumadin and aspirin held since 03/10/17 - Ryder for seizure prophylaxis - Replace thiamine and multivitamin - Ativan when necessary for possible alcohol withdrawal, agitation RESP: Acute respiratory insufficiency COPD - Nasal cannula oxygen to keep SaO2>90% - DuoNeb every 6 hours scheduled and when necessary - Patient may need endotracheal intubation if mental status not improving - Aggressive pulmonary toilet CV: Coronary artery disease status post CABG 2 Status post AVR for aortic stenosis (Tissue valve in 2005) Chronic atrial fibrillation on Coumadin - Normal saline IV fluids 100 ml per hour, 2% saline at 50 ml per hour - Check 2d echo once more stable - Coumadin and aspirin on hold indefinitely - Target systolic blood pressure less than 140, use PRN Hydralazine - Patient is on Catapres patch and amlodipine-continue for now GI: - Nothing by mouth except meds, IV famotidine - Bowel regimen with Phil[place]-Colace : - Monitor renal function closely. Place Kenny catheter for strict intake output ID: - Monitor closely for infection HEME: Chronic Coumadin use - Monitor CBC, CMP, INR - Received vitamin K yesterday INR is 1.2 today no indication for FFP ENDO: Hyponatremia - Continue sodium correction with normal saline and 2% saline - Target sodium more than 145 PROPH: - Bilateral lower extremity SCDs. IV famotidine LINES: - Utilize peripheral IVs, central line if needed CC time 55 min Patient is critically ill with very large intracranial hemorrhage involving left temporal and occipital lobes. Any expansion of the bleed medicines and acute decompensation and . Monitor closely in the ICU Code Status Full Discussed Condition With Dr. Corona, Bedside RN Mariana Sarmiento MD Mar 11, 2017 15:31
[2017-03-11] MEDS ORDERED: POTASSIUM CHLORIDE 25 MEQ EFFERVESCENT TAB PO PRN (16:00)
[2017-03-11] MEDS ORDERED: POTASSIUM PHOSPHATE INJ 30 MMOL in SODIUM CHLOR 0.9% 250 ML INJ 250 ML IV PRN (16:00)
[2017-03-11] MEDS ORDERED: POTASSIUM PHOSPHATE MONOBASIC 500 MG TAB PO PRN (16:00)
[2017-03-11] MEDS ORDERED: POTASSIUM PHOSPHATE MONOBASIC 500 MG TAB PO/TUBE PRN (16:00)
[2017-03-11] MEDS ORDERED: MAGNESIUM OXIDE 400 MG TAB PO PRN (16:00)
[2017-03-11] MEDS ORDERED: MAGNESIUM SULFATE INJ 4 GM in SODIUM CHLORIDE 0.9% INJ 92 ML IV PRN (16:00)
[2017-03-11] MEDS ORDERED: SODIUM PHOSPHATE INJ 30 MMOL in SODIUM CHLOR 0.9% 250 ML INJ 240 ML IV PRN (16:00)
[2017-03-11] MEDS ORDERED: POTASSIUM CHLOR 20 MEQ PREMIX 100 ML IV PRN ×2 (16:00)
[2017-03-11] MEDS ORDERED: POTASSIUM CHLOR 40 MEQ PREMIX 100 ML IV PRN ×2 (16:00)
[2017-03-11] MEDS ORDERED: MAGNESIUM SULFATE INJ 2 GM in SODIUM CHLORIDE 0.9% INJ 96 ML IV PRN (16:00)
[2017-03-11] MEDS: SODIUM CHLORIDE 23.4% INJ 188 MEQ in SODIUM CHLOR 0.9% 1000 ML INJ 1,000 ML IV SCH (16:25)
[2017-03-11] MEDS: RESP: ALBUTEROL 2.5 MG/IPRATROPIUM 0.5 MG NEB (SCH) NEB ×2 (17:31→22:00)
[2017-03-11] MEDS: FAMOTIDINE 20 MG/2 ML VIAL IV PUSH SCH (17:47)
[2017-03-11] MEDS: MULTIVITAMIN INJ 10 ML, THIAMINE INJ 100 MG, FOLIC ACID INJ 1 MG in SODIUM CHLORID 0.9%... IV SCH (17:47)
[2017-03-11] MEDS: PRAVASTATIN SOD 40 MG TAB PO SCH (20:27)
[2017-03-11 21:46] LABS: MAGNESIUM 1.9 MG/DL (1.5-2.5)
[2017-03-12] VITALS (11 sets, daily range): BP systolic 122–145; BP diastolic 64–70; PULSE 58–92; RESP 12–20; TEMP 97.5–98.6; O2SAT 94–100
[2017-03-12] MEDS: FAMOTIDINE 20 MG/2 ML VIAL IV PUSH SCH ×2 (03:43→16:46)
[2017-03-12] MEDS: RESP: ALBUTEROL 2.5 MG/IPRATROPIUM 0.5 MG NEB (SCH) NEB ×4 (04:14→20:44)
[2017-03-12 04:41] LABS: AUTOMATED NEUTROPHIL # 5.5 TH/MM3 (1.8-7.7); BASOPHIL # 0.1 TH/MM3 (0-0.2); BASOPHIL % 1.3 % (0.0-2.0); EOSINOPHIL # 0.1 TH/MM3 (0-0.4); EOSINOPHIL % 1.1 % (0.0-4.0); HEMATOCRIT 31.8 % (39.0-51.0); HEMO FLAGS DIFF FINAL; LYMPH % 10.4 % (9.0-44.0); LYMPHOCYTE # 0.7 TH/MM3 (1.0-4.8); MEAN CELL VOLUME 91.8 FL (80.0-100.0); MEAN CORPUSCULAR HGB CONC 34.9 % (32.0-36.0); MONO % 5.3 % (0.0-8.0); NEUT % 81.9 % (16.0-70.0); PLATELET COUNT 125 TH/MM3 (150-450); RED BLOOD COUNT 3.47 MIL/MM3 (4.50-5.90); RED CELL DISTRIBUTION WIDTH 14.2 % (11.6-17.2); WHITE BLOOD COUNT 6.8 TH/MM3 (4.0-11.0)
[2017-03-12 04:58] LABS: PROTHROMBIN TIME - PATIENT 11.3 SEC (9.8-11.6)
--- NOTE | 2017-03-12 05:35 | RADRPT ---
EXAM DATE/TIME: 03/12/2017 03:43 [place] COMPARISON: CHEST SINGLE AP, March 10, 2017, 12:19. INDICATIONS : Shortness of breath MEDICAL HISTORY : Myocardial infarction. Chronic obstructive pulmonary disease. Congestive heart failure. SURGICAL HISTORY : CABG. ENCOUNTER: Subsequent ACUITY: 2 weeks PAIN SCORE: 5/10 LOCATION: Bilateral chest FINDINGS: A single view of the chest demonstrates postoperative CABG. Tortuous aorta. Minimal dependent atelect asis in the lungs. No significant effusion. No pneumothorax. CONCLUSION: 1. Postoperative CABG. Mild dependent atelectasis in the lungs. Fransisco Brooke MD on March 12, 2017 at 5:31 Board Certified Radiologist. This report was verified electronically.
[2017-03-12] MEDS: levETIRAcetam INJ 500 MG in SODIUM CHLORIDE 0.9% INJ 100 ML IV SCH ×2 (09:22→20:21)
[2017-03-12] MEDS: TAMSULOSIN HCL 0.4 MG CAP PO SCH (09:24)
[2017-03-12] MEDS: amLODIPine BESYLATE 5 MG TAB PO SCH (09:24)
[2017-03-12] MEDS: LISINOPRIL 20 MG TAB PO SCH (09:24)
[2017-03-12] MEDS: DOCUSATE SODIUM 50 MG/SENNA 8.6 MG TAB PO SCH ×2 (09:25→20:21)
[2017-03-12] MEDS: SODIUM CHLORIDE 0.9% FLUSH 10 ML FLUSH IV FLUSH SCH ×2 (09:26→20:21)
[2017-03-12] MEDS: MULTIVITAMIN INJ 10 ML, THIAMINE INJ 100 MG, FOLIC ACID INJ 1 MG in SODIUM CHLORID 0.9%... IV SCH (09:31)
[2017-03-12] MEDS: NS + KCL 20 MEQ INJ 1,000 ML IV SCH (10:06)
--- NOTE | 2017-03-12 12:05 | HHI.NSPN ---
History Interval History 03/10: Mr. Denis is a 67 year old male with a history of COPD who was admitted today for failure to thrive after being under the care of psychiatry service from 02/28/2017 - 03/07/2017. On 02/23/2017, Mr. Denis to the emergency department due to chest pain, shortness of breath. Upon admission he was started on antibiotics, breathing treatments. Cardiology was consulted for mild elevation in troponins. Peak troponin was 0.12. Patient underwent cardiac catheterization on 02/24/2017 - did not show any coronary artery disease. While medically patient remained stable, he had hallucinations and he did not eat or get up from bed. After evaluating, psychiatry guerrero acted him and subsequently patient was discharged to Psychiatry service. While in psychiatry service, patient was started on abilify which did not improve his symptoms. Patient has a very flat affect, does not eat, talk or get up. Psychiatry service do not feel that his condition is primarily psychiatric. Patient was subsequently discharged from psychiatry and admitted to hospitalist service on 03/07/2017. Patient had a routine MRI of the Brain to evaluate for AMS which showed a large Left Occipital ICH with IVH (w/o HCP). 03/11: Patient is stable. Ativan given for agitation. Opens eyes to stim, but not following commands. 03/13: Patient feeling better. OES, FC, MAESx4. No headache. Exam Results Vital Signs Date Time Temp Pulse Resp B/P (MAP) Pulse Ox O2 Delivery O2 Flow Rate FiO2 03/12/17 10:00 98 21 03/12/17 10:00 68 03/12/17 08:00 97.9 20 133/64 (87) 03/12/17 07:00 Room Air 03/11/17 20:26 1.00 Intake and Output 03/12/17 03/12/17 03/13/17 08:00 16:00 00:00 Intake Total 0 ml 1105 ml Output Total 1500 ml Balance -1500 ml 1105 ml Physical Examination AA0x1 (person only) OES FS EDMUNDO x 4 FC x 4 Lab, Micro, Other Results Last Impressions Head CT 03/11/17 0000 Signed Impressions: Service Date/Time: Saturday, March 11, 2017 12:14 - CONCLUSION: 1. Sizable area of intraparenchymal hemorrhage involving the left posterior temporal and occipital cortex. There is some degree of intraventricular hemorrhage as well. Changes are similar to previous MRI dated 03/10/17. Kirt Pretty MD Chest X-Ray 03/10/17 0000 Signed Impressions: Service Date/Time: Friday, March 10, 2017 12:19 - CONCLUSION: No acute disease. Timothy Pretty MD FACR Brain MRI 03/10/17 0000 Signed Impressions: Service Date/Time: Friday, March 10, 2017 16:51 - CONCLUSION: 1. There is an area of acute intracranial hemorrhage involving the left temporal occipital cortex measuring at least 4.4 x 7.5 cm. There is extensive mass effect associated with this. There is rupture into the ventricular system with some hemorrhage within the left lateral ventricle. There is a small amount hemorrhage within the posterior horn of the right lateral ventricle as well. Kirt Pretty MD Current Medications Medications (Trade) Dose Ordered Sig/Danielle Route PRN Reason Start Time Stop Time Status Last Admin Dose Admin Sodium Chloride (NS Flush) 2 ml UNSCH PRN IV FLUSH FLUSH AFTER USING IV ACCESS 03/07/17 18:30 Sodium Chloride (NS Flush) 2 ml BID IV FLUSH 03/07/17 21:00 03/12/17 09:26 Acetaminophen (Tylenol) 650 mg Q4H PRN PO Headache, fever, pain 1-4 03/07/17 18:30 03/10/17 11:08 Ondansetron HCl (Zofran Inj) 4 mg Q6H PRN IVP NAUSEA OR VOMITING 03/07/17 18:30 Naloxone HCl (Narcan Inj) 0.4 mg UNSCH PRN IV PUSH SEE LABEL COMMENTS 03/07/17 18:30 Senna/Docusate Sodium (Philly-Colace) 1 tab BID PO 03/07/17 21:00 03/10/17 11:08 Magnesium Hydroxide (Milk Of Magnesia Liq) 30 ml Q12H PRN PO MILD - MODERATE CONSTIPATION 03/07/17 18:30 03/10/17 11:09 Sennosides (Senokot) 17.2 mg Q12H PRN PO MODERATE - SEVERE CONSTIPATION 03/07/17 18:30 Bisacodyl (Dulcolax Supp) 10 mg DAILY PRN RECTAL SEVERE CONSITIPATION 03/07/17 18:30 Lactulose (Lactulose Liq) 30 ml DAILY PRN PO SEVERE CONSITIPATION 03/07/17 18:30 Albuterol/ Ipratropium (Duoneb Neb) 1 ampule Q4HR NEB PRN NEB Dyspnea 03/07/17 18:45 Clonidine (Catapres-Tts 0.1mg Patch.7d) 1 patch Q7D T-DERMAL 03/07/17 20:00 03/07/17 22:36 Amlodipine Besylate (Norvasc) 5 mg DAILY PO 03/08/17 09:00 03/12/17 09:24 Lisinopril (Prinivil) 20 mg DAILY PO 03/08/17 09:00 03/12/17 09:24 Pravastatin Sodium (Pravachol) 40 mg HS PO 03/07/17 21:00 03/10/17 21:00 Tamsulosin HCl (Flomax) 0.4 mg DAILY PO 03/08/17 09:00 03/12/17 09:24 Miscellaneous Information 1 Q7D T-DERMAL 03/14/17 20:00 Potassium Chloride/Sodium Chloride 1,000 ml @ 100 mls/hr Q10H IV 03/09/17 08:45 03/12/17 10:06 Levetriacetam 500 mg/Sodium Chloride 105 ml @ 420 mls/hr Q12HR IV 03/11/17 12:00 03/12/17 09:22 Sodium Chloride 188 meq/Sodium Chloride 1,047 ml @ 40 mls/hr Q24H IV 03/11/17 15:30 03/11/17 16:25 Albuterol/ Ipratropium (Duoneb Neb) 1 ampule Q6HR NEB NEB 03/11/17 16:00 03/12/17 09:59 Potassium Chloride 100 ml @ 50 mls/hr Q2H PRN IV For Potassium 2.8 - 3.2 mEq/L 03/11/17 16:00 Potassium Chloride 100 ml @ 50 mls/hr Q2H PRN IV For Potassium 2.8 - 3.2 mEq/L 03/11/17 16:00 Potassium Bicarb/ Potassium Chloride (K-Lyte Cl Eff) 50 meq UNSCH PRN PO For Potassium 3.3 - 3.5 mEq/L 03/11/17 16:00 Potassium Chloride 100 ml @ 25 mls/hr UNSCH PRN IV For Potassium 3.3 - 3.5 mEq/L 03/11/17 16:00 Potassium Chloride 100 ml @ 50 mls/hr Q2H PRN IV For Potassium 3.3 - 3.5 mEq/L 03/11/17 16:00 Magnesium Sulfate 4 gm/Sodium Chloride 100 ml @ 50 mls/hr UNSCH PRN IV For Magnesium 0.9 - 1.1 mg/dL 03/11/17 16:00 Magnesium Oxide (Mag-Ox) 800 mg UNSCH PRN PO For Magnesium 1.2 - 1.6 mg/dL 03/11/17 16:00 Magnesium Sulfate 2 gm/Sodium Chloride 100 ml @ 50 mls/hr UNSCH PRN IV For Magnesium 1.2 - 1.6 mg/dL 03/11/17 16:00 Potassium Phosphate (K-Phos) 2,000 mg Q4H PRN PO For Phosphorus < 2.5 mg/dL 03/11/17 16:00 Sodium Phosphate 30 mmol/Sodium Chloride 250 ml @ 42 mls/hr UNSCH PRN IV For Phosphorus < 2.5 mg/dL 03/11/17 16:00 Potassium Phosphate (K-Phos) 2,000 mg UNSCH PRN PO/TUBE SEE LABEL COMMENTS 03/11/17 16:00 Potassium Phosphate 30 mmol/ Sodium Chloride 260 ml @ 42 mls/hr UNSCH PRN IV SEE LABEL COMMENTS 03/11/17 16:00 Famotidine (Pepcid Inj) 20 mg Q12H IV PUSH 03/11/17 16:00 03/12/17 03:43 Multivitamins 10 ml/Thiamine HCl 100 mg/Folic Acid 1 mg/Sodium Chloride 511.2 ml @ 125 mls/hr DAILY IV 03/11/17 17:00 03/12/17 09:31 Hydralazine HCl (Apresoline Inj) 20 mg Q4H PRN IV PUSH SYS BP GREATER THAN 140 MMHG 03/11/17 16:15 Laboratory Tests Test 03/10/17 13:23 03/10/17 19:30 03/11/17 05:03 03/11/17 15:15 Blood Urea Nitrogen 15 MG/DL 14 MG/DL Creatinine 0.68 MG/DL 0.67 MG/DL Random Glucose 106 MG/DL 92 MG/DL Total Protein 6.4 GM/DL Albumin 2.6 GM/DL Calcium Level 8.2 MG/DL 8.4 MG/DL Alkaline Phosphatase 73 U/L Aspartate Amino Transf (AST/SGOT) 38 U/L Alanine Aminotransferase (ALT/SGPT) 30 U/L Total Bilirubin 0.5 MG/DL Direct Bilirubin 0.2 MG/DL Sodium Level 129 MEQ/L 130 MEQ/L Potassium Level 3.6 MEQ/L 4.2 MEQ/L Chloride Level 93 MEQ/L 95 MEQ/L Carbon Dioxide Level 27.0 MEQ/L 27.2 MEQ/L Indirect Bilirubin 0.3 MG/DL Nasal Screen MRSA (PCR) MRSA NOT DETECTED Anion Gap 8 MEQ/L Estimat Glomerular Filtration Rate 119 ML/MIN Blood Gas Puncture Site RT RADIAL Blood Gas Patient Temperature 98.6 Blood Gas HCO3 26 mmol/L Blood Gas Base Excess 2.2 mmol/L Blood Gas Oxygen Saturation 96 % Arterial Blood pH 7.43 Arterial Blood Partial Pressure CO2 40 mmHg Arterial Blood Partial Pressure O2 108 mmHg Arterial Blood Oxygen Content 14.6 Vol % Arterial Blood Carboxyhemoglobin 1.5 % Arterial Blood Methemoglobin 0.6 % Blood Gas Hemoglobin 10.7 G/DL Oxygen Delivery Device NASAL CANNULA Blood Gas Liter Flow 1 L/M Test 03/11/17 18:07 03/12/17 04:13 03/12/17 10:46 Phosphorus Level 2.4 MG/DL Magnesium Level 1.9 MG/DL White Blood Count 6.8 TH/MM3 Red Blood Count 3.47 MIL/MM3 Hemoglobin 11.1 GM/DL Hematocrit 31.8 % Mean Corpuscular Volume 91.8 FL Mean Corpuscular Hemoglobin 32.0 PG Mean Corpuscular Hemoglobin Concent 34.9 % Red Cell Distribution Width 14.2 % Platelet Count 125 TH/MM3 Mean Platelet Volume 7.7 FL Neutrophils (%) (Auto) 81.9 % Lymphocytes (%) (Auto) 10.4 % Monocytes (%) (Auto) 5.3 % Eosinophils (%) (Auto) 1.1 % Basophils (%) (Auto) 1.3 % Neutrophils # (Auto) 5.5 TH/MM3 Lymphocytes # (Auto) 0.7 TH/MM3 Monocytes # (Auto) 0.4 TH/MM3 Eosinophils # (Auto) 0.1 TH/MM3 Basophils # (Auto) 0.1 TH/MM3 CBC Comment DIFF FINAL Differential Comment Prothrombin Time 11.3 SEC Prothromb Time International Ratio 1.0 RATIO Sodium Level 133 MEQ/L Medical Decision Making Impression and Plan Assessment and Plan Diagnosis: (1) Intracranial hemorrhage Status: Acute Plan: Patient has a Large Left Occipital ICH with IVH(w/o HCP) with improving Neurologic Exam Recommend: 1. Hold all full dose anticoagulation for 2 weeks. 2. Coumadin Reversed. 3. Ok to advance diet after speech evaluation 4. Keppra 500mg IV BID for 7 days only for IVH. 5. No need for further scans at this time, PT, OK to transfer to floor in am No further Neurosurgery intervention need at this time. Will Sign-off. Please call with any questions or concerns. Total Minutes: 39 Nakul Bustillo MD Mar 12, 2017 12:05
[2017-03-12] MEDS: hydrALAZINE HCL 20 MG/ML VIAL IV PUSH PRN (13:06)
--- NOTE | 2017-03-12 14:32 | HHI.CCPN ---
Subjective Remarks/Hospital Course Mr. Denis is a 67 year old male with a history of COPD, chronic atrial fibrillation, history of CABG, history of AVR, chronic Coumadin use who was admitted 03/07/17 to [facility] for failure to thrive. He was initially admitted to psychiatry service from 02/28/2017 - 03/07/2017 due to visual and auditory hallucinations. . He had recently underwent cardiac catheterization on 2016 - did not show any significant CAD per report. Psychiatry service did not think that failure to thrive, flat effect, hallucinations etc was due to any psychiatric illness and patient was transferred to hospitalist service to rule out any medical, metabolic or structural causes. Patient underwent a routine MRI yesterday 03/10/17, which showed large acute intracranial hemorrhage involving the left temporal occipital cortex measuring at least 4.4 x 7.5 cm, with extensive mass effect, hemorrhage within the left lateral ventricle, small amount hemorrhage into posterior horn of the right lateral ventricle. Neurosurgery Dr. Bustillo was consulted. He recommended against surgical intervention due to recent anticoagulation with Coumadin and bleed being probably several days old. He did not recommend EVD due to GCS >8. CCM was consulted today due to ICH, slight worsening of mental status and persistent hyponatremia. Patient's Coumadin and aspirin was held 03/10/17 after the MRI showed ICH and vitamin K was given. INR 1.4 yesterday 1.2 today. I evaluated patient in ICU immediately after consult. Patient is lethargic ( but received Ativan few hours ago to facilitate CT of the head), responds to stimulation, moving all extremities purposefully, Mumbling few words, GCS 8-9. Na 130, i have started 2% saline with frequent neuro checks and Na monitoring SUBJ 03/12: Patient seems to be stabilized from intracranial hemorrhage, moving all extremities intermittently following commands intermittently but appears to be in alcohol withdrawal now. Per Neurosurgery- no indication for further scans at this time unless clinical deterioration. Sodium 133, increase 2% percent saline to 60 ML per hour Objective Vital Signs Date Time Temp Pulse Resp B/P (MAP) Pulse Ox O2 Delivery O2 Flow Rate FiO2 03/12/17 12:00 63 03/12/17 12:00 97.9 14 122/68 (86) 96 03/12/17 10:00 21 03/12/17 07:00 Room Air 03/11/17 20:26 1.00 Intake and Output 03/12/17 03/12/17 03/13/17 08:00 16:00 00:00 Intake Total 0 ml 1105 ml Output Total 1500 ml Balance -1500 ml 1105 ml Result Diagram: 03/12/17 0413 03/12/17 1046 Other Results Laboratory Tests Test 03/11/17 15:15 Blood Gas Puncture Site RT RADIAL Blood Gas Patient Temperature 98.6 Blood Gas HCO3 26 mmol/L (22-26) Blood Gas Base Excess 2.2 mmol/L (-2-2) Blood Gas Oxygen Saturation 96 % (90-100) Arterial Blood pH 7.43 (7.380-7.420) Arterial Blood Partial Pressure CO2 40 mmHg (38-42) Arterial Blood Partial Pressure O2 108 mmHg (61-120) Arterial Blood Oxygen Content 14.6 Vol % (12.0-20.0) Arterial Blood Carboxyhemoglobin 1.5 % (0-4) Arterial Blood Methemoglobin 0.6 % (0-2) Blood Gas Hemoglobin 10.7 G/DL (12.0-16.0) Oxygen Delivery Device NASAL CANNULA Blood Gas Liter Flow 1 L/M Imaging CT of the head and MRI of brain showed large left temporal occipital intracranial hemorrhage with intraventricular hemorrhage Objective Remarks GENERAL: Elderly thin built male moving all extremities, agitated in restraints SKIN: Warm and dry. HEAD: Atraumatic. Normocephalic. EYES: Pupils equal round and reactive. No injection or drainage. ENT: Oral cavity is moist. Airway patent. NECK: Trachea midline. Supple, nontender, no meningeal signs. CARDIOVASCULAR: Regular rate and rhythm without murmurs, gallops, or rubs. No JVD. RESPIRATORY: Clear to auscultation. Breath sounds equal bilaterally. No wheezes GASTROINTESTINAL: Abdomen soft, non-tender, nondistended. No guarding. MUSCULOSKELETAL: Extremities without clubbing, cyanosis, or edema. NEUROLOGICAL: Patient is awake alert, eyes spontaneously open. Mumbles words. Positive expressive aphasia. Right upper extremity seems to be weaker than left. Intermittently follows commands A/P Assessment and Plan NEURO: Large Left temporal occipital intracranial hemorrhage, with mass effect and IVH Acute encephalopathy Alcohol withdrawal - According to neurosurgery, intracranial hemorrhage is several days old, CT of the head 03/11 stable without hydrocephalus - No indication for surgical intervention or EVD at this time. NS has signed off today. - Currently agitated due to alcohol withdrawal, receiving when necessary Ativan - Sodium is 133, target 145-150, NS at 100 ml per hour and 2% saline at 40 ml per hour, increase 2% to 60 ml per hour - Coagulopathy corrected, Coumadin and aspirin held since 03/10/17 - Keppra for seizure prophylaxis - Replace thiamine and multivitamin - Ativan when necessary for alcohol withdrawal, agitation. Avoid excessive sedation RESP: Acute respiratory insufficiency COPD - Nasal cannula oxygen to keep SaO2>90% - DuoNeb every 6 hours scheduled and when necessary - Patient may need endotracheal intubation if mental status not improving - Aggressive pulmonary toilet CV: Coronary artery disease status post CABG 2 Status post AVR for aortic stenosis (Tissue valve in 2005) Systolic murmur at the aortic area indicating probable aortic stenosis Chronic atrial fibrillation on Coumadin - Normal saline IV fluids 100 ml per hour, 2% saline at 60 ml per hour - Check 2d echo- systolic murmur concerning for AV restenosis - Coumadin and aspirin on hold indefinitely (At least two weeks prior to full anticoagulation per neurosurgery) - Target systolic blood pressure less than 140, use PRN Hydralazine - Patient is on Catapres patch and amlodipine-continue for now GI: - Nothing by mouth, famotidine. Start diet per speech recommendation - Bowel regimen with [place]-Colace : - Monitor renal function closely. Kenny catheter for strict intake output- change to condom catheter ID: - Monitor closely for infection HEME: Chronic Coumadin use - Monitor CBC, CMP, INR - Received vitamin K yesterday INR is 1.2 today no indication for FFP ENDO: Hyponatremia - Continue sodium correction with normal saline and 2% saline - Target sodium more than 140-145 PROPH: - Bilateral lower extremity SCDs. IV famotidine LINES: - Utilize peripheral IVs, central line if needed CC time 35 min Patient is critically ill with very large intracranial hemorrhage involving left temporal and occipital lobes, now complicated by alcohol withdrawal delirium. He is at acute risk of decompensation. Monitor closely in the ICU Mariana Sarmiento MD Mar 12, 2017 14:32
[2017-03-12] MEDS: SODIUM CHLORIDE 23.4% INJ 188 MEQ in SODIUM CHLOR 0.9% 1000 ML INJ 1,000 ML IV SCH (17:15)
[2017-03-12 18:50] LABS: ANION GAP 11 MEQ/L (5-15); AST (GOT) 35 U/L (15-37); BICARBONATE 23.4 MEQ/L (21.0-32.0); BLOOD UREA NITROGEN 7 MG/DL (7-18); CHLORIDE 99 MEQ/L (98-107); GLOMERULAR FILTRATION RATE 127 ML/MIN (>89); MAGNESIUM 1.7 MG/DL (1.5-2.5); POTASSIUM 4.3 MEQ/L (3.5-5.1); SODIUM (NA) 133 MEQ/L (136-145)
[2017-03-12 18:53] LABS: ALKALINE PHOSPHATASE 79 U/L (45-117); ALT (GPT) 26 U/L (12-78); TOTAL BILIRUBIN ADULT 0.7 MG/DL (0.2-1.0)
[2017-03-12] MEDS: PRAVASTATIN SOD 40 MG TAB PO SCH (20:21)
[2017-03-13] VITALS (12 sets, daily range): BP systolic 93–156; BP diastolic 53–77; PULSE 68–96; RESP 16–24; TEMP 98–98.6; O2SAT 95–100
[2017-03-13] MEDS: NS + KCL 20 MEQ INJ 1,000 ML IV SCH ×4 (01:00→16:06)
[2017-03-13] MEDS: RESP: ALBUTEROL 2.5 MG/IPRATROPIUM 0.5 MG NEB (SCH) NEB ×4 (03:50→23:12)
[2017-03-13] MEDS: FAMOTIDINE 20 MG/2 ML VIAL IV PUSH SCH ×2 (04:24→16:00)
[2017-03-13 04:47] LABS: PROTHROMBIN TIME - PATIENT 11.3 SEC (9.8-11.6)
[2017-03-13] MEDS: SODIUM CHLORIDE 23.4% INJ 188 MEQ in SODIUM CHLOR 0.9% 1000 ML INJ 1,000 ML IV SCH (09:24)
[2017-03-13] MEDS: levETIRAcetam INJ 500 MG in SODIUM CHLORIDE 0.9% INJ 100 ML IV SCH (09:26)
[2017-03-13] MEDS: TAMSULOSIN HCL 0.4 MG CAP PO SCH (09:33)
[2017-03-13] MEDS: LISINOPRIL 20 MG TAB PO SCH (09:33)
[2017-03-13] MEDS: DOCUSATE SODIUM 50 MG/SENNA 8.6 MG TAB PO SCH ×2 (09:33→21:40)
[2017-03-13] MEDS: SODIUM CHLORIDE 0.9% FLUSH 10 ML FLUSH IV FLUSH SCH ×2 (09:33→21:38)
[2017-03-13] MEDS: MULTIVITAMIN INJ 10 ML, THIAMINE INJ 100 MG, FOLIC ACID INJ 1 MG in SODIUM CHLORID 0.9%... IV SCH (09:33)
[2017-03-13] MEDS: amLODIPine BESYLATE 5 MG TAB PO SCH (09:33)
--- NOTE | 2017-03-13 15:17 | HHI.HCPN ---
Reason for visit Reason for visit a. To assist with evaluation and management of symptoms including: hallucinations,anxiety,confusion, shortness of breath, debility b. To assist medical decision maker(s) with: better understanding of current medical conditions; weighing benefits/burdens of medical treatment options; making medical treatment decisions. . (Trini Vanessa) Subjective/Interval History Mr. Denis is a 67-year-old male with a past medical history of psychosis, major depressive disorder, alcohol use disorder, COPD, CAD, hypertension. Patient presented to ED on 02/23/17 complaining of progressive shortness of breath, chest pain and coughing. EKG revealed normal sinus rhythm, normal axis , LVH by voltage criteria, nonspecific STT wave changes, heart rate 67 bpm. Patient medically treated with 2 baby aspirin in ED. Cardiac catheterization done 02/24/17, showed no significant CAD. EF 50-55%. Clinical course complicated by visual, auditory hallucinations, refusing to eat. Interval Note: MRI 03/10/17 revealed acute intracranial hemorrhage involving the left temporal occipital cortex with extensive mass effect. Neurosurgery Dr. Bustillo consulted 03/10/17, for evaluation of large left occipital intracranial hemorrhage with intraventricular hemorrhage. Neurosurgeon recommended nonsurgical intervention given recent anticoagulation. CT head 03/11/17 revealed a sizable area of intraparenchymal hemorrhage involving the left posterior temporal and occipital cortex with some degree of intraventricular hemorrhage is well.Coumadin and aspirin placed on hold after MRI results and vitamin K was administered. Laboratory workup revealed PT 15.8, INR 1.4. Patient transferred to ICU. Critical care care management Dr. Sarmiento consulted for medical management. Patient started on 2% saline for hyponatremia. Patient seen in ICU, alert and oriented to person place at not situation. Patient spontaneously moving all extremities but unable to follow commands for me. Bedside RN reported that patient intermittently follows commands. Patient is afebrile and hemodynamically stable. He is on room air, in no acute distress. O2 saturation high 90s. Laboratory workup today revealed sodium 136 , PT 11.3, INR 1.0. Telephone conversation with daughter. Medical status update provided.Daughter appreciative of telephone call. Readdressed code status and goals remain aggressive. Case discussed with bedside RN . (Trini Vanessa) Advance Directives Living Will: Never completed Health Care Surrogate: Never completed Durable Power of Single End Sewer: Never completed (Trini Vanessa) Objective Vital Signs Date Time Temp Pulse Resp B/P (MAP) Pulse Ox O2 Delivery O2 Flow Rate FiO2 03/13/17 14:00 74 03/13/17 12:00 98.4 70 20 130/68 (88) 96 03/13/17 12:00 70 03/13/17 10:00 81 03/13/17 08:00 98.6 68 16 93/53 (66) 97 03/13/17 08:00 68 03/13/17 07:00 99 Room Air 03/13/17 06:00 77 03/13/17 04:00 81 03/13/17 04:00 98.0 81 24 128/66 (86) 95 03/13/17 02:00 82 03/13/17 00:00 83 03/13/17 00:00 98.1 83 24 108/70 (83) 98 03/12/17 20:47 97 03/12/17 20:00 78 03/12/17 20:00 98.6 78 20 140/68 (92) 96 03/12/17 19:00 99 Room Air 03/12/17 18:00 92 03/12/17 16:00 71 03/12/17 16:00 97.5 71 12 122/70 (87) 94 Intake & Output 03/13/17 03/13/17 07:00 19:00 Intake Total 2220 ml 1032 ml Output Total 1275 ml Balance 945 ml 1032 ml IV Total 2220 ml 1032 ml Output Urine Total 1275 ml # Bowel Movements 0 Physical Exam CONSTITUTIONAL/GENERAL: This is an elderly cachectic male, in no acute distress. TUBES/LINES/DRAINS: PIV, Condom catheter SKIN: No jaundice, rashes, or lesions. Ecchymoses to upper extremities. No wounds seen anteriorly. Skin temperature appropriate. Not diaphoretic. HEAD: Atraumatic. Normocephalic. EYES: Pupils equal and round and reactive. Extraocular motions intact. No scleral icterus. No injection or drainage. Fundi not examined. ENT: Hearing grossly normal. Nose without bleeding or purulent drainage. Moist oral mucosa. NECK: Trachea midline. Supple, nontender. CARDIOVASCULAR: Regular rate and rhythm without murmurs, gallops, or rubs. No JVD. Peripheral pulses symmetric. RESPIRATORY/CHEST: Symmetric, unlabored respirations. Rhonchi to auscultation. GASTROINTESTINAL: Abdomen soft, non-tender, nondistended. No guarding. Bowel sounds present. GENITOURINARY: Without palpable bladder distension. Condom catheter. MUSCULOSKELETAL: Extremities without clubbing, cyanosis, or edema. No joint tenderness or effusion noted. No calf tenderness. No mottling or clubbing. NEUROLOGICAL: Awake and alert. Motor and sensory grossly within normal limits. Spontaneously moving all extremities.Speech much clearer today than it was on . PSYCHIATRIC: No apparent hallucinations at this time. Patient has bilateral upper extremities soft restraints. . ([place],Trini FLIGHT PARAMEDIC) Diagnostic Tests Laboratory Laboratory Tests Test 03/10/17 19:30 03/11/17 05:03 03/11/17 15:15 03/11/17 18:07 Nasal Screen MRSA (PCR) MRSA NOT DETECTED (NOT Prothrombin Time 13.4 SEC (9.8-11.6) Prothromb Time International Ratio 1.2 RATIO Blood Urea Nitrogen 14 MG/DL (7-18) Creatinine 0.67 MG/DL (0.60-1.30) Random Glucose 92 MG/DL (74-106) Calcium Level 8.4 MG/DL (8.5-10.1) Sodium Level 130 MEQ/L (136-145) 131 MEQ/L (136-145) Potassium Level 4.2 MEQ/L (3.5-5.1) Chloride Level 95 MEQ/L (98-107) Carbon Dioxide Level 27.2 MEQ/L (21.0-32.0) Anion Gap 8 MEQ/L (5-15) Estimat Glomerular Filtration Rate 119 ML/MIN (>89) Blood Gas Puncture Site RT RADIAL Blood Gas Patient Temperature 98.6 Blood Gas HCO3 26 mmol/L (22-26) Blood Gas Base Excess 2.2 mmol/L (-2-2) Blood Gas Oxygen Saturation 96 % (90-100) Arterial Blood pH 7.43 (7.380-7.420) Arterial Blood Partial Pressure CO2 40 mmHg (38-42) Arterial Blood Partial Pressure O2 108 mmHg (61-120) Arterial Blood Oxygen Content 14.6 Vol % (12.0-20.0) Arterial Blood Carboxyhemoglobin 1.5 % (0-4) Arterial Blood Methemoglobin 0.6 % (0-2) Blood Gas Hemoglobin 10.7 G/DL (12.0-16.0) Oxygen Delivery Device NASAL CANNULA Blood Gas Liter Flow 1 L/M Phosphorus Level 2.4 MG/DL (2.5-4.9) Magnesium Level 1.9 MG/DL (1.5-2.5) Test 03/12/17 04:13 03/12/17 10:46 03/12/17 17:41 03/12/17 21:27 White Blood Count 6.8 TH/MM3 (4.0-11.0) Red Blood Count 3.47 MIL/MM3 (4.50-5.90) Hemoglobin 11.1 GM/DL (13.0-17.0) Hematocrit 31.8 % (39.0-51.0) Mean Corpuscular Volume 91.8 FL (80.0-100.0) Mean Corpuscular Hemoglobin 32.0 PG (27.0-34.0) Mean Corpuscular Hemoglobin Concent 34.9 % (32.0-36.0) Red Cell Distribution Width 14.2 % (11.6-17.2) Platelet Count 125 TH/MM3 (150-450) Mean Platelet Volume 7.7 FL (7.0-11.0) Neutrophils (%) (Auto) 81.9 % (16.0-70.0) Lymphocytes (%) (Auto) 10.4 % (9.0-44.0) Monocytes (%) (Auto) 5.3 % (0.0-8.0) Eosinophils (%) (Auto) 1.1 % (0.0-4.0) Basophils (%) (Auto) 1.3 % (0.0-2.0) Neutrophils # (Auto) 5.5 TH/MM3 (1.8-7.7) Lymphocytes # (Auto) 0.7 TH/MM3 (1.0-4.8) Monocytes # (Auto) 0.4 TH/MM3 (0-0.9) Eosinophils # (Auto) 0.1 TH/MM3 (0-0.4) Basophils # (Auto) 0.1 TH/MM3 (0-0.2) CBC Comment DIFF FINAL Differential Comment Prothrombin Time 11.3 SEC (9.8-11.6) Prothromb Time International Ratio 1.0 RATIO Sodium Level 134 MEQ/L (136-145) 133 MEQ/L (136-145) 133 MEQ/L (136-145) 135 MEQ/L (136-145) Blood Urea Nitrogen 7 MG/DL (7-18) Creatinine 0.63 MG/DL (0.60-1.30) Random Glucose 79 MG/DL (74-106) Total Protein 6.5 GM/DL (6.4-8.2) Albumin 2.8 GM/DL (3.4-5.0) Calcium Level 8.2 MG/DL (8.5-10.1) Magnesium Level 1.7 MG/DL (1.5-2.5) Alkaline Phosphatase 79 U/L (45-117) Aspartate Amino Transf (AST/SGOT) 35 U/L (15-37) Alanine Aminotransferase (ALT/SGPT) 26 U/L (12-78) Total Bilirubin 0.7 MG/DL (0.2-1.0) Potassium Level 4.3 MEQ/L (3.5-5.1) Chloride Level 99 MEQ/L (98-107) Carbon Dioxide Level 23.4 MEQ/L (21.0-32.0) Anion Gap 11 MEQ/L (5-15) Estimat Glomerular Filtration Rate 127 ML/MIN (>89) Test 03/13/17 03:43 Prothrombin Time 11.3 SEC (9.8-11.6) Prothromb Time International Ratio 1.0 RATIO Sodium Level 136 MEQ/L (136-145) (Trini Vanessa) Result Diagram: 03/12/17 0413 03/13/17 0343 Imaging Last Impressions Chest X-Ray 03/12/17 0600 Signed Impressions: Service Date/Time: Sunday, March 12, 2017 03:43 - CONCLUSION: 1. Postoperative CABG. Mild dependent atelectasis in the lungs. Fransisco Brooke MD Head CT 03/11/17 0000 Signed Impressions: Service Date/Time: Saturday, March 11, 2017 12:14 - CONCLUSION: 1. Sizable area of intraparenchymal hemorrhage involving the left posterior temporal and occipital cortex. There is some degree of intraventricular hemorrhage as well. Changes are similar to previous MRI dated 03/10/17. Kirt Pretty MD Brain MRI 03/10/17 0000 Signed Impressions: Service Date/Time: Friday, March 10, 2017 16:51 - CONCLUSION: 1. There is an area of acute intracranial hemorrhage involving the left temporal occipital cortex measuring at least 4.4 x 7.5 cm. There is extensive mass effect associated with this. There is rupture into the ventricular system with some hemorrhage within the left lateral ventricle. There is a small amount hemorrhage within the posterior horn of the right lateral ventricle as well. Kirt Pretty MD ([facility]) Assessment and Plan Disease Oriented Problem List: (1) Intracranial hemorrhage (2) Hyponatremia (3) Chest pain (4) NSTEMI (non-ST elevated myocardial infarction) (5) Psychosis (6) Acute exacerbation of chronic obstructive pulmonary disease (COPD) (7) History of major depression (8) Hypertension Symptom Scale: (1) Dysphagia 0-10 Scale: Unable to quantify (speech therapy following.) (2) Anxiety 0-10 Scale: Unable to quantify (3) Shortness of breath 0-10 Scale: Unable to quantify (4) Debility 0-10 Scale: Unable to quantify (5) Confusion 0-10 Scale: Unable to quantify Pertinent Non-Medical Issues Psychosocial:Patient was born in [place] , he moved to [place] at least 30 years ago . Patient's graduated from high school . Patient is single never . Patient waited for [employer] and was injured at work many years ago. Since then patient has never worked. He has 1 daughter named Robert and 3 grandchildren.He also has a half-brother. Patient lives alone. Spiritual:[facility] Legal: No issues Ethical issues impacting care: None . Important Contacts Daughter -Jessie Bustillos , Figueroa Khan (step bro) [phone] . Prognosis Mr. Denis is a 67-year-old male with a past medical history of psychosis, major depressive disorder, alcohol use disorder, COPD, CAD, CABG X2, hypertension,hyperlipidemia. Patient refusing to eat or drink. If patient continues to refuse eating he may need a feeding tube. Patient is showing signs of physical deconditioning and is at risk for further complications, deterioration and decline leading to . . Code Status: Full Code Plan PLAN: LEGAL DECISION MAKER: Patient appears not to be able to make any medical decisions for himself at this time. In the event that patient is required to make any medical decision, shared medical decision making with his daughter Jessie Hart would be recommended. GOALS OF CARE: Aggressive treatment at this time. CODE STATUS: Full Code SYMPTOMS: ==Anxiety- Multifactorial, reports of paranoid. Patient had bilateral upper extremities soft restraints. Patient may benefit from none sedating anxiolytic. * == Hallucinations- hx of visual and auditory hallucinations. Patient may need follow-up with psychiatry outpatient. * ==shortness of breath- multifactorial, DuoNeb's PRN, currently on room air. O2 Sat high 90s. Patient with no signs of respiratory distress * == Dysphagia- followed by speech therapy. Currently on a mechanical soft diet and thin liquids and no straw. Consuming less than 25%- 50% of his meals. Due to mentation and persistent coughing, aspiration remains a high risk. Close monitoring during meals. * ==Confusion- Patient intermittently confused and having difficulty with speech. MRI and CT head revealed ICH. Speech improved compared to prior assessment. Patient now on 2% Saline. * ==Debility- Patient refusing to eat. Poor appetite. Has chronic psychiatric issues. Will defer to psychiatric management. PT and ST following. May also benefit from PT if patient is willing to participate. Patient`s appetite has improved. Telephone conversation with patient`s daughter. Readdressed Code Status and goals remain aggressive. Palliative care will continue to follow the patient during hospital course as condition evolves, to assist patient/decision-maker with understanding of their medical conditions, weighing benefits/burdens of treatment options, for clarification of goals of treatment. Additionally will assist with any symptoms of palliative concern (Trini Vanessa) Collaborating MD Comments Chart reviewed. Case discussed with palliative care FLIGHT PARAMEDIC. Above note reviewed and I concur. . (Rafael Crespo MD) Trini Vanessa Mar 13, 2017 15:14 Rafael Crespo MD Mar 19, 2017 12:10
--- NOTE | 2017-03-13 16:48 | ECHRPT ---
Indication: MURMUR CONCLUSIONS Normal left ventricular size. Mild concentric left ventricular hypertrophy. Paradoxical septal motion The left atrial size is moderately dilated. [id number] mitral valve regurgitation. The aortic valve prosthesis is normal to two-dimensional, color flow and Doppler interrogation. There is mild prosthetic regurgitation of the aortic valve prosthesis. Mild to moderate aortic valve stenosis. There is trace tricuspid valve regurgitation. Normal estimated pulmonary pressures. BP: 122 / 86 HR: 86 Rhythm: Sinus MEASUREMENTS (Male / Female) Normal Values Technical Quality:Fair 2D ECHO LV Diastolic Diameter PLAX 2.7 cm 4.2 - 5.9 / 3.9 - 5.3 cm LV Systolic Diameter PLAX 3.2 cm IVS Diastolic Thickness 1.3 cm 0.6 - 1.0 / 0.6 - 0.9 cm LVPW Diastolic Thickness 2.9 cm 0.6 - 1.0 / 0.6 - 0.9 cm LV Relative Wall Thickness 1.5 LVOT Diameter 2.0 cm Aortic Root Diameter 3.1 cm M-MODE AV Cusp Separation MM 1.8 cm DOPPLER AV Peak Velocity 304.5 cm/s AV Peak Gradient 37.1 mmHg AV Mean Gradient 21.5 mmHg AV Velocity Time Integral 63.1 cm AI Peak Velocity 204.0 cm/s AI Peak Gradient 16.6 mmHg AI Pressure Half Time 317.0 ms LVOT Peak Velocity 183.0 cm/s LVOT Peak Gradient 13.4 mmHg LVOT Velocity Time Integral 36.1 cm AV Area Cont Eq vti 1.8 cm AV Area Cont Eq pk 1.9 cm Mitral E Point Velocity 116.0 cm/s Mitral A Point Velocity 98.7 cm/s Mitral E to A Ratio 1.2 LV E' Lateral Velocity 13.1 cm/s Mitral E to LV E' Lateral Ratio 8.9 LV E' Septal Velocity 12.3 cm/s Mitral E to LV E' Septal Ratio 9.4 TR Peak Velocity 239.0 cm/s TR Peak Gradient 22.8 mmHg Right Atrial Pressure 10.0 mmHg Pulmonary Artery Systolic Pressu 32.8 mmHg Right Ventricular Systolic Press 32.8 mmHg PV Peak Velocity 74.4 cm/s PV Peak Gradient 2.2 mmHg FINDINGS LEFT VENTRICLE Normal left ventricular size. Mild concentric left ventricular hypertrophy. The left ventricular systolic function is normal with an estimated ejection fraction in the range of 60-65%. There is abnormal (paradoxical) septal motion consistent with postoperative state. LEFT ATRIUM The left atrial size is moderately dilated. MITRAL VALVE [id number] mitral valve regurgitation. AORTIC VALVE The aortic valve prosthesis is normal to two-dimensional, color flow and Doppler interrogation. There is mild prosthetic regurgitation of the aortic valve prosthesis. Mild to moderate aortic valve stenosis. TRICUSPID VALVE There is trace tricuspid valve regurgitation. Normal estimated pulmonary pressures. Zeyad Spaulding MD (Electronically Signed) Final Date:13 March 2017 16:48
--- NOTE | 2017-03-13 19:06 | HHI.CCPN ---
Subjective Remarks/Hospital Course Mr. Denis is a 67 year old male with a history of COPD, chronic atrial fibrillation, history of CABG, history of AVR, chronic Coumadin use who was admitted 03/07/17 to [facility] for failure to thrive. He was initially admitted to psychiatry service from 02/28/2017 - 03/07/2017 due to visual and auditory hallucinations. . He had recently underwent cardiac catheterization on 2016 - did not show any significant CAD per report. Psychiatry service did not think that failure to thrive, flat effect, hallucinations etc was due to any psychiatric illness and patient was transferred to hospitalist service to rule out any medical, metabolic or structural causes. Patient underwent a routine MRI yesterday 03/10/17, which showed large acute intracranial hemorrhage involving the left temporal occipital cortex measuring at least 4.4 x 7.5 cm, with extensive mass effect, hemorrhage within the left lateral ventricle, small amount hemorrhage into posterior horn of the right lateral ventricle. Neurosurgery Dr. Bustillo was consulted. He recommended against surgical intervention due to recent anticoagulation with Coumadin and bleed being probably several days old. He did not recommend EVD due to GCS >8. CCM was consulted today due to ICH, slight worsening of mental status and persistent hyponatremia. Patient's Coumadin and aspirin was held 03/10/17 after the MRI showed ICH and vitamin K was given. INR 1.4 yesterday 1.2 today. I evaluated patient in ICU immediately after consult. Patient is lethargic ( but received Ativan few hours ago to facilitate CT of the head), responds to stimulation, moving all extremities purposefully, Mumbling few words, GCS 8-9. Na 130, i have started 2% saline with frequent neuro checks and Na monitoring SUBJ 03/12: Patient seems to be stabilized from intracranial hemorrhage, moving all extremities intermittently following commands intermittently but appears to be in alcohol withdrawal now. Per Neurosurgery- no indication for further scans at this time unless clinical deterioration. Sodium 133, increase 2% percent saline to 60 ML per hour 03/13: neuro exam stabilized. sodium improved to 138 today. 2% still at 60 mL/ hr. nsgy signed off. stable bleed by scans. Objective Vital Signs Date Time Temp Pulse Resp B/P (MAP) Pulse Ox O2 Delivery O2 Flow Rate FiO2 03/13/17 18:00 84 03/13/17 16:00 98.2 19 114/73 (87) 100 03/13/17 07:00 Room Air 03/12/17 10:00 21 03/11/17 20:26 1.00 Intake and Output 03/13/17 03/13/17 03/14/17 08:00 16:00 00:00 Intake Total 1120 ml 1543.2 ml 60 ml Output Total 1275 ml 750 ml Balance -155 ml 1543.2 ml -690 ml Result Diagram: 03/12/17 0413 03/13/[address] of the head and MRI of brain showed large left temporal occipital intracranial hemorrhage with intraventricular hemorrhage Objective Remarks GENERAL: Elderly thin built male moving all extremities, agitated in restraints SKIN: Warm and dry. HEAD: Atraumatic. Normocephalic. EYES: Pupils equal round and reactive. No injection or drainage. ENT: Oral cavity is moist. Airway patent. NECK: Trachea midline. Supple, nontender, no meningeal signs. CARDIOVASCULAR: Regular rate and rhythm RESPIRATORY: Breath sounds equal bilaterally. No wheezes GASTROINTESTINAL: Abdomen soft, non-tender, nondistended. No guarding. MUSCULOSKELETAL: Extremities without clubbing, cyanosis, or edema. NEUROLOGICAL: Patient is awake alert, eyes spontaneously open. Mumbles words. Positive expressive aphasia. Right upper extremity seems to be weaker than left. Intermittently follows commands A/P Assessment and Plan NEURO: Large Left temporal occipital intracranial hemorrhage, with mass effect and IVH Acute encephalopathy Alcohol withdrawal - According to neurosurgery, intracranial hemorrhage is several days old, CT of the head 03/11 stable without hydrocephalus - No indication for surgical intervention or EVD at this time. NS has signed off 03/12. - agitation under better control. ?etoh withdraw. - sodium improved to 138. will d/c 2% and start salt tabs to maintain sodium. - Coagulopathy corrected, Coumadin and aspirin held since 03/10/17, plan to hold for total 14 days. - Keppra for seizure prophylaxis x 7 days (anticipated stop date 03/17) - Replace thiamine and multivitamin - Ativan when necessary for alcohol withdrawal, agitation. Avoid excessive sedation RESP: Acute respiratory insufficiency- resolving. COPD - Nasal cannula oxygen to keep SaO2>90% - DuoNeb every 6 hours scheduled and when necessary - Aggressive pulmonary toilet CV: Coronary artery disease status post CABG 2 Status post AVR for aortic stenosis (Tissue valve in 2005) Systolic murmur at the aortic area indicating probable aortic stenosis Chronic atrial fibrillation on Coumadin - d/c mivf and 2%. - 2d echo 03/12: mild-mod aortic stenosis. - Coumadin and aspirin on hold indefinitely (At least two weeks prior to full anticoagulation per neurosurgery) - Target systolic blood pressure less than 140, use PRN Hydralazine - Patient is on Catapres patch and amlodipine-continue for now GI: - regular basic diet per speech. - Bowel regimen with [place]-Colace : - Monitor renal function closely. condom catheter ID: - Monitor closely for infection HEME: Chronic Coumadin use - Monitor CBC, CMP, INR - Received vitamin K yesterday INR is 1.2 today no indication for FFP ENDO: Hyponatremia - start salt tabs 3gm po q8hr. stop 2%. trend sodiums. - Target sodium 140 PROPH: - Bilateral lower extremity SCDs. PO pepcid. LINES: - Utilize peripheral IVs, Clinically improving. will consult hospitalist services. will keep in ICU for now. trend sodiums, but clinically improving and uptrending. Gerardo Alvarado MD Mar 13, 2017 19:06
[2017-03-13] MEDS: SODIUM CHLORIDE 1 GRAM TAB PO SCH (21:37)
[2017-03-13] MEDS: levETIRAcetam 500 MG TAB PO SCH (21:38)
[2017-03-13] MEDS: FAMOTIDINE 20 MG TAB PO SCH (21:38)
[2017-03-13] MEDS: PRAVASTATIN SOD 40 MG TAB PO SCH (21:39)
[2017-03-13] MEDS: hydrALAZINE HCL 20 MG/ML VIAL IV PUSH PRN (22:14)
[2017-03-14] VITALS (13 sets, daily range): BP systolic 112–170; BP diastolic 58–73; PULSE 72–107; RESP 20–32; TEMP 98.1–99.5; O2SAT 96–100
[2017-03-14] MEDS: RESP: ALBUTEROL 2.5 MG/IPRATROPIUM 0.5 MG NEB (SCH) NEB ×4 (04:34→20:24)
[2017-03-14] MEDS: MULTIVITAMIN INJ 10 ML, THIAMINE INJ 100 MG, FOLIC ACID INJ 1 MG in SODIUM CHLORID 0.9%... IV SCH (08:33)
[2017-03-14] MEDS: SODIUM CHLORIDE 0.9% FLUSH 10 ML FLUSH IV FLUSH SCH ×2 (08:33→21:00)
[2017-03-14] MEDS: LISINOPRIL 20 MG TAB PO SCH (08:33)
[2017-03-14] MEDS: DOCUSATE SODIUM 50 MG/SENNA 8.6 MG TAB PO SCH ×2 (08:33→21:00)
[2017-03-14] MEDS: levETIRAcetam 500 MG TAB PO SCH ×2 (08:33→21:00)
[2017-03-14] MEDS: FAMOTIDINE 20 MG TAB PO SCH ×2 (08:33→21:00)
[2017-03-14] MEDS: amLODIPine BESYLATE 5 MG TAB PO SCH (08:33)
[2017-03-14] MEDS: TAMSULOSIN HCL 0.4 MG CAP PO SCH (08:33)
[2017-03-14] MEDS: SODIUM CHLORIDE 1 GRAM TAB PO SCH ×2 (13:57→20:00)
--- NOTE | 2017-03-14 14:16 | HHI.PR ---
Subjective Remarks Patient is in restraints, he is agitated, hanging off the bed. He is confused, make up some words but speech is incoherent. Objective Vitals Vital Signs Date Time Temp Pulse Resp B/P (MAP) Pulse Ox O2 Delivery O2 Flow Rate FiO2 03/14/17 06:00 77 03/14/17 04:00 98.6 107 24 170/73 (105) 96 03/14/17 04:00 104 03/14/17 02:00 72 03/14/17 00:00 98.1 92 20 131/73 (92) 97 03/14/17 00:00 92 03/13/17 22:00 94 03/13/17 20:00 96 03/13/17 20:00 98.4 92 18 156/77 (103) 97 03/13/17 19:00 96 Room Air 03/13/17 18:00 84 03/13/17 16:00 94 03/13/17 16:00 98.2 94 19 114/73 (87) 100 I/O 03/13/17 03/13/17 03/13/17 03/14/17 03/14/17 03/14/17 07:00 15:00 23:00 07:00 15:00 23:00 Intake Total 1120 ml 1543.2 ml 60 ml 1720 ml Output Total 1275 ml 750 ml 1600 ml Balance -155 ml 1543.2 ml -690 ml 120 ml Intake Oral 60 ml 120 ml IV Total 1120 ml 1543.2 ml 1600 ml Output Urine Total 1275 ml 750 ml 1600 ml # Voids 1 2 # Bowel Movements 0 0 0 Result Diagram: 03/12/17 0413 03/14/17 1025 Objective Remarks GENERAL: Elderly and frail male in no apparent distress. CARDIOVASCULAR: Normal rate and regular rhythm without murmurs, gallops, or rubs. RESPIRATORY: breath sounds equal and clear to auscultation bilaterally. GASTROINTESTINAL: Abdomen soft, non-tender, non-distended. Normal active bowel sounds MUSCULOSKELETAL: Extremities without cyanosis, or edema. NEURO: Awake. Does not follow commands. Incoherent speech PSYCH: Agitated A/P Problem List: (1) Malnutrition ICD Code: E46 - Unspecified protein-calorie malnutrition Status: Acute Assessment and Plan 67-year-old male admitted with failure to thrive and severe malnutrition. Patient later developed mumbled speech with aphasia. MRI revealed ICH: ICH: MRI revealed a 4.4 x 7.5 cm area of intracranial hemorrhage involving the left temporal occipital cortex. Acute encephalopathy - Neurosurgery following. Advise nonoperative management for now. Repeat Brain CAT scan stable. - Keppra 500 mg IV twice a day. - Coumadin and aspirin held since 03/10/17, plan to hold for total 14 days. - Keppra for seizure prophylaxis x 7 days (anticipated stop date 03/17) - Neurochecks. - Neurosurgery signed off. - Thiamine and multivitamin - Encephalopathy and agitation is likely related to the stroke and underlying psychiatric disorder. Highly doubt alcohol withdrawal since the patient has been in the hospital since 02/28 - Will start low dose Seroquel and consult Psychiatry for assistance. He came from the psychiatric unit where he was being treated for psychosis. Severe malnutrition due to decreased oral intake, poor BMI, and functional capacity. Dietitian following. COPD, chronic: DuoNeb as needed. Coronary artery disease status post CABG:Cardiac catheterization showed no significant acute coronary disease. On anticoagulants and antiplatelets discontinued. History of aortic stenosis: Status post bioprosthetic aortic valve replacement. Coumadin on hold due to ICH. Atrial fibrillation: Rate controlled. Anticoagulation on hold due to ICH. Per neurosurgery, need to hold anticoagulation for 2 weeks prior to restarting. Hyponatremia: Status post 2% normal saline per child welfare assistant. Currently on salt tablets. Sodium level acceptable. Hypertension, essential: Continue lisinopril. Patient is on Catapres patch and amlodipine Hyperlipidemia: Continue statin. BPH: Continue Flomax. DVT prophylaxis: SCDs. Pharmacological prophylaxis contraindicated due to ICH. Discharge Planning Keep in ICU today. Consider transfer to floor tomorrow if agitation symptoms improved and medically stable. Problem Qualifiers (1) Malnutrition: Qualified Codes: E43 - Unspecified severe protein-calorie malnutrition Pasha Sal MD Mar 14, 2017 14:16
[2017-03-14] MEDS: QUEtiapine FUMARATE 25 MG TAB PO SCH ×2 (14:30→21:00)
--- NOTE | 2017-03-14 15:14 | HHI.HCPN ---
Reason for visit Reason for visit a. To assist with evaluation and management of symptoms including: hallucinations, anxiety, confusion, shortness of breath, debility b. To assist medical decision maker(s) with: better understanding of current medical conditions; weighing benefits/burdens of medical treatment options; making medical treatment decisions. . (Nadine Bernstein) Subjective/Interval History Mr. Denis is a 67-year-old male with a past medical history of psychosis, major depressive disorder, alcohol use disorder, COPD, CAD, hypertension. Patient presented to ED on 02/23/17 complaining of progressive shortness of breath, chest pain and coughing. Clinical course complicated by visual, auditory hallucinations, refusing to eat. MRI 03/10/17 revealed acute intracranial hemorrhage involving the left temporal occipital cortex with extensive mass effect. Neurosurgery recommended medical management. Patient examined in ICU, daughter Robert at bedside,updated on patient's current clinical status, tentative trajectory of care over the coming days. Patient is drowsy, oriented to self, speech is largely nonsensical. Patient is restrained due agitation over night, resting comfortably now, no obvious signs or symptoms of distress, anxiety, or pain. . Family/friend interactions Bedside meeting with patient's daughter Robert Salazar. . (Nadine Bernstein) Advance Directives Living Will: Never completed Health Care Surrogate: Never completed Durable Power of Cutting And Splicing Supervisor: Never completed (Nadine Bernstein) Objective Vital Signs Date Time Temp Pulse Resp B/P (MAP) Pulse Ox O2 Delivery O2 Flow Rate FiO2 03/14/17 06:00 77 03/14/17 04:00 98.6 107 24 170/73 (105) 96 03/14/17 04:00 104 03/14/17 02:00 72 03/14/17 00:00 98.1 92 20 131/73 (92) 97 03/14/17 00:00 92 03/13/17 22:00 94 03/13/17 20:00 96 03/13/17 20:00 98.4 92 18 156/77 (103) 97 03/13/17 19:00 96 Room Air 03/13/17 18:00 84 03/13/17 16:00 94 03/13/17 16:00 98.2 94 19 114/73 (87) 100 Intake & Output 03/14/17 03/14/17 07:00 19:00 Intake Total 1720 ml Output Total 1600 ml Balance 120 ml Intake Oral 120 ml IV Total 1600 ml Output Urine Total 1600 ml # Voids 2 # Bowel Movements 0 . Physical Exam CONSTITUTIONAL/GENERAL: This is an elderly cachectic male, in no acute distress. TUBES/LINES/DRAINS: PIV, Condom catheter SKIN: No jaundice, rashes, or lesions. Ecchymoses to upper extremities. No wounds seen anteriorly. Skin temperature appropriate. Not diaphoretic. EYES: Pupils equal and round and reactive. Extraocular motions intact. No scleral icterus. No injection or drainage. Fundi not examined. ENT: Hearing grossly normal. Nose without bleeding or purulent drainage. Moist oral mucosa. NECK: Trachea midline. Supple, nontender. CARDIOVASCULAR: Regular rate and rhythm without murmurs, gallops, or rubs. No JVD. Peripheral pulses symmetric. RESPIRATORY/CHEST: Symmetric, unlabored respirations. Clear diminished. GASTROINTESTINAL: Abdomen soft, non-tender, nondistended. No guarding. Bowel sounds present. GENITOURINARY: Without palpable bladder distension. Condom catheter. MUSCULOSKELETAL: Extremities without clubbing, cyanosis, or edema. No joint tenderness or effusion noted. No calf tenderness. No mottling or clubbing. NEUROLOGICAL: Awake and alert. Motor and sensory grossly within normal limits. Spontaneously moving all extremities. PSYCHIATRIC: No apparent hallucinations at this time. Patient has bilateral upper extremities soft restraints. . (Lower,Nadine LYNCHP) Diagnostic Tests Laboratory Laboratory Tests Test 03/11/17 15:15 03/11/17 18:07 03/12/17 04:13 03/12/17 10:46 Blood Gas Puncture Site RT RADIAL Blood Gas Patient Temperature 98.6 Blood Gas HCO3 26 mmol/L (22-26) Blood Gas Base Excess 2.2 mmol/L (-2-2) Blood Gas Oxygen Saturation 96 % (90-100) Arterial Blood pH 7.43 (7.380-7.420) Arterial Blood Partial Pressure CO2 40 mmHg (38-42) Arterial Blood Partial Pressure O2 108 mmHg (61-120) Arterial Blood Oxygen Content 14.6 Vol % (12.0-20.0) Arterial Blood Carboxyhemoglobin 1.5 % (0-4) Arterial Blood Methemoglobin 0.6 % (0-2) Blood Gas Hemoglobin 10.7 G/DL (12.0-16.0) Oxygen Delivery Device NASAL CANNULA Blood Gas Liter Flow 1 L/M Sodium Level 131 MEQ/L (136-145) 134 MEQ/L (136-145) 133 MEQ/L (136-145) Phosphorus Level 2.4 MG/DL (2.5-4.9) Magnesium Level 1.9 MG/DL (1.5-2.5) White Blood Count 6.8 TH/MM3 (4.0-11.0) Red Blood Count 3.47 MIL/MM3 (4.50-5.90) Hemoglobin 11.1 GM/DL (13.0-17.0) Hematocrit 31.8 % (39.0-51.0) Mean Corpuscular Volume 91.8 FL (80.0-100.0) Mean Corpuscular Hemoglobin 32.0 PG (27.0-34.0) Mean Corpuscular Hemoglobin Concent 34.9 % (32.0-36.0) Red Cell Distribution Width 14.2 % (11.6-17.2) Platelet Count 125 TH/MM3 (150-450) Mean Platelet Volume 7.7 FL (7.0-11.0) Neutrophils (%) (Auto) 81.9 % (16.0-70.0) Lymphocytes (%) (Auto) 10.4 % (9.0-44.0) Monocytes (%) (Auto) 5.3 % (0.0-8.0) Eosinophils (%) (Auto) 1.1 % (0.0-4.0) Basophils (%) (Auto) 1.3 % (0.0-2.0) Neutrophils # (Auto) 5.5 TH/MM3 (1.8-7.7) Lymphocytes # (Auto) 0.7 TH/MM3 (1.0-4.8) Monocytes # (Auto) 0.4 TH/MM3 (0-0.9) Eosinophils # (Auto) 0.1 TH/MM3 (0-0.4) Basophils # (Auto) 0.1 TH/MM3 (0-0.2) CBC Comment DIFF FINAL Differential Comment Prothrombin Time 11.3 SEC (9.8-11.6) Prothromb Time International Ratio 1.0 RATIO Test 03/12/17 17:41 03/12/17 21:27 03/13/17 03:43 03/13/17 14:00 Blood Urea Nitrogen 7 MG/DL (7-18) Creatinine 0.63 MG/DL (0.60-1.30) Random Glucose 79 MG/DL (74-106) Total Protein 6.5 GM/DL (6.4-8.2) Albumin 2.8 GM/DL (3.4-5.0) Calcium Level 8.2 MG/DL (8.5-10.1) Magnesium Level 1.7 MG/DL (1.5-2.5) Alkaline Phosphatase 79 U/L (45-117) Aspartate Amino Transf (AST/SGOT) 35 U/L (15-37) Alanine Aminotransferase (ALT/SGPT) 26 U/L (12-78) Total Bilirubin 0.7 MG/DL (0.2-1.0) Sodium Level 133 MEQ/L (136-145) 135 MEQ/L (136-145) 136 MEQ/L (136-145) 138 MEQ/L (136-145) Potassium Level 4.3 MEQ/L (3.5-5.1) Chloride Level 99 MEQ/L (98-107) Carbon Dioxide Level 23.4 MEQ/L (21.0-32.0) Anion Gap 11 MEQ/L (5-15) Estimat Glomerular Filtration Rate 127 ML/MIN (>89) Prothrombin Time 11.3 SEC (9.8-11.6) Prothromb Time International Ratio 1.0 RATIO Test 03/13/17 21:33 03/14/17 03:56 03/14/17 10:25 Sodium Level 138 MEQ/L (136-145) 137 MEQ/L (136-145) 134 MEQ/L (136-145) Prothrombin Time 11.0 SEC (9.8-11.6) Prothromb Time International Ratio 1.0 RATIO (Nadine Bernstein) Result Diagram: 03/12/17 0413 03/14/17 1025 Imaging Last 72 hours Impressions Chest X-Ray 03/12/17 0600 Signed Impressions: Service Date/Time: Sunday, March 12, 2017 03:43 - CONCLUSION: 1. Postoperative CABG. Mild dependent atelectasis in the lungs. Fransisco Brooke MD (Nadine Bernstein) Assessment and Plan Disease Oriented Problem List: (1) Intracranial hemorrhage (2) Hyponatremia (3) Chest pain (4) NSTEMI (non-ST elevated myocardial infarction) (5) Psychosis (6) Acute exacerbation of chronic obstructive pulmonary disease (COPD) (7) History of major depression (8) Hypertension Symptom Scale: (1) Dysphagia 0-10 Scale: Unable to quantify (speech therapy following.) (2) Anxiety 0-10 Scale: Unable to quantify (3) Shortness of breath 0-10 Scale: Unable to quantify (4) Debility 0-10 Scale: Unable to quantify (5) Confusion 0-10 Scale: Unable to quantify Pertinent Non-Medical Issues Psychosocial:Patient was born in [place] , he moved to [place] at least 30 years ago . Patient's graduated from high school . Patient is single never . Patient waited for [employer] journal and was injured at work many years ago. Since then patient has never worked. He has 1 daughter named Robert and 3 grandchildren.He also has a half-brother. Patient lives alone. Spiritual:[facility] Legal: No issues Ethical issues impacting care: None . Important Contacts Daughter -Robert Bustillos , Figueroa Khan (step dua) [phone] . Prognosis Mr. Denis is a 67-year-old male with a past medical history of psychosis, major depressive disorder, alcohol use disorder, COPD, CAD, CABG X2, hypertension,hyperlipidemia. Patient refusing to eat or drink. If patient continues to refuse eating he may need a feeding tube. Patient is showing signs of physical deconditioning and is at risk for further complications, deterioration and decline leading to . . Code Status: Full Code Plan PLAN: LEGAL DECISION MAKER:Patient incapacitated to make his own decisions at this time secondary to clinical condition. It is unknown when and if he will regain the ability to participate. Per [place] statutes in the absence of written advanced directives legal decision making would fall to the patient's adult daughter Robert Salazar. In the event that patient is required to make any medical decision, shared medical decision making with his daughter Jessie Hart would be recommended. GOALS OF CARE: Aggressive treatment at this time. CODE STATUS: Full Code SYMPTOMS: ==Anxiety- Multifactorial, reports of paranoid. Patient had bilateral upper extremities soft restraints. Patient may benefit from none sedating anxiolytic. * == Hallucinations- hx of visual and auditory hallucinations. Patient may need follow-up with psychiatry outpatient. * ==shortness of breath- multifactorial, DuoNeb's PRN, currently on room air. O2 Sat high 90s. Patient with no signs of respiratory distress * == Dysphagia- followed by speech therapy. Currently on a regular diet. mechanical soft diet and thin liquids and no straw. Consuming less than 25%- 50 % of his meals. Due to mentation and persistent coughing, aspiration remains a high risk. Close monitoring during meals. * ==Confusion- Patient intermittently confused and having difficulty with speech. MRI and CT head revealed ICH. Speech improved compared to prior assessment. Patient now on 2% Saline. * ==Debility- Patient refusing to eat. Poor appetite. Has chronic psychiatric issues. Will defer to psychiatric management. PT and ST following. May also benefit from PT if patient is willing to participate. Patient`s appetite has improved. Palliative care will continue to follow the patient during hospital course as condition evolves, to assist patient/decision-maker with understanding of their medical conditions, weighing benefits/burdens of treatment options, for clarification of goals of treatment. Additionally will assist with any symptoms of palliative concern (Nadine Bernstein) Attestation To help prompt me to consider important information that might be impacting today's encounter and assessment, information from prior notes written by myself or my colleagues may have been "brought forward" into today's note. My signature on this note, however, is an attestation that I personally performed the exam, history, and/or decision-making noted today, and, unless otherwise indicated, the interactions with patient, family, and staff as well as the review of records all occurred today. I also attest that the listed assessment and stated plan reflect my best clinical judgment today based on the combination of historical information, prior notes, and today's exam/ interactions. When time spent is documented, it refers only to time spent today by the signer, or if indicated, combined time spent today by collaborating physician/nurse practitioner. (Nadine Bernstein) Collaborating MD Comments Chart reviewed. Case discussed with palliative care LABEL TACKER. Above LABEL TACKER note reviewed and I concur. . (Rafael Crespo MD) AmandeepNadine LABEL TACKER Mar 14, 2017 15:14 Rafael Crespo MD Mar 19, 2017 15:49
[2017-03-14] MEDS: cloNIDine HCL 0.1 MG/24 HR PATCH T-DERMAL SCH (20:00)
[2017-03-14] MEDS ORDERED: REMOVE OLD CATAPRES (CLONIDINE) PATCH T-DERMAL SCH (20:00)
[2017-03-14] MEDS: PRAVASTATIN SOD 40 MG TAB PO SCH (21:00)
[2017-03-15] VITALS (14 sets, daily range): BP systolic 84–145; BP diastolic 52–84; PULSE 73–100; RESP 13–28; TEMP 98.2–99.8; O2SAT 84–99
[2017-03-15 03:57] LABS: HEMATOCRIT 30.3 % (39.0-51.0); MEAN CELL VOLUME 90.4 FL (80.0-100.0); MEAN CORPUSCULAR HEMOGLOBIN 31.7 PG (27.0-34.0); PLATELET COUNT 115 TH/MM3 (150-450); RED BLOOD COUNT 3.35 MIL/MM3 (4.50-5.90); REVIEW FLAG FINAL; WHITE BLOOD COUNT 5.4 TH/MM3 (4.0-11.0)
[2017-03-15] MEDS: SODIUM CHLORIDE 1 GRAM TAB PO SCH ×3 (04:00→20:00)
[2017-03-15 04:08] LABS: PROTHROMBIN TIME - PATIENT 11.4 SEC (9.8-11.6)
[2017-03-15] MEDS: RESP: ALBUTEROL 2.5 MG/IPRATROPIUM 0.5 MG NEB (SCH) NEB ×3 (04:11→14:20)
[2017-03-15 04:13] LABS: BICARBONATE 28.1 MEQ/L (21.0-32.0); POTASSIUM 3.6 MEQ/L (3.5-5.1)
[2017-03-15] MEDS: levETIRAcetam 500 MG TAB PO SCH ×2 (09:14→20:01)
[2017-03-15] MEDS: DOCUSATE SODIUM 50 MG/SENNA 8.6 MG TAB PO SCH ×2 (09:14→20:01)
[2017-03-15] MEDS: amLODIPine BESYLATE 5 MG TAB PO SCH (09:14)
[2017-03-15] MEDS: LISINOPRIL 20 MG TAB PO SCH (09:14)
[2017-03-15] MEDS: FAMOTIDINE 20 MG TAB PO SCH ×2 (09:14→20:01)
[2017-03-15] MEDS: QUEtiapine FUMARATE 25 MG TAB PO SCH ×2 (09:14→20:01)
[2017-03-15] MEDS: TAMSULOSIN HCL 0.4 MG CAP PO SCH (09:14)
[2017-03-15] MEDS: SODIUM CHLORIDE 0.9% FLUSH 10 ML FLUSH IV FLUSH SCH ×2 (09:44→20:01)
[2017-03-15] MEDS: MULTIVITAMIN INJ 10 ML, THIAMINE INJ 100 MG, FOLIC ACID INJ 1 MG in SODIUM CHLORID 0.9%... IV SCH (09:44)
--- NOTE | 2017-03-15 12:55 | HHI.PR ---
Subjective Remarks Discussed with RN. Patient is more calm today. He ate breakfast with assistance today. Objective Vitals Vital Signs Date Time Temp Pulse Resp B/P (MAP) Pulse Ox O2 Delivery O2 Flow Rate FiO2 03/15/17 12:00 77 03/15/17 12:00 99.0 78 20 90/55 (67) 99 03/15/17 10:45 99 03/15/17 10:00 73 03/15/17 08:00 88 03/15/17 08:00 98.6 88 28 101/84 (90) 97 03/15/17 07:00 97 Room Air 03/15/17 06:00 88 03/15/17 04:00 99.0 97 20 84/52 (63) 84 03/15/17 04:00 85 03/15/17 02:00 75 03/15/17 00:00 99.3 77 13 111/65 (80) 92 03/15/17 00:00 77 03/14/17 22:00 85 03/14/17 20:24 99 03/14/17 20:00 99.5 92 22 112/66 (81) 98 03/14/17 20:00 92 03/14/17 19:00 97 Room Air 03/14/17 18:00 86 03/14/17 16:00 99.2 76 23 113/58 (76) 99 03/14/17 16:00 80 03/14/17 14:00 86 I/O 03/14/17 03/14/17 03/14/17 03/15/17 03/15/17 03/15/17 07:00 15:00 23:00 07:00 15:00 23:00 Intake Total 1720 ml 200 ml Output Total 1600 ml 1000 ml 150 ml Balance 120 ml -800 ml -150 ml Intake Oral 120 ml 200 ml IV Total 1600 ml Output Urine Total 1600 ml 1000 ml 150 ml Stool Total 0 ml # Voids 2 # Bowel Movements 0 0 Result Diagram: 03/15/1733703/15/17337 Objective Remarks GENERAL: Elderly and frail male in no apparent distress. CARDIOVASCULAR: Normal rate and regular rhythm without murmurs, gallops, or rubs. RESPIRATORY: breath sounds equal and clear to auscultation bilaterally. GASTROINTESTINAL: Abdomen soft, non-tender, non-distended. Normal active bowel sounds MUSCULOSKELETAL: Extremities without cyanosis, or edema. NEURO: Awake. Follow some commands. Incoherent speech PSYCH: Calm A/P Problem List: (1) Malnutrition ICD Code: E46 - Unspecified protein-calorie malnutrition Status: Acute Assessment and Plan 67-year-old male admitted with failure to thrive and severe malnutrition. Patient later developed mumbled speech with aphasia. MRI revealed ICH: ICH: MRI revealed a 4.4 x 7.5 cm area of intracranial hemorrhage involving the left temporal occipital cortex. Acute encephalopathy - Neurosurgery following. Advise nonoperative management for now. Repeat Brain CAT scan stable. - Keppra 500 mg IV twice a day. - Coumadin and aspirin held since 03/10/17, plan to hold for total 14 days. - Keppra for seizure prophylaxis x 7 days (anticipated stop date 03/17) - Neurochecks. - Neurosurgery signed off. - Thiamine and multivitamin - Encephalopathy and agitation is likely related to the stroke and underlying psychiatric disorder. Highly doubt alcohol withdrawal since the patient has been in the hospital since 02/28 - Patient started on low-dose Seroquel with improvement. Psychiatry consulted for assistance. Severe malnutrition due to decreased oral intake, poor BMI, and functional capacity. Dietitian following. He is eating better but needs assistance. Continue to monitor. COPD, chronic: DuoNeb as needed. Coronary artery disease status post CABG:Cardiac catheterization showed no significant acute coronary disease. On anticoagulants and antiplatelets discontinued. History of aortic stenosis: Status post bioprosthetic aortic valve replacement. Coumadin on hold due to ICH. Atrial fibrillation: Rate controlled. Anticoagulation on hold due to ICH. Per neurosurgery, need to hold anticoagulation for 2 weeks prior to restarting. Hyponatremia: Status post 2% normal saline per entry level accountant. Currently on salt tablets. Sodium level acceptable. Hypertension, essential: Continue lisinopril. Patient is on Catapres patch and amlodipine Hyperlipidemia: Continue statin. BPH: Continue Flomax. DVT prophylaxis: SCDs. Pharmacological prophylaxis contraindicated due to ICH. Discharge Planning Stable for transfer to floor today. Problem Qualifiers (1) Malnutrition: Qualified Codes: E43 - Unspecified severe protein-calorie malnutrition Pasha Sal MD Mar 15, 2017 12:55
[2017-03-15] MEDS: POTASSIUM CHLORIDE INJ 10 MEQ in SODIUM CHLOR 0.9% 1000 ML INJ 1,000 ML IV SCH (15:46)
[2017-03-15] MEDS ORDERED: HALOPERIDOL LACTATE 5 MG/ML AMP IM PRN (16:00)
--- NOTE | 2017-03-15 16:55 | HHI.HCPN ---
Reason for visit Reason for visit a. To assist with evaluation and management of symptoms including: hallucinations, anxiety, confusion, shortness of breath, debility b. To assist medical decision maker(s) with: better understanding of current medical conditions; weighing benefits/burdens of medical treatment options; making medical treatment decisions. . (Trini Vanessa) Subjective/Interval History Mr. Denis is a 67-year-old male with a past medical history of psychosis, major depressive disorder, alcohol use disorder, COPD, CAD, hypertension. Patient presented to ED on 02/23/17 complaining of progressive shortness of breath, chest pain and coughing. Clinical course complicated by visual, auditory hallucinations, refusing to eat. MRI 03/10/17 revealed acute intracranial hemorrhage involving the left temporal occipital cortex with extensive mass effect. Neurosurgery recommended medical management. Patient seen in ICU, sleeping but arousable. Patient is not following commands , speech is mumbled and nonsensical. Patient has bilateral restraints. Reports of agitation per nursing staff. Patient started on Haldol prn. Patient is on room air, no signs of respiratory distress. Currently calm. Laboratory workup today revealing WBC 5.4 hemoglobin 10.6 hematocrit 30.3 platelet count 115, sodium 137, potassium 3.6, chloride 101, BUN/creatinine 8/0.60, random glucose 89. Poor oral intake, patient consuming 10-25% of his meals. Per nursing patient needs to be fed. Physical therapy, occupational therapy and speech therapy following. Patient having urinary retention, kingsley catheter placed this late afternoon. . (Trini Vanessa) Advance Directives Living Will: Never completed Health Care Surrogate: Never completed Durable Power of Bank Representative: Never completed (Trini Vanessa) Objective Vital Signs Date Time Temp Pulse Resp B/P (MAP) Pulse Ox O2 Delivery O2 Flow Rate FiO2 03/15/17 16:00 99.2 90 24 90/57 (68) 99 03/15/17 16:00 91 03/15/17 14:00 74 03/15/17 12:00 77 03/15/17 12:00 99.0 78 20 90/55 (67) 99 03/15/17 10:45 99 03/15/17 10:00 73 03/15/17 08:00 88 03/15/17 08:00 98.6 88 28 101/84 (90) 97 03/15/17 07:00 97 Room Air 03/15/17 06:00 88 03/15/17 04:00 99.0 97 20 84/52 (63) 84 03/15/17 04:00 85 03/15/17 02:00 75 03/15/17 00:00 99.3 77 13 111/65 (80) 92 03/15/17 00:00 77 03/14/17 22:00 85 03/14/17 20:24 99 03/14/17 20:00 99.5 92 22 112/66 (81) 98 03/14/17 20:00 92 03/14/17 19:00 97 Room Air 03/14/17 18:00 86 Intake & Output 03/15/17 03/15/17 07:00 19:00 Output Total 150 ml Balance -150 ml Output Urine Total 150 ml Stool Total 0 ml Physical Exam CONSTITUTIONAL/GENERAL: This is an elderly cachectic male, in no acute distress. TUBES/LINES/DRAINS: PIV, Condom catheter SKIN: No jaundice, rashes, or lesions. Ecchymoses to upper extremities. No wounds seen anteriorly. Skin temperature appropriate. Not diaphoretic. EYES: Pupils equal and round and reactive. Extraocular motions intact. No scleral icterus. No injection or drainage. Fundi not examined. ENT: Hearing grossly normal. Nose without bleeding or purulent drainage. Moist oral mucosa. NECK: Trachea midline. Supple, nontender. CARDIOVASCULAR: Regular rate and rhythm without murmurs, gallops, or rubs. No JVD. Peripheral pulses symmetric. RESPIRATORY/CHEST: Symmetric, unlabored respirations. Clear diminished. GASTROINTESTINAL: Abdomen soft, non-tender, nondistended. No guarding. Bowel sounds present. GENITOURINARY: Without palpable bladder distension. Kingsley catheter. MUSCULOSKELETAL: Extremities without clubbing, cyanosis, or edema. No joint tenderness or effusion noted. No calf tenderness. No mottling or clubbing. NEUROLOGICAL: Sleeping and easily arousable. Oriented to person only. Speech mostly mumbled, sometimes clear but nonsensical. Not following commands that spontaneously moving all extremities. PSYCHIATRIC: No apparent hallucinations at this time. Patient has bilateral upper extremities soft restraints. . ([place],Trini DIRECT SERVICE WORKER) Diagnostic Tests Laboratory Laboratory Tests Test 03/12/17:41 03/12/17 21:27 03/13/17 03:43 03/13/17 14:00 Blood Urea Nitrogen 7 MG/DL (7-18) Creatinine 0.63 MG/DL (0.60-1.30) Random Glucose 79 MG/DL (74-106) Total Protein 6.5 GM/DL (6.4-8.2) Albumin 2.8 GM/DL (3.4-5.0) Calcium Level 8.2 MG/DL (8.5-10.1) Magnesium Level 1.7 MG/DL (1.5-2.5) Alkaline Phosphatase 79 U/L (45-117) Aspartate Amino Transf (AST/SGOT) 35 U/L (15-37) Alanine Aminotransferase (ALT/SGPT) 26 U/L (12-78) Total Bilirubin 0.7 MG/DL (0.2-1.0) Sodium Level 133 MEQ/L (136-145) 135 MEQ/L (136-145) 136 MEQ/L (136-145) 138 MEQ/L (136-145) Potassium Level 4.3 MEQ/L (3.5-5.1) Chloride Level 99 MEQ/L (98-107) Carbon Dioxide Level 23.4 MEQ/L (21.0-32.0) Anion Gap 11 MEQ/L (5-15) Estimat Glomerular Filtration Rate 127 ML/MIN (>89) Prothrombin Time 11.3 SEC (9.8-11.6) Prothromb Time International Ratio 1.0 RATIO Test 03/13/17 21:33 03/14/17 03:56 03/14/17 10:25 03/14/17 15:56 Sodium Level 138 MEQ/L (136-145) 137 MEQ/L (136-145) 134 MEQ/L (136-145) 135 MEQ/L (136-145) Prothrombin Time 11.0 SEC (9.8-11.6) Prothromb Time International Ratio 1.0 RATIO Test 03/14/17 23:51 03/15/17 03:38 03/15/17 12:21 Sodium Level 137 MEQ/L (136-145) 137 MEQ/L (136-145) 138 MEQ/L (136-145) White Blood Count 5.4 TH/MM3 (4.0-11.0) Red Blood Count 3.35 MIL/MM3 (4.50-5.90) Hemoglobin 10.6 GM/DL (13.0-17.0) Hematocrit 30.3 % (39.0-51.0) Mean Corpuscular Volume 90.4 FL (80.0-100.0) Mean Corpuscular Hemoglobin 31.7 PG (27.0-34.0) Mean Corpuscular Hemoglobin Concent 35.0 % (32.0-36.0) Red Cell Distribution Width 14.0 % (11.6-17.2) Platelet Count 115 TH/MM3 (150-450) Mean Platelet Volume 7.1 FL (7.0-11.0) Prothrombin Time 11.4 SEC (9.8-11.6) Prothromb Time International Ratio 1.0 RATIO Blood Urea Nitrogen 8 MG/DL (7-18) Creatinine 0.60 MG/DL (0.60-1.30) Random Glucose 89 MG/DL (74-106) Calcium Level 8.2 MG/DL (8.5-10.1) Potassium Level 3.6 MEQ/L (3.5-5.1) Chloride Level 101 MEQ/L (98-107) Carbon Dioxide Level 28.1 MEQ/L (21.0-32.0) Anion Gap 8 MEQ/L (5-15) Estimat Glomerular Filtration Rate 135 ML/MIN (>89) (Trini Vanessa DIRECT SERVICE WORKER) Result Diagram: 03/15/17 0338 03/15/17 1221 Imaging Last Impressions Chest X-Ray 03/12/17 0600 Signed Impressions: Service Date/Time: Sunday, March 12, 2017 03:43 - CONCLUSION: 1. Postoperative CABG. Mild dependent atelectasis in the lungs. Fransisco Brooke MD Head CT 03/11/17 0000 Signed Impressions: Service Date/Time: Saturday, March 11, 2017 12:14 - CONCLUSION: 1. Sizable area of intraparenchymal hemorrhage involving the left posterior temporal and occipital cortex. There is some degree of intraventricular hemorrhage as well. Changes are similar to previous MRI dated 03/10/17. Kirt Pretty MD Brain MRI 03/10/17 0000 Signed Impressions: Service Date/Time: Philip, March 10, 2017 16:51 - CONCLUSION: 1. There is an area of acute intracranial hemorrhage involving the left temporal occipital cortex measuring at least 4.4 x 7.5 cm. There is extensive mass effect associated with this. There is rupture into the ventricular system with some hemorrhage within the left lateral ventricle. There is a small amount hemorrhage within the posterior horn of the right lateral ventricle as well. Kirt Pretty MD ([facility]) Assessment and Plan Disease Oriented Problem List: (1) Intracranial hemorrhage (2) Hyponatremia (3) Chest pain (4) NSTEMI (non-ST elevated myocardial infarction) (5) Psychosis (6) Acute exacerbation of chronic obstructive pulmonary disease (COPD) (7) History of major depression (8) Hypertension Symptom Scale: (1) Dysphagia 0-10 Scale: Unable to quantify (speech therapy following.) (2) Anxiety 0-10 Scale: Unable to quantify (3) Shortness of breath 0-10 Scale: Unable to quantify (4) Debility 0-10 Scale: Unable to quantify (5) Confusion 0-10 Scale: Unable to quantify Pertinent Non-Medical Issues Psychosocial:Patient was born in [place] , he moved to [place] at least 30 years ago . Patient's graduated from high school . Patient is single never . Patient waited for [employer] and was injured at work many years ago. Since then patient has never worked. He has 1 daughter named Robert and 3 grandchildren.He also has a half-brother. Patient lives alone. Spiritual:[facility] Legal: No issues Ethical issues impacting care: None . Important Contacts Daughter -Robert Salgadofaustino , Figueroabashir Khan (step pyb) [phone] . Prognosis Mr. Denis is a 67-year-old male with a past medical history of psychosis, major depressive disorder, alcohol use disorder, COPD, CAD, CABG X2, hypertension,hyperlipidemia. Patient refusing to eat or drink. If patient continues to refuse eating he may need a feeding tube. Patient is showing signs of physical deconditioning and is at risk for further complications, deterioration and decline leading to . . Code Status: Full Code Plan PLAN: LEGAL DECISION MAKER:Patient incapacitated to make his own decisions at this time secondary to clinical condition. It is unknown when and if he will regain the ability to participate. Per [place] statutes in the absence of written advanced directives legal decision making would fall to the patient's adult daughter Robert Salazar. In the event that patient is required to make any medical decision, shared medical decision making with his daughter Jessie Hart would be recommended. GOALS OF CARE: Aggressive treatment at this time. CODE STATUS: Full Code SYMPTOMS: ==Anxiety- Multifactorial, reports of paranoid. Patient had bilateral upper extremities soft restraints. Patient may benefit from none sedating anxiolytic. * == Hallucinations- hx of visual and auditory hallucinations. Patient may need follow-up with psychiatry outpatient. * * == Agitation- patient his chronic psychiatric issues. Has been reported to be agitated. Patient on scheduled Seroquel. Started 03/15/17 on Haldol prn. * ==Shortness of breath- multifactorial, DuoNeb's PRN, currently on room air. O2 Sat high 90s. Patient with no signs of respiratory distress * == Dysphagia- followed by speech therapy. Currently on a regular diet. mechanical soft diet and thin liquids and no straw. Consuming less than 25%- 50 % of his meals. Due to mentation and persistent coughing, aspiration remains a high risk. Close monitoring during meals. * ==Confusion- Patient confused and having difficulty with speech. MRI and CT head revealed ICH. Speech improved compared to prior assessment. Speech therapy following. * ==Debility- Poor oral intake, consuming 10-25% of his meals. Has chronic psychiatric issues. PT, OT and ST following. May also benefit from PT if patient is willing to participate. Patient may benefit from oracle analyst consult. Palliative care will continue to follow the patient during hospital course as condition evolves, to assist patient/decision-maker with understanding of their medical conditions, weighing benefits/burdens of treatment options, for clarification of goals of treatment. Additionally will assist with any symptoms of palliative concern (Trini Vanesas) Plan Present for assessment and discussion. Agree with the above assessment and plan. (Michelle Hawthorne) Collaborating MD Comments Chart reviewed. Case discussed with palliative care DIRECT SERVICE WORKER. Above DIRECT SERVICE WORKER note reviewed and I concur. . (Rafael Crespo MD) Trini Vanessa Mar 15, 2017 16:55 Michelle Hawthorne Mar 16, 2017 14:10 Rafael Crespo MD Mar 19, 2017 18:28
[2017-03-15] MEDS: PRAVASTATIN SOD 40 MG TAB PO SCH (20:01)
[2017-03-16 02:55] LABS: HEMATOCRIT 27.7 % (39.0-51.0); MEAN CELL VOLUME 91.2 FL (80.0-100.0); MEAN CORPUSCULAR HEMOGLOBIN 31.5 PG (27.0-34.0); MEAN CORPUSCULAR HGB CONC 34.6 % (32.0-36.0); PLATELET COUNT 109 TH/MM3 (150-450); RED BLOOD COUNT 3.04 MIL/MM3 (4.50-5.90); RED CELL DISTRIBUTION WIDTH 14.1 % (11.6-17.2); REVIEW FLAG FINAL; WHITE BLOOD COUNT 4.6 TH/MM3 (4.0-11.0)
[2017-03-16 03:15] LABS: BICARBONATE 28.7 MEQ/L (21.0-32.0); POTASSIUM 4.3 MEQ/L (3.5-5.1)
[2017-03-16 04:00] VITALS: BP 103/56; PULSE 87; RESP 16; TEMP 98.7; O2SAT 91
[2017-03-16] MEDS: SODIUM CHLORIDE 1 GRAM TAB PO SCH ×3 (04:36→20:03)
[2017-03-16 08:00] VITALS: BP 97/57; PULSE 79; RESP 16; TEMP 99.1; O2SAT 100
[2017-03-16] MEDS: TAMSULOSIN HCL 0.4 MG CAP PO SCH (08:52)
[2017-03-16] MEDS: levETIRAcetam 500 MG TAB PO SCH ×2 (08:52→20:03)
[2017-03-16] MEDS: FAMOTIDINE 20 MG TAB PO SCH ×2 (08:52→20:03)
[2017-03-16] MEDS: LISINOPRIL 10 MG TAB PO SCH (08:52)
[2017-03-16] MEDS: DOCUSATE SODIUM 50 MG/SENNA 8.6 MG TAB PO SCH ×2 (08:52→20:03)
[2017-03-16] MEDS: QUEtiapine FUMARATE 25 MG TAB PO SCH ×2 (08:53→20:03)
[2017-03-16] MEDS: SODIUM CHLORIDE 0.9% FLUSH 10 ML FLUSH IV FLUSH SCH ×2 (08:53→21:00)
[2017-03-16] MEDS: MULTIVITAMIN INJ 10 ML, THIAMINE INJ 100 MG, FOLIC ACID INJ 1 MG in SODIUM CHLORID 0.9%... IV SCH ×2 (09:05→10:29)
--- NOTE | 2017-03-16 11:27 | HHI.HCPN ---
Reason for visit Reason for visit a. To assist with evaluation and management of symptoms including: hallucinations, anxiety, confusion, shortness of breath, debility b. To assist medical decision maker(s) with: better understanding of current medical conditions; weighing benefits/burdens of medical treatment options; making medical treatment decisions. . (Trini Vanessa) Subjective/Interval History Mr. Denis is a 67-year-old male with a past medical history of psychosis, major depressive disorder, alcohol use disorder, COPD, CAD, hypertension. Patient presented to ED on 02/23/17 complaining of progressive shortness of breath, chest pain and coughing. Clinical course complicated by visual, auditory hallucinations, refusing to eat. MRI 03/10/17 revealed acute intracranial hemorrhage involving the left temporal occipital cortex with extensive mass effect. Neurosurgery recommended medical management. Patient transferred to [address] [place] [address]. Seen in his room, sitting upright in bed, awake and more alert today than yesterday. Patient being fed breakfast by a FLATWORK WASHER. Persistent unproductive cough. Patient oriented to person only, confused to place and situation. Patient's speech, clear today. Denies pain. Patient is afebrile, SBP high 90s to low 100 100s. Patient is on room air, O2 saturation low 90s to 100, no signs of respiratory distress noted. Laboratory workup revealing WBC 4.6 hemoglobin 9.6, hematocrit 27.7, platelet count 109, sodium 141, potassium 4.3, BUN/creatinine 22/0.72, random glucose 101. Patient being followed with PT, ST and OT. PT recommending PT in rehab. Case discussed with Case Management. Telephone call to patient`s daughter Jessie, no response. Waiting call back. . (Trini Vanessa) Advance Directives Living Will: Never completed Health Care Surrogate: Never completed Durable Power of School Superintendent: Never completed (Trini Vanessa) Objective Vital Signs Date Time Temp Pulse Resp B/P (MAP) Pulse Ox O2 Delivery O2 Flow Rate FiO2 03/16/17 08:00 99.1 79 16 97/57 (70) 100 03/16/17 04:00 98.7 87 16 103/56 (72) 91 03/15/17 22:38 Room Air 03/15/17 22:00 99.8 93 20 145/71 (95) 96 03/15/17 20:09 95 03/15/17 20:00 100 03/15/17 20:00 98.2 100 21 107/64 (78) 96 03/15/17 19:00 96 Room Air 03/15/17 18:00 95 03/15/17 16:00 99.2 90 24 90/57 (68) 99 03/15/17 16:00 91 03/15/17 14:00 74 03/15/17 12:00 77 03/15/17 12:00 99.0 78 20 90/55 (67) 99 03/15/17 10:45 99 Intake & Output 03/16/17 03/16/17 07:00 19:00 Intake Total 709 ml Output Total 600 ml Balance 109 ml Intake Oral 0 ml IV Total 709 ml Output Urine Total 600 ml # Bowel Movements 0 Physical Exam CONSTITUTIONAL/GENERAL: This is an elderly cachectic male, in no acute distress. TUBES/LINES/DRAINS: PIV, Kenny catheter SKIN: No jaundice, rashes, or lesions. Ecchymoses to upper extremities. No wounds seen anteriorly. Skin temperature appropriate. Not diaphoretic. EYES: Pupils equal and round and reactive. Extraocular motions intact. No scleral icterus. No injection or drainage. Fundi not examined. ENT: Hearing grossly normal. Nose without bleeding or purulent drainage. Moist oral mucosa. NECK: Trachea midline. Supple, nontender. CARDIOVASCULAR: Regular rate and rhythm without murmurs, gallops, or rubs. No JVD. Peripheral pulses symmetric. RESPIRATORY/CHEST: Symmetric, unlabored respirations. Clear diminished. Unproductive cough. GASTROINTESTINAL: Abdomen soft, non-tender, nondistended. No guarding. Bowel sounds present. GENITOURINARY: Without palpable bladder distension. Kenny catheter. MUSCULOSKELETAL: Extremities without clubbing, cyanosis, or edema. No joint tenderness or effusion noted. No calf tenderness. No mottling or clubbing. NEUROLOGICAL: Awake, alert and intermittently following simple commands. Oriented to person only. Speech clear today. Denies pain. PSYCHIATRIC: No apparent hallucinations at this time. Patient has bilateral upper extremities soft restraints. Calm. . (Trini Vanessa) Diagnostic Tests Laboratory Laboratory Tests Test 03/13/17 14:00 03/13/17 21:33 03/14/17 03:56 10/3/17 10:25 Sodium Level 138 MEQ/L (136-145) 138 MEQ/L (136-145) 137 MEQ/L (136-145) 134 MEQ/L (136-145) Prothrombin Time 11.0 SEC (9.8-11.6) Prothromb Time International Ratio 1.0 RATIO Test 03/14/17 15:56 03/14/17 23:51 03/15/17 03:38 03/15/17 12:21 Sodium Level 135 MEQ/L (136-145) 137 MEQ/L (136-145) 137 MEQ/L (136-145) 138 MEQ/L (136-145) White Blood Count 5.4 TH/MM3 (4.0-11.0) Red Blood Count 3.35 MIL/MM3 (4.50-5.90) Hemoglobin 10.6 GM/DL (13.0-17.0) Hematocrit 30.3 % (39.0-51.0) Mean Corpuscular Volume 90.4 FL (80.0-100.0) Mean Corpuscular Hemoglobin 31.7 PG (27.0-34.0) Mean Corpuscular Hemoglobin Concent 35.0 % (32.0-36.0) Red Cell Distribution Width 14.0 % (11.6-17.2) Platelet Count 115 TH/MM3 (150-450) Mean Platelet Volume 7.1 FL (7.0-11.0) Prothrombin Time 11.4 SEC (9.8-11.6) Prothromb Time International Ratio 1.0 RATIO Blood Urea Nitrogen 8 MG/DL (7-18) Creatinine 0.60 MG/DL (0.60-1.30) Random Glucose 89 MG/DL (74-106) Calcium Level 8.2 MG/DL (8.5-10.1) Potassium Level 3.6 MEQ/L (3.5-5.1) Chloride Level 101 MEQ/L (98-107) Carbon Dioxide Level 28.1 MEQ/L (21.0-32.0) Anion Gap 8 MEQ/L (5-15) Estimat Glomerular Filtration Rate 135 ML/MIN (>89) Test 03/15/17 19:53 03/16/17 02:11 Sodium Level 139 MEQ/L (136-145) 141 MEQ/L (136-145) White Blood Count 4.6 TH/MM3 (4.0-11.0) Red Blood Count 3.04 MIL/MM3 (4.50-5.90) Hemoglobin 9.6 GM/DL (13.0-17.0) Hematocrit 27.7 % (39.0-51.0) Mean Corpuscular Volume 91.2 FL (80.0-100.0) Mean Corpuscular Hemoglobin 31.5 PG (27.0-34.0) Mean Corpuscular Hemoglobin Concent 34.6 % (32.0-36.0) Red Cell Distribution Width 14.1 % (11.6-17.2) Platelet Count 109 TH/MM3 (150-450) Mean Platelet Volume 7.5 FL (7.0-11.0) Blood Urea Nitrogen 22 MG/DL (7-18) Creatinine 0.72 MG/DL (0.60-1.30) Random Glucose 101 MG/DL (74-106) Calcium Level 7.8 MG/DL (8.5-10.1) Potassium Level 4.3 MEQ/L (3.5-5.1) Chloride Level 106 MEQ/L (98-107) Carbon Dioxide Level 28.7 MEQ/L (21.0-32.0) Anion Gap 6 MEQ/L (5-15) Estimat Glomerular Filtration Rate 109 ML/MIN (>89) (Trini Vanessa) Result Diagram: 03/16/1721003/16/17210 Assessment and Plan Disease Oriented Problem List: (1) Intracranial hemorrhage (2) Hyponatremia (3) Chest pain (4) NSTEMI (non-ST elevated myocardial infarction) (5) Psychosis (6) Acute exacerbation of chronic obstructive pulmonary disease (COPD) (7) History of major depression (8) Hypertension Symptom Scale: (1) Dysphagia 0-10 Scale: Unable to quantify (speech therapy following.) (2) Anxiety 0-10 Scale: Unable to quantify (3) Shortness of breath 0-10 Scale: Unable to quantify (4) Debility 0-10 Scale: Unable to quantify (5) Confusion 0-10 Scale: Unable to quantify Pertinent Non-Medical Issues Psychosocial:Patient was born in [place] , he moved to [place] at least 30 years ago . Patient's graduated from high school . Patient is single never . 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 Since then patient has never worked. He has 1 daughter named Robert and 3 grandchildren.He also has a half-brother. Patient lives alone. Spiritual:[facility] Legal: No issues Ethical issues impacting care: None . Important Contacts Daughter -Robert Bustillos , Figueroa Khan (feok hyt) [phone] . Prognosis Mr. Denis is a 67-year-old male with a past medical history of psychosis, major depressive disorder, alcohol use disorder, COPD, CAD, CABG X2, hypertension,hyperlipidemia. Patient refusing to eat or drink. If patient continues to refuse eating he may need a feeding tube. Patient is showing signs of physical deconditioning and is at risk for further complications, deterioration and decline leading to . . Code Status: Full Code Plan PLAN: LEGAL DECISION MAKER:Patient incapacitated to make his own decisions at this time secondary to clinical condition. It is unknown when and if he will regain the ability to participate. Per [place] statutes in the absence of written advanced directives legal decision making would fall to the patient's adult daughter Robert Salazar. In the event that patient is required to make any medical decision, shared medical decision making with his daughter Jessie Hart would be recommended. GOALS OF CARE: Aggressive treatment at this time. CODE STATUS: Full Code SYMPTOMS: ==Anxiety- Multifactorial, reports of paranoid. Patient does not seem anxious at this time. No reported signs of paranoia. * == Hallucinations- hx of visual and auditory hallucinations. Patient may need follow-up with psychiatry outpatient. * == Agitation- patient his chronic psychiatric issues. Has been reported to be agitated. Patient has bilateral upper extremities soft restraints. He is on scheduled Seroquel. Started 03/15/17 on Haldol prn. None administered yet. * ==Shortness of breath- multifactorial, DuoNeb's PRN, currently on room air. O2 Sat high 90s. Patient with no signs of respiratory distress. * == Dysphagia- followed by speech therapy. Currently on a regular diet. mechanical soft diet and thin liquids and no straw. Consuming less than 10%- 25 % of his meals. Due to mentation and persistent coughing, aspiration remains a high risk. Close monitoring during meals. * ==Confusion- Patient confused and having difficulty with speech. MRI and CT head revealed ICH. Speech improved compared to prior assessment. Speech therapy following. * ==Debility- Poor oral intake, consuming 10-25% of his meals. Gets ensure with his meals. Has chronic psychiatric issues. PT, OT and ST following. May also benefit from PT if patient is willing to participate. Patient may benefit from assistance with feeding and quantitative analyst consult. Palliative care will continue to follow the patient during hospital course as condition evolves, to assist patient/decision-maker with understanding of their medical conditions, weighing benefits/burdens of treatment options, for clarification of goals of treatment. Additionally will assist with any symptoms of palliative concern (Trini Vanessa) Plan Present for assessment and discussion. Agree with above assessment and plan. (Michelle Hawthorne) Attestation To help prompt me to consider important information that might be impacting todays encounter, some historical information from prior notes written by myself or my colleagues may have been brought forward into todays note. My signature on this note, however, is an attestation that I personally performed the exam noted today, and, unless otherwise dated, the interactions with patient , family, and staff as well as the review of records noted all occurred today. I also attest that the listed assessment and stated plan reflect my best clinical judgment today based on the combination of historical information, prior notes, and todays exam/ interactions. The level of evaluation / management services and/or time that is claimed for this visit does NOT include work or time done by myself or other providers on previous visits. . (Trini Vanessa) Collaborating MD Comments Chart reviewed. Case discussed with palliative care SAND FILLER. Above SAND FILLER note reviewed and I concur. . (Rafael Crespo MD) Trini Vanessa Mar 16, 2017 10:40 Michelle Hawthorne Mar 16, 2017 14:11 Rafael Crespo MD Mar 19, 2017 18:29
[2017-03-16 12:00] VITALS: BP 103/60; PULSE 87; RESP 16; TEMP 98.1; O2SAT 97
--- NOTE | 2017-03-16 15:57 | HHI.PR ---
Subjective Remarks Patient status is unchanged. Still very confused. Objective Vitals Vital Signs Date Time Temp Pulse Resp B/P (MAP) Pulse Ox O2 Delivery O2 Flow Rate FiO2 03/16/17 12:00 98.1 87 16 103/60 (74) 97 03/16/17 08:00 Room Air 03/16/17 08:00 99.1 79 16 97/57 (70) 100 03/16/17 04:00 98.7 87 16 103/56 (72) 91 03/15/17 22:38 Room Air 03/15/17 22:00 99.8 93 20 145/71 (95) 96 03/15/17 20:09 95 03/15/17 20:00 100 03/15/17 20:00 98.2 100 21 107/64 (78) 96 03/15/17 19:00 96 Room Air 03/15/17 18:00 95 03/15/17 16:00 99.2 90 24 90/57 (68) 99 03/15/17 16:00 91 I/O 03/15/17 03/15/17 03/15/17 03/16/17 03/16/17 03/16/17 07:00 15:00 23:00 07:00 15:00 23:00 Intake Total 2182 ml 0 ml Output Total 150 ml 1650 ml 200 ml Balance -150 ml 532 ml -200 ml Intake Oral 800 ml 0 ml IV Total 1382 ml Output Urine Total 150 ml 1650 ml 200 ml Stool Total 0 ml # Bowel Movements 0 0 Result Diagram: 03/16/17 0211 03/16/17 1446 Objective Remarks GENERAL: Elderly and frail male in no apparent distress. CARDIOVASCULAR: Normal rate and regular rhythm without murmurs, gallops, or rubs. RESPIRATORY: breath sounds equal and clear to auscultation bilaterally. GASTROINTESTINAL: Abdomen soft, non-tender, non-distended. Normal active bowel sounds MUSCULOSKELETAL: Extremities without cyanosis, or edema. NEURO: Awake. Follow some commands. Incoherent speech PSYCH: Calm A/P Problem List: (1) Malnutrition ICD Code: E46 - Unspecified protein-calorie malnutrition Status: Acute Assessment and Plan 67-year-old male admitted from the psychiatric unit with failure to thrive and severe malnutrition. Patient later developed mumbled speech with aphasia. MRI revealed ICH: ICH: MRI revealed a 4.4 x 7.5 cm area of intracranial hemorrhage involving the left temporal occipital cortex. Acute encephalopathy - Neurosurgery followed and signed off. Advise nonoperative management for now. Repeat Brain CAT scan stable. - Coumadin and aspirin held since 03/10/17, plan to hold for total 14 days. - Keppra for seizure prophylaxis x 7 days (anticipated stop date 03/17) - Neurochecks. - Neurosurgery signed off. - Thiamine and multivitamin - Encephalopathy and agitation is likely related to the stroke and underlying psychiatric disorder. Highly doubt alcohol withdrawal since the patient has been in the hospital since 02/28 - Patient started on low-dose Seroquel with improvement. Psychiatry consulted for assistance. Severe malnutrition due to decreased oral intake, poor BMI, and functional capacity. Dietitian following. He is eating better but needs assistance. Continue to monitor. COPD, chronic: DuoNeb as needed. Coronary artery disease status post CABG:Cardiac catheterization showed no significant acute coronary disease. On anticoagulants and antiplatelets discontinued. History of aortic stenosis: Status post bioprosthetic aortic valve replacement. Coumadin on hold due to ICH. Atrial fibrillation: Rate controlled. Anticoagulation on hold due to ICH. Per neurosurgery, need to hold anticoagulation for 2 weeks prior to restarting. Hyponatremia: Status post 2% normal saline per wet room supervisor. Currently on salt tablets. Sodium level acceptable. Hypertension, essential: Continue lisinopril. Patient is on Catapres patch and amlodipine Hyperlipidemia: Continue statin. BPH: Continue Flomax. DVT prophylaxis: SCDs. Pharmacological prophylaxis contraindicated due to ICH. Discharge Planning DC planning to SNF in 24-48 hrs Problem Qualifiers (1) Malnutrition: Qualified Codes: E43 - Unspecified severe protein-calorie malnutrition Pasha Sal MD Mar 16, 2017 15:57
[2017-03-16 16:00] VITALS: BP 127/74; PULSE 92; RESP 16; TEMP 98.5; O2SAT 99
[2017-03-16 20:00] VITALS: BP 117/59; PULSE 86; RESP 20; TEMP 97.8; O2SAT 94
[2017-03-16] MEDS: PRAVASTATIN SOD 40 MG TAB PO SCH (20:03)
[2017-03-17] VITALS: BP 108/59; PULSE 88; RESP 18; TEMP 97.6; O2SAT 96
[2017-03-17] MEDS: SODIUM CHLORIDE 1 GRAM TAB PO SCH ×3 (03:24→20:06)
[2017-03-17 04:00] VITALS: BP 117/63; PULSE 84; RESP 18; TEMP 97.4; O2SAT 93
[2017-03-17] MEDS: POTASSIUM CHLORIDE INJ 10 MEQ in SODIUM CHLOR 0.9% 1000 ML INJ 1,000 ML IV SCH (04:40)
[2017-03-17 08:00] VITALS: BP 107/61; PULSE 81; RESP 16; TEMP 98.1; O2SAT 93
[2017-03-17] MEDS: LISINOPRIL 10 MG TAB PO SCH (10:25)
[2017-03-17] MEDS: TAMSULOSIN HCL 0.4 MG CAP PO SCH (10:25)
[2017-03-17] MEDS: FAMOTIDINE 20 MG TAB PO SCH ×2 (10:25→20:06)
[2017-03-17] MEDS: DOCUSATE SODIUM 50 MG/SENNA 8.6 MG TAB PO SCH ×2 (10:25→20:06)
[2017-03-17] MEDS: QUEtiapine FUMARATE 25 MG TAB PO SCH ×2 (10:25→20:05)
[2017-03-17] MEDS: levETIRAcetam 500 MG TAB PO SCH ×2 (10:25→20:06)
[2017-03-17] MEDS: SODIUM CHLORIDE 0.9% FLUSH 10 ML FLUSH IV FLUSH SCH ×2 (10:30→20:06)
[2017-03-17 12:00] VITALS: BP 103/56; PULSE 85; RESP 16; TEMP 97.8; O2SAT 93
[2017-03-17] MEDS: MULTIVITAMIN INJ 10 ML, THIAMINE INJ 100 MG, FOLIC ACID INJ 1 MG in SODIUM CHLORID 0.9%... IV SCH (12:49)
--- NOTE | 2017-03-17 14:39 | HHI.HCPN ---
Reason for visit Reason for visit a. To assist with evaluation and management of symptoms including: hallucinations, anxiety, confusion, shortness of breath, debility b. To assist medical decision maker(s) with: better understanding of current medical conditions; weighing benefits/burdens of medical treatment options; making medical treatment decisions. . (Trini Vanessa) Subjective/Interval History Mr. Denis is a 67-year-old male with a past medical history of psychosis, major depressive disorder, alcohol use disorder, COPD, CAD, hypertension. Patient presented to ED on 02/23/17 complaining of progressive shortness of breath, chest pain and coughing. Clinical course complicated by visual, auditory hallucinations, refusing to eat. MRI 03/10/17 revealed acute intracranial hemorrhage involving the left temporal occipital cortex with extensive mass effect. Neurosurgery recommended medical management. Patient seen in room, awake alert to self only, confused to place and situation. Patient's speech, clear. Denies pain. Patient seen by speech therapist today, recommended diet changed to pured with nectar consistency thickened liquids. Nurse trying to feed patient. Requires encouragement and cuing. Poor appetite. Receiving Enlive TID and Ensure pudding BID. Patient seen by a clinical research monitor. Patient afebrile. Hemodynamically stable. Remains on room air O2 saturation low 90s. No signs of distress noted. Serum Sodium level today 134. No recent imaging. Patient remains in bilateral upper extremities soft restraints. Case discussed with Case Management, Otilio Sousa and bedside RN. Per CM notes patient denied by [facility]. . (Trini Vanessa) Advance Directives Living Will: Never completed Health Care Surrogate: Never completed Durable Power of Bomb Loader: Never completed (Trini Vanessa) Objective Vital Signs Date Time Temp Pulse Resp B/P (MAP) Pulse Ox O2 Delivery O2 Flow Rate FiO2 03/17/17 12:00 97.8 85 16 103/56 (72) 93 03/17/17 08:00 98.1 81 16 107/61 (76) 93 03/17/17 04:00 97.4 84 18 117/63 (81) 93 03/17/17 00:00 97.6 88 18 108/59 (75) 96 03/16/17 20:05 Room Air 03/16/17 20:00 97.8 86 20 117/59 (78) 94 03/16/17 16:00 98.5 92 16 127/74 (91) 99 Intake & Output 03/17/17 03/17/17 07:00 19:00 Intake Total 678 ml Output Total 800 ml Balance -122 ml Intake Oral 280 ml IV Total 398 ml Output Urine Total 800 ml # Bowel Movements 0 Physical Exam CONSTITUTIONAL/GENERAL: This is an elderly cachectic male, in no acute distress, sitting up , awake in bed. TUBES/LINES/DRAINS: PIV, Kenny catheter SKIN: No jaundice, rashes, or lesions. Ecchymoses to upper extremities. No wounds seen anteriorly. Skin temperature appropriate. Not diaphoretic. EYES: Pupils equal and round and reactive. Extraocular motions intact. No scleral icterus. No injection or drainage. Fundi not examined. ENT: Hearing grossly normal. Nose without bleeding or purulent drainage. Moist oral mucosa. NECK: Trachea midline. Supple, nontender. CARDIOVASCULAR: Regular rate and rhythm without murmurs, gallops, or rubs. No JVD. Peripheral pulses symmetric. RESPIRATORY/CHEST: Symmetric, unlabored respirations. Clear diminished. Unproductive cough. GASTROINTESTINAL: Abdomen soft, non-tender, nondistended. No guarding. Bowel sounds present. GENITOURINARY: Without palpable bladder distension. Kenny catheter. MUSCULOSKELETAL: Extremities without clubbing, cyanosis, or edema. No joint tenderness or effusion noted. No calf tenderness. No mottling or clubbing. NEUROLOGICAL: Awake, alert and intermittently following simple commands. Oriented to person only. Speech clear today. Denies pain. PSYCHIATRIC: No apparent hallucinations at this time. Patient has bilateral upper extremities soft restraints. Calm. . (DarrickasaTrini nelson) Diagnostic Tests Laboratory Laboratory Tests Test 03/14/17 15:56 03/14/17 23:51 03/15/17 03:38 03/15/17 12:21 Sodium Level 135 MEQ/L (136-145) 137 MEQ/L (136-145) 137 MEQ/L (136-145) 138 MEQ/L (136-145) White Blood Count 5.4 TH/MM3 (4.0-11.0) Red Blood Count 3.35 MIL/MM3 (4.50-5.90) Hemoglobin 10.6 GM/DL (13.0-17.0) Hematocrit 30.3 % (39.0-51.0) Mean Corpuscular Volume 90.4 FL (80.0-100.0) Mean Corpuscular Hemoglobin 31.7 PG (27.0-34.0) Mean Corpuscular Hemoglobin Concent 35.0 % (32.0-36.0) Red Cell Distribution Width 14.0 % (11.6-17.2) Platelet Count 115 TH/MM3 (150-450) Mean Platelet Volume 7.1 FL (7.0-11.0) Prothrombin Time 11.4 SEC (9.8-11.6) Prothromb Time International Ratio 1.0 RATIO Blood Urea Nitrogen 8 MG/DL (7-18) Creatinine 0.60 MG/DL (0.60-1.30) Random Glucose 89 MG/DL (74-106) Calcium Level 8.2 MG/DL (8.5-10.1) Potassium Level 3.6 MEQ/L (3.5-5.1) Chloride Level 101 MEQ/L (98-107) Carbon Dioxide Level 28.1 MEQ/L (21.0-32.0) Anion Gap 8 MEQ/L (5-15) Estimat Glomerular Filtration Rate 135 ML/MIN (>89) Test 03/15/17 19:53 03/16/17 02:11 03/16/17 14:46 03/17/17 04:52 Sodium Level 139 MEQ/L (136-145) 141 MEQ/L (136-145) 139 MEQ/L (136-145) 137 MEQ/L (136-145) White Blood Count 4.6 TH/MM3 (4.0-11.0) Red Blood Count 3.04 MIL/MM3 (4.50-5.90) Hemoglobin 9.6 GM/DL (13.0-17.0) Hematocrit 27.7 % (39.0-51.0) Mean Corpuscular Volume 91.2 FL (80.0-100.0) Mean Corpuscular Hemoglobin 31.5 PG (27.0-34.0) Mean Corpuscular Hemoglobin Concent 34.6 % (32.0-36.0) Red Cell Distribution Width 14.1 % (11.6-17.2) Platelet Count 109 TH/MM3 (150-450) Mean Platelet Volume 7.5 FL (7.0-11.0) Blood Urea Nitrogen 22 MG/DL (7-18) Creatinine 0.72 MG/DL (0.60-1.30) Random Glucose 101 MG/DL (74-106) Calcium Level 7.8 MG/DL (8.5-10.1) Potassium Level 4.3 MEQ/L (3.5-5.1) Chloride Level 106 MEQ/L (98-107) Carbon Dioxide Level 28.7 MEQ/L (21.0-32.0) Anion Gap 6 MEQ/L (5-15) Estimat Glomerular Filtration Rate 109 ML/MIN (>89) (Trini Vanessa) Result Diagram: 03/16/1721003/17/17 0453 Assessment and Plan Disease Oriented Problem List: (1) Intracranial hemorrhage (2) Hyponatremia (3) Chest pain (4) NSTEMI (non-ST elevated myocardial infarction) (5) Psychosis (6) Acute exacerbation of chronic obstructive pulmonary disease (COPD) (7) History of major depression (8) Hypertension Symptom Scale: (1) Dysphagia 0-10 Scale: Unable to quantify (speech therapy following.) (2) Anxiety 0-10 Scale: Unable to quantify (3) Shortness of breath 0-10 Scale: Unable to quantify (4) Debility 0-10 Scale: Unable to quantify (5) Confusion 0-10 Scale: Unable to quantify Pertinent Non-Medical Issues Psychosocial:Patient was born in [place] , he moved to [place] at least 30 years ago . Patient's graduated from high school . Patient is single never . Patient waited for [employer] and was injured at work many years ago. Since then patient has never worked. He has 1 daughter named Robert and 3 grandchildren.He also has a half-brother. Patient lives alone. Spiritual:[facility] Legal: No issues Ethical issues impacting care: None . Important Contacts Daughter -Robert Salgadofaustino , Figueroa Khan (step oic) [phone] . Prognosis Mr. Denis is a 67-year-old male with a past medical history of psychosis, major depressive disorder, alcohol use disorder, COPD, CAD, CABG X2, hypertension,hyperlipidemia. Clinical course complicated by visual, auditory hallucinations, refusing to eat and dyphagia. MRI 03/10/17 revealed acute intracranial hemorrhage involving the left temporal occipital cortex with extensive mass effect. Patient is showing signs of physical deconditioning and is at risk for further complications, deterioration and decline leading to . . Code Status: Full Code Plan PLAN: LEGAL DECISION MAKER:Patient incapacitated to make his own decisions at this time secondary to clinical condition. It is unknown when and if he will regain the ability to participate. Per [place] statutes in the absence of written advanced directives legal decision making would fall to the patient's adult daughter Robert Salazar. In the event that patient is required to make any medical decision, shared medical decision making with his daughter Jessie Hart would be recommended. GOALS OF CARE: Aggressive treatment at this time. CODE STATUS: Full Code SYMPTOMS: ==Anxiety- Multifactorial, reports of paranoid. Patient does not seem anxious at this time. No reported signs of paranoia. * == Hallucinations- hx of visual and auditory hallucinations. Patient may need follow-up with psychiatry outpatient. * == Agitation- patient his chronic psychiatric issues. Has been reported to be agitated. Patient has bilateral upper extremities soft restraints. He is on scheduled Seroquel.Recommending increasing Seroquel dosage to facilitate removal of restraints. Also recommending discontinuing Haldol to also facilitate discharge of patient to a SNF. Patient has not required use of Haldol. * ==Shortness of breath- multifactorial, DuoNeb's PRN, currently on room air. O2 Sat high 90s. Patient with no signs of respiratory distress. * == Dysphagia- followed by speech therapy. Patient was reevaluated by speech therapy today and diet now changed to puree diet and nectar consistency thickened liquids. Consuming less than 10%- 25% of his meals. Due to mentation and persistent coughing, aspiration remains a high risk. Close monitoring during meals. * ==Confusion- Patient confused and having difficulty with speech. MRI and CT head revealed ICH. Speech improved compared to prior assessment. Speech therapy following. * ==Debility- Poor oral intake, consuming 10-25% of his meals. Gets ensure pudding BID and Enlive TID with his meals. Has chronic psychiatric issues. PT, OT and ST following. May also benefit from PT. Patient may benefit from assistance with feeding. Palliative care will continue to follow the patient during hospital course as condition evolves, to assist patient/decision-maker with understanding of their medical conditions, weighing benefits/burdens of treatment options, for clarification of goals of treatment. Additionally will assist with any symptoms of palliative concern . (Trini Vanessa) Plan Present and participated in assessment and exam. Agree with above recommendations and assessments. (Michelle Hawthorne) Trini Vanessa Mar 17, 2017 2:39 pm Michelle Hawthorne Mar 17, 2017 5:06 pm
--- NOTE | 2017-03-17 15:06 | HHI.PR ---
Subjective Remarks Patient was agitated overnight and required restraints. He is calm today. Discussed with daughter at bedside. He is eating better. Objective Vitals Vital Signs Date Time Temp Pulse Resp B/P (MAP) Pulse Ox O2 Delivery O2 Flow Rate FiO2 03/17/17 12:00 97.8 85 16 103/56 (72) 93 03/17/17 08:00 98.1 81 16 107/61 (76) 93 03/17/17 04:00 97.4 84 18 117/63 (81) 93 03/17/17 00:00 97.6 88 18 108/59 (75) 96 03/16/17 20:05 Room Air 03/16/17 20:00 97.8 86 20 117/59 (78) 94 03/16/17 16:00 98.5 92 16 127/74 (91) 99 I/O 03/16/17 03/16/17 03/16/17 03/17/17 03/17/17 03/17/17 07:00 15:00 23:00 07:00 15:00 23:00 Intake Total 0 ml 480 ml 678 ml Output Total 200 ml 1600 ml 800 ml Balance -200 ml -1120 ml -122 ml Intake Oral 0 ml 480 ml 280 ml IV Total 398 ml Output Urine Total 200 ml 1600 ml 800 ml # Bowel Movements 0 0 0 Result Diagram: 03/16/17 0211 03/17/17 0452 Objective Remarks GENERAL: Elderly and frail male in no apparent distress. CARDIOVASCULAR: Normal rate and regular rhythm without murmurs, gallops, or rubs. RESPIRATORY: breath sounds equal and clear to auscultation bilaterally. GASTROINTESTINAL: Abdomen soft, non-tender, non-distended. Normal active bowel sounds MUSCULOSKELETAL: Extremities without cyanosis, or edema. NEURO: Awake. Follow some commands. Incoherent speech PSYCH: Calm A/P Problem List: (1) Malnutrition ICD Code: E46 - Unspecified protein-calorie malnutrition Status: Acute Assessment and Plan In brief, this is a 67-year-old male admitted from the psychiatric unit with failure to thrive and severe malnutrition. Patient later developed mumbled speech with aphasia. MRI revealed ICH. This has been treated conservatively. His encephalopathy persisting. He needs fdc facility placement. He needs to be out of restraints for 24 hours before he can be admitted. Medications being titrated for agitation symptoms. ICH: MRI revealed a 4.4 x 7.5 cm area of intracranial hemorrhage involving the left temporal occipital cortex. Acute encephalopathy - Neurosurgery followed and signed off. Advise nonoperative management for now. Repeat Brain CAT scan stable. - Coumadin and aspirin held since 03/10/17, plan to hold for total 14 days. - Keppra for seizure prophylaxis x 7 days (anticipated stop date 03/17) - Neurochecks. - Neurosurgery signed off. - Thiamine and multivitamin - Encephalopathy and agitation is likely related to the stroke and underlying psychiatric disorder. Highly doubt alcohol withdrawal since the patient has been in the hospital since 02/28 - Patient started on low-dose Seroquel with improvement. Increased to 50 mg twice a day. Psychiatry consulted for assistance. Severe malnutrition due to decreased oral intake, poor BMI, and functional capacity. Dietitian following. He is eating better but needs assistance. Continue to monitor. COPD, chronic: DuoNeb as needed. Coronary artery disease status post CABG:Cardiac catheterization showed no significant acute coronary disease. On anticoagulants and antiplatelets discontinued. History of aortic stenosis: Status post bioprosthetic aortic valve replacement. Coumadin on hold due to ICH. To be resumed after 2 weeks. Atrial fibrillation: Rate controlled. Anticoagulation on hold due to ICH. Per neurosurgery, need to hold anticoagulation for 2 weeks prior to restarting. Hyponatremia: Status post 2% normal saline per broomcorn grader. Currently on salt tablets. Sodium level acceptable. Hypertension, essential: Continue lisinopril. Patient is on Catapres patch and amlodipine Hyperlipidemia: Continue statin. BPH: Continue Flomax. DVT prophylaxis: SCDs. Pharmacological prophylaxis contraindicated due to ICH. Discharge Planning DC planning to SNF in the next 24-48 hours if he can stay off restraints. Problem Qualifiers (1) Malnutrition: Qualified Codes: E43 - Unspecified severe protein-calorie malnutrition Pasha Sal MD Mar 17, 2017 15:06
[2017-03-17 16:00] VITALS: BP 111/57; PULSE 78; RESP 16; TEMP 98.7; O2SAT 96
[2017-03-17 20:00] VITALS: BP 118/68; PULSE 82; RESP 19; TEMP 98.4; O2SAT 98
[2017-03-17] MEDS: PRAVASTATIN SOD 40 MG TAB PO SCH (20:05)
[2017-03-18] VITALS: BP 103/56; PULSE 91; RESP 16; TEMP 97.4; O2SAT 94
[2017-03-18] MEDS: SODIUM CHLORIDE 1 GRAM TAB PO SCH ×2 (03:10→13:33)
[2017-03-18 04:00] VITALS: BP 99/58; PULSE 80; RESP 17; TEMP 97.5; O2SAT 94
[2017-03-18] MEDS: POTASSIUM CHLORIDE INJ 10 MEQ in SODIUM CHLOR 0.9% 1000 ML INJ 1,000 ML IV SCH ×2 (06:05→14:48)
[2017-03-18 08:00] VITALS: BP 109/63; PULSE 83; RESP 20; TEMP 98.9; O2SAT 95
[2017-03-18] MEDS: MULTIVITAMIN INJ 10 ML, THIAMINE INJ 100 MG, FOLIC ACID INJ 1 MG in SODIUM CHLORID 0.9%... IV SCH (09:27)
[2017-03-18] MEDS: DOCUSATE SODIUM 50 MG/SENNA 8.6 MG TAB PO SCH (09:32)
[2017-03-18] MEDS: FAMOTIDINE 20 MG TAB PO SCH (09:32)
[2017-03-18] MEDS: LISINOPRIL 10 MG TAB PO SCH (09:32)
[2017-03-18] MEDS: TAMSULOSIN HCL 0.4 MG CAP PO SCH (09:32)
[2017-03-18] MEDS: QUEtiapine FUMARATE 25 MG TAB PO SCH (09:32)
[2017-03-18] MEDS: SODIUM CHLORIDE 0.9% FLUSH 10 ML FLUSH IV FLUSH SCH (09:33)
[2017-03-18 12:00] VITALS: BP 93/54; PULSE 76; RESP 20; TEMP 97.5; O2SAT 94
[2017-03-18 16:00] VITALS: BP 98/52; PULSE 81; RESP 18; TEMP 98.6; O2SAT 97
[2017-03-18] MEDS ORDERED: FAMO20TA2 PO (16:50)
[2017-03-18] MEDS ORDERED: CLON.1T T-DERMAL (16:50)
[2017-03-18] MEDS ORDERED: LISI10TA3 PO (16:50)
[2017-03-18] MEDS ORDERED: QUET1TAB7 PO (16:50)
[2017-03-18] MEDS ORDERED: SODI1TAB PO (16:56)
--- NOTE | 2017-03-18 16:56 | HHI.DS ---
Discharge Summary Admission Date Mar 07, 2017 at 17:07 Discharge Date: Mar 18, 2017 Admitting Diagnosis (1) Malnutrition ICD Code: E46 - Unspecified protein-calorie malnutrition Status: Acute (2) Intracranial hemorrhage ICD Code: I62.9 - Nontraumatic intracranial hemorrhage, unspecified Status: Acute (3) Agitation ICD Code: R45.1 - Restlessness and agitation (4) HTN (hypertension) ICD Code: I10 - Essential (primary) hypertension Procedures none Brief History - From Admission Mr. Denis is a 67 year old male with a history of COPD who was admitted today for failure to thrive after being under the care of psychiatry service from 02/28 - 03/07/2017. On 02/23/2017, Mr. Denis to the emergency department due to chest pain, shortness of breath. Upon admission he was started on antibiotics, breathing treatments. Cardiology was consulted for mild elevation in troponins. Peak troponin was 0.12. Patient underwent cardiac catheterization on 02/24/2017 - did not show any coronary artery disease. While medically patient remained stable, he had hallucinations and he did not eat or get up from bed. After evaluating, psychiatry guerrero acted him and subsequently patient was discharged to Psychiatry service. While in psychiatry service, patient was started on abilify which did not improve his symptoms. Patient has a very flat affect, does not eat, talk or get up. Psychiatry service do not feel that his condition is primarily psychiatric. Patient was subsequently discharged from psychiatry and admitted to hospitalist service on 03/07/2017. CBC/BMP: 03/16/17 0211 03/17/17 0452 Significant Findings Laboratory Tests Test 03/15/17 19:53 03/16/17 02:11 03/16/17 14:46 03/17/17 04:52 Red Blood Count 3.04 MIL/MM3 (4.50-5.90) Hemoglobin 9.6 GM/DL (13.0-17.0) Hematocrit 27.7 % (39.0-51.0) Platelet Count 109 TH/MM3 (150-450) Blood Urea Nitrogen 22 MG/DL (7-18) Calcium Level 7.8 MG/DL (8.5-10.1) Imaging Last Impressions Chest X-Ray 03/12/17 0600 Signed Impressions: Service Date/Time: Sunday, March 12, 2017 03:43 - CONCLUSION: 1. Postoperative CABG. Mild dependent atelectasis in the lungs. Fransisco Brooke MD Head CT 03/11/17 0000 Signed Impressions: Service Date/Time: Saturday, March 11, 2017 12:14 - CONCLUSION: 1. Sizable area of intraparenchymal hemorrhage involving the left posterior temporal and occipital cortex. There is some degree of intraventricular hemorrhage as well. Changes are similar to previous MRI dated 03/10/17. Kirt Pretty MD Brain MRI 03/10/17 0000 Signed Impressions: Service Date/Time: Friday, March 10, 2017 16:51 - CONCLUSION: 1. There is an area of acute intracranial hemorrhage involving the left temporal occipital cortex measuring at least 4.4 x 7.5 cm. There is extensive mass effect associated with this. There is rupture into the ventricular system with some hemorrhage within the left lateral ventricle. There is a small amount hemorrhage within the posterior horn of the right lateral ventricle as well. Kirt Pretty MD PE at Discharge GENERAL: Elderly and frail male in no apparent distress. CARDIOVASCULAR: Normal rate and regular rhythm without murmurs, gallops, or rubs. RESPIRATORY: breath sounds equal and clear to auscultation bilaterally. GASTROINTESTINAL: Abdomen soft, non-tender, non-distended. Normal active bowel sounds MUSCULOSKELETAL: Extremities without cyanosis, or edema. NEURO: Awake. Follow some commands. Incoherent speech PSYCH: Calm Pt update on day of discharge Pt pleasantly confused but denies any pain. No CP/SOB/N/V Off restraints per RN since 6:20pm yesterday and has been doing well. Tolerating a diet. Hospital Course 67-year-old male admitted from the psychiatric unit with failure to thrive and severe malnutrition. Patient later developed mumbled speech with aphasia. MRI revealed ICH. This has been treated conservatively. His encephalopathy persisting. He needs [facility] facility placement once he has been off restraints x 24 hrs. Medications were titrated for agitation symptoms. ICH: MRI revealed a 4.4 x 7.5 cm area of intracranial hemorrhage involving the left temporal occipital cortex. Acute encephalopathy Neurosurgery followed and signed off. Advise nonoperative management for now. Repeat Brain CAT scan stable. - Coumadin and aspirin held since 03/10/17, plan to hold for total 14 days. - Keppra for seizure prophylaxis x 7 days (stop date 03/17) therefore pt was not discharged on any - Encephalopathy and agitation are likely related to the stroke and underlying psychiatric disorder. Highly doubt alcohol withdrawal since the patient has been in the hospital since 02/28 - Patient started on low-dose Seroquel with improvement. dose was increased to 50 mg twice a day. Psychiatry consulted for assistance. Severe malnutrition due to decreased oral intake, poor BMI, and functional capacity. Dietitian following. He is eating better but needs assistance. Continue to monitor. History of aortic stenosis: Status post bioprosthetic aortic valve replacement. Coumadin on hold due to ICH. To be resumed after 2 weeks. Atrial fibrillation: Rate controlled. Anticoagulation on hold due to ICH. Per neurosurgery, need to hold anticoagulation for 2 weeks prior to restarting. Hyponatremia: Status post 2% normal saline per reservation clerk. Currently on salt tablets. Sodium level acceptable. to be monitored as an outpatient. Hypertension, essential: Continue lisinopril. Patient is on Catapres patch and amlodipine Pt Condition on Discharge: Stable Discharge Disposition: Discharge to SNF Discharge Time: > 30 minutes Discharge Instructions DIET: Follow Instructions for: As Tolerated, No Restrictions Activities you can perform: Regular-No Restrictions Follow up Referrals: Neurosurgery - 2 Weeks PCP Follow-up - 2-3 Days Psychiatry Adult - 1 Week New Orders: BASIC METABOLIC PROF - 2-3 Days New Medications: Clonidine 168 HR Patch ([id number] 168 HR Patch) 0.1 Mg/24 Hr Patch 1 PATCH T-DERMAL Q7D, #1 to be changed on 12/19/16 (was changed on 03/14/17) Famotidine (Famotidine) 20 Mg Tab 20 MG PO BID for 30 Days, #60 TAB Lisinopril (Lisinopril) 10 Mg Tab 10 MG PO DAILY for 30 Days, #30 TAB Quetiapine (Quetiapine) 25 Mg Tab 50 MG PO BID for 30 Days, #120 TAB Sodium Chloride (Sodium Chloride) 1 Gram Tab 3 GM PO Q8H for 30 Days, TAB Continued Medications: Ipratropium-Albuterol Neb (Duoneb) 0.5-2.5 Mg/3 Ml Neb 1 AMPULE NEB Q2HR NEB PRN for WHEEZING for 30 Days, ML Nitroglycerin SL (Nitrostat SL) 0.4 Mg Subl 0.4 MG SL DIRECTED PRN for CHEST PAIN, #100 TAB.SL 0 Refills 1 tablet under the tongue as needed for chest pain. Repeat every 5 minutes for a total of 3 DOSES or call 911 if NO relief. Pravastatin (Pravachol) 40 Mg Tab 40 MG PO HS for Cholesterol Management for 30 Days, TAB Tamsulosin (Tamsulosin) 0.4 Mg Cap 0.4 MG PO DAILY for Manage Prostate Problems, #30 CAP 0 Refills Discontinued Medications: Aspirin (Aspirin Low Strength) 81 Mg Chew 81 MG CHEW DAILY for Blood Clot Prevention, #30 EA Levofloxacin (Levaquin) 750 Mg Tablet 750 MG PO DAILY for Infection, #3 TAB Lisinopril (Lisinopril) 20 Mg Tab 20 MG PO DAILY for Blood Pressure Management, #30 TAB Warfarin (Coumadin) 5 Mg Tab 5 MG PO DAILY@1600 for Blood Clot Prevention for 30 Days, TAB Rosa Poe MD Mar 18, 2017 16:56
--- NOTE | 2017-03-28 13:29 | HHI.PYPN ---
Subjective Remarks This is a late entry for March 15. There is no was mistakenly documented in the different account number. Patient was seen today for psychiatric follow-up, patient is restrained in 2 points, restless, agitated, disoriented and disorganized. He says that "I am here because I spend all my money", when asked where he is "I am in someplace". He mumbles and is mostly incoherent. As per nurse patient has been agitated, tried to rip the IV lines to redirect verbally. Mental Status Examination Appearance: Appropriate Consciousness: Alert Orientation: x4 Motor Activity: Normal gait Speech: Unremarkable Language: Adequate Fund of Knowledge: Adequate Attention and Concentration: Adequate Memory: Unremarkable Mood: Appropriate Affect: Appropriate Thought Process & Associations: Intact Thought Content: Appropriate Hallucination Type: None Delusion Type: None Suicidal Ideation: No Suicidal Plan: No Suicidal Intention: No Homicidal Ideation: No Homicidal Plan: No Homicidal Intention: No Insight: Adequate Judgment: Adequate Assessment & Plan Problem List: (1) Major depressive disorder with psychotic features ICD Codes: F32.3 - Major depressive disorder, single episode, severe with psychotic features Status: Acute Assessment & Plan: Continue Seroquel 25 mg twice a day. Will add Haldol 2 mg IM every 8 hours when necessary agitation. will Follow-up. Assessment & Plan Estimated LOS: days Justification for Cont. Inpt. Patient needs to continue psychiatry hospitalization Kenny Groves MD Mar 28, 2017 13:29
== END 2017-03-18 20:10 | DRG 64 ==
LOC: UNDOADMIN 17:07 → HOCA 17:07 → N03B 03-10 19:25 → N04B 03-15 21:26
PROVIDERS: ADMIT Hospitalist; ATTEND Hospitalist
DX: I61.5 Nontraumatic intracerebral hemorrhage, intraventricular (principal); E43 Unspecified severe protein-calorie malnutrition; G93.40 Encephalopathy, unspecified; J44.1 Chronic obstructive pulmonary disease with (acute) exacerbation; I48.2 Chronic atrial fibrillation; R13.10 Dysphagia, unspecified; E87.1 Hypo-osmolality and hyponatremia; Z79.01 Long term (current) use of anticoagulants; R47.01 Aphasia; Z68.1 Body mass index [BMI] 19.9 or less, adult; I10 Essential (primary) hypertension; F32.9 Major depressive disorder, single episode, unspecified; Z78.1 Physical restraint status; R62.7 Adult failure to thrive; I25.10 Atherosclerotic heart disease of native coronary artery without angina pectoris; N40.1 Benign prostatic hyperplasia with lower urinary tract symptoms; R33.8 Other retention of urine; E78.5 Hyperlipidemia, unspecified; F41.9 Anxiety disorder, unspecified; F10.10 Alcohol abuse, uncomplicated; E87.6 Hypokalemia; Z51.5 Encounter for palliative care; T45.515A Adverse effect of anticoagulants, initial encounter; Z79.82 Long term (current) use of aspirin; Z95.1 Presence of aortocoronary bypass graft; Z95.3 Presence of xenogenic heart valve; Z59.0 Homelessness; I25.2 Old myocardial infarction; Z87.891 Personal history of nicotine dependence
CPT/HCPCS: 36430; 36600; 70450; 70553; 71010; 76937; 80048; 80053; 80076; 82805; 83735; 84100; 84295; 85025; 85027; 85610; 86900; 86901; 86927; 87641; 90471; 90686; 93306; 94640; 94664; A9579; G0008; J0360; J1953; J2060; J3411; J3480; J7030; J7040; P9017; Q2038